=== PATIENT | male | born 1985 | race Caucasian/White ===

== ENCOUNTER 2017-07-28 20:22 | Emergency (ER) | payer MEDICAID, SELFPAY ==
[2017-07-28 20:23] VITALS: BP 144/104; PULSE 93; RESP 20; TEMP 36.4; O2SAT 97; BMI 37.0
--- NOTE | 2017-07-28 20:42 | RAD_ITS ---
XR Shoulder Min 2 Views INDICATION: Pain. PT STATED PAIN NO RECENT INJURY COMPARISON: None TECHNIQUE: 3 views of the left shoulder FINDINGS: There is normal glenohumeral relationship. Cortical irregularity is noted at the superior lateral aspect of the humeral head, may represent prior injury. No acute fracture identified at the proximal humerus or glenoid. There is normal alignment at the acromioclavicular joint. Mild osteophytosis is noted. A lucent line seen in the metadiaphyseal region of the left clavicle without evidence of displacement. There appears to be a periosteal reaction, suggestive of healing. RAD/Shoulder min 2 Views IMPRESSION: Healing or healed nondisplaced left clavicular fracture. No evidence of acute fracture or dislocation. Degenerative changes. at 2145 Reported and signed by: Rossana Daniels MD Electronically Signed: Rossana Daniels MD at 21:44 EDT Tel , Service support ,
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
[2017-07-28 21:35] VITALS: BP 154/78; PULSE 80; RESP 16; O2SAT 98
== END 2017-07-28 21:35 | disposition home or self-care (01) ==
PROVIDERS: Emergency Provider Emergency Medicine; Family Provider Nurse Practitioner Family; PCP Nurse Practitioner Family
DX: S46.912A Strain of unspecified muscle, fascia and tendon at shoulder and upper arm level, left arm, initial encounter (principal); X58.XXXA Exposure to other specified factors, initial encounter; Y93.9 Activity, unspecified; Y92.9 Unspecified place or not applicable; Y99.9 Unspecified external cause status; J45.909 Unspecified asthma, uncomplicated; M54.9 Dorsalgia, unspecified
CPT/HCPCS: 73030; 99282

== ENCOUNTER 2017-10-15 18:51 | Emergency (ER) | payer MEDICAID, SELFPAY ==
[2017-10-15 18:52] VITALS: BP 152/92; PULSE 77; RESP 14; TEMP 36.8; O2SAT 98; BMI 34.0
--- NOTE | 2017-10-15 19:16 | ED.VISSUMM ---
- ER Visit Summary Date of Service: 10/15/17 Chief Complaint: Suicidal ideation, homicidal ideation History of Present Illness: The patient is a 32 M who is brought in by police due to being suicidal homicidal. He states that he is mad at the world and wished he was . He wants to hurt the whole world as well. He states that he is homeless and has not had anything to eat for a couple of days. He does not see a psychiatrist currently. He has been off of his meds for some time. Physical Examination: Vital signs reviewed. HEENT exam unremarkable. Heart is regular rate and rhythm without murmurs. Lungs are clear to auscultation. Abdomen is soft and nontender. Extremities reveal no edema. Skin exam normal. Neurologic exam normal. Patient is agitated and gets very irritated when you ask many questions. He is suicidal and homicidal Test Results: Screening labs are negative except for potassium 3.4. Tox screen reveals marijuana Emergency Department Course and Treatment: Patient was evaluated by crisis. Both he and I feel the patient does not need to be admitted. He is angry at the world but is not acutely suicidal. Patient will be discharged and will be driven to his girlfriend's house by Ramirez Treatment Plan: [] Disposition: Discharge Impression: Behavior disorder This note was generated with [employer] dictation software. It may contain incorrect words, spelling, and punctuation that were not noted in review of the chart prior to signing ED Disposition - Plan for ED Patient: Chief Complaint: Suicidal Referrals: Tobias Bergman, HEATHER-C [Primary Care Provider] -
--- NOTE | 2017-10-15 19:32 | ED.RN ---
pt states he does not take any medications at this time. he used to take meds but it was 1-2 years ago. pt does not know what they were.
[2017-10-15 19:37] LABS: Absolute Lymphocyte Count 2.96 X10^3/ul (0.83-4.51); Absolute Neutrophil Count 6.4 X10^3/uL (2.0-7.7); Basophil# 0.02 X10^3/uL; Basophil% 0.2 % (0-1); Eosinophil# 0.16 X10^3/uL; Eosinophils% 1.6 % (0-5); Hematocrit 45.1 % (40-54); Hemoglobin 15.3 g/dl (13.0-16.5); Lymphocyte # 2.96 X10^3/ul (4.0); Lymphocyte % 28.7 % (19-41); Mean Corp Hgb Conc 33.9 g/gl (32-36); Mean Corpuscular Volume 85.4 fL (80-94); Mean Platelet Vol. 10.1 fl (6.2-12.0); Monocyte# 0.72 X10^3/uL; Neutrophil # 6.42 X10^3/uL (2.7-7.7); Neutrophil % 62.3 % (47-70); Platelet Count 164 K/mm3 (150-450); RBC Distribution Width SD 43.3 fl (35.1-43.9); Red Blood Count 5.28 M/mm3 (4.6-6.2); White Blood Count 10.3 K/mm3 (4.4-11.0)
[2017-10-15 19:42] LABS: POSITIVE COUNT NO; POSITIVE DIFFERENTIAL NO; POSITIVE MORPHOLOGY NO
[2017-10-15 20:01] VITALS: PULSE 72; RESP 22
[2017-10-15 20:03] LABS: Anion Gap 7 (5-15); BUN 19 mg/dL (7-18); BUN/Creat Ratio 24.1 RATIO (10-20); Calcium,Total 8.5 mg/dL (8.5-10.1); Chloride 110 mmol/L (98-107); Creatinine, Serum 0.79 mg/dL (0.70-1.30); EST Glomerular Filtration Rate 121 mL/min (>60); Est Glom Filt Rate - Afr Amer 147 mL/min (>60); Estimated Creatinine Clearance 151.71 ml/min; Glucose 90 mg/dL (74-106); Potassium 3.4 mmol/L (3.5-5.1); Sodium Level 141 mmol/L (136-145)
[2017-10-15 20:35] LABS: Amphetamine Urine VISTA NEGATIVE (<1000 ng/mL); Barbiturate Urine VISTA NEGATIVE (< 200 ng/mL); Benzodiazepine Urine VISTA NEGATIVE (< 200 ng/mL); Cocaine Urine VISTA NEGATIVE (< 300 ng/mL); Ecstacy Urine VISTA NEGATIVE (< 500 ng/mL); Methadone Urine VISTA NEGATIVE (< 300 ng/mL); PCP Urine VISTA NEGATIVE (< 25 ng/mL); THC Urine VISTA POSITIVE (< 50 ng/mL); Vista UDS pH Range 5
--- NOTE | 2017-10-15 20:49 | ED.RN ---
CALLED CRISIS TO SEE THIS PT, JAY DE LEÓN IS TELEPHONE TRIAGE NURSE
--- NOTE | 2017-10-15 20:56 | ED.RN ---
JAY CALLED BACK, HE WILL BE IN, IN A LITTLE BIT.
[2017-10-15 21:41] VITALS: BP 145/80; PULSE 77; RESP 18; O2SAT 99
--- NOTE | 2017-10-15 22:52 | ED.DEP ---
ED Disposition - Plan for ED Patient: Disposition: Home or Assisted Living Chief Complaint: Suicidal Instructions: ED Personality Disorder Referrals: Tobias Bergman, HEATHER-C [Primary Care Provider] -
[2017-10-15 22:57] VITALS: BP 145/80; PULSE 74; RESP 16; O2SAT 97
== END 2017-10-15 22:58 | disposition home or self-care (01) ==
PROVIDERS: Emergency Provider Emergency Medicine; Family Provider Nurse Practitioner Family; PCP Nurse Practitioner Family
DX: F31.9 Bipolar disorder, unspecified (principal); F91.9 Conduct disorder, unspecified; R45.851 Suicidal ideations; R45.850 Homicidal ideations; Z59.0 Homelessness
CPT/HCPCS: 36415; 80048; 80307; 80320; 85025; 99283; G0480

== ENCOUNTER 2017-11-02 14:37 | Emergency (ER) | payer MEDICAID, SELFPAY ==
[2017-11-02 14:38] VITALS: BP 148/91; PULSE 103; RESP 18; TEMP 37; O2SAT 98; BMI 35.2
--- NOTE | 2017-11-02 15:22 | ED.VISSUMM ---
- ER Visit Summary Date of Service: 11/02/17 Chief Complaint: Exacerbation of chronic back pain History of Present Illness: The patient is a 45 F with history of back pain for the past 6 months. He states his primary care provider states he needs back surgery. He reports his been sleeping on his parents floor for the past 3 days. He denies bowel bladder function. I saddle paresthesia anesthesia. Denies radicular pain. Denies foot drop. He denies thigh weakness going up or down steps. He does not prefer to stand over sitting. Physical Examination: Vital signs are marked for slight elevation blood pressure 124/67. He appears in no distress. He moves quite freely with no hesitation or evidence of pain. HEENT exam is unremarkable. Heart is regular without murmur, gallop or rub. S1 and S2 are normal. Lungs are clear to auscultation with good movement of air bilaterally. Abdomen is soft and nontender. There is no guarding or peritoneal findings. There is no palpable pulsatile mass. There is no abdominal bruit. Gardner sign is negative. Negative Rovsing sign. There is no evidence of inguinal or umbilical hernia. He has reproducible pain right lower back. Straight leg test and crossover tests are negative. Patella and ankle reflex are 2+ and symmetric. DP and PT pulses are palpable and symmetric. He has normal perianal sensation. There is no evidence of trauma. Test Results: None Emergency Department Course and Treatment: Since patient has taken nothing for his pain and he has no contraindication to NSAIDs he was given dose of Naprosyn. Treatment Plan: Anti-inflammatory Disposition: Discharged home with appropriate home-going instructions Impression: Acute on chronic right lower back pain without sciatica [] This note was generated with [employer] dictation software. It may contain incorrect words, spelling, and punctuation that were not noted in review of the chart prior to signing ED Disposition - Plan for ED Patient: Disposition: Home or Assisted Living Chief Complaint: Back Instructions: ED Neck Back Pain General Prescriptions: Naproxen [Naprosyn] 500 mg PO BID #14 tab Referrals: Tobias Bergman, ACTIVITIES THERAPIST-C [Primary Care Provider] - 1 Week if not improving
--- NOTE | 2017-11-02 15:25 | ED.DCSUM_ITS ---
- ER Visit Summary Date of Service: 11/02/17 Chief Complaint: Exacerbation of chronic back pain History of Present Illness: The patient is a 45 F with history of back pain for the past 6 months. He states his primary care provider states he needs back surgery. He reports his been sleeping on his parents floor for the past 3 days. He denies bowel bladder function. I saddle paresthesia anesthesia. Denies radicular pain. Denies foot drop. He denies thigh weakness going up or down steps. He does not prefer to stand over sitting. Physical Examination: Vital signs are marked for slight elevation blood pressure 124/67. He appears in no distress. He moves quite freely with no hesitation or evidence of pain. HEENT exam is unremarkable. Heart is regular without murmur, gallop or rub. S1 and S2 are normal. Lungs are clear to auscultation with good movement of air bilaterally. Abdomen is soft and nontender. There is no guarding or peritoneal findings. There is no palpable pulsatile mass. There is no abdominal bruit. Gardner sign is negative. Negative Rovsing sign. There is no evidence of inguinal or umbilical hernia. He has reproducible pain right lower back. Straight leg test and crossover tests are negative. Patella and ankle reflex are 2+ and symmetric. DP and PT pulses are palpable and symmetric. He has normal perianal sensation. There is no evidence of trauma. Test Results: None Emergency Department Course and Treatment: Since patient has taken nothing for his pain and he has no contraindication to NSAIDs he was given dose of Naprosyn. Treatment Plan: Anti-inflammatory Disposition: Discharged home with appropriate home-going instructions Impression: Acute on chronic right lower back pain without sciatica [] This note was generated with [employer] dictation software. It may contain incorrect words, spelling, and punctuation that were not noted in review of the chart prior to signing ED Disposition - Plan for ED Patient: Disposition: Home or Assisted Living Chief Complaint: Back Instructions: ED Neck Back Pain General Prescriptions: Naproxen [Naprosyn] 500 mg PO BID #14 tab Referrals: Tobias Bergman, [employer]C [employer] K[employer]OCKOUT WORKER-C [Primary Care Provider] - 1 Week if not improving
--- NOTE | 2017-11-02 15:47 | ED.RN ---
D/C INSTRUCTIONS REVIEWED. PT REFUSING NAPROSYN FOR PAIN. STATES HE CANNOT TAKE NAPROSYN D/T CAUSES THE SHITS. ASKED PT IF HE NEEDS NEW RX WRITTEN, PT REQUESTING IBUPROFEN-PT INFORMED THAT NAPROSYN AND IBUPROFEN ARE BOTH NSAIDS. PT REFUSED GETTING A DIFF PAIN MED. PT ANXIOUS TO LEAVE. DENIES FURTHER NEEDS
== END 2017-11-02 15:53 | disposition home or self-care (01) ==
LOC: ED 15:43
PROVIDERS: Emergency Provider Emergency Medicine; Family Provider Nurse Practitioner Family; PCP Nurse Practitioner Family
DX: M54.5 Low back pain (principal); G89.29 Other chronic pain; R03.0 Elevated blood-pressure reading, without diagnosis of hypertension; E66.9 Obesity, unspecified
CPT/HCPCS: 99282

== ENCOUNTER 2018-03-11 18:41 | Emergency (ER) | payer MEDICAID, SELFPAY ==
[2018-03-11 18:42] VITALS: BP 160/111; PULSE 102; RESP 16; TEMP 37; O2SAT 98; BMI 37.1
--- NOTE | 2018-03-11 18:56 | RAD_ITS ---
STUDY: X-RAY - LEFT SHOULDER REASON FOR EXAM: Male, 32 years old. Pain TECHNIQUE: 2 view(s) of the shoulder. COMPARISON: 07/28/2017 FINDINGS: Normal glenohumeral articulation. Normal acromioclavicular joint. Normal acromion. Stable contour irregularity in the superior lateral humeral head suggestive of previous injury Normal humeral head and visualized proximal humerus. The soft tissue structures are unremarkable. Normal visualized pulmonary apex. RAD/Shoulder min 2 Views IMPRESSION: No acute findings Electronically Signed: Fabián Mario MD at 19:13 EST , Service support ,
--- NOTE | 2018-03-11 19:17 | ED.DCSUM_ITS ---
- ER Visit Summary Date of Service: 03/11/18 Chief Complaint: Left shoulder injury History of Present Illness: The patient is a 32 M presents to the emergency department with left shoulder injury. Patient has a history of prior dislocation. He states that he was outside waiting for his father to leave the doctor. He states he put his hand on the tailgate of truck and slipped. He struck the posterior aspect of the shoulder against the truck. Since then, he has had pain. He states it feels different than when he had prior dislocations. He did not strike his head. He denies loss of consciousness. Physical Examination: Exam is relatively unremarkable. Patient does have ten derness in the posterior aspect of the shoulder. There is no balta dislocation. His axillary nerve is preserved. His pulses are normal. He does lift and move the arm. Test Results: [] Emergency Department Course and Treatment: Plain films were obtained. There is no evidence of acute fracture. I do feel that his symptoms are secondary to contusion. His pulses are normal. At this time, the patient will be treated with anti-inflammatories and discharged home. Treatment Plan: [] Disposition: Discharge Impression: 1. Left shoulder contusion This note was generated with [employer] dictation software. It may contain incorrect words, spelling, and punctuation that were not noted in review of the chart prior to signing ED Disposition - Plan for ED Patient: Chief Complaint: Upper Extremity Injury Instructions: ED Sprain Shoulder Prescriptions: Naproxen [Naprosyn] 500 mg PO BID PRN #20 tab Referrals: Tobias Bergman NP-González [Primary Care Provider] -
[2018-03-11] MEDS: HYDROcodone Bitartrate/Apap 5/325 Tablet PO (19:31)
[2018-03-11 19:42] VITALS: BP 150/100; PULSE 92; RESP 16; O2SAT 99
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
== END 2018-03-11 19:42 | disposition home or self-care (01) ==
PROVIDERS: Emergency Provider Emergency Medicine; Family Provider Nurse Practitioner Family; PCP Nurse Practitioner Family
DX: S40.012A Contusion of left shoulder, initial encounter (principal); W22.09XA Striking against other stationary object, initial encounter; Y93.9 Activity, unspecified; Y92.9 Unspecified place or not applicable; Y99.9 Unspecified external cause status; J45.909 Unspecified asthma, uncomplicated
CPT/HCPCS: 73030; 99282

== ENCOUNTER 2018-10-09 16:53 | Emergency (ER) | payer MEDICAID, SELFPAY ==
[2018-10-09 16:54] VITALS: BP 132/94; PULSE 85; RESP 14; RESP 15; TEMP 36.9; O2SAT 95; BMI 37.2
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
== END 2018-10-09 17:24 | disposition home or self-care (01) ==
PROVIDERS: Emergency Provider Emergency Medicine; Family Provider Nurse Practitioner Family; PCP Nurse Practitioner Family
DX: H60.501 Unspecified acute noninfective otitis externa, right ear (principal); I10 Essential (primary) hypertension; Z72.0 Tobacco use; Z79.899 Other long term (current) drug therapy
CPT/HCPCS: 99282

== ENCOUNTER 2018-10-25 22:42 | Emergency (ER) | payer MEDICAID, SELFPAY ==
[2018-10-25 22:43] VITALS: BP 144/125; PULSE 122; RESP 20; TEMP 36.6; O2SAT 95; BMI 36.3
--- NOTE | 2018-10-25 23:12 | ED.RN ---
PT WAS UPSET ABOUT THE DOOR BEING CLOSED AND YELLED WELL I'M JUST LEAVING PT LEFT ROOM. [employer] OFFICER INFORMED THIS NURSE THAT PT ADMITTED TO HAVING BED BUG BITES FROM STAYING AT [facility]. PT HAS LEFT [facility].
== END 2018-10-25 23:00 | disposition left against medical advice (07) ==
PROVIDERS: Emergency Provider Emergency Medicine; Family Provider Nurse Practitioner Family; PCP Nurse Practitioner Family
DX: Z53.21 Procedure and treatment not carried out due to patient leaving prior to being seen by health care provider (principal)

== ENCOUNTER 2019-01-05 14:55 | Emergency (ER) | payer MEDICAID, SELFPAY ==
[2018-11-16 11:46] VITALS: BMI 36.3
[2019-01-05 14:56] VITALS: BP 140/76; PULSE 95; RESP 14; TEMP 36.6; O2SAT 97; BMI 36.5
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
[2019-01-05 16:07] VITALS: BP 137/81; PULSE 87; RESP 14; O2SAT 97
== END 2019-01-05 16:08 | disposition home or self-care (01) ==
LOC: ED 15:23
PROVIDERS: Emergency Provider Emergency Medicine; Family Provider Nurse Practitioner Family; PCP Nurse Practitioner Family
DX: S70.01XA Contusion of right hip, initial encounter (principal); V03.10XA Pedestrian on foot injured in collision with car, pick-up truck or van in traffic accident, initial encounter; Y93.01 Activity, walking, marching and hiking; Y93.C9 Activity, other involving computer technology and electronic devices; Y92.830 Public park as the place of occurrence of the external cause; Y99.9 Unspecified external cause status; J45.909 Unspecified asthma, uncomplicated; F31.9 Bipolar disorder, unspecified; F90.9 Attention-deficit hyperactivity disorder, unspecified type; Z72.0 Tobacco use; Z79.899 Other long term (current) drug therapy
CPT/HCPCS: 73502; 99282

== ENCOUNTER → 2020-06-07 14:27 | Outpatient (CLI) | payer MEDICAID, SELFPAY ==
[2019-05-13 13:07] VITALS: BMI 36.5
[2020-06-07 17:28] LABS: ALB/GLOB Ratio 0.9 RATIO (0.9-2.4); AST(SGOT) 22 U/L (15-37); Alanine Aminotransfer ALT/SGPT 45 U/L (16-61); Albumin, Serum 3.7 g/dL (3.2-5.0); Alkaline Phosphatase 80 U/L (45-117); Anion Gap 7 (5-15); BUN 14 mg/dL (7-18); BUN/Creat Ratio 16.3 RATIO (10-20); Calcium,Total 8.4 mg/dL (8.5-10.1); Chloride 107 mmol/L (98-107); Cholesterol 202 mg/dL (200); Creatinine, Serum 0.86 mg/dL (0.70-1.30); EST Glomerular Filtration Rate 108 mL/min (>60); Est Glom Filt Rate - Afr Amer 131 mL/min (>60); Globulin 4.1 g/dL (2.2-4.2); Glucose 92 mg/dL (74-106); High Density Lipoprotein 34 mg/dL; Potassium 3.6 mmol/L (3.5-5.1); Protein, Total 7.8 g/dL (6.4-8.2); Sodium Level 141 mmol/L (136-145); Triglycerides 173 mg/dL; Very Low Density Lipoprotein 35 mg/dL (5-40)
== END ==
PROVIDERS: PCP Nurse Practitioner Family; Visit Provider Nurse Practitioner Family
DX: Z13.220 Encounter for screening for lipoid disorders (principal); Z13.1 Encounter for screening for diabetes mellitus
CPT/HCPCS: 36415; 80053; 80061

== ENCOUNTER → 2020-07-02 14:24 | Outpatient (CLI) | payer MEDICAID, SELFPAY ==
[2019-05-13 13:07] VITALS: BMI 36.5
[2020-07-07 09:07] LABS: Alternaria tenuis <0.10 kU/L (Class 0); Ash, White <0.10 kU/L (Class 0); Aspergillus fumigatus <0.10 kU/L (Class 0); Bermuda Grass <0.10 kU/L (Class 0); Birch <0.10 kU/L (Class 0); Black Walnut <0.10 kU/L (Class 0); Cat Hair / Dander,Stand 0.95 kU/L (Class II); Cedar, Mountain <0.10 kU/L (Class 0); Cladosporium herbarum <0.10 kU/L (Class 0); Cockroach, American <0.10 kU/L (Class 0); Cottonwood <0.10 kU/L (Class 0); Dog Epithelia 0.32 kU/L (Class I); Elm, American White <0.10 kU/L (Class 0); Immunoglobulin E 118 IU/mL (6-495); Maple/Box Elder <0.10 kU/L (Class 0); Mouse Urine <0.10 kU/L (Class 0); Mulberry, White <0.10 kU/L (Class 0); Oak, White <0.10 kU/L (Class 0); Pecan <0.10 kU/L (Class 0); Penicillium Notatum <0.10 kU/L (Class 0); Pigweed, Rough <0.10 kU/L (Class 0); Ragweed, Short/Common <0.10 kU/L (Class 0); Russian Thistle <0.10 kU/L (Class 0); Sheep Sorrel <0.10 kU/L (Class 0); Sycamore, American <0.10 kU/L (Class 0); Timothy Grass <0.10 kU/L (Class 0)
[2020-07-15 15:13] LABS: Chicken <0.10 kU/L
[2020-07-15 15:15] LABS: Clam <0.10 kU/L; Crab <0.10 kU/L; Egg, Whole <0.10 kU/L
[2020-07-15 15:18] LABS: Pork <0.10 kU/L
[2020-07-15 15:19] LABS: Potato, White <0.10 kU/L; Rice <0.10 kU/L; Salmon <0.10 kU/L
[2020-07-15 15:20] LABS: Shrimp <0.10 kU/L; Tomato <0.10 kU/L; Wheat <0.10 kU/L; Yeast <0.10 kU/L
== END ==
PROVIDERS: PCP Nurse Practitioner Family; Visit Provider Otolaryngology Otolaryngology/Facial Plastic Surgery
DX: T78.40XA Allergy, unspecified, initial encounter (principal)
CPT/HCPCS: 36415; 82785; 86003

== ENCOUNTER → 2020-12-03 11:28 | Outpatient (CLI) | payer MEDICAID, SELFPAY ==
[2020-12-03 12:15] LABS: Hematocrit 50.1 % (40-54); Hemoglobin 16.5 g/dL (13.0-16.5); Mean Corp Hgb Conc 32.9 g/dL (32-36); Mean Corpuscular Hgb 29.1 pg (27.0-32.0); Mean Corpuscular Volume 88.4 fL (80-94); Mean Platelet Vol. 10.8 fl (6.2-12.0); Platelet Count 221 K/mm3 (150-450); RBC Distribution Width CV 13.4 % (11.6-14.6); RBC Distribution Width SD 43.8 fl (35.1-43.9); Red Blood Count 5.67 M/mm3 (4.6-6.2); White Blood Count 8.9 K/mm3 (4.4-11.0)
[2020-12-03 12:45] LABS: AST(SGOT) 19 U/L (15-37); Alanine Aminotransfer ALT/SGPT 51 U/L (16-61); Albumin, Serum 3.6 g/dL (3.2-5.0); Alkaline Phosphatase 76 U/L (45-117); Anion Gap 4 (5-15); BUN 11 mg/dL (7-18); BUN/Creat Ratio 13.6 RATIO (10-20); Calcium,Total 8.5 mg/dL (8.5-10.1); Chloride 109 mmol/L (98-107); Cholesterol 166 mg/dL (200); Creatinine, Serum 0.81 mg/dL (0.70-1.30); EST Glomerular Filtration Rate 115 mL/min (>60); Est Glom Filt Rate - Afr Amer 140 mL/min (>60); Globulin 3.7 g/dL (2.2-4.2); Glucose 102 mg/dL (74-106); High Density Lipoprotein 29 mg/dL; Potassium 3.7 mmol/L (3.5-5.1); Protein, Total 7.3 g/dL (6.4-8.2); Sodium Level 139 mmol/L (136-145); Triglycerides 203 mg/dL; Very Low Density Lipoprotein 41 mg/dL (5-40)
== END ==
PROVIDERS: PCP Nurse Practitioner Family; Visit Provider Nurse Practitioner Family
DX: I10 Essential (primary) hypertension (principal); E78.00 Pure hypercholesterolemia, unspecified
CPT/HCPCS: 36415; 80053; 80061; 85027

== ENCOUNTER 2021-06-10 13:13 | Outpatient (CLI) | payer MEDICAID, SELFPAY ==
[2021-06-10 13:53] LABS: Hematocrit 49.9 % (40-54); Hemoglobin 17.1 g/dL (13.0-16.5); Mean Corp Hgb Conc 34.3 g/dL (32-36); Mean Corpuscular Hgb 29.2 pg (27.0-32.0); Mean Corpuscular Volume 85.3 fL (80-94); Mean Platelet Vol. 10.8 fl (6.2-12.0); Platelet Count 231 K/mm3 (150-450); RBC Distribution Width CV 13.4 % (11.6-14.6); RBC Distribution Width SD 41.9 fl (35.1-43.9); Red Blood Count 5.85 M/mm3 (4.6-6.2); White Blood Count 7.5 K/mm3 (4.4-11.0)
[2021-06-10 14:33] LABS: ALB/GLOB Ratio 0.9 RATIO (0.9-2.4); AST(SGOT) 20 U/L (15-37); Alanine Aminotransfer ALT/SGPT 42 U/L (16-61); Albumin, Serum 3.6 g/dL (3.2-5.0); Alkaline Phosphatase 73 U/L (45-117); Anion Gap 6 (5-15); BUN 15 mg/dL (7-18); Calcium,Total 8.1 mg/dL (8.5-10.1); Chloride 112 mmol/L (98-107); Cholesterol 160 mg/dL (200); Creatinine, Serum 0.83 mg/dL (0.70-1.30); EST Glomerular Filtration Rate 111 mL/min (>60); Est Glom Filt Rate - Afr Amer 135 mL/min (>60); Globulin 4.1 g/dL (2.2-4.2); Glucose 109 mg/dL (74-106); High Density Lipoprotein 33 mg/dL; Potassium 3.8 mmol/L (3.5-5.1); Protein, Total 7.7 g/dL (6.4-8.2); Sodium Level 141 mmol/L (136-145); Thyroid Stim Hormone (TSH) 1.12 uIU/mL (0.358-3.74); Triglycerides 139 mg/dL; Very Low Density Lipoprotein 28 mg/dL (5-40)
== END 2021-06-10 23:59 | disposition home or self-care (01) ==
LOC: LAB 13:15
PROVIDERS: PCP Nurse Practitioner Family; Referring Provider Nurse Practitioner Family; Visit Provider Nurse Practitioner Family
DX: I10 Essential (primary) hypertension (principal); E78.00 Pure hypercholesterolemia, unspecified; E78.1 Pure hyperglyceridemia; K21.9 Gastro-esophageal reflux disease without esophagitis; J30.2 Other seasonal allergic rhinitis; R63.8 Other symptoms and signs concerning food and fluid intake
CPT/HCPCS: 36415; 80053; 80061; 84443; 85027

== ENCOUNTER → 2021-12-26 | Outpatient (CLI) | payer MEDICAID, SELFPAY ==
[2021-12-26 14:32] LABS: Hematocrit 50.6 % (40-54); Hemoglobin 16.6 g/dL (13.0-16.5); Mean Corp Hgb Conc 32.8 g/dL (32-36); Mean Corpuscular Hgb 29.3 pg (27.0-32.0); Mean Corpuscular Volume 89.2 fL (80-94); Mean Platelet Vol. 10.3 fl (6.2-12.0); Platelet Count 195 K/mm3 (150-450); RBC Distribution Width CV 13.8 % (11.6-14.6); RBC Distribution Width SD 45.2 fl (35.1-43.9); Red Blood Count 5.67 M/mm3 (4.6-6.2); White Blood Count 9.5 K/mm3 (4.4-11.0)
[2021-12-26 15:00] LABS: PTHIN 48.6 pg/mL (18.4-80.1)
[2021-12-26 15:03] LABS: Vitamin D,25 Hydroxy 9.2 ng/mL
[2021-12-26 15:22] LABS: AST(SGOT) 17 U/L (15-37); Alanine Aminotransfer ALT/SGPT 40 U/L (16-61); Albumin, Serum 3.8 g/dL (3.2-5.0); Alkaline Phosphatase 61 U/L (45-117); Anion Gap 6 (5-15); BUN 16 mg/dL (7-18); BUN/Creat Ratio 17.4 RATIO (10-20); Calcium,Total 9.5 mg/dL (8.5-10.1); Chloride 109 mmol/L (98-107); Cholesterol 205 mg/dL (200); Creatinine, Serum 0.92 mg/dL (0.70-1.30); EST Glomerular Filtration Rate 99 mL/min (>60); Est Glom Filt Rate - Afr Amer 120 mL/min (>60); Globulin 3.9 g/dL (2.2-4.2); Glucose 103 mg/dL (74-106); High Density Lipoprotein 34 mg/dL; Potassium 3.9 mmol/L (3.5-5.1); Protein, Total 7.7 g/dL (6.4-8.2); Sodium Level 141 mmol/L (136-145); Triglycerides 154 mg/dL; Very Low Density Lipoprotein 31 mg/dL (5-40)
== END | disposition home or self-care (01) ==
LOC: LAB 13:58
PROVIDERS: PCP Nurse Practitioner Family; Referring Provider Nurse Practitioner Family; Visit Provider Nurse Practitioner Family
DX: D58.2 Other hemoglobinopathies (principal); I10 Essential (primary) hypertension; E78.00 Pure hypercholesterolemia, unspecified; E78.1 Pure hyperglyceridemia; E83.51 Hypocalcemia; M54.50 Low back pain, unspecified
CPT/HCPCS: 36415; 80053; 80061; 82306; 83970; 85027

== ENCOUNTER → 2022-04-28 | Outpatient (CLI) | payer MEDICAID, SELFPAY ==
[2022-04-28 15:43] LABS: Vitamin D,25 Hydroxy 43.9 ng/mL
== END | disposition home or self-care (01) ==
LOC: LAB 14:41
PROVIDERS: PCP Nurse Practitioner Family; Visit Provider Nurse Practitioner Family
DX: E55.9 Vitamin D deficiency, unspecified (principal)
CPT/HCPCS: 36415; 82306

== ENCOUNTER → 2022-07-26 | Outpatient (CLI) | payer MEDICAID, SELFPAY ==
[2022-07-26 13:41] LABS: Hematocrit 50.8 % (40-54); Hemoglobin 16.7 g/dL (13.0-16.5); Mean Corp Hgb Conc 32.9 g/dL (32-36); Mean Corpuscular Hgb 28.8 pg (27.0-32.0); Mean Corpuscular Volume 87.6 fL (80-94); Platelet Count 210 K/mm3 (150-450); RBC Distribution Width CV 14.3 % (11.6-14.6); RBC Distribution Width SD 45.5 fl (35.1-43.9); White Blood Count 9.6 K/mm3 (4.4-11.0)
[2022-07-26 14:16] LABS: Vitamin D,25 Hydroxy 27.1 ng/mL
[2022-07-26 14:18] LABS: AST(SGOT) 33 U/L (15-37); Alanine Aminotransfer ALT/SGPT 50 U/L (16-61); Albumin, Serum 3.8 g/dL (3.2-5.0); Alkaline Phosphatase 57 U/L (45-117); Anion Gap 4 (5-15); BUN 23 mg/dL (7-18); BUN/Creat Ratio 26.6 RATIO (10-20); Calcium,Total 8.7 mg/dL (8.5-10.1); Chloride 110 mmol/L (98-107); Cholesterol 235 mg/dL (200); Creatinine, Serum 0.87 mg/dL (0.70-1.30); EST Glomerular Filtration Rate 106 mL/min (>60); Est Glom Filt Rate - Afr Amer 128 mL/min (>60); Glucose 109 mg/dL (74-106); High Density Lipoprotein 29 mg/dL; Protein, Total 7.8 g/dL (6.4-8.2); Sodium Level 138 mmol/L (136-145); Triglycerides 209 mg/dL; Very Low Density Lipoprotein 42 mg/dL (5-40)
== END | disposition home or self-care (01) ==
LOC: LAB 12:59
PROVIDERS: PCP Nurse Practitioner Family; Referring Provider Nurse Practitioner Family; Visit Provider Nurse Practitioner Family
DX: I10 Essential (primary) hypertension (principal); E78.00 Pure hypercholesterolemia, unspecified; E78.6 Lipoprotein deficiency; E78.1 Pure hyperglyceridemia; E55.9 Vitamin D deficiency, unspecified; R73.01 Impaired fasting glucose
CPT/HCPCS: 36415; 80053; 80061; 82306; 85027

== ENCOUNTER → 2022-10-24 | Outpatient (CLI) | payer MEDICAID, SELFPAY ==
--- NOTE | 2022-10-24 16:42 | RAD_ITS ---
STUDY: X-RAY - BILATERAL RIBS WITH CHEST REASON FOR EXAM: Male, 37 years old. pain TECHNIQUE - RIBS: 9 view(s) of the ribs. TECHNIQUE - CHEST: Single AP portable view of the chest. COMPARISON: 11/03/2016. FINDINGS - RIBS : Normal visualized ribs without a demonstrated fracture. FINDINGS - CHEST: The lungs are clear and expanded. There is no demonstrated pleural abnormality. Normal size heart. Normal mediastinum and luciano. Normal visualized pulmonary arteries. Normal visualized aortic arch and descending thoracic aorta. Normal visualized thoracic spine. Normal visualized ribs, clavicles, and shoulders. There is no demonstrated abnormality of the visualized soft tissue structures of the upper abdomen. RAD/Ribs [place] Min 4V w/PA Chest IMPRESSION: RIBS: Normal x-ray examination of the bilateral ribs. CHEST: Normal x-ray examination of the chest. Electronically Signed: Tre Lyon MD at 17:13 EDT ,
== END | disposition home or self-care (01) ==
LOC: MTRAD 16:42
PROVIDERS: PCP Nurse Practitioner Family; Referring Provider Physician Assistant; Visit Provider Physician Assistant
DX: R07.81 Pleurodynia (principal)
CPT/HCPCS: 71111

== ENCOUNTER → 2023-01-19 | Outpatient (CLI) | payer MEDICAID, SELFPAY ==
[2023-01-19 15:15] LABS: Vitamin D,25 Hydroxy 29.1 ng/mL
[2023-01-19 15:18] LABS: Hemoglobin A1c 5.4 % (3.8-5.6)
[2023-01-19 15:23] LABS: AST(SGOT) 30 U/L (15-37); Alanine Aminotransfer ALT/SGPT 68 U/L (16-61); Albumin, Serum 3.8 g/dL (3.2-5.0); Alkaline Phosphatase 68 U/L (45-117); Anion Gap 2 (5-15); BUN 19 mg/dL (7-18); BUN/Creat Ratio 18.6 RATIO (10-20); Calcium,Total 9.1 mg/dL (8.5-10.1); Chloride 108 mmol/L (98-107); Cholesterol 179 mg/dL (200); Creatinine, Serum 1.02 mg/dL (0.70-1.30); EST Glomerular Filtration Rate 87 mL/min (>60); Est Glom Filt Rate - Afr Amer 106 mL/min (>60); Globulin 3.9 g/dL (2.2-4.2); Glucose 120 mg/dL (74-106); High Density Lipoprotein 32 mg/dL; Potassium 3.8 mmol/L (3.5-5.1); Protein, Total 7.7 g/dL (6.4-8.2); Sodium Level 139 mmol/L (136-145); Triglycerides 311 mg/dL; Very Low Density Lipoprotein 62 mg/dL (5-40)
== END | disposition home or self-care (01) ==
LOC: LAB 13:28
PROVIDERS: PCP Nurse Practitioner Family; Referring Provider Nurse Practitioner Family; Visit Provider Nurse Practitioner Family
DX: I10 Essential (primary) hypertension (principal); E78.00 Pure hypercholesterolemia, unspecified; E78.1 Pure hyperglyceridemia; E55.9 Vitamin D deficiency, unspecified; R73.01 Impaired fasting glucose
CPT/HCPCS: 36415; 80053; 80061; 82306; 83036

== ENCOUNTER → 2023-03-20 | Outpatient (CLI) | payer MEDICAID, SELFPAY ==
--- NOTE | 2023-03-20 15:46 | RAD_ITS ---
STUDY: X-RAY CHEST REASON FOR EXAM: Male, 37 years old. pain TECHNIQUE: Frontal and lateral views of the chest. COMPARISON: 10/24/2022. FINDINGS: Mild diffuse increased density of the left lung when compared to the right. Findings may be from overlying soft tissues but atypical left pulmonary opacities are not excluded. CT scan is recommended. No gross effusions. Normal size heart. Normal mediastinum and luciano. Normal visualized pulmonary arteries. Normal visualized aortic arch and descending thoracic aorta. Normal visualized thoracic spine. Normal visualized ribs, clavicles, and shoulders. There is no demonstrated abnormality of the visualized soft tissue structures of the upper abdomen. RAD/Chest PA and Lateral IMPRESSION: Cannot exclude mild diffuse pulmonary density of the left lung. CT scan recommended. Electronically Signed: Tre Lyon MD at 16:51 EST ,
== END | disposition home or self-care (01) ==
LOC: MTRAD 15:44
PROVIDERS: PCP Nurse Practitioner Family; Referring Provider Physician Assistant; Visit Provider Physician Assistant
DX: R07.89 Other chest pain (principal)
CPT/HCPCS: 71046

== ENCOUNTER → 2023-04-19 | Outpatient (CLI) | payer MEDICAID, SELFPAY ==
--- NOTE | 2023-04-19 14:47 | CT_ITS ---
INDICATION: radiologist''s recommendation EXAMINATION: CT CHEST WITHOUT CONTRAST - CT Chest W/O Contrast Injection TECHNIQUE: Helically acquired images were obtained of the chest. A radiation dose optimization technique was used for this scan. IV Contrast dosage and agent: None. COMPARISON: 03/20/2023 chest x-ray examination. FINDINGS: LUNGS, PLEURA AND LARGE AIRWAYS: No masses, consolidation, or edema. No pleural effusion or thickening. No pneumothorax. THYROID: No thyroid lesions. HEART AND PERICARDIUM: Heart size is normal. No pericardial effusion. CORONARY ARTERIES: Coronary artery calcification VESSELS: Thoracic aorta is not dilated. MEDIASTINUM AND LEELEE: No mediastinal or hilar adenopathy. Esophagus is unremarkable. No hiatal hernia. UPPER ABDOMEN: Diffuse fatty liver otherwise unremarkable upper abdomen. BONES: Multilevel spondylosis/degenerative disease throughout the thoracic spine. No suspicious lytic or blastic abnormality. CT/Chest without Contrast IMPRESSION: Negative CT chest without contrast. Electronically Signed: Isabell Hernandez MD at 20:13 EST ,
== END | disposition home or self-care (01) ==
LOC: CT 14:44
PROVIDERS: PCP Nurse Practitioner Family; Referring Provider Physician Assistant; Visit Provider Physician Assistant
DX: R91.8 Other nonspecific abnormal finding of lung field (principal)
CPT/HCPCS: 71250

== ENCOUNTER 2023-07-09 01:49 | Emergency (ER) | payer MEDICAID, SELFPAY ==
[2023-07-09 01:50] VITALS: BP 188/102; PULSE 113; RESP 22; TEMP 36.4; O2SAT 96; BMI 49.0
--- NOTE | 2023-07-09 01:57 | EDS_ITS ---
HPI History of Present Illness Chief Complaint: Back Informant: patient Onset/Context/Timing Onset: Today Context: Sudden Onset Injury: fall Timing: Continuous Quality: - (Cramping) Location: Lumbar and Left Leg Worsened by: improves with - (Everything) Relieved by: Nothing Associated Symptoms Associated Symptoms: Radiation to Left Leg; Negative for Numbness, Tingling, Radiation to Right Leg, Fever, Abdominal Pain, Dysuria, Unable to Ambulate, Unable to Transfer, Urinary Retention, Urinary Incontinence, Constipation or Fecal Incontinence Narrative Narrative: Patient presents with back pain that began today. Patient states he got up off of the toilet and started having some severe back pain. Patient states he felt and landed forward. Patient describes his pain as cramping. Patient states it is mainly over the left lumbar paraspinal muscles. Patient states that everything makes it worse. Patient states nothing makes it better. Patient states the pain radiates down his left leg. Patient denies any bowel or bladder changes. Patient denies any saddle anesthesia. [facility] Medical History Asthma Back pain Excessive cerumen in right ear canal Fatigue Left-sided chest wall pain Lumbar contusion Lumbar strain Mass of left lung Muscle strain of chest wall Home Medications atenolol 25 mg tablet 25 mg PO DAILY 10/09/18 [History Last Taken Unknown] omeprazole 10 mg capsule,delayed release 10 mg PO DAILY 11/16/18 [History Last Taken Unknown] cyclobenzaprine 10 mg tablet 10 mg PO TID 06/28/22 [History Last Taken Unknown] fluticasone 100 mcg-salmeterol 50 mcg/dose blistr powdr for inhalation (Advair Diskus) 1 inh inhalation DAILY 11/23/22 [History Last Taken Unknown] naproxen 500 mg tablet 500 mg PO BID PRN #20 tabs 07/09/23 [Rx Last Taken Unknown] Allergy/AdvReac Type Severity Reaction Status Date / Time cefaclor [From [facility]] Allergy Hives Verified 07/09/23 01:51 Surgical History History of ankle surgery Social History Smoking Status: Current some day smoker tobacco type: cigarettes alcohol intake: never substance use type: marijuana ROS ROS ED Constitutional Constitutional ED: Denies chills or fever(s) Eyes Eyes: Denies blurry vision or change in vision ENT ENT ED: Denies rhinorrhea or sore throat Cardiovascular Cardiovascular: Denies chest pain or palpitations Respiratory/Chest Respiratory/Chest: Denies cough or dyspnea Gastrointestinal Gastrointestinal: Denies nausea or vomiting Genitourinary Genitourinary ED: Denies dysuria or hematuria Musculoskeletal Musculoskeletal: Reports back pain; Denies neck pain Integumentary Denies abscess or rash Neurologic Neurologic: Denies headache(s) or weakness Allergic/Immunologic Allergic/Immunologic ED: Denies mouth swelling or urticaria EXAM Physical Exam Const Vital Signs: 07/09/23 01:50 Temperature 97.5 F L Temperature Source Oral Pulse Rate 113 H Respiratory Rate 22 H Blood Pressure 188/102 H Blood Pressure Mean 130 Pulse Ox 96 Oxygen Delivery Method Room Air Positive well nourished, well developed and obese General Appearance ED: well developed and NAD Nutritional Appearance: obese HEENT Reports moist mucous membranes Neck supple and no JVD Back/Spine Back/Spine Narrative: There is tenderness and mild spasm in the left lumbar paraspinal muscles. There is no midline tenderness. There is no bony crepitance or step-off. There is good range of motion. It is slightly limited in all motions secondary to pain. Strength is 5/5 bilaterally in the lower extremities. There are no sensory deficits noted. Deep tendon reflexes are 2/4 bilaterally in the lower extremities. Lumbar Spine / Lower Back: ROM limited and straight leg raise negative bilaterally Neuro oriented x3 and no sensory deficits noted Sensorium / Orientation: alert Motor Exam: strength 5/5 throughout Deep Tendon Reflexes: Rt Patellar (L4): 2+, Lt Patellar (L4): 2+, Rt Ankle (S1): 2+ and Lt Ankle (S1): 2+ Deep Tendon Reflexes Back: Rt Patellar (L4): 2+, Lt Patellar (L4): 2+, Rt Ankle (S1): 2+ and Lt Ankle (S1): 2+ Psych mental status grossly normal MDM MDM MDM Narrative Medical decision making narrative: Smoking cessation was discussed. Patient was advised that this is most likely a muscular strain. Patient was given injection of Toradol here. Patient was given a prescription for Naprosyn. Patient was instructed to use ice to the area. Patient was instructed to follow-up with his primary care physician in 5 to 7 days. Patient understood and was agreeable with the plan. All questions were answered. Discharge Plan Triage Chief Complaint: Back ED Provider: Segundo Griffin Dx/Rx/DC Orders Clinical Impression: Lumbar strain, Cannabis use disorder, Tobacco use disorder, Morbid obesity with BMI of 45.0-49.9, adult Instructions: ED Back Sprain/Strain Prescriptions: Continued naproxen 500 MG tablet 500 mg PO BID PRN Qty: 20 0RF No Action omeprazole 10 mg capsule,delayed release(DR/EC) 10 mg PO DAILY cyclobenzaprine 10 mg tablet 10 mg PO TID fluticasone propion-salmeterol [Advair Diskus] 100-50 mcg/dose blister with device 1 inh inhalation DAILY atenolol 25 tablet 25 mg PO DAILY Primary Care Provider: Tobias Bergman NP Referrals: Tobias Bergman NP, SUPERVISOR [employer]-C [Primary Care Provider] - 3-5 Days Disposition Disposition: Home, Self Care
[2023-07-09] MEDS: Ketorolac 60 MG/2 ML Vial IM (03:02)
== END 2023-07-09 03:07 | disposition home or self-care (01) ==
PROVIDERS: Emergency Provider Emergency Medicine; PCP Nurse Practitioner Family; Visit Provider Emergency Medicine
DX: S39.012A Strain of muscle, fascia and tendon of lower back, initial encounter (principal); E66.01 Morbid (severe) obesity due to excess calories; Z68.42 Body mass index [BMI] 45.0-49.9, adult; F12.90 Cannabis use, unspecified, uncomplicated; F17.210 Nicotine dependence, cigarettes, uncomplicated; X58.XXXA Exposure to other specified factors, initial encounter
CPT/HCPCS: 96372; 99282

== ENCOUNTER 2023-07-24 15:00 | Outpatient (RCR) | payer MEDICAID, SELFPAY ==
--- NOTE | 2023-06-14 16:54 | HP.PTEVAL_ITS ---
Patient's Visit Information Visit Information Visit Information: FILEMON AVILEZ is a 37 year old M referred to Physical Therapy by Dr. Steve Kim DO with a diagnosis of OTHER INTERVETEBRAL DISC DEGENERATION. Date of Evaluation: 06/14/23 Physical Therapist: Jaziel Lainez, PT, Cert MDT, OCS Visit Plan Frequency: 2x /Week Duration: 4 Weeks Plan: PT INTERVENTIONS DLS ,POSTURAL EX'S ,LE FLEXIBILITY ,ACTIVITY MODIFICATION AND MODALITIES NEEDED Subjective Subjective: This 37 y/o male presents to physical therapy lumbar pain. Patient has had back pain 2004 which has progressively worse . Seen DR Kim had x-rays DDD and needs MRI but will have to do PT. Patient pain symmetrical lumbar radiates left lateral hip. Aggravating factors walking/lamberto ding/lifting/sitting/standing, Alleviating rest. Coughing/sneezing-. Bowel/bladder-. Pain can affects sleeping. Patient denies paresthesia/tingling - . Patient has had PT in past. No medication. Patient has h/o fracture right ankle. Patient pain affects QOL and function. Patient goals to decrease pain . SOCIAL: lives with mom VOCATION: unemployed Pain Bilateral Back: Pain Intensity (Out of 10): 8 Pain Intensity Range: 10 Objective Objective: POSTURE: mild forward posture GAIT: reciprocal pattern NEURO:denies paresthesia/tingling , reflexes L3-4,L4-5,L5-S1 1/3 PALAPTION: tender LS /SI LUMBAR ROM: flexion mod loss ,extension min/mod ,side glides min/mod loss FLEXIBILITY: hamstrings min tight Special Tests L/S Slump test left side: Negative L/S Slump test right side: Negative L/S Left Straight Leg Raise: Positive L/S Right Straight Leg Raise: Positive Lumbar Standing: Flexion - Mechanical Response: No effect Lumbar Standing: Flexion - Symptoms During Testing: Increases Lumbar Standing: Flexion - Symptoms After Testing: No worse Lumbar Standing: Extension - Mechanical Response: No effect Lumbar Standing: Extension - Symptoms During Testing: Increases Lumbar Standing: Extension - Symptoms After Testing: No worse Lumbar Standing: Right Side Glides - Mechanical Response: No effect Lumbar Standing: Right Side [place] - Symptoms During Testing: Increases Lumbar Standing: Right Side [place] - Symptoms After Testing: No worse Lumbar Standing: Left Side [place] - Mechanical Response: No effect Lumbar Standing: Left Side [place] - Symptoms During Testing: No effect Lumbar Standing: Left Side [place] - Symptoms After Testing: No effect Balance/Special Test Scores Oswestry Low Back Score: 35 Goals Goal 1:: Patient to be I with HEP for back Goal Time Frame: 4-6 Weeks Goal 2:: Patient to improve posture/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 80% OF THE TIME Goal Time Frame: 4-6 Weeks Goal 3:: Patient to improve lumbar ROM for function of recovery to put on and tie shoes Goal Time Frame: 4-6 Weeks Goal 4:: Patient to demonstrate 50% improvement with less pain and improved function Goal Time Frame: 4-6 Weeks Goal 5:: Patient to improve back oswestry score by 5 points to improve QOL and function Goal Time Frame: 4-6 Weeks Rehabilitation Potential Physical Therapy Diagnosis: This patient has lumbar pain with symptoms worse with motion testing and positioning affects walking/standing impairs ADLS and housework tasks thus benefit from skilled PT Rehabilitation Potential: Good Anticipated Interventions Patient/Client Instruction: Educate patient on: Condition and Plan of Care For the Purpose of:: To decrease pain, To increase ROM, To improve muscle performance and motor function, To improve ability to perform ADL's, To increase tolerance to activity/condition/position, To improve ability of physical actions for home/community/work/leisure, To improve gait and locomotor functions, To improve health of tissue, To decrease soft tissue restriction and To increase flexibility/ROM Therapeutic Exercise to Include: Strength training, Body mechanics, Postural training, Flexibilty training and Dynamic Lumbar Stabilization For the Purpose of:: To decrease pain, To increase ROM, To improve muscle performance and motor function, To improve ability to perform ADL's, To increase tolerance to activity/condition/position, To improve performance and independence with ADL's, To improve ability of physical actions for home/community/work/leisure, To improve health of tissue, To decrease soft tissue restriction and To increase flexibility/ROM TENS: Yes IF ES: Yes Cryotherapy (ice pack, ice massage): Yes Thermo therapy (hot pack): Yes Ultrasound (thermal/non thermal): Yes For the Purpose of:: To decrease pain, To increase ROM, To improve nutrient delivery to tissue, To increase oxygenation perfusion, To improve health of tissue and To decrease soft tissue restriction Text: Thank you for the opportunity to evaluate your patient. For Medicare and Medicare HMO plans, please review the plan of care and approve it. It will need to be FAXED BACK to us at [phone] for Medicare purposes. For Medicare only, by signing this I certify the plan of care. Please let me know if there are questions or concerns regarding this plan of care. Physician Signature: Da te:
--- NOTE | 2023-08-13 14:41 | HP.PTDCSUM_ITS ---
Discharge Summary D/C summary: It has been my pleasure to treat FILEMON AVILEZ referred by Dr. Steve Kim DO, with the diagnosis of OTHER INTERVETEBRAL DISC DEGENERATION for a total of 9 visit(s). Discharge Date: Please see the following information for a summary of their discharge status. 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 Thank you for the referral of this patient. Sincerely, Jaziel Lainez, PT, Cert MDT, OCS Balance/Gait/Functional tests Balance/Special Test Scores Oswestry Low Back Score: 35 Improvement % Improvement: 70
== END 2023-07-24 19:00 | disposition home or self-care (01) ==
LOC: PT 15:00
PROVIDERS: PCP Nurse Practitioner Family; Referring Provider Orthopaedic Surgery; Visit Provider Orthopaedic Surgery
DX: M51.36 Other intervertebral disc degeneration, lumbar region (principal)
CPT/HCPCS: 97110; 97162

== ENCOUNTER → 2023-07-25 | Outpatient (CLI) | payer MEDICAID, SELFPAY ==
[2023-07-25 16:04] LABS: AST(SGOT) 28 U/L (15-37); Alanine Aminotransfer ALT/SGPT 57 U/L (16-61); Albumin, Serum 3.8 g/dL (3.2-5.0); Alkaline Phosphatase 82 U/L (45-117); Anion Gap 2 (5-15); BUN 14 mg/dL (7-18); BUN/Creat Ratio 12.7 RATIO (10-20); Calcium,Total 8.7 mg/dL (8.5-10.1); Chloride 109 mmol/L (98-107); Cholesterol 133 mg/dL (200); EST Glomerular Filtration Rate 80 mL/min (>60); Est Glom Filt Rate - Afr Amer 96 mL/min (>60); Glucose 99 mg/dL (74-106); High Density Lipoprotein 29 mg/dL; Potassium 3.9 mmol/L (3.5-5.1); Protein, Total 7.8 g/dL (6.4-8.2); Sodium Level 138 mmol/L (136-145); Triglycerides 144 mg/dL; Very Low Density Lipoprotein 29 mg/dL (5-40); Vitamin D,25 Hydroxy 19.6 ng/mL
[2023-07-25 16:14] LABS: Hemoglobin A1c 5.7 % (3.8-5.6)
== END | disposition home or self-care (01) ==
LOC: LAB 14:16
PROVIDERS: PCP Nurse Practitioner Family; Referring Provider Nurse Practitioner Family; Visit Provider Nurse Practitioner Family
DX: I10 Essential (primary) hypertension (principal); E55.9 Vitamin D deficiency, unspecified; E78.00 Pure hypercholesterolemia, unspecified; E78.1 Pure hyperglyceridemia; R73.01 Impaired fasting glucose
CPT/HCPCS: 82043; 82570; 36415; 80053; 80061; 82306; 83036

== ENCOUNTER → 2023-07-25 | Outpatient (CLI) | payer MEDICAID, SELFPAY | END | disposition home or self-care (01) | LOC: LAB.FUTURE 16:14 | PROVIDERS: PCP Nurse Practitioner Family; Visit Provider Nurse Practitioner Family | DX: I10 Essential (primary) hypertension (principal) ==

== ENCOUNTER → 2023-08-27 | Outpatient (CLI) | payer MEDICAID, SELFPAY | END | disposition home or self-care (01) | LOC: MRI 14:49 | PROVIDERS: PCP Nurse Practitioner Family; Referring Provider Orthopaedic Surgery; Visit Provider Orthopaedic Surgery | DX: M51.36 Other intervertebral disc degeneration, lumbar region (principal); M51.27 Other intervertebral disc displacement, lumbosacral region ==

== ENCOUNTER → 2023-11-07 | Outpatient (CLI) | payer MEDICAID, SELFPAY ==
[2023-11-07 14:25] LABS: Vitamin D,25 Hydroxy 50.2 ng/mL
[2023-11-07 14:26] LABS: ALB/GLOB Ratio 0.9 RATIO (0.9-2.4); AST(SGOT) 35 U/L (15-37); Alanine Aminotransfer ALT/SGPT 70 U/L (16-61); Albumin, Serum 3.6 g/dL (3.2-5.0); Alkaline Phosphatase 71 U/L (45-117); Anion Gap 7 (5-15); BUN 16 mg/dL (7-18); BUN/Creat Ratio 14.4 RATIO (10-20); Calcium,Total 8.9 mg/dL (8.5-10.1); Chloride 110 mmol/L (98-107); Cholesterol 134 mg/dL (200); Creatinine, Serum 1.11 mg/dL (0.70-1.30); EST Glomerular Filtration Rate 79 mL/min (>60); Est Glom Filt Rate - Afr Amer 95 mL/min (>60); Globulin 4.2 g/dL (2.2-4.2); Glucose 121 mg/dL (74-106); High Density Lipoprotein 32 mg/dL; Potassium 3.9 mmol/L (3.5-5.1); Protein, Total 7.8 g/dL (6.4-8.2); Sodium Level 141 mmol/L (136-145); Triglycerides 152 mg/dL; Very Low Density Lipoprotein 30 mg/dL (5-40)
[2023-11-07 15:30] LABS: Hemoglobin A1c 5.3 % (3.8-5.6)
== END | disposition home or self-care (01) ==
LOC: LAB 13:15
PROVIDERS: PCP Nurse Practitioner Family; Referring Provider Nurse Practitioner Family; Visit Provider Nurse Practitioner Family
DX: R73.01 Impaired fasting glucose (principal); I10 Essential (primary) hypertension; E78.00 Pure hypercholesterolemia, unspecified; E55.9 Vitamin D deficiency, unspecified
CPT/HCPCS: 36415; 80053; 80061; 82306; 83036

== ENCOUNTER → 2023-12-05 | Outpatient (CLI) | payer MEDICAID, SELFPAY ==
--- NOTE | 2023-12-05 12:10 | ECHOCS_ITS ---
Reason For Study: PALPS/ CHEST PAIN Procedure This was a 2D Doppler, Color Flow transthoracic echocardiogram. The study was technically difficult. Contrast injection was performed. Exam performed in department. Left Ventricle Normal LV size. The estimated ejection fraction is 55 %. No evidence for diastolic dysfunction. No regional wall motion abnormalities noted. Right Ventricle Normal RV size. Normal systolic function. Atria Normal left atrium. Normal right atrium. No doppler evidence for ASD. Mitral Valve There is no mitral valve stenosis. Trivial mitral valve insufficiency. Tricuspid Valve There is no tricuspid stenosis. Unable to estimate RV systolic pressure due to inadequate jet, pulmonary artery pressure probably normal. Aortic Valve Trisinus/trileaflet aortic valve. There is no aortic stenosis. No aortic valve insufficiency. Pulmonic Valve There is no pulmonic valvular stenosis. No pulmonic valve insufficiency. Great Vessels Normal aortic root. Pericardium/Pleural No pericardial effusion. Medication 22 gauge I.V. with prn adaptor inserted into right arm. Diluted definity 2ml given slow IV push to enhance endocardial definition. MMode/2D Measurements & Calculations LVIDd: 3.8 cm IVSd: 1.3 cm LVOT diam: 2.1 cm LVIDs: 2.6 cm LVPWd: 1.3 cm RVDd: 4.6 cm FS: 32.0 % LVOT area: 3.5 cm2 Ao root diam: 3.3 cm LAV(MOD-bp): 48.6 ml LVAd ap4: 46.7 cm2 LAV(MOD-bp) Indexed: 18.3 ml/m2 LVLd ap4: 9.6 cm LAV(MOD-sp2): 50.2 ml EDV(MOD-sp4): 184.0 ml LAV(MOD-sp4): 44.4 ml EDV(sp4-el): 192.7 ml LVAs ap4: 29.5 cm2 LVLs ap4: 7.8 cm ESV(MOD-sp4): 89.8 ml ESV(sp4-el): 94.6 ml EF(MOD-sp4): 51.2 % EF(sp4-el): 50.9 % LVAd ap2: 44.8 cm2 SV(MOD-sp4): 94.2 ml SV(MOD-sp2): 81.5 ml LVLd ap2: 10.1 cm EDV(MOD-sp2): 167.7 ml EDV(sp2-el): 169.6 ml LVAs ap2: 29.6 cm2 LVLs ap2: 8.2 cm ESV(MOD-sp2): 86.2 ml ESV(sp2-el): 90.6 ml EF(MOD-sp2): 48.6 % SV(sp4-el): 98.0 ml LA dimension(2D): 3.9 cm LA A4 area: 18.5 cm2 RA A4 area: 15.0 cm2 TAPSE: 2.0 cm Time Measurements MV dec time: 0.22 sec Doppler Measurements & Calculations MV E max eduardo: 68.5 cm/sec Lat Peak E' Eduardo: 10.9 cm/sec Med Peak E' Eduardo: 7.7 cm/sec MV A max eduardo: 77.7 cm/sec E/E' lat: 6.3 E/E' med: 8.9 MV E/A: 0.88 Ao V2 max: 115.4 cm/sec LV V1 max: 105.1 cm/sec MV dec slope: 305.5 cm/sec2 Ao max P.3 mmHg LV V1 max P.4 mmHg Ao V2 mean: 81.5 cm/sec LV V1 mean P.5 mmHg Ao mean P.0 mmHg LV V1 mean: 74.8 cm/sec Ao V2 VTI: 22.3 cm LV V1 VTI: 20.5 cm AV (velocity ratio): 0.92 JESUS ALBERTO(I,D): 3.2 cm2 JESUS ALBERTO(V,D): 3.2 cm2 SV(LVOT): 72.6 ml PA V2 max: 116.5 cm/sec PA max PG (full): 3.7 mmHg ECHO/Echo Complete W/ Contrast Interpretation Summary The estimated ejection fraction is 55 %. No evidence for diastolic dysfunction. Trivial mitral valve insufficiency. Ordering Physician: Tobias Bergman Referring Physician: Tobias Bergman Performed By: Padmini Pearson RDCS
--- NOTE | 2023-12-06 16:07 | STRESSREP_ITS ---
Stress Test Report Date: 12/05/2023 Procedure: Exercise tolerance test Indications: Chest pain Consent: Per the patient Procedure: The patient exercised on a Joseph protocol for 3 minutes and 18 seconds achieving a peak heart rate of 125 bpm (68% predicted maximal heart rate) with a peak blood pressure 152/98 mmHg and a peak MET capacity of approximately 5.2 MET's. The baseline ECG demonstrated normal sinus rhythm. The peak exercise ECG demonstrated no significant ischemic changes. [There were no cardiac dysrhythmias pretest, during exercise, or recovery]. The functional capacity was considered significantly decreased for age. The patient had no complaint of chest discomfort during exercise or recovery. The examination was discontinued secondary to dyspnea, leg pain. Impression: 1. Suboptimal stress test due to patient not achieving target heart rate. This test is suboptimal for evaluation of myocardial ischemia. 2. Stress test is negative for exercise-induced chest pain. 3. Stress test test is negative for exercise-induced EKG changes of ischemia. 4. Functional capacity is significantly decreased for age This note was generated with [employer] software. It may contain incorrect words, spelling, and punctuation that were not noted in checking the note before signing.
== END | disposition home or self-care (01) ==
PROVIDERS: PCP Nurse Practitioner Family; Referring Provider Nurse Practitioner Family; Visit Provider Nurse Practitioner Family
DX: R07.89 Other chest pain (principal); R55 Syncope and collapse; R00.2 Palpitations
CPT/HCPCS: 93306; 93017; Q9957; A4216; C8929

== ENCOUNTER → 2024-02-22 | Outpatient (CLI) | payer MEDICAID, SELFPAY ==
[2024-02-22 13:49] LABS: AST(SGOT) 22 U/L (15-37); Alanine Aminotransfer ALT/SGPT 44 U/L (16-61); Alkaline Phosphatase 76 U/L (45-117); Anion Gap 3 (5-15); BUN 12 mg/dL (7-18); BUN/Creat Ratio 11.2 RATIO (10-20); Chloride 110 mmol/L (98-107); Cholesterol 150 mg/dL (200); Creatinine, Serum 1.07 mg/dL (0.70-1.30); EST Glomerular Filtration Rate 82 mL/min (>60); Est Glom Filt Rate - Afr Amer 99 mL/min (>60); Globulin 3.9 g/dL (2.2-4.2); Glucose 102 mg/dL (74-106); High Density Lipoprotein 31 mg/dL; Potassium 4.1 mmol/L (3.5-5.1); Protein, Total 7.9 g/dL (6.4-8.2); Sodium Level 138 mmol/L (136-145); Triglycerides 176 mg/dL; Very Low Density Lipoprotein 35 mg/dL (5-40); Vitamin D,25 Hydroxy 20.5 ng/mL
[2024-02-22 15:56] LABS: Hemoglobin A1c 5.2 % (3.8-5.6)
== END | disposition home or self-care (01) ==
LOC: LAB 13:14
PROVIDERS: PCP Nurse Practitioner Family; Referring Provider Nurse Practitioner Family; Visit Provider Nurse Practitioner Family
DX: I10 Essential (primary) hypertension (principal); E78.00 Pure hypercholesterolemia, unspecified; E78.1 Pure hyperglyceridemia; E55.9 Vitamin D deficiency, unspecified; R73.01 Impaired fasting glucose
CPT/HCPCS: 36415; 80053; 80061; 82306; 83036

== ENCOUNTER 2024-06-01 13:37 | Emergency (ER) | payer MEDICAID, SELFPAY ==
[2024-06-01 13:38] VITALS: BP 140/112; PULSE 85; RESP 16; TEMP 36.6; O2SAT 98; BMI 38.3
[2024-06-01] MEDS: Aspirin 81 MG TAB.CHEW 324 MG PO (13:59)
--- NOTE | 2024-06-01 14:00 | RAD_ITS ---
PROCEDURE: CHEST PA AND LATERAL REASON FOR EXAM: 38-year-old male, right-sided chest pain x4 hours, heartburn x4 days. TECHNIQUE: Frontal and lateral views of the chest. COMPARISON: CT chest 04/19/2023. chest radiograph 03/20/2023. FINDINGS: The heart size is normal. Stable ill-defined left hilar opacity, better evaluated on recent CT chest and compatible with normal anatomic structures. The mediastinal contour is otherwise unremarkable. Low lung volumes bilaterally. No focal consolidation, pleural effusion or pneumothorax. RAD/Chest PA and Lateral IMPRESSION: NEGATIVE CHEST Reading Location: [id number]
[2024-06-01 14:16] LABS: Absolute Lymphocyte Count 2.93 X10^3/uL (0.83-4.51); Basophil# 0.07 X10^3/uL; Basophil% 0.7 % (0-1); Eosinophil# 0.13 X10^3/uL; Eosinophils% 1.3 % (0-5); Hematocrit 51.9 % (40-54); Hemoglobin 17.1 g/dL (13.0-16.5); Lymphocyte # 2.93 X10^3/ul (0.83-4.51); Mean Corp Hgb Conc 32.9 g/dL (32-36); Mean Corpuscular Volume 88.1 fL (80-94); Mean Platelet Vol. 10.5 fl (6.2-12.0); Monocyte% 6.1 % (0-10); NRBC Flagged by Analyzer 0 % (0-5); Neutrophil % 61.5 % (47-70); Platelet Count 211 K/mm3 (150-450); RBC Distribution Width CV 14.2 % (11.6-14.6); RBC Distribution Width SD 45.8 fl (35.1-43.9); Red Blood Count 5.89 M/mm3 (4.6-6.2); White Blood Count 9.8 K/mm3 (4.4-11.0)
[2024-06-01 14:37] VITALS: BP 129/81; PULSE 72; RESP 16; TEMP 36.9; O2SAT 98
[2024-06-01 15:00] VITALS: BP 128/88; PULSE 71; RESP 18; O2SAT 98
[2024-06-01 15:05] LABS: Anion Gap 3 (5-15); BUN 19 mg/dL (7-18); Chloride 107 mmol/L (98-107); EST Glomerular Filtration Rate 89 mL/min (>60); Est Glom Filt Rate - Afr Amer 107 mL/min (>60); Estimated Creatinine Clearance 142.57 ml/min; Glucose 96 mg/dL (74-106); Potassium 4.2 mmol/L (3.5-5.1); Sodium Level 139 mmol/L (136-145); Troponin-I HS (w/2H Reflex) 7 pg/mL (3.0-78.0)
--- NOTE | 2024-06-01 15:12 | ED.VIS.CHEST ---
HPI History of Present Illness Chief Complaint: Chest Pain Detail of Chief Complaint: Right-sided chest pain Sunday and today Informant: patient Onset/Context/Timing Onset: Today and Days (Sunday unknown duration and today onset 10 a am and constant) Activity at onset: sudden Timing: Intermittent (Does not know the duration of the pain on Sunday since he went to sleep and when he awoke it was gone.) Quality: Positive for Pressure (Right side of the chest on Sunday and today) and - (Patient complains of heartburn for the past 4 days. He does have history of reflux. He states he is compliant with his medication.) Location: Right Chest Current Severity: Mild Maximum Severity: Moderate Worsened By: Nothing Relieved By: Nothing Associated Symptoms: Negative for Nausea, Vomiting, Diaphoresis, Dyspnea, Cough, Fever, Lightheadedness, Acid Reflux or Palpitations Narrative Narrative: Patient is a 38-year-old male. He has history of GERD, degenerative disc disease lumbar, mass left side of his chest, herniated disc L5 and S1 and hypertension. He is on atenolol for his hypertension. He presents because on Sunday he had right-sided chest pain described as a pressure sensation. There is also sharp component. He went to sleep and when he awoke it was gone. He took a 2-hour nap. Today at 10 AM he developed chest discomfort at rest on the right side. This is different than his heartburn pain. He denies any exacerbating, precipitating or alleviating factors. He denies any association with food. Mother has history of cholelithiasis. He denies intolerance to greasy or fried foods. He denies shortness of breath, nausea vomiting or diaphoresis. He denies history of VTE. Denies leg pain, swelling or discoloration. Prior Similar Symptoms: No and - Recent Illness/Hospitalization: No CVD Risk Factors: Positive for Hypertension and Smoking; Negative for Diabetes, Hypercholesterolemia or Family History 1' </=55 PE Risk Factors: Negative for Recent Travel/Surgery, Recent Immobilization, Prior DVT or PE, Cancer or OCP + Smoking + >/=35 TAD Risk Factors: Positive for Hypertension; Negative for Marfan's Syndrome or Family History [facility] Medical History Excessive cerumen in right ear canal Mass of left lung Muscle strain of chest wall Left-sided chest wall pain Lumbar strain Lumbar contusion Back pain Asthma Fatigue Home Medications ?Medication ?Instructions ?Recorded ?Last Taken ?Type atenolol 25 mg tablet 25 mg PO DAILY 10/09/18 Unknown History omeprazole 10 mg capsule,delayed 10 mg PO DAILY 11/16/18 Unknown History release cyclobenzaprine 10 mg tablet 10 mg PO TID 06/28/22 Unknown History fluticasone 100 mcg-salmeterol 50 1 inh inhalation DAILY 11/23/22 Unknown History mcg/dose blistr powdr for inhalation (Advair Diskus) naproxen 500 mg tablet 500 mg PO BID PRN #20 tabs 07/09/23 Unknown Rx Allergy/AdvReac Type Severity Reaction Status Date / Time cefaclor (From [facility]) Allergy Hives Verified 06/01/24 13:39 Surgical History History of ankle surgery Social History Smoking Status: Current some day smoker tobacco type: cigarettes alcohol intake: never substance use type: marijuana ROS ROS ED Constitutional Constitutional ED: Denies chills, fever(s), subjective or sweats Eyes Eyes: Reports none ENT ENT ED: Denies ear pain, rhinorrhea or sore throat Cardiovascular Cardiovascular: Reports as per HPI; Denies orthopnea or paroxysmal nocturnal dyspnea Respiratory/Chest Respiratory/Chest: Reports cough; Denies dyspnea, dyspnea on exertion, orthopnea or paroxysmal nocturnal dyspnea Gastrointestinal Gastrointestinal: Reports other Details: Patient complains of heartburn which is from his umbilicus to the sternal notch. ; Denies abdominal pain, constipation, diarrhea, melena, nausea or vomiting Genitourinary Genitourinary ED: Denies dysuria, hematuria or urinary frequency Musculoskeletal Musculoskeletal: Denies arthralgias, back pain or myalgias Integumentary Denies rash Neurologic Neurologic: Denies headache(s) or paresthesias Endocrine Endocrinology: Denies cold intolerance or heat intolerance Hematologic/Lymphatic Hematologic/Lymphatic: Denies easy bleeding or easy bruising EXAM Physical Exam Const Vital Signs: 06/01/24 13:37 06/01/24 13:38 06/01/24 13:54 Temperature 97.8 F Temperature Source Oral Pulse Rate 85 Respiratory Rate 16 Respiratory Effort Normal Blood Pressure 140/112 H Blood Pressure Mean 121 Pulse Ox 98 Oxygen Delivery Method Room Air Room Air 06/01/24 14:37 06/01/24 15:00 06/01/24 16:13 Temperature 98.4 F Temperature Source Temporal Pulse Rate 72 71 77 Respiratory Rate 16 18 16 Respiratory Effort Blood Pressure 129/81 H 128/88 H 155/111 H Blood Pressure Mean 97 101 125 Pulse Ox 98 98 97 Oxygen Delivery Method Room Air Room Air Room Air Positive well nourished and well developed Constitutional Narrative: BMI is 38.3. General Appearance ED: well developed and NAD HEENT Reports moist mucous membranes normocephalic and atraumatic Eyes PERRL and EOMs intact bilaterally General Eye ED: Negative for pale conjunctiva or scleral icterus Neck no lymphadenopathy, supple and no JVD Resp normal respiratory effort and clear to auscultation bilaterally Cardio regular rate, regular rhythm, S1 normal heart sound, S2 normal heart sound and no murmurs GI normal to inspection, nondistended, normoactive bowel sounds, soft to palpation, non-tender, non-distended and no masses; Negative for hepatosplenomegaly Back/Spine no CVA tenderness and no thoracic nor lumbar tenderness Extremity normal to inspection Extremity Narrative: There is no asymmetry, swelling, discoloration, leg vein distention, palpable cords or tenderness along the distribution of the deep venous system. PT pulses 2+ and symmetric. Neuro oriented x3 and CN's II-XII intact bilaterally Sensorium / Orientation: awake and alert Psych mental status grossly normal Skin no rashes or lesions noted and no wounds MDM MDM MDM Narrative Medical decision making narrative: Differential diagnosis would include cardiac versus noncardiac cardiac would be cardiac ischemia/non-STEMI versus ST elevation GA. Noncardiac would be reflux, gastritis/esophagitis, peptic ulcer disease, hiatal hernia unlikely. Based on history and physical exam doubt cholelithiasis/cholecystitis. History and physical not consistent with pneumonia or pneumothorax either. Workup included chest x-ray two-view, EKG laboratory test including troponin and 2-hour troponin. History & Record Review Additional record(s) reviewed:: Prior outpatient record (Orthopedic office visit note authored by Dr. Nelson for lumbar radiculopathy. Urgent care visit for excessive cerumen.) and Prior ED visit (ER visit for cannabis use disorder) Lab Data Attestation: I reviewed the patient's lab results. Lab results narrative: CBC reveals an elevated hemoglobin. Basic metabolic panel is normal. First troponin is normal at 7. Awaiting 2-hour troponin.Hemoglobin was 16.7 on July 26, 2022. Labs: Laboratory Results - last 24 hr 06/01/24 06/01/24 13:55 16:00 WBC 9.8 RBC 5.89 Hgb 17.1 H Hct 51.9 MCV 88.1 MCH 29.0 MCHC 32.9 RDW Std Deviation 45.8 H RDW Coeff of Joey 14.2 Plt Count 211 MPV 10.5 Immature Gran % (Auto) 0.400 Neut % (Auto) 61.5 Lymph % (Auto) 30.0 [place] % (Auto) 6.1 Eos % (Auto) 1.3 Baso % (Auto) 0.7 Absolute Neuts (auto) 6.0 Absolute Lymphs (auto) 2.93 Nucleated RBC % 0 Sodium 139 Potassium 4.2 Chloride 107 Carbon Dioxide 29.0 Anion Gap 3 L BUN 19 H Creatinine 1.00 Estim Creat Clear Calc 142.57 Est GFR (MDRD) Af Amer 107 Est GFR (MDRD) Non-Af 89 BUN/Creatinine Ratio 19.0 Glucose 96 Calcium 9.0 Troponin I High Sens 7 5 2-hour troponin is 5 with a delta of -2. Radiography Chest X-Ray - ED: 2 View and Read by ED Physician (Independent reviewed interpreted by me at 1350. There is normal cardiac silhouette and size. [place] is normal. Lung parenchyma is normal. Osseous structures reveal some chronic changes otherwise unremarkable.) Diagnostic Testing: Clinical Impression(s) from Imaging Studies Chest X-Ray 06/01/24 14:00 IMPRESSION: NEGATIVE CHEST Reading Location: [facility] EKG Initial EKG: Attestation: I personally reviewed and interpreted this EKG as follows: Interpretation: Sinus Rhythm (Normal sinus rhythm rate of 72. He has low voltage. OH interval is 164 ms. Cures duration 86 ms per QT durations are 54 ms. [place] is normal for there is no ischemic changes noted.) Discharge Plan Triage Chief Complaint: Chest Pain ED Provider: Emil Nicole Dx/Rx/DC Orders Clinical Impression: Right-sided chest pain, Heartburn, Elevated blood-pressure reading without diagnosis of hypertension, Tobacco use, History of gastroesophageal reflux (GERD) Instructions: ED Chest Pain, Noncardiac, ED Chest Pain, Uncertain Cause Prescriptions: No Action omeprazole 10 mg capsule,delayed release(DR/EC) 10 mg PO DAILY cyclobenzaprine 10 mg tablet 10 mg PO TID fluticasone propion-salmeterol [Advair Diskus] 100-50 mcg/dose blister with device 1 inh inhalation DAILY atenolol 25 tablet 25 mg PO DAILY naproxen 500 MG tablet 500 mg PO BID PRN Qty: 20 0RF Primary Care Provider: Tobias Bergman NP Referrals: Tobias Bergman NP, [employer]ATIONS MANAGER-[facility] [Primary Care Provider] - 1 Week if not improving Print Language: Danish Disposition Disposition: Home, Self Care
[2024-06-01 16:02] LABS: Reflex Troponin-HS? (from REC) Y
[2024-06-01 16:13] VITALS: BP 155/111; PULSE 77; RESP 16; O2SAT 97
[2024-06-01 16:27] LABS: Troponin-I HS 5 pg/mL (3.0-78.0)
[2024-06-01 17:00] VITALS: BP 161/100; PULSE 77; RESP 19; O2SAT 99
== END 2024-06-01 17:12 | disposition home or self-care (01) ==
PROVIDERS: Emergency Provider Emergency Medicine; PCP Nurse Practitioner Family; Visit Provider Emergency Medicine
DX: R07.89 Other chest pain (principal); R03.0 Elevated blood-pressure reading, without diagnosis of hypertension; K21.9 Gastro-esophageal reflux disease without esophagitis; F17.210 Nicotine dependence, cigarettes, uncomplicated; Z79.899 Other long term (current) drug therapy
CPT/HCPCS: 71046; 80048; 84484; 85025; 93005; 99284; A4216

== ENCOUNTER → 2024-06-09 | Outpatient (CLI) | payer MEDICAID, SELFPAY ==
--- NOTE | 2024-06-09 09:38 | MRI_ITS ---
PROCEDURE: MRI lumbar spine without IV contrast REASON FOR EXAM: Pain TECHNIQUE: Multisequence multiplanar MR images of the lumbar spine were obtained without the administration of intravenous contrast. COMPARISON: 06/04/2023 FINDINGS: Vertebral body heights are within normal limits. Negative for fracture or bone marrow edema. Chronic degenerative endplate changes at L2-3 with degenerative disc disease. Alignment is satisfactory. Conus medullaris is intact and terminates at L1. No paraspinal mass. T11-12: Posterior disc bulge eccentric to the left with annular fissure. Disc bulge abuts the ventral cord and results in mild spinal stenosis. Bilateral facet arthrosis and ligamentum flavum hypertrophy contributes to moderate bilateral foraminal narrowing. T12-L1: No focal disc abnormality, spinal stenosis or foraminal narrowing. L1-2: No focal disc abnormality, spinal stenosis or foraminal narrowing. L2-3: Diffuse posterior disc bulge eccentric to the right with annular fissure and tiny right central extrusion demonstrating 3 mm of cranial migration. Mild/moderate bilateral facet arthrosis. Mild/moderate spinal stenosis and moderate narrowing of the right lateral recess. Mild bilateral foraminal narrowing, greater on the right. L3-4: Mild posterior disc bulge. Mild/moderate bilateral facet arthrosis. No significant spinal stenosis. Mild left foraminal narrowing. L4-5: Small right central disc protrusion. Mild bilateral facet arthrosis. No significant spinal stenosis or foraminal narrowing. L5-S1: Central disc extrusion measuring 5 x 13 mm (AP and TV dimensions) demonstrating 3 mm of caudal migration. Mild bilateral facet arthrosis. No significant spinal stenosis, however the disc extrusion approaches the traversing right S1 nerve root in the lateral recess. Mild/moderate bilateral foraminal narrowing. MRI/Spine Lumbar (Routine) IMPRESSION: 1. Acquired mild to mild/moderate spinal stenosis at T11-12 and L2-L3 respectiv juli. 2. Varying degrees of acquired [id number] foraminal narrowing. See level by level comments above. Reading Location: [facility]
== END | disposition home or self-care (01) ==
LOC: MRI 13:02
PROVIDERS: PCP Nurse Practitioner Family; Referring Provider Student in an Organized Health Care Education/Training Program; Visit Provider Student in an Organized Health Care Education/Training Program
DX: M48.04 Spinal stenosis, thoracic region (principal); M48.061 Spinal stenosis, lumbar region without neurogenic claudication
CPT/HCPCS: 72148

== ENCOUNTER 2024-07-08 15:30 | Outpatient (RCR) | payer MEDICAID, SELFPAY ==
--- NOTE | 2024-05-12 17:19 | HP.PTEVAL_ITS ---
Patient's Visit Information Visit Information Visit Information: FILEMON AVILEZ is a 38 year old M referred to Physical Therapy by CALEB Armenta with a diagnosis of LBP with radiculopathy. Date of Evaluation: 05/12/24 Physical Therapist: Trevor Segal, PT, ATC Visit Plan Frequency: 2x /Week Duration: 4-6 Weeks Plan: L/S stab ex's in neutral spine, LE stretching and strengthening, postural edu, and HEP Subjective Subjective: Pt reports he has had LBP for greater than 20 years. Pt reports he has had injections into his back which was approximately 11 years ago. Pt reports he has had xrays which revealed 4 ruptured discs. Pt notes he has had PT in the past which made a big difference. Pt notes he needs to get an MRI, but is not able to until after he has PT. Pt notes he gets tingling and numbness in his L LE which usually just goes to his knee, but will travel to his toes on occasion. Pt denies sleep difficulty at this time secondary to pain. Pt reports prolonged walking and standing tends to increase his pain. Pt also notes carrying a laundry basket will increase his pain. Pt reports nothing has seemed to help. 8/10 pain at rest, 10/10 pain at worst Pain LBP: Pain Intensity (Out of 10): 8 Pain Intensity Range: 10 Objective Objective: Neuro: B LE sensation is WNL to light touch. MMT: B hip flexion and knee flexion are grossly 4-/5. All other B LE measurements are 5/5 throughout ROM: Pt is limited moderately to severely with lumbar spine flexion and extension. SB is WNL Repeated movements: RFIS peripheralizes sx's into L hamstring region. REIL prone prop also peripheralizes sx's into L LE Balance/Special Test Scores Oswestry Low Back Score: 16 Goals Goal 1:: Decrease LBP x 50% to aid with ambulation Goal Time Frame: 4-6 Weeks Goal 2:: Decrease L LE radiculopathy x 50% to aid with standing tolerance Goal Time Frame: 4-6 Weeks Goal 3:: I with HEP Goal Time Frame: 4-6 Weeks Rehabilitation Potential Physical Therapy Diagnosis: Pt has LBP, limited lumbar spine ROM, and L LE radiculopathy secondary to degenerative changes in the lumbar spine Rehabilitation Potential: Good Anticipated Interventions Patient/Client Instruction: Educate patient on: Condition and Plan of Care For the Purpose of:: To improve self management Therapeutic Exercise to Include: Strength training, Endurance training, Body mechanics, Postural training and Dynamic Lumbar Stabilization For the Purpose of:: To decrease pain, To increase ROM and To improve muscle performance and motor function Text: Thank you for the opportunity to evaluate your patient. For Medicare and Medicare HMO plans, please review the plan of care and approve it. It will need to be FAXED BACK to us at [phone] for Medicare purposes. For Medicare only, by signing this I certify the plan of care. Please let me know if there are questions or concerns regarding this plan of care. Physician Signature: Date:
--- NOTE | 2024-06-10 16:15 | HP.PTREVAL ---
Re-Evaluation Intro: CALEB Armenta, It has been my pleasure to treat FILEMON AVILEZ over the last 5 visits for LBP with radiculopathy. Please see the progress note below for an update on the physical therapy plan of care! Subjective Subjective: My L side is doing much better. R side is 6/10, L side is 2/10 Objective Objective/Function: LBP is 2-5/10 L LE radiculopathy is gone now Pt is I with HEP Rx goals achieved Plan Plan Plan: Pt is now I with HEP and has achieved Rx goals. Follow up or discharge in one month. Balance/Gait/Functional tests Balance/Special Test Scores Oswestry Low Back Score: 16 Goals Goals Goal 1:: Decrease LBP x 50% to aid with ambulation Goal Time Frame: 4-6 Weeks Goal Progress: Goal Met Goal 2:: Decrease L LE radiculopathy x 50% to aid with standing tolerance Goal Time Frame: 4-6 Weeks Goal Progress: Goal Met Goal 3:: I with HEP Goal Time Frame: 4-6 Weeks Goal Progress: Goal Met Anticipated Interventions Anticipated Interventions Patient/Client Instruction: Educate patient on: Condition and Plan of Care For the Purpose of:: To improve self management Therapeutic Exercise to Include: Strength training, Endurance training, Body mechanics, Postural training and Dynamic Lumbar Stabilization For the Purpose of:: To decrease pain, To increase ROM and To improve muscle performance and motor function Re-Evaluation Ending Re-evaluation ending: Please do not hesitate to contact me at [phone] by phone or if you have questions or concerns regarding this new plan of care! Sincerely, Trevor Segal, PT, ATC
--- NOTE | 2024-07-08 16:10 | HP.PTDCSUM ---
Discharge Summary D/C summary: It has been my pleasure to treat FILEMON AVILEZ referred by CALEB Armenta, with the diagnosis of LBP with radiculopathy for a total of 6 visit(s). Discharge Date: Please see the following information for a summary of their discharge status. Subjective Subjective: I am significantly better than I was Pain LBP: Pain Intensity (Out of 10): 8 Overall Improvement % Improvement: 75 Objective Objective/Function: Pt reports his pain at 8/10 today Pt is still getting intermittent L LE radiculoapthy. Pt is I with HEP Pt was showing excellent improvement one month ago, and has recently regressed secondary to work at home. Goals Goal 1:: Decrease LBP x 50% to aid with ambulation Goal Progress: Goal Met Goal 2:: Decrease L LE radiculopathy x 50% to aid with standing tolerance Goal Progress: Goal Met Goal 3:: I with HEP Goal Progress: Goal Met Plan Plan: Discontinue to HEP D/C Information d/c sentence: If there are questions or concerns regarding this patient's physical therapy, please feel free to call me at [phone]. Thank you for the referral of this patient. Sincerely, Trevor Segal, PT, ATC Balance/Gait/Functional tests Balance/Special Test Scores Oswestry Low Back Score: 16 Improvement % Improvement: 75
== END 2024-07-08 19:00 | disposition home or self-care (01) ==
LOC: PT 15:30
PROVIDERS: PCP Nurse Practitioner Family; Referring Provider Student in an Organized Health Care Education/Training Program; Visit Provider Student in an Organized Health Care Education/Training Program
DX: M54.16 Radiculopathy, lumbar region (principal)
CPT/HCPCS: 97110; 97161; 97530

== ENCOUNTER 2024-08-03 13:06 | Emergency (ER) | payer MEDICAID, SELFPAY ==
[2024-08-03 13:07] VITALS: BP 148/105; PULSE 98; RESP 18; TEMP 36.9; O2SAT 98; BMI 37.5
--- NOTE | 2024-08-03 13:17 | EKG12_ITS ---
Test Reason : CP Blood Pressure : */* mmHG Vent. Rate : 86 BPM Atrial Rate : 86 BPM P-R Int : 162 ms QRS Dur : 82 ms QT Int : 338 ms P-R-T Axes : 21 32 -5 degrees QTcB Int : 404 ms Normal sinus rhythm Low voltage QRS Borderline ECG Confirmed by KIMBERLY HOSKINS MD ([id number]), editorial specialist JANN LAWRENCE ([id number]) on 08/06/2024 7:57:17 AM Referred By: Confirmed By: KIMBERLY HOSKINS MD
--- NOTE | 2024-08-03 13:19 | EDS_ITS ---
HPI <CALEB Hutchison - Last Filed: 08/03/24 15:01> History of Present Illness Chief Complaint: Chest Pain Narrative Narrative: Patient presenting today with left-sided sharp chest pain he has had intermittently over the past 2 weeks. Nothing seems to trigger his symptoms, they are nonexertional. He denies cardiac history. He had an echocardiogram in November 2023 that showed an EF of 55%. He has a PMH of HTN and tobacco abuse. PE Risk Factors: Negative for Recent Travel/Surgery, Recent Immobilization, Prior DVT or PE or Cancer PFSH <CALEB Hutchison - Last Filed: 08/03/24 15:01> [facility] Excessive cerumen in right ear canal Mass of left lung Muscle strain of chest wall Left-sided chest wall pain Lumbar strain Lumbar contusion Back pain Asthma Fatigue Home Medications ?Medication ?Instructions ?Recorded ?Last Taken ?Type atenolol 25 mg tablet 25 mg PO DAILY 10/09/18 Unkn own History omeprazole 10 mg capsule,delayed 10 mg PO DAILY Unknown History release cyclobenzaprine 10 mg tablet 10 mg PO TID 06/28/22 Unk nown History fluticasone 100 mcg-salmeterol 50 1 inh inhalation TRE LY 11/23/22 Unknown History mcg/dose blistr powdr for inhalation (Advair Diskus) naproxen 500 mg tablet 500 mg PO BID PRN #20 tabs 0 07/09/23 Unknown Rx Allergy/AdvReac Type Severity Reaction Status Date / Time [facility] Allergy Hives Verified 08/03/24 13:07 Family History no significant family his Surgical History History of ankle surgery Social History Smoking Status: Heavy Smoker (>10/day) alcohol intake: never substance use type: marijuana ROS <CALEB Hutchison - Last Filed: 08/03/24 15:01> ROS ED Constitutional Constitutional ED: Denies chills or fever(s) Cardiovascular Cardiovascular: Reports chest pain; Denies palpitations Respiratory/Chest Respiratory/Chest: Denies cough or dyspnea Gastrointestinal Gastrointestinal: Denies abdominal pain, nausea or vomiting Musculoskeletal Musculoskeletal: Denies arthralgias or myalgias Integumentary Denies rash Neurologic Neurologic: Denies weakness EXAM <CALEB Hutchison - Last Filed: 08/03/24 15:01> Physical Exam Const Vital Signs: 08/03/24 13:07 08/03/24 13:24 08/03/24 14:47 Temperature 98.4 F 98.4 F Temperature Source Oral Pulse Rate 98 88 Respiratory Rate 18 16 Respiratory Effort Normal Non-Labored Blood Pressure 148/105 H 148/105 H Blood Pressure Mean 119 119 Pulse Ox 98 98 Oxygen Delivery Method Room Air Positive well nourished, well developed and no apparent distress General Appearance ED: well developed HEENT Reports normocephalic and head/scalp atraumatic Mouth ED: Yes moist mucous membranes normal Eyes PERRL and EOMs intact bilaterally Neck full ROM and supple Chest Wall inspection of chest normal Chest Narrative: Minimal pain to palpation left side of the chest. Resp normal respiratory effort and clear to auscultation bilaterally Cardio regular rate and regular rhythm GI soft to palpation, non-tender, non-distended and no masses Back/Spine normal ROM and normal to inspection Extremity normal to inspection and full ROM Neuro oriented x3, CN's II-XII intact bilaterally, moves all extremities, no focal motor deficits and no sensory deficits noted Sensorium / Orientation: awake and alert Psych mental status grossly normal and thought process normal Skin no rashes or lesions noted and no wounds <Dr. Emil Nicole MD - Last Filed: 08/03/24 15:16> Physical Exam Const Vital Signs: 08/03/24 13:07 08/03/24 13:24 08/03/24 14:47 Temperature 98.4 F 98.4 F Temperature Source Oral Pulse Rate 98 88 Respiratory Rate 18 16 Respiratory Effort Normal Non-Labored Blood Pressure 148/105 H 148/105 H Blood Pressure Mean 119 119 Pulse Ox 98 98 Oxygen Delivery Method Room Air <CALEB Hutchison - Last Filed: 08/03/24 15:01> Heart Score History: Slightly/Non-Suspicious ECG: Normal Age: </= 45 years Risk Factors: 1 or 2 Risk Factors Troponin: </= Normal Limit Score: 1 <Dr. Emil Nicole MD - Last Filed: 08/03/24 15:16> Heart Score Score: 1 [facility] <CALEB Hutchison - Last Filed: 08/03/24 15:01> [facility] Narrative Medical decision making narrative: Patient presenting with left-sided chest pain he has had intermittently over the past 2 weeks. Nothing seems to trigger his symptoms. They are nonexertional. He is PERC negative, low suspicion for PE. Cardiac labs were obtained, CBC, BMP, troponin are unremarkable. Chest x-ray negative for cardiopulmonary abnormality. EKG is normal sinus rhythm. He does have reproducible tenderness to the left side of his chest. He has a low heart score, lower suspicion for cardiac etiology. I recommended he follow-up with his PCP in the next 5 to 7 days. He will be discharged home in stable condition. I have personally performed a face to face assessment of the patient and have reviewed the HIMANSHU Note. I performed a substantive portion of the visit including all aspects of the following. My vazquez findings include: History is remarkable for intermittent chest pain left side. Today it did not go away after half hour an hour. States it feels like there is a vice on his left chest and a knife stabbing through it. He has no associated symptoms. There is no alleviating, precipitating or exacerbating factors. He states he noted it when he awoke. It did not awaken him from sleep. He has a history of reflux. This pain is not like his reflux pain. He denies black or maroon stool. He denies vomiting. He is a smoker of 1.5 packs plus per day. He does not know any family history regarding the paternal side. He does have history o f hypertension. He denies history of VTE. He denies leg pain, swelling discoloration. He has no risk factor for VTE. Exam is vital signs are marked for elevated blood pressure. Appears no distress . HEENT exam is unremarkable. He has no reproducible chest pain. Lungs with auscultation with symmetric breath sounds. Heart is regular. Rate is normal. No murmur, gallop or rub. There is no asymmetry, discoloration, leg pain distention, palp cord since on the distribution deep venous system. There is no swelling of his lower extremities. Medical Decision Making patient is PERC negative. Wells score is less than 3. Differential is cardiac versus noncardiac. Noncardiac IV pain of unknown etiology, pulmonary etiology, reflux. Will obtain EKG chest x-ray and appropriate blood work. Other additions or changes: [None] Lab Data Labs: Laboratory Results - last 24 hr 08/03/24 13:15 WBC 8.7 RBC 5.69 Hgb 16.7 H Hct 48.8 MCV 85.8 MCH 29.3 MCHC 34.2 RDW Std Deviation 40.2 RDW Coeff of Joey 13.2 Plt Count 231 MPV 9.9 Immature Gran % (Auto) 0.200 Neut % (Auto) 59.9 Lymph % (Auto) 31.8 Carroll % (Auto) 6.1 Eos % (Auto) 1.2 Baso % (Auto) 0.8 Absolute Neuts (auto) 5.2 Absolute Lymphs (auto) 2.75 Nucleated RBC % 0 Sodium 138 Potassium 4.1 Chloride 106 Carbon Dioxide 19.9 L Anion Gap 12 BUN 16 Creatinine 0.93 Estim Creat Clear Calc 151.80 Est GFR (MDRD) Non-Af 108 BUN/Creatinine Ratio 17.4 Glucose 105 H Calcium 8.9 Troponin T High Sens 8 Radiography X-Ray: Read by ED Physician Diagnostic Testing: Clinical Impression(s) from Imaging Studies Chest X-Ray 08/03/24 13:20 IMPRESSION: NEGATIVE CHEST Reading Location: [facility] EKG Initial EKG: Comments: 86 bpm, normal sinus rhythm, no ST elevation, interpreted by attending ED physician <Dr. Emil Nicole MD - Last Filed: 08/03/24 15:16> [facility] MDM Narrative Medical decision making narrative: Patient presenting with left-sided chest pain he has had intermittently over the past 2 weeks. Nothing seems to trigger his symptoms. They are nonexertional. He is PERC negative, low suspicion for PE. I have personally performed a face to face assessment of the patient and have re viewed the HIMANSHU Note. I performed a substantive portion of the visit including all aspects of the following. My vazquez findings include: History is remarkable for intermittent chest pain left side. Today it did not go away after half hour an hour. States it feels like there is a vice on his left chest and a knife stabbing through it. He has no associated symptoms. There is no alleviating, precipitating or exacerbating factors. He states he noted it when he awoke. It did not awaken him from sleep. He has a history of reflux. This pain is not like his reflux pain. He denies black or maroon stool. He denies vomiting. He is a smoker of 1.5 packs plus per day. He does not know any family history regarding the paternal side. He does have history of hypertension. He denies history of VTE. He denies leg pain, swelling discoloration. He has no risk factor for VTE. Exam is vital signs are marked for elevated blood pressure. Appears no distress. HEENT exam is unremarkable. He has no reproducible chest pain. Lungs with auscultation with symmetric breath sounds. Heart is regular. Rate is normal. No murmur, gallop or rub. There is no asymmetry, discoloration, leg pain distention, palp cord since on the distribution deep venous system. There is no swelling of his lower extremities. Medical Decision Making patient is PERC negative. Wells score is less than 3. Differential is cardiac versus noncardiac. Noncardiac IV pain of unknown etiology, pulmonary etiology, reflux. Will obtain EKG chest x-ray and appropriate blood work. Other additions or changes: [None] Lab Data Attestation: I reviewed the patient's lab results. Lab results narrative: CBC is unremarkable. Electrolyte panel is unremarkable. Glucose is slightly elevated 105. CO2 is slightly lower than normal at 19.9. This is due to the [facility]. Troponin is normal. Labs: Laboratory Results - last 24 hr 08/03/24 13:15 WBC 8.7 RBC 5.69 Hgb 16.7 H Hct 48.8 MCV 85.8 MCH 29.3 MCHC 34.2 RDW Std Deviation 40.2 RDW Coeff of Joey 13.2 Plt Count 231 MPV 9.9 Immature Gran % (Auto) 0.200 Neut % (Auto) 59.9 Lymph % (Auto) 31.8 Carroll % (Auto) 6.1 Eos % (Auto) 1.2 Baso % (Auto) 0.8 Absolute Neuts (auto) 5.2 Absolute Lymphs (auto) 2.75 Nucleated RBC % 0 Sodium 138 Potassium 4.1 Chloride 106 Carbon Dioxide 19.9 L Anion Gap 12 BUN 16 Creatinine 0.93 Estim Creat Clear Calc 151.80 Est GFR (MDRD) Non-Af 108 BUN/Creatinine Ratio 17.4 Glucose 105 H Calcium 8.9 Troponin T High Sens 8 Radiography Diagnostic Testing: Clinical Impression(s) from Imaging Studies Chest X-Ray 08/03/24 13:20 IMPRESSION: NEGATIVE CHEST Reading Location: [facility] Discharge Plan Triage Chief Complaint: Chest Pain ED Midlevel Provider: Adela Ascencio ED Provider: Emil Nicole Dx/Rx/DC Orders Clinical Impression: Chest pain, Tobacco use, Elevated blood pressure reading with diagnosis of hypertension, BMI 37.0-37.9, adult, History of gastroesophageal reflux (GERD) Instructions: ED Chest Pain, Noncardiac Prescriptions: No Action omeprazole 10 mg capsule,delayed release(DR/EC) 10 mg PO DAILY cyclobenzaprine 10 mg tablet 10 mg PO TID fluticasone propion-salmeterol [Advair Diskus] 100-50 mcg/dose blister with device 1 inh inhalation DAILY atenolol 25 tablet 25 mg PO DAILY naproxen 500 MG tablet 500 mg PO BID PRN Qty: 20 0RF Primary Care Provider: Tobias Bergman NP Referrals: Tobias Bergman NP, [facility]ANCH DIRECTOR-C [Primary Care Provider] - 5-7 Days Activity Restrictions/Additional Instructions: Follow-up with your PCP and return for any worsening symptoms. Print Language: Yemeni Disposition Disposition: Home, Self Care Discharge Date/Time: 08/03/24 14:48
--- NOTE | 2024-08-03 13:20 | RAD_ITS ---
PROCEDURE: CHEST PA AND LATERAL 08/03/2024 REASON FOR EXAM: CHEST PAIN TECHNIQUE: Frontal and lateral views of the chest. COMPARISON: Chest radiograph 06/01/2024. FINDINGS: Hardware: None. Heart: The heart size is normal. Mediastinum: The mediastinal contour is unremarkable. Lungs: No focal consolidation, pleural effusion or pneumothorax. Bones: Minimal degenerative changes are identified within the thoracic spine. RAD/Chest PA and Lateral IMPRESSION: NEGATIVE CHEST Reading Location: [id number]
[2024-08-03 13:22] LABS: Absolute Lymphocyte Count 2.75 X10^3/uL (0.83-4.51); Absolute Neutrophil Count 5.2 X10^3/uL (2.0-7.7); Basophil# 0.07 X10^3/uL; Basophil% 0.8 % (0-1); Eosinophils% 1.2 % (0-5); Hematocrit 48.8 % (40-54); Hemoglobin 16.7 g/dL (13.0-16.5); Lymphocyte # 2.75 X10^3/ul (0.83-4.51); Lymphocyte % 31.8 % (19-41); Mean Corp Hgb Conc 34.2 g/dL (32-36); Mean Corpuscular Hgb 29.3 pg (27.0-32.0); Mean Corpuscular Volume 85.8 fL (80-94); Mean Platelet Vol. 9.9 fl (6.2-12.0); Monocyte# 0.53 X10^3/uL; Monocyte% 6.1 % (0-10); NRBC Flagged by Analyzer 0 % (0-5); Neutrophil # 5.19 X10^3/uL (2.7-7.7); Neutrophil % 59.9 % (47-70); Platelet Count 231 K/mm3 (150-450); RBC Distribution Width CV 13.2 % (11.6-14.6); RBC Distribution Width SD 40.2 fl (35.1-43.9); Red Blood Count 5.69 M/mm3 (4.6-6.2); White Blood Count 8.7 K/mm3 (4.4-11.0)
[2024-08-03 13:47] LABS: Anion Gap 12 (5-15); BUN 16 mg/dL (4-19); BUN/Creat Ratio 17.4 RATIO (10-20); Calcium,Total 8.9 mg/dL (7.6-11.0); Carbon Dioxide 19.9 mmol/L (21.0-32.0); Chloride 106 mmol/L (98-108); Creatinine, Serum 0.93 mg/dL (0.70-1.20); EST Glomerular Filtration Rate 108 (>60); Glucose 105 mg/dL (70-99); Potassium 4.1 mmol/L (3.3-5.1); Sodium Level 138 mmol/L (133-145); Troponin T High Sensitivity 8 ng/L (<=22)
[2024-08-03 14:47] VITALS: BP 148/105; PULSE 88; RESP 16; TEMP 36.9; O2SAT 98
== END 2024-08-03 14:48 | disposition home or self-care (01) ==
PROVIDERS: Physician Assistant; Emergency Provider Emergency Medicine; PCP Nurse Practitioner Family; Visit Provider Emergency Medicine
DX: R07.9 Chest pain, unspecified (principal); I10 Essential (primary) hypertension; K21.9 Gastro-esophageal reflux disease without esophagitis; Z79.899 Other long term (current) drug therapy; J45.909 Unspecified asthma, uncomplicated; Z79.51 Long term (current) use of inhaled steroids; F17.200 Nicotine dependence, unspecified, uncomplicated
CPT/HCPCS: 71046; 80048; 84484; 85025; 93005; 99284; A4216

== ENCOUNTER → 2024-11-04 | Outpatient (CLI) | payer MEDICAID, SELFPAY ==
--- NOTE | 2024-11-04 14:40 | ECHOD_ITS ---
Reason For Study Reason For Study: Chest Pain, Cardiomyopathy Procedure This was a 2D Doppler, Color Flow transthoracic echocardiogram. Exam performed in department. Left Ventricle Normal LV size. The left ventricular ejection fraction is 55 %. Stage 1 diastolic dysfunction. No regional wall motion abnormalities noted. Right Ventricle Normal RV size. Normal systolic function. Atria Normal left atrium. Normal right atrium. Mitral Valve Normal mitral valve. Tricuspid Valve Normal tricuspid valve. Aortic Valve Normal aortic valve. Trisinus/trileaflet aortic valve. Pulmonic Valve Normal pulmonic valve. Great Vessels Normal aortic root. The pulmonary artery is normal size. Inferior vena cava collapse with respiration. Pericardium/Pleural No pericardial effusion. MMode/2D Measurements & Calculations LVIDd: 5.5 cm IVSd: 0.97 cm Ao root diam: 3.2 cm LVIDs: 3.9 cm LVPWd: 0.83 cm RVDd: 4.3 cm FS: 28.7 % LAV(MOD-bp): 50.2 ml LVAd ap4: 39.6 cm2 SV(MOD-sp4): 76.2 ml LAV(MOD-bp) Indexed: 21.9 ml/m2 LVLd ap4: 9.5 cm SI(MOD-sp4): 33.3 ml/m2 LAV(MOD-sp2): 47.8 ml EDV(MOD-sp4): 138.6 ml LAV(MOD-sp4): 47.2 ml EDV(sp4-el): 139.6 ml LVAs ap4: 24.5 cm2 LVLs ap4: 8.5 cm ESV(MOD-sp4): 62.5 ml ESV(sp4-el): 60.1 ml EF(MOD-sp4): 55.0 % EF(sp4-el): 56.9 % SV(sp4-el): 79.5 ml LA A4 area: 19.1 cm2 LA dimension(2D): 4.1 cm RA A4 area: 14.2 cm2 TAPSE: 1.4 cm Time Measurements MV dec time: 0.19 sec Doppler Measurements & Calculations MV E max eduardo: 67.8 cm/sec Lat Peak E' Eduardo: 13.8 cm/sec Med Peak E' Eduardo: 9.7 cm/sec MV A max eduardo: 95.1 cm/sec E/E' lat: 4.9 E/E' med: 7.0 MV E/A: 0.71 MV V2 max: 106.8 cm/sec MV P1/2t max edaurdo: 76.7 cm/sec Ao V2 max: 129.5 cm/sec MV max P.6 mmHg MV P1/2t: 70.3 msec Ao max P.7 mmHg MV V2 mean: 61.1 cm/sec Ao V2 mean: 90.7 cm/sec MV mean P.8 mmHg MV dec slope: 319.6 cm/sec2 Ao mean P.8 mmHg MV V2 VTI: 21.4 cm MVA(P1/2t): 3.1 cm2 Ao V2 VTI: 23.7 cm AV (velocity ratio): 0.94 LV V1 max: 120.8 cm/sec MR max eduardo: 500.8 cm/sec PA V2 max: 119.8 cm/sec LV V1 max P.8 mmHg MR max P.3 mmHg PA V2 mean: 93.4 cm/sec LV V1 mean P.4 mmHg LV V1 mean: 85.5 cm/sec LV V1 VTI: 22.4 cm ECHO/Echo Complete Interpretation Summary Normal LV size. The left ventricular ejection fraction is 55 %. Stage 1 diastolic dysfunction. Structurally normal valves. Ordering Physician: Aparna^Luis^P^^ Referring Physician: Luis Braun Performed By: Leonidas Denise RCS
== END | disposition home or self-care (01) ==
LOC: CVS 14:37
PROVIDERS: PCP Nurse Practitioner Family; Referring Provider Internal Medicine; Visit Provider Internal Medicine
DX: R07.9 Chest pain, unspecified (principal); I42.9 Cardiomyopathy, unspecified; I10 Essential (primary) hypertension
CPT/HCPCS: 93306

== ENCOUNTER → 2024-11-19 | Outpatient (CLI) | payer MEDICAID, SELFPAY ==
[2024-11-19 13:32] LABS: Hematocrit 50.0 % (40-54); Hemoglobin 17.0 g/dL (13.0-16.5); Mean Corp Hgb Conc 34.0 g/dL (32-36); Mean Corpuscular Volume 87.3 fL (80-94); Mean Platelet Vol. 10.6 fl (6.2-12.0); Platelet Count 176 K/mm3 (150-450); RBC Distribution Width CV 13.6 % (11.6-14.6); RBC Distribution Width SD 43.4 fl (35.1-43.9); Red Blood Count 5.73 M/mm3 (4.6-6.2); White Blood Count 12.8 K/mm3 (4.4-11.0)
[2024-11-19 14:32] LABS: AST(SGOT) 23 U/L (<=37); Alanine Aminotransfer ALT/SGPT 29 U/L (<=46); Albumin, Serum 4.3 g/dL (3.5-5.0); Alkaline Phosphatase 69 U/L (40-129); Anion Gap 13 (5-15); BUN 16 mg/dL (4-19); BUN/Creat Ratio 18.0 RATIO (10-20); Calcium,Total 9.4 mg/dL (7.6-11.0); Carbon Dioxide 24.8 mmol/L (21.0-32.0); Chloride 102 mmol/L (98-108); Cholesterol 148 mg/dL (<=200); Globulin 3.3 g/dL (2.2-4.2); Glucose 96 mg/dL (70-99); Low Density Lipoprotein Calc. 87 mg/dL; Magnesium 1.7 mg/dL (1.5-2.2); Potassium 4.1 mmol/L (3.3-5.1); Triglycerides 124 mg/dL; Very Low Density Lipoprotein 25 mg/dL (5-40); Vitamin D,25 Hydroxy 16.4 ng/mL (30-100); cholesterol:hdl ratio screen 4.10
== END | disposition home or self-care (01) ==
PROVIDERS: PCP Nurse Practitioner Family; Referring Provider Nurse Practitioner Family; Visit Provider Nurse Practitioner Family
DX: I10 Essential (primary) hypertension (principal); D75.1 Secondary polycythemia; E55.9 Vitamin D deficiency, unspecified; E78.00 Pure hypercholesterolemia, unspecified; K21.9 Gastro-esophageal reflux disease without esophagitis; K76.0 Fatty (change of) liver, not elsewhere classified; R73.01 Impaired fasting glucose
CPT/HCPCS: 36415; 80053; 80061; 82306; 83036; 83735; 85027

== ENCOUNTER 2024-12-28 01:35 | Emergency (ER) | payer MEDICARE, MEDICAID, SELFPAY ==
[2024-12-28 01:35] VITALS: BP 154/94; PULSE 95; RESP 16; TEMP 36.6; O2SAT 98; BMI 43.6
--- NOTE | 2024-12-28 02:25 | CT_ITS ---
PROCEDURE: SPINE LUMBAR WITHOUT CONTRAST 12/28/2024 REASON FOR EXAM: FALL, LOW BACK PAIN TECHNIQUE: Procedure Code: CTSPL Modality: CT Procedure: SPINE LUMBAR WITHOUT CONTRAST Coronal and Sagittal reconstruction series were provided. One or more dose reduction techniques were used (e.g., Automated exposure control, adjustment of the mA and/or kV according to patient size, use of iterative reconstruction technique COMPARISON: MRI of the lumbar spine on 06/09/2024. RADIATION DOSE SUMMARY: CTDlvol: 56.96 mGy DLP: 2139 mGycm FINDINGS: There are diffuse spondylotic changes. Findings are demonstrated to by diffuse disc space narrowing, osteophyte formation and degenerative endplate sclerosis. There is diffuse facet joint arthropathy with secondary bilateral neural foramina narrowing. No fracture or dislocation is seen. No aggressive lytic or blastic bony lesion is noted. Moderate arthrosis of the sacroiliac joints. CT/Spine Lumbar without Contrast IMPRESSION: Spondylosis. Findings are more prominent at L2-L3. No CT evidence of an acute traumatic abnormality. Reading [facility] [id number]
--- NOTE | 2024-12-28 02:26 | ED.VIS.BACK ---
HPI History of Present Illness Chief Complaint: Back Narrative Narrative: Patient is a 39-year-old male presenting to the emergency department for back pain after a fall. 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 Patient states that he got up around midnight and his cat knocked over its water bowl and he did not see this and he slipped in the puddle of water. States he landed on his buttocks. Was able to get up by himself. Denies hitting his head, any loss of consciousness, neck pain or use of oral anticoagulation. Denies any numbness, weakness in his legs, bowel or bladder retention or incontinence, saddle anesthesia. He was able to ambulate after the fall. Endorses mild right hip pain as well that he states is slightly worse than baseline for him. Denies any other injuries or pain. [facility] Medical History Hypercholesteremia Smoker Hypertension Night terrors, adult Bipolar disorder Schizophrenia Excessive cerumen in right ear canal Mass of left lung Muscle strain of chest wall Left-sided chest wall pain Lumbar strain Lumbar contusion Back pain Asthma Fatigue Home Medications ?Medication ?Instructions ?Recorded ?Last Taken ?Type atenolol 25 mg tablet 25 mg PO DAILY 10/09/18 Unknown History omeprazole 10 mg capsule,delayed 10 mg PO DAILY 11/16/18 Unknown History release fluticasone 100 mcg-salmeterol 50 1 inh inhalation DAILY 11/23/22 Unknown History mcg/dose blistr powdr for inhalation (Advair Diskus) albuterol sulfate 90 mcg/actuation 2 puff inhalation Q4H PRN 12/28/24 Unknown History aerosol inhaler shortness of breath or wheezing aspirin 81 mg tablet,delayed 81 mg PO DAILY 12/28/24 Unknown History release cetirizine 10 mg tablet 10 mg PO DAILY ALLERGIES 12/28/24 Unknown History cholecalciferol (vitamin D3) 1,250 1,250 mcg PO QMONTH 12/28/24 Unknown History mcg (50,000 unit) capsule famotidine 40 mg tablet 40 mg PO DAILY INDIGESTION 12/28/24 Unknown History fluticasone propionate 50 2 spray intranasal Q12H ALLERGIES 12/28/24 Unknown History mcg/actuation nasal spray,suspension metformin 500 mg tablet 500 mg PO BID 12/28/24 Unknown History metoprolol succinate 25 mg 25 mg PO DAILY HEART RATE 12/28/24 Unknown History tablet,extended release 24 hr montelukast 10 mg tablet 10 mg PO DAILY ALLERGIES 12/28/24 Unknown History olanzapine 15 mg tablet 15 mg PO QHS 12/28/24 Unknown History omeprazole 40 mg capsule,delayed 40 mg PO DAILY 12/28/24 Unknown History release prazosin 1 mg capsule 1 mg PO QHS 12/28/24 Unknown History prazosin 2 mg capsule 2 mg PO QHS 12/28/24 Unknown History ramipril 10 mg capsule 10 mg PO DAILY 12/28/24 Unknown History rosuvastatin 5 mg tablet 5 mg PO DAILY HIGH CHOLESTEROL 12/28/24 Unknown History Allergy/AdvReac Type Severity Reaction Status Date / Time [facility]efaclor [facility] Allergy Hives Verified 12/28/24 01:36 Surgical History History of ankle surgery Social History Smoking Status: Heavy Smoker (>10/day) alcohol intake: never substance use type: marijuana ROS ROS ED ROS Narrative See HPI EXAM Physical Exam Narrative Exam Narrative: Vital signs: Reviewed General: Alert and oriented x 3. No acute distress HEENT: Head is normocephalic and atraumatic, sinuses nontender, pupils equal round and reactive. Nares are patent. Oropharynx and throat exams normal. Neck: Supple without lymphadenopathy nontender. No midline cervical spinal tenderness to palpation. No step-offs or deformities. Cardiovascular: Regular rate and rhythm, no murmurs. No rubs or gallops. Normal S1 and S2 Respiratory: Clear to auscultation bilaterally. No wheezes, rales, rhonchi Abdominal: Soft and nontender. Normal bowel sounds. No guarding or rebound. Nonsurgical abdomen Extremities: Extremities are atraumatic and nontender to palpation with normal active range of motion. 5 out of 5 strength in all extremities. Sensation intact in all extremities. Back: No midline thoracic spinal tenderness to palpation. No step-offs or deformities. There is lower midline lumbar spinal tenderness to palpation with no step-offs or deformities. There is bilateral paraspinal lumbar tenderness to palpation. No erythema, lacerations, bruising. Hips are stable and nontender to palpation. Skin: No rash or redness. Neurological: Cranial nerves II through XII are grossly intact. Normal strength and sensation. Normal cerebellar function The rest of the physical exam is unremarkable Const Vital Signs: 12/28/24 01:35 Temperature 97.9 F Temperature Source Oral Pulse Rate 95 Respiratory Rate 16 Blood Pressure 154/94 H Blood Pressure Mean 114 Pulse Ox 98 Oxygen Delivery Method Room Air MDM MDM MDM Narrative Medical decision making narrative: Patient is a 39-year-old male presenting to the emergency department after a fall with back pain. Patient was seen and examined. Vitals are stable. Patient resting bed comfortably no acute distress. Given the fall and midline spinal tenderness to palpation, CT imaging of the lumbar spine was ordered as well as pelvis x-ray to evaluate the right hip. He was given IM Toradol for symptomatic control. No red flag back pain signs. No weakness or numbness in the lower extremities. Normal neurologic exam. CT lumbar spine shows no CT evidence of an acute traumatic abnormality. Pelvis x-ray was reviewed by myself and there is no evidence of fracture or dislocation. Radiology read with no acute abnormalities as well. Patient reevaluated. He states that his pain is much improved after the Toradol. Him and his mother were updated on the negative imaging findings. Recommended Tylenol, Motrin, icing, resting and stretching his back. Recommended returning to the ED with any new or worsening symptoms including worsening back pain, weakness or numbness in his legs, bowel or bladder incontinence/retention. Patient agreeable to plan. Ambulated out of department without difficulty. Clinical impression Fall Low back pain Radiography X-Ray: Right Hip, Left Hip, Read by ED Physician, Normal and No Fracture Diagnostic Testing: Clinical Impression(s) from Imaging Studies Lumbar Spine CT 12/28/24 02:25 IMPRESSION: Spondylosis. Findings are more prominent at L2-L3. No CT evidence of an acute traumatic abnormality. Reading Location: [id number] Pelvis X-Ray 12/28/24 02:38 IMPRESSION: No evidence for acute abnormality. Reading [id number] Triage Chief Complaint: Back ED Provider: Danisha Reich Dx/Rx/DC Orders Clinical Impression: Low back pain, Lumbar contusion Instructions: Relieving Back Pain, Self-Care for Low Back Pain, ED Back Contusion Prescriptions: No Action omeprazole 10 mg capsule,delayed release(DR/EC) 10 mg PO DAILY fluticasone propion-salmeterol [Advair Diskus] 100-50 mcg/dose blister with device 1 inh inhalation DAILY atenolol 25 tablet 25 mg PO DAILY aspirin 81 mg tablet,delayed release (DR/EC) 81 mg PO DAILY albuterol sulfate 90 mcg/actuation HFA aerosol inhaler 2 puff inhalation Q4H PRN (Reason: shortness of breath or wheezing) cetirizine 10 mg tablet 10 mg PO DAILY cholecalciferol (vitamin D3) 1,250 mcg (50,000 unit) capsule 1,250 mcg PO QMONTH metformin 500 mg tablet 500 mg PO BID prazosin 1 mg capsule 1 mg PO QHS Rx Instructions: TAKE WITH 2 MG TABLET FOR A TOTAL OF 3 MG AT NIGHT omeprazole 40 mg capsule,delayed release(DR/EC) 40 mg PO DAILY montelukast 10 mg tablet 10 mg PO DAILY olanzapine 15 mg tablet 15 mg PO QHS metoprolol succinate 25 mg tablet extended release 24 hr 25 mg PO DAILY prazosin 2 mg capsule 2 mg PO QHS Rx Instructions: TAKE WITH 1 MG TABLET FOR A TOTAL OF 3 MG AT NIGHT famotidine 40 mg tablet 40 mg PO DAILY fluticasone propionate 50 mcg/actuation spray,suspension 2 spray INTRANASAL Q12H ramipril 10 mg capsule 10 mg PO DAILY rosuvastatin 5 mg tablet 5 mg PO DAILY Primary Care Provider: Tobias Bergman NP Referrals: Tobias Bergman [employer] ARCHITECT, [employer] ARCHITECT-C [Primary Care Provider] - 2 Days Activity Restrictions/Additional Instructions: Take Tylenol and Motrin at home for pain control. Your evaluation in the Emergency Department did not reveal any acute reason for admission. However, I want to emphasize that you may be early in the course of a disease process or illness even if it is not present. For this reason you should follow-up within 24 hours for reevaluation with either your primary care physician or if necessary back here in the Emergency Department. You should return to the Emergency Department immediately if your symptoms worsen or new symptoms develop. Print Language: Ivorian Disposition Disposition: Home, Self Care
--- NOTE | 2024-12-28 02:38 | RAD_ITS ---
PROCEDURE: PELVIS 1 OR 2 VIEWS 12/28/2024 REASON FOR EXAM: FALL, RIGHT HIP PAIN TECHNIQUE: Procedure Code: RADPEL Modality: DX Procedure: PELVIS 1 OR 2 VIEWS COMPARISON: None. 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 There is a non-specific bowel gas pattern. Normal visualized soft tissue structures. Normal visualized sacrum and bilateral iliac wings. Normal visualized bilateral superior and inferior pubic rami. Normal ischial tuberosities. Normal pubic symphysis. Normal visualized right femoral head. Normal right acetabulum. Normal right hip joint. Normal visualized left femoral head. Normal left acetabulum. Normal left hip joint. RAD/Pelvis 1 or 2 Views IMPRESSION: No evidence for acute abnormality. Reading [facility]
[2024-12-28] MEDS: Ketorolac 30 MG/ML Syringe IM (02:46)
--- OUTSIDE RECORDS SUMMARY | 2024-12-28 03:27 | XMS RPT_ITS | CCD ---
Author Organization [facility] CliniSyil Care Team Providers Care Cane Piler Name Role Phone Сергей Bergman CNP Primary Care Provider [phone] MADALYN PHONE BANKER - СЕРГЕЙ JOHNSON Primary Care Phys ician Madalyn EXTENDER, EXTENDER-C Сергей López Primary Care Pr ovider Madalyn EXTENDER, EXTENDER-C Сергей López Referring Provi arlen Dr. Steve Kim Attending Provider Dr. Jorge Alberto Hawkins Attending Provider CALEB Couch Attending Provider Madalyn EXTENDER, EXTENDER-C Сергей López Primary Care Pr ovider Madalyn EXTENDER, EXTENDER-C Сергей López Referring Provi arlen [place] EXTENDER, EXTENDER-C Сергей López Primary Care Pr ovider Madalyn EXTENDER, EXTENDER-C Сергей López Referring Provi arlen CALEB Couch Attending Provider Madalyn EXTENDER, EXTENDER-C Сергей López Primary Care Pr ovider [place] EXTENDER, EXTENDER-C Сергей López Referring Provi arlen CALEB Couch Attending Provider Dr. Steve Kim Attending Provider Dr. Jorge Alberto Hawkins Attending Provider Madalyn EXTENDER, EXTENDER-C Сергей López Primary Care Pr ovider [place] EXTENDER, EXTENDER-C Сергей López Referring Provi arlen CALEB Couch Attending Provider [phone] TREVER QUINONES, DR MARLYS Fair Attending Unamekhii heidile MADALYN PHONE BANKER - HIGH SCHOOL MATH TEACHER, СЕРГЕЙ Louise Primary Care [facility] navailable [facility], SAMANTHA Attending Unavailable MADALYN PHONE BANKER - HIGH SCHOOL MATH TEACHER, СЕРГЕЙ Louise Primary Care U navailable MADALYN PHONE BANKER - HIGH SCHOOL MATH TEACHER, СЕРГЕЙ Louise Attending U navailable MADALYN PHONE BANKER - HIGH SCHOOL MATH TEACHER, СЕРЕГЙ Louise Primary Care U navailable MADALYN PHONE BANKER - HIGH SCHOOL MATH TEACHER, СЕРГЕЙ Louise Primary Care U navailable APARNA QUINONES, BREEZY Attending U navailable Madalyn HIGH SCHOOL MATH TEACHER, Сергей Louise Primary Care Provider MADALYN PHONE BANKER - HIGH SCHOOL MATH TEACHER, СЕРГЕЙ Louise Primary Care U navailable APARNA QUINONES, BREEZY Attending U navailable MADALYN PHONE BANKER - HIGH SCHOOL MATH TEACHER, СЕРГЕЙ Louise Primary Care U navailable APARNA QUINONES, BREEZY Attending U navailable Madalyn EXTENDER-C, Сергей López Primary Care Provi arlen Madalyn EXTENDER-C, Сергей López Attending Provider Madalyn EXTENDER-C, Сергей López Referring Provider Ana Stewart Attending Provider Dr. Emil Nicole MD Attending Provider Dr. Emil Nicole MD Emergency Provider [phone] Ana Stewart Referring Provider Madalyn EXTENDER-C, Сергей López Primary Care Provi arlen Madalyn EXTENDER-C, Сергей López Referring Provider Ana Stewart Attending Provider Dr. Emil Nicole MD Attending Provider Dr. Emil Nicole MD Emergency Provider Ana Stewart Referring Provider СЕРГЕЙ BERGMAN Primary Care Unavailable GANGA ORDONEZ Attending Unavailable MADALYN, СЕРГЕЙ Louise Primary Care Unavailable MADALYN, СЕРГЕЙ Louise Primary Care Unavailable MADALYN, СЕРГЕЙ Louise Primary Care Unavailable MADALYN, СЕРГЕЙ Louise Primary Care Unavailable Madalyn EXTENDER-C, Сергей López Primary Care Provi arlen Corey QUINONES, Dr. Stein Attending Provider Corey QUINONES, Dr. Stein Emergency Provider [phone] Aparna QUINONES, Dr. Breezy Umana Attending P rovider Aparna QUINONES, Dr. Breezy Umana Referring P rovider Shruthi QUINONES, Dr. Azul Attending Provider [place] EXTENDER-C, Сергей López Attending Provider Madalyn EXTENDER-C, Сергей López Referring Provider Patricia Em Other Provider Emil Nicole Attending Unavailable [place] EXTENDER, Сергей López Primary Care Unav ailable [place] EXTENDER, Сергей López Primary Care Unav ailable Madalyn EXTENDER, Сергей López Referring Unav ailable Ana Elizabeth Attending Unavailable Madalyn EXTENDER, Сергей López Referring Unav ailable [place] EXTENDER, Сергей López Primary Care Unav ailable Ana Elizabeth Attending Unavailable Jorge Alberto Hawkins Attending Unavailable [place] EXTENDER, Сергей López Primary Care Unav ailable Madalyn EXTENDER, Сергей López Primary Care Unav ailable Aparna, Prabhakaran P Attending Un available Aparna, Prabhakaran P Referring Un available [place] EXTENDER, Сергей López Attending Unav ailable Patricia Em Consulting Unavailable Madalyn EXTENDER, Сергей López Referring Unav ailable Madalyn EXTENDER, Сергей López Primary Care Unav ailable [place] EXTENDER, Сергей López Primary Care Unav ailable [place] EXTENDER, Сергей López Attending Unav ailable [place] EXTENDER, Сергей López Referring Unav ailable [place] EXTENDER, Сергей López Primary Care Unav ailable Ana Elizabeth Attending Unavailable Ana Elizabeth Referring Unavailable Ana Elizabeth Referring Unavailable Madalyn EXTENDER, Сергей López [facility] Unav ailable Ana Elizabeth Attending Unavailable Emil Nicole Attending Unavailable Madalyn EXTENDER, Сергей López [facility] Unav ailable Allergies Allergy Classification Reported Allergen(s) Allergy Type Date of Onset Reaction(s) Facility (20 sources) Cefaclor; Translations: [cefaclor] Drug Allergy 4 Rash, Eruption of skin (disorder) [facility] Work Phone: (1 source) Cefaclor Drug Allergy 5 [facility] Medications Current Medications Medication Drug Class(es) Dates Sig (Normalized) Sig (Original) Albuterol (8 sources) beta2-Adrenergic Agonist ALBUTER OL SULFATE (PROAIR HFA INHALATION) Inhale as instructed. Active ALBUTEROL SULFAT E (PROAIR HFA INHALATION) Inhale as instructed. 0 Active Comment on above: Inhale as instructed . albuterol MDI (90 mcg/inh) CFC free inhalation aerosol (7 sources) Start: 4 End: 4 take 2 puff(s) by inhalation every six hours as needed for wheezing albuterol MDI (90 mcg/inh) CFC free inhalation aerosol 2 puff(s), Inhalation, q6h, PRN as needed for wheezing, # 6.7 gram(s), 5 Refill(s), Pharmacy: [facility], Asthma, 187.5, cm, 08/30/23 14:18:00 EDT, Height, kg, 08/30/23 14:18:00 EDT, Dosing Weight Start Date: 08/30/23 Stop Date: 02/26/24 Status: Ordered Start: 08-01-2022 End: 01-28-2023 take 2 puff(s) by inhalation every six hours as needed for wheezing albuterol MDI (90 mcg/inh) CFC free inhalation aerosol 2 puff(s), Inhalation, q6h, PRN PRN as needed for wheezing, # 6.7 gram(s), 5 Refill(s), Pharmacy: [facility] #[id number], Asthma, 186.4, cm, 08/01/22 14:54:00 EDT, Height Start Date: 08/01/22 Stop Date: 01/28/23 Status: Ordered ARIPiprazole 30 mg oral tablet (8 sources) Atypical Antipsychotic take 30 mg by mouth once daily ARIPIPRAZOLE (ABILIFY ORAL) Take 30 mg by mouth once daily. Active Comment on above: Take 30 mg by mouth once daily. aspirin 81 mg delayed release oral tablet (7 sources) Platelet Aggregation Inhibitor, Nonsteroidal Anti-inflammatory Drug Start: aspirin, enteric coated (ASPIRIN, ENTERIC COATED) 81 mg EC tablet 03/27/2024 Active Start: 12-28-2023 aspirin 81 mg oral delayed release tablet Dose : 81 mg = 1 tab(s), Oral, Daily, # 30 tab(s), 6 Refill(s), Pharmacy: [facility], 187, cm, 12/28/23 14:54:00 EDT, Height, kg, 12/10/23 14:40:00 EDT, Dosing Weight Start Date: 12/28/23 Status: Ordered atenolol 25 mg oral tablet (20 sources) beta-Adrenergic Adamaris Start: 10-09-2018 take 1 tablet by mouth once daily Atenolol 25 tablet Active 25 mg PO DAILY October 09, 2018 12:00am Comment on above: Take 25 mg by mouth once daily. benzonatate 100 mg oral capsule (1 source) Non-narcotic Antitussive Start: 04-13-2024 End: 04-20-2024 take 1 capsule by mouth three times daily as needed for cough benzonatate (TESSALON PERLE) 100 mg capsule Indications: Bronchopneumonia Take 1 capsule by mouth three times a day as needed for cough for up to 7 days. 21 capsule 04/13/2024 04/20/2024 Active Budesonide / formoterol (8 sources) Corticosteroid, beta2-Adrenergic Agonist take 2 puff(s) by inhalation twice daily budesonide-formotero l (SYMBICORT) 80-4.5 mcg/actuation inhaler Inhale 2 Puffs as instructed twice daily. Active take 2 puff(s) by in halation twice daily budesonide-formoterol (SYMBICORT) 80-4.5 mcg/actuation inhaler Inhale 2 Puffs as instructed twice daily. 0 Active Comment on above: Inhale 2 Puffs as in structed twice daily. cetirizine hydrochloride 10 mg oral tablet (8 sources) Histamine-1 Receptor Antagonist Start: 08-30-2023 End: 02-26-2024 Zyrtec 10 mg oral tablet Dose : 10 mg = 1 tab(s), Oral, qDay, # 90 tab(s), 1 Refill(s), Pharmacy: [facility], Seasonal allergies, 187.5, cm, 08/30/23 14:18:00 EDT, Height, kg, 08/30/23 14:18:00 EDT, Dosing Weight Start Date: 08/30/23 Stop Date: 02/26/24 Status: Ordered Start: 05-04-2022 End: 01-28-2023 Zyrtec 10 mg oral tablet Dos e : 10 mg = 1 tab(s), Oral, qDay, # 90 tab(s), 1 Refill(s), Pharmacy: [facility] #[id number], Seasonal allergies, 186.4, cm, 08/01/22 14:54:00 EDT, Height, kg, 08/01/22 14:54:00 EDT, Dosing Weight Start Date: 08/01/22 Stop Date: 01/28/23 Status: Ordered cholecalciferol 1.25 mg oral capsule (8 sources) Vitamin D Start: 08-30-2023 End: 02-26-2024 cholecalciferol 1250 mcg (50,000 intl units) oral capsule Dose : 50,000 International_Unit = 1 cap(s), Oral, every other week, # 7 cap(s), 1 Refill(s), Pharmacy: [facility], Vitamin D deficiency, 187.5, cm, 08/30/23 14:18:00 EDT, Height, kg, 08/30/23 14:18:00 EDT, Dosing Weight Start Date: 08/30/23 Stop Date: 02/26/24 Status: Ordered Start: 05-04-2022 End: 01-28-2023 cholecalciferol 1250 mcg (50 ,000 intl units) oral capsule Dose : 50,000 International_Unit = 1 cap(s), Oral, qmonth, # 4 cap(s), 1 Refill(s), Pharmacy: [facility] #[id number], Vitamin D deficiency, 186.4, cm, 08/01/22 14:54:00 EDT, Height, kg, 08/01/22 14:54:00 EDT, Dosing Weight Start Date: 08/01/22 Stop Date: 01/28/23 Status: Ordered cloNIDine hydrochloride 0.1 mg oral tablet (8 sources) Central alpha-2 Adrenergic Agonist take 0.1 mg by mouth once daily CLONIDINE HCL (CLONIDINE ORAL) Take 0.1 mg by mouth once daily. Active Comment on above: Take 0.1 mg by mouth once daily. cyclobenzaprine hydrochloride 10 mg oral tablet (20 sources) Muscle Relaxant Start: 06-29-19 take 1 tablet by mouth three times daily Cyclobenzaprine 10 mg tablet Active 10 mg PO THREE TIMES A DAY June 28, 2022 12:00am Start: 01-25-2016 End: 06-23-2022 take 1 tablet by mouth three times daily as needed for muscle spasms Cyclobenzaprine 10 mg tablet Discontinued 10 mg PO THREE TIMES A DAY as needed for muscle spasm 30 0 May 05, 2021 1:00am June 29, 2021 3:11pm Comment on above: Take 1 tablet by yolette three times daily as needed for Muscle Spasm. doxycycline hyclate 100 mg oral tablet (1 source) Tetracycline-class Drug Start: 04-13-20 End: 04-23-19 take 1 tablet by mouth twice daily doxycycline (VIBRA-TABS) 100 mg tablet Indications: Bronchopneumonia Take 1 tablet by mouth two times a day for 10 days. 20 tablet 04/13/2024 04/23/2024 Active famotidine 40 mg oral tablet (8 sources) Histamine-2 Receptor Antagonist Start: 08-30-19 End: 02-26-20 Pepcid 40 mg oral tablet Dose : 40 mg = 1 tab(s), Oral, qHS, # 90 tab(s), 1 Refill(s), Pharmacy: [facility], GERD (gastroesophageal reflux disease), 187.5, cm, 08/30/23 14:18:00 EDT, Height, kg, 08/30/23 14:18:00 EDT, Dosing Weight Start Date: 08/30/23 Stop Date: 02/26/24 Status: Ordered Start: 05-04-2022 End: 01-28-2023 Pepcid 40 mg oral tablet Dos e : 40 mg = 1 tab(s), Oral, qHS, # 90 tab(s), 1 Refill(s), Pharmacy: [facility] #[id number], GERD (gastroesophageal reflux disease), 186.4, cm, 08/01/22 14:54:00 EDT, Height, kg, 08/01/22 14:54:00 EDT, Dosing Weight Start Date: 08/01/22 Stop Date: 01/28/23 Status: Ordered fluticasone propionate 0.05 mg/actuat metered dose nasal spray (15 sources) Corticosteroid Start: 08-30-2023 End: 02-26-2024 take 1 dose nasal route once daily in the morning Flonase 50 mcg/inh nasal spray Dose = 2 spray(s), Nostril, each, qAM, # 9.9 mL, 5 Refill(s), Pharmacy: [facility], Seasonal allergies, 187.5, cm, 08/30/23 14:18:00 EDT, Height, kg, 08/30/23 14:18:00 EDT, Dosing Weight Start Date: 08/30/23 Stop Date: 02/26/24 Status: Ordered Start: 09-04-2022 End: 12-03-2022 take 1 dose nasal route once daily in the morning Flonase 50 mcg/inh nasal spray Dose = 2 spray(s), Nostril, each, qAM, # 9.9 mL, 2 Refill(s), Pharmacy: [facility] #[id number], Seasonal allergies, 186.5, cm, 09/04/22 14:48:00 EDT, Height Start Date: 09/04/22 Stop Date: 12/03/22 Status: Ordered take 1 puff(s) by in halation twice daily fluticasone 220 mcg/actuation inhaler Inhale 1 Puff as instructed twice daily. Active Comment on above: Inhale 1 Puff as ins tructed twice daily. 60 actuat fluticasone propionate 0.1 mg/actuat / salmeterol 0.05 mg/actuat dry powder inhaler (20 sources) Corticosteroid, beta2-Adrenergic Agonist Start: 03-07-2024 ADVAIR DISKUS 100-50 mcg/dose inhaler 03/07/2024 Active Start: 08-30-2023 End: 02-26-2024 take 1 dose by inhalation twice daily Advair Diskus 100 mcg-50 mcg inhalation powder Dose = 1 puff(s), Inhalation, BID, # 1 EA, 5 Refill(s), Pharmacy: [facility], Asthma, 187.5, cm, 08/30/23 14:18:00 EDT, Height, kg, 08/30/23 14:18:00 EDT, Dosing Weight Start Date: 08/30/23 Stop Date: 02/26/24 Status: Ordered Start: 11-23-2022 Fluticasone Pr opion-Salmeterol (Advair Diskus) 100-50 mcg/dose blister with device Active 1 NMA INHALATION DAILY November 23, 2022 12:00am Start: 11-23-2022 Fluticasone Pr opion-Salmeterol (Advair Diskus) 100-50 mcg/dose blister with device Active 1 NMA INHALATION DAILY November 22, 2022 11:00pm Start: 11-23-2022 Fluticasone Pr opion-Salmeterol (Advair Diskus) 100-50 mcg/dose blister with device Active 1 INH INHALATION DAILY November 23, 2022 12:00am Start: 11-23-2022 Fluticasone Pr opion-Salmeterol (Advair Diskus) 100-50 mcg/dose blister with device Active 1 INH INHALATION DAILY November 22, 2022 11:00pm Start: 09-04-2022 End: 10-04-2022 take 1 dose by inhalation twice daily Advair Diskus 100 mcg-50 mcg inhalation powder Dose = 1 puff(s), Inhalation, BID, # 1 EA, 0 Refill(s), Pharmacy: [facility] #[id number], Asthma, 186.5, cm, 09/04/22 14:48:00 EDT, Height Start Date: 09/04/22 Stop Date: 10/04/22 Status: Ordered lansoprazole 30 mg delayed release oral capsule (20 sources) Proton Pump Inhibitor Start: 12-09-2020 take 1 capsule by mouth once daily lansoprazole (PREVACID) 30 mg capsule Take 30 mg by mouth once daily. 12/09/2020 Active Start: 10-09-2018 End: 11-16-2018 take 1 capsule by mouth once daily Lansoprazole 15 capsule,delayed release(DR/EC) Discontinued 15 mg PO DAILY October 09, 2018 12:00am November 16, 2018 11:44am take 30 mg by mouth once daily L ANSOPRAZOLE ORAL Take 30 mg by mouth once daily. Active Comment on above: Take 30 mg by mouth once daily. LORazepam 1 mg oral tablet (5 sources) Benzodiazepine Start: 03-17-2024 LORazepam (ATIVAN) 1 mg tablet 03/17/2024 Active metFORMIN hydrochloride 500 mg oral tablet (5 sources) Biguanide Start: 03-31-2024 metFORMIN (GLUCOPHAGE) 500 mg tablet 03/31/2024 Active methylPREDNISolone 4 mg oral tablet (20 sources) Corticosteroid Start: 09-15-2023 End: 09-21-2023 Medrol Dosepak 4 mg oral tablet Per Dosepak Instructions, Oral, Daily, X 6 day(s), # 21 tab(s), 0 Refill(s), 09/21/23 12:29:00 PM EDT Start Date: 09/15/23 Stop Date: 09/21/23 Status: Ordered Start: 11-16-2018 End: 06-29-2021 take 1 tablet by mouth once Methylprednisolone (Medrol (Winter)) 4 mg tablets,dose pack Discontinued 0 PO per package directions 21 0 November 16, 2018 12:00am June 29, 2021 3:11pm PO PER PKG DIR Start: 01-25-2016 End: 04-13-2024 methylPREDNISolone (MEDROL, WINTER,) 4 mg Dose-Pack Indications: Acute bilateral low back pain with sciatica, sciatica laterality unspecified As directed 1 Package 0 01/25/2016 04/13/2024 Discontinued (Course of therapy completed) Start: 01-25-2016 methylPREDNISo lone (MEDROL, WINTER,) 4 mg Dose-Pack Indications: Acute bilateral low back pain with sciatica, sciatica laterality unspecified As directed 1 Package 0 01/25/2016 Active Comment on above: As directed 24 hr metoprolol succinate 25 mg extended release oral tablet (5 sources) beta-Adrenergic Adamaris Start: 02-13-2024 metoprolol succinate ER (TOPROL XL) 25 mg 24 hr tablet 02/13/2024 Active montelukast 10 mg oral tablet (16 sources) Leukotriene Receptor Antagonist Start: 08-30-2023 End: 02-26-2024 Singulair 10 mg oral tablet Dose : 10 mg = 1 tab(s), Oral, qDay, # 90 tab(s), 1 Refill(s), Pharmacy: [facility], Seasonal allergies, 187.5, cm, 08/30/23 14:18:00 EDT, Height, kg, 08/30/23 14:18:00 EDT, Dosing Weight Start Date: 08/30/23 Stop Date: 02/26/24 Status: Ordered Start: 05-04-2022 End: 01-28-2023 Singulair 10 mg oral tablet Dose : 10 mg = 1 tab(s), Oral, qDay, # 90 tab(s), 1 Refill(s), [id number], Seasonal allergies, 186.4, cm, 08/01/22 14:54:00 EDT, Height, kg, 08/01/22 14:54:00 EDT, Dosing Weight Start Date: 08/01/22 Stop Date: 01/28/23 Status: Ordered Comment on above: Take 10 mg by mouth once daily. naproxen 500 mg oral tablet (20 sources) Nonsteroidal Anti-inflammatory Drug Start: End: take 1 tablet by mouth twice daily as needed Naproxen 500 MG tablet Active 500 mg PO TWICE DAILY NEEDED 20 July 09, 2023 2:38am OLANZapine 15 mg oral tablet (13 sources) Atypical Antipsychotic Start: OLANZapine (ZYPREXA) 15 mg tablet 03/20/2024 Active Start: 01-31-2022 OLANZapine 7.5 mg oral tablet Dose : 7.5 mg = 1 tab(s), Oral, Daily, # 30 tab(s), 0 Refill(s) Start Date: 01/31/22 Status: Ordered omeprazole 40 mg delayed release oral capsule (20 sources) Proton Pump Inhibitor Start: 08-30-2023 omeprazo le (PRILOSEC) 40 mg capsule 40 mg. 08/30/2023 Active Start: 08-01-2022 End: 09-30-2022 omeprazole 40 mg oral delaye d release capsule Dose : 40 mg = 1 cap(s), Oral, qDay, # 90 cap(s), 1 Refill(s), Pharmacy: [facility] #[id number], GERD (gastroesophageal reflux disease), 186.4, cm, 08/01/22 14:54:00 EDT, Height, kg, 08/01/22 14:54:00 EDT, Dosing Weight Start Date: 08/01/22 Stop Date: 09/30/22 Status: Ordered Start: 05-04-2022 End: 07-03-2022 omeprazole 40 mg oral delaye d release capsule Dose : 40 mg = 1 cap(s), Oral, qDay, # 30 cap(s), 1 Refill(s), Pharmacy: [facility] #[id number], GERD (gastroesophageal reflux disease), 186.4, cm, 05/04/22 15:00:00 EST, Height Start Date: 05/04/22 Stop Date: 07/03/22 Status: Ordered Start: 11-16-2018 take 1 capsule by [facility] once daily Omeprazole 10 mg capsule,delayed release(DR/EC) Active 10 mg PO DAILY November 16, 2018 12:00am ondansetron 4 mg disintegrating oral tablet (5 sources) Serotonin-3 Receptor Antagonist Start: 04-05-2024 take 1 tablet by mouth every eight hours as needed ondansetron orally disintegrating (ZOFRAN ODT) 4 mg disintegrating tablet Take 1 tablet by mouth every 8 hours as needed. 12 tablet 04/05/2024 Active prazosin 2 mg oral capsule (13 sources) alpha-Adrenergic Adamaris Start: 01-31-2022 prazosin (MINIPRESS) 2 mg cap Take 2 mg by mouth. 01/31/2022 Active predniSONE 20 mg oral tablet (16 sources) Start: 07-07-2024 End: 07-12-2024 take 2 tablets by mouth once daily at mealtime predniSONE (DELTASONE) 20 mg tablet Take 2 tablets by mouth once daily for 5 days. Take daily with food. 10 tablet 07/07/2024 07/12/2024 Active Start: 04-13-2024 End: 04-18-2024 take 1 tablet by mouth twice daily predniSONE (DELTASONE) 20 mg tablet Indications: Bronchopneumonia Take 1 tablet by mouth two times a day for 5 days. 10 tablet 04/13/2024 04/18/2024 Active Start: 05-05-2021 End: 06-29-2021 take 4 tablets by mouth once daily, then take 3 tablets by mouth once daily, then take 2 tablets by mouth once daily, then take 1 tablet by mouth once daily Prednisone 10 mg tablet Discontinued 10 mg PO DAILY 30 0 May 05, 2021 1:00am June 29, 2021 3:11pm 4 tablets daily for 3 days, then 3 tablets daily for 3 days, then 2 tablets daily for 3 days, then 1 tablet daily for 3 days. ramipril 5 mg oral capsule (10 sources) Angiotensin Converting Enzyme Inhibitor Start: 08-30-2023 ramipril (ALTACE) 5 mg capsule 5 mg. 08/30/2023 Active raNITIdine 150 mg oral tablet (8 sources) Histamine-2 Receptor Antagonist take 150 mg by mouth twice daily RANITIDINE HCL (ZANTAC ORAL) Take 150 mg by mouth twice daily. Active Comment on above: Take 150 mg by mouth twice daily. rosuvastatin calcium 5 mg oral tablet (12 sources) HMG-CoA Reductase Inhibitor Start: 08-01-2022 rosuvastatin (CRESTOR) 5 mg tablet 5 mg. 08/01/2022 Active Completed/Discontinued Medications Medication Drug Class(es) Dates Sig (Normalized) Sig (Original) ciprofloxacin 3 mg/ml / dexamethasone 1 mg/ml otic suspension (20 sources) Corticosteroid, Quinolone Antimicrobial Start: 11-16-2018 End: 05-13-2019 Ciprofloxacin-Dexa methasone (Ciprodex) 0.3-0.1 % drops,suspension Discontinued 4 NMA OTIC Q12H 7.5 0 November 16, 2018 12:00am May 13, 2019 2:01pm Start: 11-16-2018 End: 05-13-2019 Ciprofloxacin-Dexamethasone (Ciprodex) 0.3-0.1 % drops,suspension Discontinued 4 DRP OTIC Q12H 7.5 November 16, 2018 12:00am May 13, 2019 2:01pm Start: 10-09-2018 End: 10-20-2018 Ciprofloxacin-Dexamethasone 1 DROP bottle Discontinued 4 NMA OTIC TWICE A DAY 1 7 0 October 09, 2018 12:00am October 15, 2018 12:00am October 20, 2018 12:08am Start: 10-09-2018 End: 10-20-2018 Ciprofloxacin-Dexamethasone Discontinued 4 DRP OTIC TWICE A DAY 1 October 09, 2018 12:00am October 20, 2018 12:08am colistin 3 mg/ml / hydrocortisone 10 mg/ml / neomycin 3.3 mg/ml / thonzonium bromide 0.5 mg/ml otic suspension (14 sources) Aminoglycoside Antibacterial, Corticosteroid Start: 11-16-2018 End: 11-16-2018 Jagubdlf-Vlghoh-Xo-Thonzoniu m (Cortisporin-Tc) 3.3-3-10-0.5 mg/mL drops,suspension Discontinued 4 NMA OTIC THREE TIMES A DAY 10 7 November 16, 2018 12:00am November 22, 2018 12:00am November 16, 2018 12:43pm Start: 11-16-2018 End: 11-16-2018 Dirpysfq-Fqpngs-Oj-Thonzoniu m (Cortisporin-Tc) 3.3-3-10-0.5 mg/mL drops,suspension Discontinued 4 DRP OTIC THREE TIMES A DAY 10 November 16, 2018 12:00am November 16, 2018 12:43pm hydrocortisone 10 mg/ml / neomycin 3.5 mg/ml / polymyxin b [id number] unt/ml otic suspension (14 sources) Aminoglycoside Antibacterial, Polymyxin-class Antibacterial, Corticosteroid Start: 05-13-2019 End: 05-23-2019 Zbmedflb-Hepcnovtp-Ji 3.5-10,000-1 mg/mL-unit/mL-% drops,suspension Discontinued 3 NMA OTIC Q4H 10 10 May 13, 2019 1:00am May 22, 2019 1:00am May 23, 2019 1:09am apply to (cotton) wick; replace wick every 24 hours Start: 05-13-2019 End: 05-23-2019 Mcpytlyb-Vratsgvvw-Dy Discon tinued 3 DRP OTIC Q4H 10 May 13, 2019 1:00am May 23, 2019 1:09am apply to (cotton) wick; replace wick every 24 hours triamcinolone acetonide 1 mg/ml topical cream (7 sources) Corticosteroid Start: 10-12-2022 End: 11-23-2022 triamcinolone 0.1% topical cream Apply 1 himanshu, Topical, BID, # 15 gram(s), 2 Refill(s), Pharmacy: [facility] #[id number], Cream, 187.4, cm, 10/12/22 14:42:00 EDT, Height, 149.7, kg, 10/12/22 14:42:00 EDT, Dosing Weight Start Date: 10/12/22 Stop Date: 11/23/22 Status: Ordered Start: 08-01-2022 End: 09-12-2022 triamcinolone 0.1% topical c ream Apply 1 himanshu, Topical, BID, # 15 gram(s), 2 Refill(s), Pharmacy: [facility] #[id number], Cream, 186.4, cm, 08/01/22 14:54:00 EDT, Height, 143.4 Start Date: 08/01/22 Stop Date: 09/12/22 Status: Ordered Problems Active Problems Problem Classification Problem Date Documented Da te Episodic/Chronic Abdominal pain (2 sources) Right upper quadrant pain 09-04-2022 Episodic Anxiety disorders (3 sources) Claustrophobia 10-16-2023 Chronic Asthma (7 sources) Asthma 08-01-2022 Chronic Congestive heart failure; nonhypertensive (2 sources) Diastolic dysfunction 12-10-2023 Chronic Diabetes mellitus without complication (8 sources) Impaired fasting glycemia 06-13-2021 Episodic Disorders of lipid metabolism (20 sources) Hyperlipidemia; Translations: [Hyperlipidemia, unspecified] Onset: 4 07-21-2013 Chronic Esophageal disorders (16 sources) Gastroesophageal reflux disease; Translations: [Gastro-esophageal reflux disease without esophagitis] Onset: 4 07-21-2013 Chronic Essential hypertension (20 sources) Essential hypertension; Translations: [Essential (primary) hypertension] Onset: 4 07-21-2013 Chronic Heart valve disorders (8 sources) Rheumatic mitral valve disease, unspecified; Translations: [Mitral valve disorders] Onset: 4 07-21-2013 Chronic Lymphadenitis (10 sources) Axillary lymphadenopathy; Translations: [Localized enlarged lymph nodes] 11-24-2022 Episodic Nausea and vomiting (1 source) Nausea and vomiting; Translations: [Nausea with vomiting, unspecified] 04-05-2024 Episodic Nonspecific chest pain (20 sources) Atypical chest pain; Translations: [Other chest pain] Onset: 5 11-04-2016 Episodic Nutritional deficiencies (8 sources) Vitamin D deficiency 01-31-2022 Chronic Other circulatory disease (5 sources) Elevated blood-pressure reading without diagnosis of hypertension; Translations: [Elevated blood-pressure reading, without diagnosis of hypertension] 06-09-2024 Episodic Other ear and sense organ disorders (14 sources) Acute otitis externa; Translations: [Diffuse otitis externa, right ear] 05-13-2019 Episodic Other ear and sense organ disorders (9 sources) Excessive cerumen in ear canal ; Translations: [Impacted cerumen, right ear] 06-11-2023 Episodic Other ear and sense organ disorders (4 sources) Impacted cerumen, right ear; Translations: [Impacted cerumen] 06-11-2023 Episodic Other gastrointestinal disorders (5 sources) Heartburn; Translations: [Heartburn] 06-09-2024 Episodic Other gastrointestinal disorders (7 sources) History of gastroesophageal reflux disease; Translations: [Personal history of other diseases of the digestive system] 06-09-2024 Episodic Other hematologic conditions (8 sources) Increased hemoglobin 06-13-2021 Episodic Other inflammatory condition of skin (7 sources) Psoriasis 08-01-2022 Chronic Other injuries and conditions due to external causes (1 source) Injury of head; Translations: [Unspecified injury of head, initial encounter] Onset: 4 Episodic Other liver diseases (5 sources) Steatosis of liver 10-12-2022 Chronic Other lower respiratory disease (1 source) Pleuritic pain; Translations: [Pleurodynia] Onset: 3 Episodic Other lower respiratory disease (10 sources) Lung mass; Translations: [Other nonspecific abnormal finding of lung field] 03-20-2023 Episodic Other lower respiratory disease (2 sources) Other nonspecific abnormal finding of lung field; Translations: [Swelling, mass, or lump in chest] 03-20-2023 Episodic Other lower respiratory disease (1 source) Cough 10-16-2023 Episodic Other lower respiratory disease (1 source) Expiratory wheezing 10-16-2023 Episodic Other lower respiratory disease (2 sources) Cough; Translations: [Acute cough] 07-07-2024 Episodic Other lower respiratory disease (1 source) Wheezing; Translations: [Wheezing] 07-07-2024 Episodic Other nervous system disorders (1 source) Disorder of nerve root and/or plexus; Translations: [Nerve root and plexus disorder, unspecified] Onset: Chronic Other nutritional; endocrine; and metabolic disorders (8 sources) Lipoprotein deficiency disorder; Translations: [Lipoprotein deficiency] Onset: 4 07-21-2013 Chronic Other nutritional; endocrine; and metabolic disorders (8 sources) 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 Other nutritional; endocrine; and metabolic disorders (8 sources) Hypocalcemia 06-13-2021 Chronic Other nutritional; endocrine; and metabolic disorders (16 sources) Body mass index 40+ - severely obese; Translations: [Morbid (severe) obesity due to excess calories] 09-04-2022 Chronic Other nutritional; endocrine; and metabolic disorders (2 sources) Morbid obesity 12-28-2023 Chronic Other nutritional; endocrine; and metabolic disorders (2 sources) Body mass index 30+ - obesity; Translations: [Body mass index (BMI) 37.0-37.9, adult] 08-11-2024 Chronic Other screening for suspected conditions (not mental disorders or infectious disease) (2 sources) Impaired left ventricular function 12-10-2023 Episodic Other skin disorders (3 sources) Acne 06-10-2020 Episodic Other upper respiratory disease (8 sources) Seasonal allergy 06-09-2019 Chronic Tracy-; endo-; and myocarditis; cardiomyopathy (except that caused by tuberculosis or sexually transmitted disease) (3 sources) Cardiomyopathy; Translations: [Cardiomyopathy, unspecified] Chronic Tracy-; endo-; and myocarditis; cardiomyopathy (except that caused by tuberculosis or sexually transmitted disease) (3 sources) Pericardial effusion - noninflammatory; Translations: [Other pericardial effusion (noninflammatory)] Episodic Pneumonia (except that caused by tuberculosis or sexually transmitted disease) (1 source) Bronchopneumonia; Translations: [Bronchopneumonia, unspecified organism] 04-13-2024 Episodic Residual codes; unclassified (1 source) Needs assistance with community resources; Translations: [Other specified health status] Episodic Residual codes; unclassified (8 sources) Increased body mass index 12-08-2019 Episodic Residual codes; unclassified (1 source) Procedure not done; Translations: [Procedure and treatment not carried out, unspecified reason] 06-01-2024 Episodic Residual codes; unclassified (8 sources) Tobacco use and exposure - finding; Translations: [Tobacco use] 06-09-2024 Episodic Spondylosis; intervertebral disc disorders; other back problems (20 sources) Degeneration of lumbar intervertebral disc; Translations: [Other intervertebral disc degeneration, lumbar region] Onset: 4 07-21-2013 Chronic Sprains and strains (20 sources) Low back strain; Translations: [Strain of muscle, fascia and tendon of lower back, initial encounter] Onset: 4 05-05-2021 Episodic Substance-related disorders (16 sources) Harmful pattern of use of caffeine; Translations: [Tobacco user] 09-04-2022 Chronic Substance-related disorders (9 sources) Cannabis abuse; Translations: [Cannabis use, unspecified, uncomplicated] 07-09-2023 Episodic Superficial injury; contusion (14 sources) Contusion of lower back; Translations: [Contusion of lower back and pelvis, initial encounter] 05-05-2021 Episodic Syncope (6 sources) Syncope and collapse; Translations: [Syncope and collapse] 10-16-2023 Episodic Unclassified (16 sources) Patient encounter status 12-08-2019 Unclassified (6 sources) M54.16 - Radiculopathy, lumbar region Unclassified (1 source) Acute cough; Translations: [Acute cough] Onset: 5 Past or Other Problems Problem Classification Problem Date Documented Da te Episodic/Chronic Malaise and fatigue (8 sources) Physical deconditioning; Translations: [Other malaise] Onset: 01-20-2014 01-20-2014 Episodic Other non-traumatic joint disorders (8 sources) Pain in right knee; Translations: [Pain in joint, lower leg] Onset: 01-17-2016 01-17-2016 Episodic Spondylosis; intervertebral disc disorders; other back problems (20 sources) Backache; Translations: [Dorsalgia, unspecified] Onset: 07-21-2013 07-21-2013 Episodic Results Test Name Value Interpretation Reference Range Facility Anion gap in Serum or Plasma Ordered By: Сергей Bergman on 11-19-2024 Anion gap [Moles/Vol] 13 mmol/L 5-15 [facility] BUN/creatinine ratioOrdered By: Сергей Bergman on 11-19-2024 Urea nitrogen/Creatinine [Mass ratio] 18.0 mg/mg 10-20 [facility] Bilirubin, totalOrdered By: Сергей Bergman on 11-19-2024 Bilirubin [Mass/Vol] 0.37 mg/dL 0.00-1.30 [facility] CBC-Complete Blood Cnt No Di ffon 11-19-2024 Erythrocyte distribution width (RBC) [Ratio] 13.6 % Normal 11.6-14.6 [facility] Comment on above: Order Comment: SEND CBC,A1C,LIPID,VITD AND CMP RESULTS TO PATRICIA JAMES Performed By: #### L [id number], L500.4050, L500.4100, L502.0250, L506.1001, L100.0500, L501.5200 #### [facility] [address] [place], [address] Hematocrit (Bld) [Volume fraction] 50.0 % Normal 40-54 [facility] Comment on above: Order Comment: SEND CBC,A1C,LIPID,VITD AND CMP RESULTS TO PATRICIA JAMES Performed By: #### L [id number], L500.4050, L500.4100, L502.0250, L506.1001, L100.0500, L501.5200 #### [facility] [address] [place], [address] Hemoglobin (Bld) [Mass/Vol] 17.0 g/dL High 13.0-16.5 [facility] Comment on above: Order Comment: SEND CBC,A1C,LIPID,VITD AND CMP RESULTS TO PATRICIA JAMES Performed By: #### L [id number], L500.4050, L500.4100, L502.0250, L506.1001, L100.0500, L501.5200 #### [facility] [address] [place], [address] MCH (RBC) [Entitic mass] 29.7 pg Normal 27.0-32.0 [facility] Comment on above: Order Comment: SEND CBC,A1C,LIPID,VITD AND CMP RESULTS TO PATRICIA JAMES Performed By: #### L [id number], L500.4050, L500.4100, L502.0250, L506.1001, L100.0500, L501.5200 #### [facility] [address] [place], [address] MCHC (RBC) [Mass/Vol] 34.0 g/dL Normal 32-36 [facility] Comment on above: Order Comment: SEND CBC,A1C,LIPID,VITD AND CMP RESULTS TO PATRICIA JAMES Performed By: #### L [id number], L500.4050, L500.4100, L502.0250, L506.1001, L100.0500, L501.5200 #### [facility] [address] [place], [address] MCV (RBC) [Entitic vol] 87.3 fL Normal 80-[address] [facility] Comment on above: Order Comment: SEND CBC,A1C,LIPID,VITD AND CMP RESULTS TO PATRICIA JAMES Performed By: #### L [id number], L500.4050, L500.4100, L502.0250, L506.1001, L100.0500, L501.5200 #### [facility] [address] [place], [address] Platelet mean volume (Bld) [Entitic vol] 10.6 fL Normal 6.2-12.0 [facility] Comment on above: Order Comment: SEND CBC,A1C,LIPID,VITD AND CMP RESULTS TO PATRICIA JAMES Performed By: #### L [id number], L500.4050, L500.4100, L502.0250, L506.1001, L100.0500, L501.5200 #### [facility] [address] [place], [address] Platelets (Bld) [#/Vol] 176 10*3/uL Normal 150-450 [facility] Comment on above: Order Comment: SEND CBC,A1C,LIPID,VITD AND CMP RESULTS TO PATRICIA JAMES Performed By: #### L [id number], L500.4050, L500.4100, L502.0250, L506.1001, L100.0500, L501.5200 #### [facility] [address] [place], [address] RBC (Bld) [#/Vol] 5.73 10*6/uL Normal 4.6-6.2 [facility] Comment on above: Order Comment: SEND CBC,A1C,LIPID,VITD AND CMP RESULTS TO PATRICIA JAMES Performed By: #### L 501.9985, L500.4050, L500.4100, L502.0250, L506.1001, L100.0500, L501.5200 #### [facility] [address] [place], [address] (422) RDW SD 43.4 fl Normal 35.1-43.9 [facility] Comment on above: Order Comment: SEND CBC,A1C,LIPID,VITD AND CMP RESULTS TO PATRICIA JAMES Performed By: #### L 501.9985, L500.4050, L500.4100, L502.0250, L506.1001, L100.0500, L501.5200 #### [facility] [address] [place], [address] WBC (Bld) [#/Vol] 12.8 10*3/uL High 4.4-11.0 [facility] Comment on above: Order Comment: SEND CBC,A1C,LIPID,VITD AND CMP RESULTS TO PATRICIA JAMES Performed By: #### L 501.9985, L500.4050, L500.4100, L502.0250, L506.1001, L100.0500, L501.5200 #### [facility] [address] [place], [address] Calculated very low density lipoprotein (VLDL) cholesterol measurementOrdered By: Сергей Bergman on 11-19-2024 Calculated very low density lipoprotein (VLDL) cholesterol measurement 25 mg/dL 5-40 [facility] Carbon dioxide, total [Moles /volume] in Central venous bloodOrdered By: Сергей Bergman on 11-19-2024 CO2 [Moles/Vol] 24.8 mmol/L 21.0-32.0 [facility] Chloride assayOrdered By: Silvia Bergman on 11-19-2024 Chloride [Moles/Vol] 102 mmol/L 98-108 [facility] Comprehensive Metabolic Prof ilon 11-19-2024 Albumin [Mass/Vol] 4.3 g/dL Normal 3.5-5.0 [facility] Comment on above: Order Comment: SEND CBC,A1C,LIPID,VITD AND CMP RESULTS TO PATRICIA JAMES Performed By: #### L 501.9985, L500.4050, L500.4100, L502.0250, L506.1001, L100.0500, L501.5200 #### [facility] [address] [place], [address] Albumin/Globulin [Mass ratio] 1.3 {ratio} Normal 0.9-2.4 [facility] Comment on above: Order Comment: SEND CBC,A1C,LIPID,VITD AND CMP RESULTS TO PATRICIA JAMES Performed By: #### L 501.9985, L500.4050, L500.4100, L502.0250, L506.1001, L100.0500, L501.5200 #### [facility] [address] [place], [address] ALK PHOS 69 U/L Normal 40-129 [facility] Comment on above: Order Comment: SEND CBC,A1C,LIPID,VITD AND CMP RESULTS TO PATRICIA JAMES Performed By: #### L 501.9985, L500.4050, L500.4100, L502.0250, L506.1001, L100.0500, L501.5200 #### [facility] [address] [place], [address] ALT [Catalytic activity/Vol] 29 U/L Normal <=46 [facility] Comment on above: Order Comment: SEND CBC,A1C,LIPID,VITD AND CMP RESULTS TO PATRICIA JAMES Performed By: #### L 501.9985, L500.4050, L500.4100, L502.0250, L506.1001, L100.0500, L501.5200 #### [facility] [address] [place], [address] AST [Catalytic activity/Vol] 23 U/L Normal <=37 [facility] Comment on above: Order Comment: SEND CBC,A1C,LIPID,VITD AND CMP RESULTS TO PATRICIA JAMES Performed By: #### L 501.9985, L500.4050, L500.4100, L502.0250, L506.1001, L100.0500, L501.5200 #### [facility] [address] [place], [place], [id number] Bilirubin [Mass/Vol] 0.37 mg/dL Normal 0.00-1.30 [facility] Comment on above: Order Comment: SEND CBC,A1C,LIPID,VITD AND CMP RESULTS TO PATRICIA JAMES Performed By: #### L 501.9985, L500.4050, L500.4100, L502.0250, L506.1001, L100.0500, L501.5200 #### [facility] [address] [place], [address] BUN/CRE 18.0 RATIO Normal 10-20 [facility] Comment on above: Order Comment: SEND CBC,A1C,LIPID,VITD AND CMP RESULTS TO PATRICIA JAMES Performed By: #### L 501.9985, L500.4050, L500.4100, L502.0250, L506.1001, L100.0500, L501.5200 #### [facility] [address] [place], [address] Calcium [Mass/Vol] 9.4 mg/dL Normal 7.6-11.0 [facility] Comment on above: Order Comment: SEND CBC,A1C,LIPID,VITD AND CMP RESULTS TO PATRICIA JAMES Performed By: #### L 501.9985, L500.4050, L500.4100, L502.0250, L506.1001, L100.0500, L501.5200 #### [facility] [address] [facility] [place], [address] Chloride [Moles/Vol] 102 mmol/L Normal 98-108 [facility] Comment on above: Order Comment: SEND CBC,A1C,LIPID,VITD AND CMP RESULTS TO PATRICIA JAMES Performed By: #### L 501.9985, L500.4050, L500.4100, L502.0250, L506.1001, L100.0500, L501.5200 #### [facility] [address] [place], [address] CO2 [Moles/Vol] 24.8 mmol/L Normal 21.0-32.0 [facility] Comment on above: Order Comment: SEND CBC,A1C,LIPID,VITD AND CMP RESULTS TO PATRICIA JAMES Performed By: #### L 501.9985, L500.4050, L500.4100, L502.0250, L506.1001, L100.0500, L501.5200 #### [facility] [address] [place], [address] Creatinine [Mass/Vol] 0.90 mg/dL Normal 0.70-1.20 [facility] Comment on above: Order Comment: SEND CBC,A1C,LIPID,VITD AND CMP RESULTS TO PATRICIA JAMES Performed By: #### L 501.9985, L500.4050, L500.4100, L502.0250, L506.1001, L100.0500, L501.5200 #### [facility] [address] [place], [address] GAP 13 Normal 5-15 [facility] Comment on above: Order Comment: SEND CBC,A1C,LIPID,VITD AND CMP RESULTS TO PATRICIA JAMES Performed By: #### L 501.9985, L500.4050, L500.4100, L502.0250, L506.1001, L100.0500, L501.5200 #### [facility] [address] [place], [place], [id number] (676 GFR/1.73 sq M.predicted among non-blacks MDRD (S/P/Bld) [Vol rate/Area] 111 mL/min/{1.73_m2} Normal >60 [facility] Comment on above: Order Comment: SEND CBC,A1C,LIPID,VITD AND CMP RESULTS TO PATRICIA JAMES Result Comment: mL/m in/1.73m2 CKD-EPI Creatinine Equation (2020) Performed By: #### L 501.9985, L500.4050, L500.4100, L502.0250, L506.1001, L100.0500, L501.5200 #### [facility] [address] [place], [place], [id number] [phone] Globulin (S) [Mass/Vol] 3.3 g/dL Normal 2.2-4.2 [facility] Comment on above: Order Comment: SEND CBC,A1C,LIPID,VITD AND CMP RESULTS TO PATRICIA JAMES Performed By: #### L 501.9985, L500.4050, L500.4100, L502.0250, L506.1001, L100.0500, L501.5200 #### [facility] [address] [place], [address] Glucose [Mass/Vol] 96 mg/dL Normal 70-99 [facility] Comment on above: Order Comment: SEND CBC,A1C,LIPID,VITD AND CMP RESULTS TO PATRICIA JAMES Performed By: #### L 501.9985, L500.4050, L500.4100, L502.0250, L506.1001, L100.0500, L501.5200 #### [facility] [address] [place], [address] Potassium [Moles/Vol] 4.1 mmol/L Normal 3.3-5.1 [facility] Comment on above: Order Comment: SEND CBC,A1C,LIPID,VITD AND CMP RESULTS TO PATRICIA JAMES Performed By: #### L 501.9985, L500.4050, L500.4100, L502.0250, L506.1001, L100.0500, L501.5200 #### [facility] [address] [place], [address] Sodium [Moles/Vol] 140 mmol/L Normal 133-145 [facility] Comment on above: Order Comment: SEND CBC,A1C,LIPID,VITD AND CMP RESULTS TO PATRICIA JAMES Performed By: #### L 501.9985, L500.4050, L500.4100, L502.0250, L506.1001, L100.0500, L501.5200 #### [facility] [address] [place], [address] T PROT 7.6 g/dL Normal 5.9-8.4 [facility] Comment on above: Order Comment: SEND CBC,A1C,LIPID,VITD AND CMP RESULTS TO PATRICIA JAMES Performed By: #### L 501.9985, L500.4050, L500.4100, L502.0250, L506.1001, L100.0500, L501.5200 #### [facility] [address] [place], [address] Urea nitrogen [Mass/Vol] 16 mg/dL Normal 4-19 [facility] Comment on above: Order Comment: SEND CBC,A1C,LIPID,VITD AND CMP RESULTS TO PATRICIA JAMES Performed By: #### L 501.9985, L500.4050, L500.4100, L502.0250, L506.1001, L100.0500, L501.5200 #### [facility] [address] [place], [place], [id number] Erythrocyte distribution wid th ratioOrdered By: Сергей Bergman on 11-19-2024 Erythrocyte distribution width (RBC) [Ratio] 13.6 % 11.6-14.6 [facility] Erythrocyte distribution wid th standard deviationOrdered By: Сергей Bergman on 11-19-2024 Erythrocyte distribution width (RBC) [Ratio] 43.4 fl 35.1-43.9 [facility] Glomerular filtration rate ( GFR) estimation/1.73 sq m using serum, plasma, or whole bOrdered By: Сергей Bergman on 11-19-2024 GFR/1.73 sq M.predicted among non-blacks MDRD (S/P/Bld) [Vol rate/Area] 111 mL/min/{1.73_m2} >60 [facility] Comment on above: mL/min/1.73m2 CKD-EP I Creatinine Equation (2020) Hematocrit Auto (Bld) [Volum e fraction]Ordered By: Сергей Bergman on 11-19-2024 Hematocrit (Bld) [Volume fraction] 50.0 % 40-54 [facility] Hemoglobin A1con 11-19-2024 HbA1c (Bld) [Mass fraction] 5.5 % Normal <=5.6 [facility] Comment on above: Order Comment: SEND CBC,A1C,LIPID,VITD AND CMP RESULTS TO PATRICIA JAMES Result Comment: Norm al < 5.7 % Prediabetic 5.7 - 6.4 % Diabetic >or= 6.5 % Please note range changes. Performed By: #### L 501.9985, L500.4050, L500.4100, L502.0250, L506.1001, L100.0500, L501.5200 #### [facility] [address] [place], [place], [id number] Hemoglobin A1c percentageOrd ered By: Сергей Bergman on 11-19-2024 HbA1c (Bld) [Mass fraction] 5.5 % <5.7 [facility] Comment on above: Normal < 5.7 % Predi abetic 5.7 - 6.4 % Diabetic >or= 6.5 % Please note range changes. Hemoglobin measurementOrdere d By: Сергей Bergman on 11-19-2024 Hemoglobin (Bld) [Mass/Vol] 17.0 g/dL High 13.0-16.5 [facility] LDL calc ser/plasOrdered By: Сергей Bergman on 11-19-2024 Cholesterol in LDL [Mass/Vol] 87 mg/dL [facility] Comment on above: Rhigvupcyg=927-375 m g/dL & Higher Jtkb=357 mg/dL or greaterFriedwald Equation for LDL-C Laboratory - Chemistry and C hemistry - challengeOrdered By: Сергей Bergman on 11-19-2024 AST [Catalytic activity/Vol] 23 U/L <38 [facility] Lipid Profileon 11-19-2024 CHOL:HDL 4.10 Normal [facility] Comment on above: Order Comment: SEND CBC,A1C,LIPID,VITD AND CMP RESULTS TO PATRICIA JAMES Performed By: #### L 501.9985, L500.4050, L500.4100, L502.0250, L506.1001, L100.0500, L501.5200 #### [facility] [address] [place], [address] Cholesterol [Mass/Vol] 148 mg/dL Normal <=200 [facility] Comment on above: Order Comment: SEND CBC,A1C,LIPID,VITD AND CMP RESULTS TO PATRICIA JAMES Result Comment: Chol esterol level, Desirable <200 mg/dL Borderline high cholesterol 200-239 mg/dL High cholesterol >=240 mg/dL Recommendations of the NCEP Adult Treatment Panel for the following risk-cutoff thresholds for the [place] population. Performed By: #### L 501.9985, L500.4050, L500.4100, L502.0250, L506.1001, L100.0500, L501.5200 #### [facility] [address] [place], [place], [phone] (687) Cholesterol in HDL [Mass/Vol] 36 mg/dL Low [facility] Comment on above: Order Comment: SEND CBC,A1C,LIPID,VITD AND CMP RESULTS TO PATRICIA JAMES Result Comment: Karen onal Cholesterol Education Program (NCEP) guidelines: <40 mg/dL: Low HDL-cholesterol (major risk factor for CHD) >= 60 mg/dL: High HDL-cholesterol (negative risk factor for CHD) HDL-cholesterol is affected by a number of factors, e.g. smoking, exercise, hormones, sex and age. Performed By: #### L 501.9985, L500.4050, L500.4100, L502.0250, L506.1001, L100.0500, L501.5200 #### [facility] [address] [place], [address] Cholesterol in LDL [Mass/Vol] 87 mg/dL Normal [facility] Comment on above: Order Comment: SEND CBC,A1C,LIPID,VITD AND CMP RESULTS TO PATRICIA JAMES Result Comment: Bord dzzbum=888-975 mg/dL Higher Msly=188 mg/dL or greater Friedwald Equation for LDL-C Performed By: #### L 501.9985, L500.4050, L500.4100, L502.0250, L506.1001, L100.0500, L501.5200 #### [facility] [address] [place], [place], [phone] ([address] Cholesterol in VLDL [Mass/Vol] 25 mg/dL Normal 5-40 [facility] Comment on above: Order Comment: SEND CBC,A1C,LIPID,VITD AND CMP RESULTS TO PATRICIA JAMES Performed By: #### L 501.9985, L500.4050, L500.4100, L502.0250, L506.1001, L100.0500, L501.5200 #### [facility] [address] [place], [address] Triglyceride [Mass/Vol] 124 mg/dL Normal [facility] Comment on above: Order Comment: SEND CBC,A1C,LIPID,VITD AND CMP RESULTS TO PATRICIA JAMES Result Comment: The drugs N-Acetylcysteine and Metamizole may falsely depress this assay. Normal range: <150 mg/dL Borderline High: 150-199 mg/dL High: 200-499 mg/dL Very High: >500 mg/dL Performed By: #### L 501.9985, L500.4050, L500.4100, L502.0250, L506.1001, L100.0500, L501.5200 #### [facility] [address] [place], [place], [id number] MCV (mean corpuscular volume ) determinationOrdered By: Сергей Bergman on 11-19-2024 MCV (RBC) [Entitic vol] 87.3 fL 80-[address] [facility] Magnesiumon 11-19-2024 Magnesium [Mass/Vol] 1.7 mg/dL Normal 1.5-2.2 [facility] Comment on above: Order Comment: SEND CBC,A1C,LIPID,VITD AND CMP RESULTS TO PATRICIA JAMES Performed By: #### L 501.9985, L500.4050, L500.4100, L502.0250, L506.1001, L100.0500, L501.5200 #### [facility] [address] [place], [place], [id number] Magnesium measurement (mass/ volume)Ordered By: Сергей Bergman on 11-19-2024 Magnesium (Unsp spec) [Mass/Vol] 1.7 mg/dL 1.5-2.2 [facility] Mean corpuscular hemoglobin (MCH) determinationOrdered By: Сергей Bergman on 11-19-2024 MCH (RBC) [Entitic mass] 29.7 pg 27.0-32.0 [facility] Mean corpuscular hemoglobin concentration (MCHC) determinationOrdered By: Сергей Bergman on 11-19-2024 MCHC (RBC) [Mass/Vol] 34.0 g/dL 32-36 [facility] Mean platelet volume determi nationOrdered By: Сергей Bergman on 11-19-2024 Platelet mean volume (Bld) [Entitic vol] 10.6 fL 6.2-12.0 [facility] Microalb:Creat Ratio,Random URon 11-19-2024 MALB:CREAT Normal <30 mg/g CRE [facility] Comment on above: Result Comment: SHAYNE ENT SAID HE DIDNT NEED THE URINE Performed By: #### L 501.9985, L500.4050, L500.4100, L502.0250, L506.1001, L100.0500, L501.5200 #### [facility] [address] [place], [address] MICROALBUMIN,UR Normal <20 mg/L [facility] Comment on above: Result Comment: SHAYNE ENT SAID HE DIDNT NEED THE URINE Performed By: #### L 501.9985, L500.4050, L500.4100, L502.0250, L506.1001, L100.0500, L501.5200 #### [facility] [address] [place], [place], [id number] UR CREAT Normal 39.00-259.0 0 [facility] Comment on above: Result Comment: SHAYNE ENT SAID HE DIDNT NEED THE URINE Performed By: #### L 501.9985, L500.4050, L500.4100, L502.0250, L506.1001, L100.0500, L501.5200 #### [facility] [address] [place], [place], [id number] Platelet countOrdered By: Silvia Bergman on 11-19-2024 Platelets (Bld) [#/Vol] 176 10*3/uL 150-450 [facility] Potassium measurement (mass/ volume)Ordered By: Сергей Bergman on 11-19-2024 Potassium (Unsp spec) [Mass/Vol] 4.1 mmol/L 3.3-5.1 [facility] RBC Auto (Bld) [#/Vol]Ordere d By: Сергей Bergman on 11-19-2024 RBC (Bld) [#/Vol] 5.73 10*6/uL 4.6-6.2 [facility] Screening total cholesterol/ high density lipoprotein (HDL) cholesterol ratioOrdered By: Сергей Bergman on 11-19-2024 Cholesterol.total/Valencia sterol in HDL [Mass ratio] 4.10 {ratio} [facility] Serum creatinine measurement (mass/volume)Ordered By: Сергйе Bergman on 11-19-2024 Creatinine [Mass/Vol] 0.90 mg/dL 0.70-1.20 [facility] Serum globulin measurementOr dered By: Сергей Bergman on 11-19-2024 Globulin (S) [Mass/Vol] 3.3 g/dL 2.2-4.[address] [facility] Serum glucose measurement (m ass/volume)Ordered By: Сергей Bergman on 11-19-2024 Glucose [Mass/Vol] 96 mg/dL 70-99 [facility] Serum or plasma alanine gaffney otransferase (ALT) measurementOrdered By: Сергей Bergman on 11-19-2024 ALT [Catalytic activity/Vol] 29 U/L <47 [facility] Serum or plasma albumin blanca urement (mass/volume)Ordered By: Сергей Bergman on 11-19-2024 Albumin [Mass/Vol] 4.3 g/dL 3.5-5.0 [facility] Serum or plasma albumin/glob ulin mass ratioOrdered By: Сергей Bergman on 11-19-2024 Albumin/Globulin [Mass ratio] 1.3 {ratio} 0.9-2.4 [facility] Serum or plasma alkaline jeramy sphatase measurementOrdered By: Сергей Bergman on 11-19-2024 ALP [Catalytic activity/Vol] 69 U/L 40-129 [facility] Serum or plasma calcium blanca urement (mass/volume)Ordered By: Сергей Bergman on 11-19-2024 Calcium [Mass/Vol] 9.4 mg/dL 7.6-11.0 [facility] Serum or plasma cholesterol in HDL measurement (mass/volume)Ordered By: Сергей Bergman on 11-19-2024 Cholesterol in HDL [Mass/Vol] 36 mg/dL Low >40 [facility] Comment on above: National Cholesterol Education Program (NCEP) guidelines:<40 mg/dL: Low HDL-cholesterol (major risk factor for CHD)>= 60 mg/dL: High HDL-cholesterol (negative risk factor for CHD)HDL-cholesterol is affected by a number of factors, e.g. smoking, exercise, hormones, sex and age. Serum or plasma cholesterol measurement (mass/volume)Ordered By: Сергей Bergman on 11-19-2024 Cholesterol [Mass/Vol] 148 mg/dL <201 [facility] Comment on above: Cholesterol level, D esirable <200 mg/dLBorderline high cholesterol 200-239 mg/dLHigh cholesterol >=240 mg/dLRecommendations of the NCEP Adult Treatment Panel for the following risk-cutoff thresholds for the [place] population. Serum or plasma urea nitroge n measurement (mass/volume)Ordered By: Сергей Bergman on 11-19-2024 Urea nitrogen [Mass/Vol] 16 mg/dL 4-19 [facility] Sodium levelOrdered By: Clinton Bergman on 11-19-2024 Sodium [Moles/Vol] 140 mmol/L 133-145 [facility] Total proteinOrdered By: Dion Bergman on 11-19-2024 Protein [Mass/Vol] 7.6 g/dL 5.9-8.4 [facility] Triglycerides measurementOrd ered By: Сергей Bergman on 11-19-2024 Triglyceride [Mass/Vol] 124 mg/dL <[address] [facility] Comment on above: The drugs N-Acetylcy steine and Metamizole may falsely depress this assay. Normal range: <150 mg/dLBorderline High: 150-199 mg/dLHigh: 200-499 mg/dLVery High: >500 mg/dL Vitamin D,25 Hydroxyon 11-19 Vitamin D 25-OH 16.4 ng/mL Low 30-100 [facility] Comment on above: Order Comment: SEND CBC,A1C,LIPID,VITD AND CMP RESULTS TO PATRICIA JAMES Result Comment: Sheryl min D Status Deficiency: <20 ng/mL (50nmol/L) Insufficiency: 20-30 ng/mL (50-75 nmol/L) Sufficiency: 30-100 ng/mL (75-250 nmol/L) Toxicity: >100 ng/mL (>250 nmol/L) Performed By: #### L 501.9985, L500.4050, L500.4100, L502.0250, L506.1001, L100.0500, L501.5200 #### [facility] [address] [place], [address] White blood cell (WBC) count Ordered By: Сергей Bergman on 11-19-2024 WBC (Bld) [#/Vol] 12.8 10*3/uL High 4.4-11.0 [facility] Echo Completeon 11-04-2024 Echo Complete [facility] [address] [place] [address] Echo Complete 11/04/24 1444 MR#: [id number] Acct: [id number] Name: GINO AVILEZ Rep #: [id number] : 1985 39 From: Jorge Alberto Hawkins MD Attending Dr: Dr. Breezy Braun Sta tus: REG CLI Ordering Dr: César Braun MD Date: 11/04/24 Location: [facility] Sex: M C Admitted: Reason For Study Reason For Study: Chest Pain, Cardiomyopathy Procedure This was a 2D Doppler, Color Flow transthoracic echocardiogram. Exam performed in department. Left Ventricle Normal LV size. The left ventricular ejection fraction is 55 %. Stage 1 diastolic dysfunction. No regional wall motion abnormalities noted. Right Ventricle Normal RV size. Normal systolic function. Atria Normal left atrium. Normal right atrium. Mitral Valve Normal mitral valve. Tricuspid Valve Normal tricuspid valve. Aortic Valve Normal aortic valve. Trisinus/trileaflet aortic valve. Pulmonic Valve Normal pulmonic valve. Great Vessels Normal aortic root. The pulmonary artery is normal size. Inferior vena cava collapse with respiration. Pericardium/Pleural No pericardial effusion. MMode/2D Measurements Calculations LVIDd: 5.5 cm IVSd: 0.97 cm Ao root diam: 3.2 cm LVIDs: 3.9 cm LVPWd: 0.83 cm RVDd: 4.3 cm FS: 28.7 % LAV(MOD-bp): 50.2 ml LVAd ap4: 39.6 cm2 SV(MOD-sp4): 76.2 ml LAV(MOD-bp) Indexed: 21.9 ml/m2 LVLd ap4: 9.5 cm SI(MOD-sp4): 33.3 ml/m2 LAV(MOD-sp2): 47.8 ml EDV(MOD-sp4): 138.6 ml LAV(MOD-sp4): 47.2 ml EDV(sp4-el): 139.6 ml LVAs ap4: 24.5 cm2 LVLs ap4: 8.5 cm ESV(MOD-sp4): 62.5 ml ESV(sp4-el): 60.1 ml EF(MOD-sp4): 55.0 % EF(sp4-el): 56.9 % SV(sp4-el): 79.5 ml LA A4 area: 19.1 cm2 LA dimension(2D): 4.1 cm RA A4 area: 14.2 cm2 TAPSE: 1.4 cm Time Measurements MV dec time: 0.19 sec Doppler Measurements Calculations MV E max subhash: 67.8 cm/sec Lat Peak E' Subhash: 13.8 cm/sec Med Peak E' Subhash: 9.7 cm/sec MV A max subhash: 95.1 cm/sec E/E' lat: 4.9 E/E' med: 7.0 MV E/A: 0.71 MV V2 max: 106.8 cm/sec MV P1/2t max subhash: 76.7 cm/sec Ao V2 max: 129.5 cm/sec MV max P.6 mmHg MV P1/2t: 70.3 msec Ao max P.7 mmHg MV V2 mean: 61.1 cm/sec Ao V2 mean: 90.7 cm/sec MV mean P.8 mmHg MV dec slope: 319.6 cm/sec2 Ao mean P.8 mmHg MV V2 VTI: 21.4 cm MVA(P1/2t): 3.1 cm2 Ao V2 VTI: 23.7 cm AV (velocity ratio): 0.94 LV V1 max: 120.8 cm/sec MR max subhash: 500.8 cm/sec PA V2 max: 119.8 cm/sec LV V1 max P.8 mmHg MR max P.3 mmHg PA V2 mean: 93.4 cm/sec LV V1 mean P.4 mmHg LV V1 mean: 85.5 cm/sec LV V1 VTI: 22.4 cm ECHO/Echo Complete Interpretation Summary Normal LV size. The left ventricular ejection fraction is 55 %. Stage 1 diastolic dysfunction. Structurally normal valves. Ordering Physician: Aparna Umana Dr., MD Referring Physician: Breezy Braun Performed By: Leonidas Denise RCS 11/04/24 173 Date Jorge Alberto Hawkins MD CC: EXTENDERArmen Bergman; Dr. Breezy Braun Date Dictated: 11/04/24 1444 Date Transcribed: 11/04/241733 Hse Advisor: Signed Normal [facility] Echocardiogram study reportO rdered By: Jorge Alberto Hawkins on 11-04-2024 Study report [facility] [address] [facility] [facility] [address] Echo Complete 11/04/24 1444 MR#: [id number] Acct: [id number] Name: GINO AVILEZ Rep #:[id number] : 1985 39 From: Jorge Alberto Louise Attending Dr: Dr. Breezy Braun Status: REG CLI Ordering Dr: César Braun MD Date: 11/04/24 Location: [facility] Sex: M C Admitted: Reason For Study Reason For Study: Chest Pain, Cardiomyopathy Procedure This was a 2D Doppler, Color Flow transthoracic echocardiogram. Exam performed in department. Left Ventricle Normal LV size. The left ventricular ejection fraction is 55 %. Stage 1 diastolic dysfunction. No regional wall motion abnormalities noted. Right Ventricle Normal RV size. Normal systolic function. Atria Normal left atrium. Normal right atrium. Mitral Valve Normal mitral valve. Tricuspid Valve Normal tricuspid valve. Aortic Valve Normal aortic valve. Trisinus/trileaflet aortic valve. Pulmonic Valve Normal pulmonic valve. Great Vessels Normal aortic root. The pulmonary artery is normal size. Inferior vena cava collapse with respiration. Pericardium/Pleural No pericardial effusion. MMode/2D Measurements & Calculations LVIDd: 5.5 cm IVSd: 0.97 cm Ao root diam: 3.2 cm LVIDs: 3.9 cm LVPWd: 0.83 cm RVDd: 4.3 cm FS: 28.7 % LAV(MOD-bp): 50.2 ml LVAd ap4: 39.6 cm2 SV(MOD-sp4): 76.2 ml LAV(MOD-bp) Indexed: 21.9 ml/m2 LVLd ap4: 9.5 cm SI(MOD-sp4): 33.3 ml/m2 LAV(MOD-sp2): 47.8 ml EDV(MOD-sp4): 138.6 ml LAV(MOD-sp4): 47.2 ml EDV(sp4-el): 139.6 ml LVAs ap4: 24.5 cm2 LVLs ap4: 8.5 cm ESV(MOD-sp4): 62.5 ml ESV(sp4-el): 60.1 ml EF(MOD-sp4): 55.0 % EF(sp4-el): 56.9 % SV(sp4-el): 79.5 ml LA A4 area: 19.1 cm2 LA dimension(2D): 4.1 cm RA A4 area: 14.2 cm2 TAPSE: 1.4 cm Time Measurements MV dec time: 0.19 sec Doppler Measurements & Calculations MV E max subhash: 67.8 cm/sec Lat Peak E' Subhash: 13.8 cm/sec Med Peak E' Subhash: 9.7 cm/sec MV A max subhash: 95.1 cm/sec E/E' lat: 4.9 E/E' med: 7.0 MV E/A: 0.71 MV V2 max: 106.8 cm/sec MV P1/2t max subhash: 76.7 cm/sec Ao V2 max: 129.5 cm/sec MV max P.6 mmHg MV P1/2t: 70.3 msec Ao max P.7 mmHg MV V2 mean: 61.1 cm/sec Ao V2 mean: 90.7 cm/sec MV mean P.8 mmHg MV dec slope: 319.6 cm/sec2 Ao mean P.8 mmHg MV V2 VTI: 21.4 cm MVA(P1/2t): 3.1 cm2 Ao V2 VTI: 23.7 cm AV (velocity ratio): 0.94 LV V1 max: 120.8 cm/sec MR max subhash: 500.8 cm/sec PA V2 max: 119.8 cm/sec LV V1 max P.8 mmHg MR max P.3 mmHg PA V2 mean: 93.4 cm/sec LV V1 mean P.4 mmHg LV V1 mean: 85.5 cm/sec LV V1 VTI: 22.4 cm ECHO/Echo Complete Interpretation Summary Normal LV size. The left ventricular ejection fraction is 55 %. Stage 1 diastolic dysfunction. Structurally normal valves. Ordering Physician: Aparna^César hale^P^^ Referring Physician: Breezy Braun Performed By: Leonidas Denise RCS 11/04/241733 Date _ Jorge Alberto Hawkins MD CC: EXTENDER-C Сергей Bergman; Dr. Breezy Braun ~ Date Dictated: 11/04/24 1444 Date Transcribed: 11/04/241733 Hse Advisor: Signed [facility] Work Phone: CNOVon 08-31-2024 CNOV Office Visit (UCWSTR ) GINO AVILEZ ([id number]) 1985 M Date Time Provider Department 08/31/24 12:45 PM GANGA ORDONEZ RUST During your visit today, we recorded the following information about you: Temperature Pulse Respiration Blood pressure 99.1 degrees 88/minute 20/minute 118/88 Weight 132.5 kg Ganga Ordonez APRN.[facility] 08/31/2024 12:56 PM Signed [facility] Subjective Gino Avilez is a 38 year old male. Patient presents with: Cough: With wheezing x 3 days, chills x 1 day HPI Cough and Wheezing: - Persistent cough and intermittent wheezing x3 days. - Nocturnal symptoms are consistent with daytime symptoms. - Denies dyspnea or limitations in physical activity. - Daily tobacco smoker. Chills: - Onset of chills this morning. Seasonal Allergies: - Takes allergy medication daily. Review of Systems Constitutional: (+) chills Ears/Nose/Mouth/Throat: (-) sore throat Respiratory: (+) cough, (+) wheezing, (-) shortness of breath Objective BP 118/88 (BP Site: Left Arm, BP Position: Sitting) Pulse 88 Temp 37.3 ?C (99.1 ?F) Resp 20 Wt 132.5 kg (292 lb 1.8 oz) SpO2 96% BMI 38.54 kg/m? Physical Exam General: No acute distress. Resp: Lungs clear to auscultation bilaterally. HEENT: Pharynx without erythema. {1. Acute cough (R05.1) - Cough persistent for 3 days, wheezing intermittent; no dyspnea or dysphagia. - Lungs clear to auscultation; no evidence of pneumonia. - Differential includes viral infection or seasonal allergies. - Recommended continuation of current allergy medication and use of [id number] antitussives as needed. - Advised to monitor symptoms and follow up if condition worsens or does not improve within a week. and Recording using [employer] software for draft documentation of the visit was discussed with the patient/authorized player services representative; all questions welcomed and answered. Patient/authorized player services representative agreed to proceed MDM Procedures Allergies As of Date: 08/31/2024 Noted Allergy Reaction CORALLOR (CEFACLOR) 07/21/2013 2 - Rash Date Reviewed: 08/31/2024 Reviewed by: Olivia Anderson OCCA - Fully Assessed Reason for Visit: Cough [28] Cmt: With wheezing x 3 days, chills x 1 day Visit Diagnosis:Acute cough [R05.1] Prescriptions as of 08/31/2024 - aspirin, enteric coated (ASPIRIN, ENTERIC COATED) 81 mg EC tablet - ADVAIR DISKUS 100-50 mcg/dose inhaler - LORazepam (ATIVAN) 1 mg tablet - metFORMIN (GLUCOPHAGE) 500 mg tablet - metoprolol succinate ER (TOPROL XL) 25 mg 24 hr tablet - OLANZapine (ZYPREXA) 15 mg tablet - omeprazole (PRILOSEC) 40 mg capsule 40 mg. - prazosin (MINIPRESS) 2 mg cap Take 2 mg by mouth. - ramipril (ALTACE) 5 mg capsule 5 mg. - rosuvastatin (CRESTOR) 5 mg tablet 5 mg. - ondansetron orally disintegrating (ZOFRAN ODT) 4 mg disintegrating tablet Take 1 tablet by mouth every 8 hours as needed. - lansoprazole (PREVACID) 30 mg capsule Take 30 mg by mouth once daily. - cyclobenzaprine (FLEXERIL) 10 mg tablet Take 1 tablet by mouth three times daily as needed for Muscle Spasm. - budesonide-formoterol (SYMBICORT) 80-4.5 mcg/actuation inhaler Inhale 2 Puffs as instructed twice daily. - CLONIDINE HCL (CLONIDINE ORAL) Take 0.1 mg by mouth once daily. - fluticasone 220 mcg/actuation inhaler Inhale 1 Puff as instructed twice daily. - ALBUTEROL SULFATE (PROAIR HFA INHALATION) Inhale as instructed. - ATENOLOL ORAL Take 25 mg by mouth once daily. - MONTELUKAST SODIUM (SINGULAIR ORAL) Take 10 mg by mouth once daily. - LANSOPRAZOLE ORAL Take 30 mg by mouth once daily. - RANITIDINE HCL (ZANTAC ORAL) Take 150 mg by mouth twice daily. - ARIPIPRAZOLE (ABILIFY ORAL) Take 30 mg by mouth once daily. 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] 07/21/2013 Other and unspecified hyperlipidemia [E78.5] 07/21/2013 Esophageal reflux [K21.9] 07/21/2013 DDD (degenerative disc disease), lumbar [M51.36*07/21/2013 Physical deconditioning [R53.81] 01/20/2014 Chronic back pain [M54.9, G89.29] 01/20/2014 Chronic pain of right knee [M25.561, G89.29] 01/17/2016 Encounter Status:Closed by GANGA ORDONEZ on 08/31/24 Normal [facility] 12 Lead EKGon 08-03-2024 12 Lead EKG [facility] [address] [place] [address] 12 Lead EKG 08/03/24 1318 MR#: [id number] Acct: [id number] Name: GINO AVILEZ Rep #: [id number] : 1985 38 From: Jorge Alberto Hawkins MD Attending Dr: Status: DEP ER Ordering Dr: Adela Ascencio Date: 08/03/24 Location: ED Sex: M C Admitted: Test Reason : CP Blood Pressure : */* mmHG Vent. Rate : 86 BPM Atrial Rate : 86 BPM P-R Int : 162 ms QRS Dur : 82 ms QT Int : 338 ms P-R-T Axes : 21 32 -5 degrees QTcB Int : 404 ms Normal sinus rhythm Low voltage QRS Borderline ECG Confirmed by JORGE ALBERTO HAWKINS MD ([id number]), news copy editor JANN LAWRENCE ([id number]) on 08/06/2024 7:57:17 AM Referred By: Confirmed By: JORGE ALBERTO HAWKINS MD 08/06/24 0757 Date Jorge Alberto Hawkins MD CC: ORI Bergman; Dr. Emil Nicole MD; CALEB Hutchison Signed Normal [facility] Absolute lymphocyte countOrd ered By: Adela Ascencio on 08-03-2024 Lymphocytes Auto (Unsp spec) [#/Vol] 2.75 10*3/uL 0.83-4.51 [facility] Absolute neutrophil countOrd ered By: Adela Ascencio on 08-03-2024 Neutrophils (Bld) [#/Vol] 5.2 10*3/uL 2.0-7.7 [facility] Anion gap in Serum or Plasma Ordered By: Adela Ascencio on 08-03-2024 Anion gap [Moles/Vol] 12 mmol/L 08-28 [facility] Automated lymphocyte count a s percentage of total leukocytesOrdered By: Adela Ascencio on 08-03-2024 Lymphocytes/100 WBC Auto (Unsp spec) 31.8 % [facility] BUN/creatinine ratioOrdered By: Adela Ascencio on 08-03-2024 Urea nitrogen/Creatinine [Mass ratio] 17.4 mg/mg 02-02 [facility] Basic Metabolic Profile (BMP )on 08-03-2024 BUN/CRE 17.4 RATIO Normal 02-02 [facility] Comment on above: Performed By: #### L 501.9985, L500.4050, L500.4100, L502.0250, L506.1001, L100.0500, L501.5200 #### [facility] [address] [place], [address] Calcium [Mass/Vol] 8.9 mg/dL Normal 7.6-11.0 [facility] Comment on above: Performed By: #### L 501.9985, L500.4050, L500.4100, L502.0250, L506.1001, L100.0500, L501.5200 #### [facility] [address] [place], [address] Chloride [Moles/Vol] 106 mmol/L Normal 98-108 [facility] Comment on above: Performed By: #### L 501.9985, L500.4050, L500.4100, L502.0250, L506.1001, L100.0500, L501.5200 #### [facility] [address] [place], [address] CO2 [Moles/Vol] 19.9 mmol/L Low 21.0-32.0 [facility] Comment on above: Performed By: #### L 501.9985, L500.4050, L500.4100, L502.0250, L506.1001, L100.0500, L501.5200 #### [facility] [address] [place], [address] Creatinine [Mass/Vol] 0.93 mg/dL Normal 0.70-1.20 [facility] Comment on above: Performed By: #### L 501.9985, L500.4050, L500.4100, L502.0250, L506.1001, L100.0500, L501.5200 #### [facility] [address] [place], [address] ECRCL 151.80 ml/min Normal 50-250 [facility] Comment on above: Performed By: #### L 501.9985, L500.4050, L500.4100, L502.0250, L506.1001, L100.0500, L501.5200 #### [facility] [address] [place], [address] GAP 12 Normal 5-15 [facility] Comment on above: Performed By: #### L 501.9985, L500.4050, L500.4100, L502.0250, L506.1001, L100.0500, L501.5200 #### [facility] [address] [place], [address] GFR/1.73 sq M.predicted among non-blacks MDRD (S/P/Bld) [Vol rate/Area] 108 mL/min/{1.73_m2} Normal >60 [facility] Comment on above: Result Comment: mL/m in/1.73m2 CKD-EPI Creatinine Equation (2020) Performed By: #### L 501.9985, L500.4050, L500.4100, L502.0250, L506.1001, L100.0500, L501.5200 #### [facility] [address] [place], [address] Glucose [Mass/Vol] 105 mg/dL High 70-99 [facility] Comment on above: Performed By: #### L 501.9985, L500.4050, L500.4100, L502.0250, L506.1001, L100.0500, L501.5200 #### [facility] [address] [place], [address] Potassium [Moles/Vol] 4.1 mmol/L Normal 3.3-5.1 [facility] Comment on above: Performed By: #### L 501.9985, L500.4050, L500.4100, L502.0250, L506.1001, L100.0500, L501.5200 #### [facility] [address] [place], [address] Sodium [Moles/Vol] 138 mmol/L Normal 133-145 [facility] Comment on above: Performed By: #### L 501.9985, L500.4050, L500.4100, L502.0250, L506.1001, L100.0500, L501.5200 #### [facility] [address] [place], [address] Urea nitrogen [Mass/Vol] 16 mg/dL Normal 4-19 [facility] Comment on above: Performed By: #### L 501.9985, L500.4050, L500.4100, L502.0250, L506.1001, L100.0500, L501.5200 #### [facility] [address] [place], [address] Basophil percentageOrdered B y: Adela Ascencio on 08-03-2024 Basophils/100 WBC (Bld) 0.8 % 0-[address] [facility] CBC W/Diff, Automatedon 07-16 0-2024 Absolute Lymph 2.75 X10 3/uL Normal 0.83-4.51 [facility] Comment on above: Performed By: #### L 501.9985, L500.4050, L500.4100, L502.0250, L506.1001, L100.0500, L501.5200 #### [facility] [address] [place], [address] Absolute Neut 5.2 X10 3/uL Normal 2.0-7.7 [facility] Comment on above: Performed By: #### L 501.9985, L500.4050, L500.4100, L502.0250, L506.1001, L100.0500, L501.5200 #### [facility] [address] [place], [address] Basophils/100 WBC (Bld) 0.8 % Normal 0-[address] [facility] Comment on above: Performed By: #### L 501.9985, L500.4050, L500.4100, L502.0250, L506.1001, L100.0500, L501.5200 #### [facility] [address] [place], [address] Eosinophils/100 WBC (Bld) 1.2 % Normal 0-5 [facility] Comment on above: Performed By: #### L 501.9985, L500.4050, L500.4100, L502.0250, L506.1001, L100.0500, L501.5200 #### [facility] [address] [place], [address] Erythrocyte distribution width (RBC) [Ratio] 13.2 % Normal 11.6-14.6 [facility] Comment on above: Performed By: #### L 501.9985, L500.4050, L500.4100, L502.0250, L506.1001, L100.0500, L501.5200 #### [facility] [address] [place], [address] Hematocrit (Bld) [Volume fraction] 48.8 % Normal 40-54 [facility] Comment on above: Performed By: #### L 501.9985, L500.4050, L500.4100, L502.0250, L506.1001, L100.0500, L501.5200 #### [facility] [address] [place], [address] Hemoglobin (Bld) [Mass/Vol] 16.7 g/dL High 13.0-16.5 [facility] Comment on above: Performed By: #### L 501.9985, L500.4050, L500.4100, L502.0250, L506.1001, L100.0500, L501.5200 #### [facility] [address] [place], [address] IG% 0.200 Normal 0.0-0.9 [facility] Comment on above: Result Comment: IG% - Immature Granulocytes (promyelocytes, myelocytes and metamyelocytes) > 1% indicates that a LEFT SHIFT is Present. Performed By: #### L 501.9985, L500.4050, L500.4100, L502.0250, L506.1001, L100.0500, L501.5200 #### [facility] [address] [place], [address] Lymphocytes/100 WBC (Bld) 31.8 % Normal 19-41 [facility] Comment on above: Performed By: #### L 501.9985, L500.4050, L500.4100, L502.0250, L506.1001, L100.0500, L501.5200 #### [facility] [address] [place], [address] MCH (RBC) [Entitic mass] 29.3 pg Normal 27.0-32.0 [facility] Comment on above: Performed By: #### L 501.9985, L500.4050, L500.4100, L502.0250, L506.1001, L100.0500, L501.5200 #### [facility] [address] [place], [address] MCHC (RBC) [Mass/Vol] 34.2 g/dL Normal 32-36 [facility] Comment on above: Performed By: #### L 501.9985, L500.4050, L500.4100, L502.0250, L506.1001, L100.0500, L501.5200 #### [facility] [address] [place], [address] MCV (RBC) [Entitic vol] 85.8 fL Normal 80-[address] [facility] Comment on above: Performed By: #### L 501.9985, L500.4050, L500.4100, L502.0250, L506.1001, L100.0500, L501.5200 #### [facility] [address] [place], [address] Monocytes/100 WBC (Bld) 6.1 % Normal 0-[address] [facility] Comment on above: Performed By: #### L 501.9985, L500.4050, L500.4100, L502.0250, L506.1001, L100.0500, L501.5200 #### [facility] [address] [place], [address] Neutrophils/100 WBC (Bld) 59.9 % Normal 47-70 [facility] Comment on above: Performed By: #### L 501.9985, L500.4050, L500.4100, L502.0250, L506.1001, L100.0500, L501.5200 #### [facility] [address] [place], [address] Nucleated RBC (Bld) [#/Vol] 0 10*3/uL Normal 0-5 [facility] Comment on above: Performed By: #### L 501.9985, L500.4050, L500.4100, L502.0250, L506.1001, L100.0500, L501.5200 #### [facility] [address] [place], [address] Platelet mean volume (Bld) [Entitic vol] 9.9 fL Normal 6.2-12.0 [facility] Comment on above: Performed By: #### L 501.9985, L500.4050, L500.4100, L502.0250, L506.1001, L100.0500, L501.5200 #### [facility] [address] [place], [address] Platelets (Bld) [#/Vol] 231 10*3/uL Normal 150-450 [facility] Comment on above: Performed By: #### L 501.9985, L500.4050, L500.4100, L502.0250, L506.1001, L100.0500, L501.5200 #### [facility] [address] [place], [address] RBC (Bld) [#/Vol] 5.69 10*6/uL Normal 4.6-6.2 [facility] Comment on above: Performed By: #### L 501.9985, L500.4050, L500.4100, L502.0250, L506.1001, L100.0500, L501.5200 #### [facility] [address] [place], [address] RDW SD 40.2 fl Normal 35.1-43.9 [facility] Comment on above: Performed By: #### L 501.9985, L500.4050, L500.4100, L502.0250, L506.1001, L100.0500, L501.5200 #### [facility] [address] [place], [address] (407) WBC (Bld) [#/Vol] 8.7 10*3/uL Normal 4.4-11.0 [facility] Comment on above: Performed By: #### L 501.9985, L500.4050, L500.4100, L502.0250, L506.1001, L100.0500, L501.5200 #### [facility] [address] [place], [place], [id number] Carbon dioxide, total [Moles /volume] in Central venous bloodOrdered By: dAela Ascencio on 08-03-2024 CO2 [Moles/Vol] 19.9 mmol/L Low 21.0-32.0 [facility] Chest PA and Lateralon 08-03 Chest PA and Lateral [facility] Services [address] [place], [place] [address] Chest PA and Lateral MR#: [id number] Acct: [id number] Name: GINO AVILEZ Rep #: [id number] : 1985 M 38 From: Janessa Blackmon nd, MD PCP: Сергей Bergman, EXTENDER-C Status: REG ER Study: Chest PA and Lateral Date of Exam: 08/03/24 Exam# [id number] Ordering Dr: Adela Ascencio PROCEDURE: CHEST PA AND LATERAL 08/03/2024 REASON FOR EXAM: CHEST PAIN TECHNIQUE: Frontal and lateral views of the chest. COMPARISON: Chest radiograph 06/01/2024. FINDINGS: Hardware: None. Heart: The heart size is normal. Mediastinum: The mediastinal contour is unremarkable. Lungs: No focal consolidation, pleural effusion or pneumothorax. Bones: Minimal degenerative changes are identified within the thoracic spine. RAD/Chest PA and Lateral IMPRESSION: NEGATIVE CHEST Reading Location: [id number] CC: EXTENDER-C Сергей Bergman; CALEB Hutchison Hse Advisor: Signed Normal [facility] Chloride assayOrdered By: Michelle Ascencio on 08-03-2024 Chloride [Moles/Vol] 106 mmol/L 98-108 [facility] Emergency Department Summary on 08-03-2024 Emergency Department Summary [facility] Medical Records Department [address] [place] [address] Emergency Department Summary 08/03/24 MR#: [id number] Acct: [id number] Name: GINO AVILEZ Rep #: [id number] : 1985 38 From: Adela ELLIS PCP: ORI Gamboa Status:DEP ER Location: ED HPI History of Present Illness Chief Complaint: Chest Pain Narrative Narrative: Patient presenting today with left-sided sharp chest pain he has had intermittently over the past 2 weeks. Nothing seems to trigger his symptoms, they are nonexertional. He denies cardiac history. He had an echocardiogram in November 2023 that showed an EF of 55%. He has a PMH of HTN and tobacco abuse. PE Risk Factors: Negative for Recent Travel/Surgery, Recent Immobilization, Prior DVT or PE or Cancer [facility] Medical History Excessive cerumen in right ear canal Mass of left lung Muscle strain of chest wall Left-sided chest wall pain Lumbar strain Lumbar contusion Back pain Asthma Fatigue Home Medications ???Medication ???Instructions ???Recorded ???Last Taken ???Type atenolol 25 mg tablet 25 mg PO DAILY 10/09/18 Unknown Hi story omeprazole 10 mg capsule,delayed 10 mg PO DAILY 11/16/18 Unknown Hi story release cyclobenzaprine 10 mg tablet 10 mg PO TID 06/28/22 Unknown Hist ory fluticasone 100 mcg-salmeterol 50 1 inh inhalation DAILY 11/23/22 U nknown History mcg/dose blistr powdr for inhalation (Advair Diskus) naproxen 500 mg tablet 500 mg PO BID PRN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 fracture or bone marrow edema. Chronic degenerative endplate changes at L2-3 with degenerative disc disease. Alignment is satisfactory. Conus medullaris is intact and terminates at L1. No paraspinal mass. T11-12: Posterior disc bulge eccentric to the left with annular fissure. Disc bulge abuts the ventral cord and results in mild spinal stenosis. Bilateral facet arthrosis and ligamentum flavum hypertrophy contributes to moderate bilateral foraminal narrowing. T12-L1: No focal disc abnormality, spinal stenosis or foraminal narrowing. L1-2: No focal disc abnormality, spinal stenosis or foraminal narrowing. L2-3: Diffuse posterior disc bulge eccentric to the right with annular fissure and tiny right central extrusion demonstrating 3 mm of cranial migration. Mild/moderate bilateral facet arthrosis. Mild/moderate spinal stenosis and moderate narrowing of the right lateral recess. Mild bilateral foraminal narrowing, greater on the right. L3-4: Mild posterior disc bulge. Mild/moderate bilateral facet arthrosis. No significant spinal stenosis. Mild left foraminal narrowing. L4-5: Small right central disc protrusion. Mild bilateral facet arthrosis. No significant spinal stenosis or foraminal narrowing. L5-S1: Central disc extrusion measuring 5 x 13 mm (AP and TV dimensions) demonstrating 3 mm of caudal migration. Mild bilateral facet arthrosis. No significant spinal stenosis, however the disc extrusion approaches the traversing right S1 nerve root in the lateral recess. Mild/moderate bilateral foraminal narrowing. MRI/Spine Lumbar (Routine) IMPRESSION: 1. Acquired mild to mild/moderate spinal stenosis at T11-12 and L2-L3 respectively. 2. Varying degrees of acquired npjg-fd-kdqrvkul foraminal narrowing. See level by level comments above. Reading Location: [facility] CC: ORI Bergman; CALEB Armenta Hse Advisor: Signed Normal [facility] Absolute neutrophil countOrd ered By: Emil Nicole on 06-01-2024 Neutrophils (Bld) [#/Vol] 6.0 10*3/uL 2.0-7.7 [facility] Basic Metabolic Profile (BMP )on 06-01-2024 BUN/CRE 19.0 RATIO Normal 10-20 [facility] Comment on above: Performed By: #### L 501.9985, L500.4050, L500.4100, L502.0250, L506.1001, L100.0500, L501.5200 #### [facility] [place], [address] CA,Total 9.0 mg/dL Normal 8.5-10.1 [facility] Comment on above: Performed By: #### L 501.9985, L500.4050, L500.4100, L502.0250, L506.1001, L100.0500, L501.5200 #### [facility] [address] [place], [address] Chloride [Moles/Vol] 107 mmol/L Normal 98-107 [facility] Comment on above: Performed By: #### L 501.9985, L500.4050, L500.4100, L502.0250, L506.1001, L100.0500, L501.5200 #### [facility] [address] [place], [address] CO2 [Moles/Vol] 29.0 mmol/L Normal 21.0-32.0 [facility] Comment on above: Performed By: #### L 501.9985, L500.4050, L500.4100, L502.0250, L506.1001, L100.0500, L501.5200 #### [facility] [address] [place], [address] Creatinine [Mass/Vol] 1.00 mg/dL Normal 0.70-1.30 [facility] Comment on above: Result Comment: The validity of the calculated GFR GFRAA in patients over 70 years has not been determined. Clinical correlation is essential. Performed By: #### L 501.9985, L500.4050, L500.4100, L502.0250, L506.1001, L100.0500, L501.5200 #### [facility] [address] [place], [address] ECRCL 142.57 ml/min Normal [facility] Comment on above: Performed By: #### L 501.9985, L500.4050, L500.4100, L502.0250, L506.1001, L100.0500, L501.5200 #### [facility] [address] [place], [address] EST GFR - AA 107 mL/min Normal >60 [facility] Comment on above: Result Comment: Afri can Nigerien GFR Calc Performed By: #### L 501.9985, L500.4050, L500.4100, L502.0250, L506.1001, L100.0500, L501.5200 #### [facility] [address] [place], [address] GAP 3 Low 5-15 [facility] Comment on above: Performed By: #### L 501.9985, L500.4050, L500.4100, L502.0250, L506.1001, L100.0500, L501.5200 #### [facility] [address] [place], [address] GFR/1.73 sq M.predicted among non-blacks MDRD (S/P/Bld) [Vol rate/Area] 89 mL/min/{1.73_m2} Normal >60 [facility] Comment on above: Result Comment: Non- GFR Calc Performed By: #### L 501.9985, L500.4050, L500.4100, L502.0250, L506.1001, L100.0500, L501.5200 #### [facility] [address] [place], [address] Glucose [Mass/Vol] 96 mg/dL Normal 74-106 [facility] Comment on above: Performed By: #### L 501.9985, L500.4050, L500.4100, L502.0250, L506.1001, L100.0500, L501.5200 #### [facility] [address] [place], [address] Potassium [Moles/Vol] 4.2 mmol/L Normal 3.5-5.1 [facility] Comment on above: Performed By: #### L 501.9985, L500.4050, L500.4100, L502.0250, L506.1001, L100.0500, L501.5200 #### [facility] [address] [place], [address] Sodium [Moles/Vol] 139 mmol/L Normal 136-145 [facility] Comment on above: Performed By: #### L 501.9985, L500.4050, L500.4100, L502.0250, L506.1001, L100.0500, L501.5200 #### [facility] [address] [place], [place], [phone] (265) Urea nitrogen [Mass/Vol] 19 mg/dL High 7-18 [facility] Comment on above: Performed By: #### L 501.9985, L500.4050, L500.4100, L502.0250, L506.1001, L100.0500, L501.5200 #### [facility] [address] [place], [place], [phone] Basophil percentageOrdered B y: Emil Niocle on 06-01-2024 Basophils/100 WBC (Bld) 0.7 % 0-[address] [facility] Blood urea nitrogen (BUN)/cr eatinine ratioOrdered By: Emil Nicole on 06-01-2024 Urea nitrogen/Creatinine [Mass ratio] 19.0 mg/mg 10-20 [facility] CBC W/Diff, Automatedon 05-17 Absolute Lymph 2.93 X10 3/uL Normal 0.83-4.51 [facility] Comment on above: Performed By: #### L 501.9985, L500.4050, L500.4100, L502.0250, L506.1001, L100.0500, L501.5200 #### [facility] [address] [place], [address] Absolute Neut 6.0 X10 3/uL Normal 2.0-7.7 [facility] Comment on above: Performed By: #### L 501.9985, L500.4050, L500.4100, L502.0250, L506.1001, L100.0500, L501.5200 #### [facility] [address] [place], [address] Basophils/100 WBC (Bld) 0.7 % Normal 0-[address] [facility] Comment on above: Performed By: #### L 501.9985, L500.4050, L500.4100, L502.0250, L506.1001, L100.0500, L501.5200 #### [facility] [address] [facility] [place], [address] Eosinophils/100 WBC (Bld) 1.3 % Normal 0-5 [facility] Comment on above: Performed By: #### L 501.9985, L500.4050, L500.4100, L502.0250, L506.1001, L100.0500, L501.5200 #### [facility] [address] [place], [address] Erythrocyte distribution width (RBC) [Ratio] 14.2 % Normal 11.6-14.6 [facility] Comment on above: Performed By: #### L 501.9985, L500.4050, L500.4100, L502.0250, L506.1001, L100.0500, L501.5200 #### [facility] [address] [place], [address] Hematocrit (Bld) [Volume fraction] 51.9 % Normal 40-54 [facility] Comment on above: Performed By: #### L 501.9985, L500.4050, L500.4100, L502.0250, L506.1001, L100.0500, L501.5200 #### [facility] [address] [place], [address] Hemoglobin (Bld) [Mass/Vol] 17.1 g/dL High 13.0-16.5 [facility] Comment on above: Performed By: #### L 501.9985, L500.4050, L500.4100, L502.0250, L506.1001, L100.0500, L501.5200 #### [facility] [address] [place], [address] IG% 0.400 Normal 0.0-0.9 [facility] Comment on above: Result Comment: IG% - Immature Granulocytes (promyelocytes, myelocytes and metamyelocytes) > 1% indicates that a LEFT SHIFT is Present. Performed By: #### L 501.9985, L500.4050, L500.4100, L502.0250, L506.1001, L100.0500, L501.5200 #### [facility] [address] [place], [address] Lymphocytes/100 WBC (Bld) 30.0 % Normal 19-41 [facility] Comment on above: Performed By: #### L 501.9985, L500.4050, L500.4100, L502.0250, L506.1001, L100.0500, L501.5200 #### [facility] [address] [place], [address] MCH (RBC) [Entitic mass] 29.0 pg Normal 27.0-32.0 [facility] Comment on above: Performed By: #### L 501.9985, L500.4050, L500.4100, L502.0250, L506.1001, L100.0500, L501.5200 #### [facility] [address] [place], [address] MCHC (RBC) [Mass/Vol] 32.9 g/dL Normal 32-36 [facility] Comment on above: Performed By: #### L 501.9985, L500.4050, L500.4100, L502.0250, L506.1001, L100.0500, L501.5200 #### [facility] [address] [place], [address] MCV (RBC) [Entitic vol] 88.1 fL Normal 80-94 [facility] Comment on above: Performed By: #### L 501.9985, L500.4050, L500.4100, L502.0250, L506.1001, L100.0500, L501.5200 #### [facility] [address] [place], [address] Monocytes/100 WBC (Bld) 6.1 % Normal 0-10 [facility] Comment on above: Performed By: #### L 501.9985, L500.4050, L500.4100, L502.0250, L506.1001, L100.0500, L501.5200 #### [facility] [address] [place], [address] Neutrophils/100 WBC (Bld) 61.5 % Normal 47-70 [facility] Comment on above: Performed By: #### L 501.9985, L500.4050, L500.4100, L502.0250, L506.1001, L100.0500, L501.5200 #### [facility] [address] [place], [address] Nucleated RBC (Bld) [#/Vol] 0 10*3/uL Normal 0-5 [facility] Comment on above: Performed By: #### L 501.9985, L500.4050, L500.4100, L502.0250, L506.1001, L100.0500, L501.5200 #### [facility] [address] [place], [address] Platelet mean volume (Bld) [Entitic vol] 10.5 fL Normal 6.2-12.0 [facility] Comment on above: Performed By: #### L 501.9985, L500.4050, L500.4100, L502.0250, L506.1001, L100.0500, L501.5200 #### [facility] [address] [place], [address] Platelets (Bld) [#/Vol] 211 10*3/uL Normal 150-450 [facility] Comment on above: Performed By: #### L 501.9985, L500.4050, L500.4100, L502.0250, L506.1001, L100.0500, L501.5200 #### [facility] [address] [place], [address] RBC (Bld) [#/Vol] 5.89 10*6/uL Normal 4.6-6.2 [facility] Comment on above: Performed By: #### L 501.9985, L500.4050, L500.4100, L502.0250, L506.1001, L100.0500, L501.5200 #### [facility] [address] [place], [address] RDW SD 45.8 fl High 35.1-43.9 [facility] Comment on above: Performed By: #### L 501.9985, L500.4050, L500.4100, L502.0250, L506.1001, L100.0500, L501.5200 #### [facility] [address] [place], [address] WBC (Bld) [#/Vol] 9.8 10*3/uL Normal 4.4-11.0 [facility] Comment on above: Performed By: #### L 501.9985, L500.4050, L500.4100, L502.0250, L506.1001, L100.0500, L501.5200 #### [facility] [place], [address] CNOVon 06-01-2024 CNOV Office Visit (UCWSTR ) GINO AVILEZ ([id number]) 1985 M Date Time Provider Department 06/01/24 1:30 PM EMMA CLAROS WS During your visit today, we recorded the following information about you: Emma Claros APRN.CNP 06/01/2024 1:24 PM Signed Triage note: Gino Avilez is a 38 year old male who presents with right chest pain for the past 2 hours that he describes as major pain. He also notes heartburn for past 4 days. Patient with risk factors of obesity, HTN, mitral valve disorder. He is referred to ER for full cardiac evaluation. He verbalized understanding. He has a family member who will drive him. He appears stable for transport by private auto. He will go to [facility]. Emma Claros APRN.CNP Allergies As of Date: 06/01/2024 Noted Allergy Reaction CECLOR (CEFACLOR) 07/21/2013 2 - Rash Date Reviewed: 04/13/2024 Reviewed by: Lucy Barksdale LPN - Fully Assessed Primary Visit Diagnosis:Procedure not carried out [Z53.9] Prescriptions as of 06/01/2024 - aspirin, enteric coated (ASPIRIN, ENTERIC COATED) 81 mg EC tablet - ADVAIR DISKUS 100-50 mcg/dose inhaler - LORazepam (ATIVAN) 1 mg tablet - metFORMIN (GLUCOPHAGE) 500 mg tablet - metoprolol succinate ER (TOPROL XL) 25 mg 24 hr tablet - OLANZapine (ZYPREXA) 15 mg tablet - omeprazole (PRILOSEC) 40 mg capsule 40 mg. - prazosin (MINIPRESS) 2 mg cap Take 2 mg by mouth. - ramipril (ALTACE) 5 mg capsule 5 mg. - rosuvastatin (CRESTOR) 5 mg tablet 5 mg. - ondansetron orally disintegrating (ZOFRAN ODT) 4 mg disintegrating tablet Take 1 tablet by mouth every 8 hours as needed. - lansoprazole (PREVACID) 30 mg capsule Take 30 mg by mouth once daily. - cyclobenzaprine (FLEXERIL) 10 mg tablet Take 1 tablet by mouth three times daily as needed for Muscle Spasm. - budesonide-formoterol (SYMBICORT) 80-4.5 mcg/actuation inhaler Inhale 2 Puffs as instructed twice daily. - CLONIDINE HCL (CLONIDINE ORAL) Take 0.1 mg by mouth once daily. - fluticasone 220 mcg/actuation inhaler Inhale 1 Puff as instructed twice daily. - ALBUTEROL SULFATE (PROAIR HFA INHALATION) Inhale as instructed. - ATENOLOL ORAL Take 25 mg by mouth once daily. - MONTELUKAST SODIUM (SINGULAIR ORAL) Take 10 mg by mouth once daily. - LANSOPRAZOLE ORAL Take 30 mg by mouth once daily. - RANITIDINE HCL (ZANTAC ORAL) Take 150 mg by mouth twice daily. - ARIPIPRAZOLE (ABILIFY ORAL) Take 30 mg by mouth once daily. 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] 07/21/2013 Mitral valve disorders [I05.9] 07/21/2013 Other and unspecified hyperlipidemia [E78.5] 07/21/2013 Esophageal reflux [K21.9] 07/21/2013 DDD (degenerative disc disease), lumbar [M51.36*07/21/2013 Physical deconditioning [R53.81] 01/20/2014 Chronic back pain [M54.9, G89.29] 01/20/2014 Chronic pain of right knee [M25.561, G89.29] 01/17/2016 Encounter Status:Closed by EMMA CLAROS on 06/01/24 Normal [facility] Carbon dioxide measurementOr dered By: Emil Nicole on 06-01-2024 CO2 [Moles/Vol] 29.0 mmol/L 21.0-32.0 [facility] Chest PA and Lateralon 06-01 Chest PA and Lateral [facility] Imaging Services [address] [place] [address] Chest PA and Lateral MR#: [id number] Acct: [id number] Name: GINO AVILEZ Jasiel Rep #: [id number] : 1985 M 38 From: Janessa Blackmon nd, MD PCP: ORI Gamboa Status: PRE ER Study: Chest PA and Lateral Date of Exam: 06/01/24 Exam# [id number] Ordering Dr: Emil Nicole MD PROCEDURE: CHEST PA AND LATERAL REASON FOR EXAM: 38-year-old male, right-sided chest pain x4 hours, heartburn x4 days. TECHNIQUE: Frontal and lateral views of the chest. COMPARISON: CT chest 04/19/2023. chest radiograph 03/20/2023. FINDINGS: The heart size is normal. Stable ill-defined left hilar opacity, better evaluated on recent CT chest and compatible with normal anatomic structures. The mediastinal contour is otherwise unremarkable. Low lung volumes bilaterally. No focal consolidation, pleural effusion or pneumothorax. RAD/Chest PA and Lateral IMPRESSION: NEGATIVE CHEST Reading Location: [facility] CC: EXTENDER-C Сергей Bergman; Dr. Emil Nicole MD Hse Advisor: Signed Normal [facility] Chloride measurementOrdered By: Emil Nicole on 06-01-2024 Chloride [Moles/Vol] 107 mmol/L 98-107 [facility] Emergency Department Summary on 06-01-2024 Emergency Department Summary [facility] Medical Records Department [address] [place] [address] Emergency Department Summary 06/01/24 MR#: [id number] Acct: [id number] Name: AVILEZGINO Jasiel Rep #: [id number] : 1985 38 From: Emil Nicole MD PCP: Сергей Bergman, EXTENDER-C Status:REG ER Location: ED HPI History of Present Illness Chief Complaint: Chest Pain Detail of Chief Complaint: Right-sided chest pain Sunday and today Informant: patient Onset/Context/Timing Onset: Today and Days (Sunday unknown duration and today onset 10 a am and constant) Activity at onset: sudden Timing: Intermittent (Does not know the duration of the pain on Sunday since he went to sleep and when he awoke it was gone.) Quality: Positive for Pressure (Right side of the chest on Sunday and today) and - (Patient complains of heartburn for the past 4 days. He does have history of reflux. He states he is compliant with his medication.) Location: Right Chest Current Severity: Mild Maximum Severity: Moderate Worsened By: Nothing Relieved By: Nothing Associated Symptoms: Negative for Nausea, Vomiting, Diaphoresis, Dyspnea, Cough, Fever, Lightheadedness, Acid Reflux or Palpitations Narrative Narrative: Patient is a 38-year-old male. He has history of GERD, degenerative disc disease lumbar, mass left side of his chest, herniated disc L5 and S1 and hypertension. He is on atenolol for his hypertension. He presents because on Sunday he had right-sided chest pain described as a pressure sensation. There is also sharp component. He went to sleep and when he awoke it was gone. He took a 2-hour nap. Today at 10 AM he developed chest discomfort at rest on the right side. This is different than his heartburn pain. He denies any exacerbating, precipitating or alleviating factors. He denies any association with food. Mother has history of cholelithiasis. He denies intolerance to greasy or fried foods. He denies shortness of breath, nausea vomiting or diaphoresis. He denies history of VTE. Denies leg pain, swelling or discoloration. Prior Similar Symptoms: No and - Recent Illness/Hospitalization : No CVD Risk Factors: Positive for Hypertension and Smoking; Negative for Diabetes, Hypercholesterolemia or Family History 1' PE Risk Factors: Negative for Recent Travel/Surgery, Recent Immobilization, Prior DVT or PE, Cancer or OCP + Smoking + >/=35 TAD Risk Factors: Positive for Hypertension; Negative for Marfan's Syndrome or Family History PFSH PFS Medical History Excessive cerumen in right ear canal Mass of left lung Muscle strain of chest wall Left-sided chest wall pain Lumbar strain Lumbar contusion Back pain Asthma Fatigue Home Medications ???Medication ???Instructions ???Recorded ???Last Taken ???Type atenolol 25 mg tablet 25 mg PO DAILY 10/09/18 Unknown Hi story omeprazole 10 mg capsule,delayed 10 mg PO DAILY 11/16/18 Unknown Hi story release cyclobenzaprine 10 mg tablet 10 mg PO TID 06/28/22 Unknown Hist ory fluticasone 100 mcg-salmeterol 50 1 inh inhalation DAILY 11/23/22 U nknown History mcg/dose blistr powdr for inhalation (Advair Diskus) naproxen 500 mg tablet 500 mg PO BID PRN #20 tabs 4 Unknown Rx Allergy/AdvReac Type Severity Reaction Status Date / Time cefaclor (From [facility]) Allergy Hives Verified 06/01/24 13:39 Surgical History History of ankle surgery Social History Smoking Status: Current some day smoker tobacco type: cigarettes alcohol intake: never substance use type: marijuana ROS ROS ED Constitutional Constitutional ED: Denies chills, fever(s), subjective or sweats Eyes Eyes: Reports none ENT ENT ED: Denies ear pain, rhinorrhea or sore throat Cardiovascular Cardiovascular: Reports as per HPI; Denies orthopnea or paroxysmal nocturnal dyspnea Respiratory/Chest Respiratory/Chest: Reports cough; Denies dyspnea, dyspnea on exertion, orthopnea or paroxysmal nocturnal dyspnea Gastrointestinal Gastrointestinal: Reports other Details: Patient complains of heartburn which is from his umbilicus to the sternal notch. ; Denies abdominal pain, constipation, diarrhea, melena, nausea or vomiting Genitourinary Genitourinary ED: Denies dysuria, hematuria or urinary frequency Musculoskeletal Musculoskeletal: Denies arthralgias, back pain or myalgias Integumentary Denies rash Neurologic Neurologic: Denies headache(s) or paresthesias Endocrine Endocrinology: Denies cold intolerance or heat intolerance Hematologic/Lymphatic Hematologic/Lymphatic: Denies easy bleeding or easy bruising EXAM Physical Exam Const Vital Signs: 06/01/24 13:37 06/01/24 13:38 06/01/24 13:54 Tem (more content not included)... Normal [facility] Eosinophil percentageOrdered By: Emil Nicole on 06-01-2024 Eosinophils/100 WBC (Bld) 1.3 % 0-5 [facility] Erythrocyte distribution wid th ratioOrdered By: Emil Nicole on 06-01-2024 Erythrocyte distribution width (RBC) [Ratio] 14.2 % 11.6-14.6 [facility] Erythrocyte distribution wid th standard deviationOrdered By: Emilmilvia Nicole on 06-01-2024 Erythrocyte distribution width (RBC) [Entitic vol] 45.8 fL High 35.1-43.9 [facility] Estimated glomerular filtrat ion rate (GFR) AmericanOrdered By: Emil Nicole on 06-01-2024 Estimated GFR (MDRD) Amer 107 mL/min >60 [facility] Comment on above: GFR Calc Estimation of creatinine juan aranceOrdered By: Emilmilvia Nicole on 06-01-2024 Estimated Creatinine Clearance Calc 142.57 ml/min [facility] Glomerular filtration rate ( GFR) estimationOrdered By: Emilmilvia Nicole on 06-01-2024 Estimated GFR (MDRD) Non-Af Amer 89 mL/min >60 [facility] Comment on above: Non- GFR Calc Glucose measurementOrdered B y: Emil Nicole on 06-01-2024 Glucose [Mass/Vol] 96 mg/dL 74-106 [facility] Hematocrit Auto (Bld) [Volum e fraction]Ordered By: Emil Nicole on 06-01-2024 Hematocrit (Bld) [Volume fraction] 51.9 % 40-54 [facility] Hemoglobin measurementOrdere d By: Emil Nicole on 06-01-2024 Hemoglobin (Bld) [Mass/Vol] 17.1 g/dL High 13.0-16.5 [facility] Immature granulocytes/100 WB C Auto (Bld)Ordered By: Emilmilvia Nicole on 06-01-2024 Immature granulocytes/100 WBC (Bld) 0.400 % 0.0-0.9 [facility] Comment on above: IG% - Immature Granu locytes (promyelocytes, myelocytes and metamyelocytes) > 1% indicates that a LEFT SHIFT is Present. L501.4020on 06-01-2024 TROPONIN-I HS 5 pg/mL Normal 3.0-78.0 [facility] Comment on above: Result Comment: Plea se Note: New Test Units and Gender Specific Reference Ranges. For more information see Policy Stat Procedure [place] High Sensitivity Troponin (TNIH) and attachments. Performed By: #### L 501.9985, L500.4050, L500.4100, L502.0250, L506.1001, L100.0500, L501.5200 #### [facility] [address] [place], [place], [id number] L501.5425on 06-01-2024 TROPONIN-I HS 7 pg/mL Normal 3.0-78.0 [facility] Comment on above: Order Comment: SEND CBC,A1C,LIPID,VITD AND CMP RESULTS TO PATRICIA JAMES Result Comment: Plea se Note: New Test Units and Gender Specific Reference Ranges. For more information see Policy Stat Procedure [place] High Sensitivity Troponin (TNIH) and attachments. Performed By: #### L 501.9985, L500.4050, L500.4100, L502.0250, L506.1001, L100.0500, L501.5200 #### [facility] [address] [place], [place], [id number] Lymphocytes Auto (Unsp spec) [#/Vol]Ordered By: Emil Nicole on 06-01-2024 Lymphocytes (Bld) [#/Vol] 2.93 10*3/uL 0.83-4.51 [facility] Lymphocytes/100 WBC Auto (Un sp spec)Ordered By: Emil Nicole on 06-01-2024 Lymphocytes/100 WBC (Bld) 30.0 % 19-41 [facility] MCV (mean corpuscular volume ) determinationOrdered By: Emil Nicole on 06-01-2024 MCV (RBC) [Entitic vol] 88.1 fL 80-[address] [facility] Mean corpuscular hemoglobin (MCH) determinationOrdered By: Emil Nicole on 06-01-2024 MCH (RBC) [Entitic mass] 29.0 pg 27.0-32.0 [facility] Mean corpuscular hemoglobin concentration (MCHC) determinationOrdered By: Emil Nicole on 06-01-2024 MCHC (RBC) [Mass/Vol] 32.9 g/dL 32-36 [facility] Mean platelet volume determi nationOrdered By: Emil Nicole on 06-01-2024 Platelet mean volume (Bld) [Entitic vol] 10.5 fL 6.2-12.0 [facility] Monocyte percentageOrdered B y: Emil Nicole on 06-01-2024 Monocytes/100 WBC (Bld) 6.1 % 0-[address] [facility] Neutrophil percentageOrdered By: Emil Nicole on 06-01-2024 Neutrophils/100 WBC (Bld) 61.5 % 47-70 [facility] Nucleated red blood cell per centageOrdered By: Emil Nicole on 06-01-2024 Nucleated RBC/100 WBC (Bld) [Ratio] 0 % 0-5 [facility] Platelet countOrdered By: Ug milvia Nicole on 06-01-2024 Platelets (Bld) [#/Vol] 211 10*3/uL 150-450 [facility] Potassium measurementOrdered By: Emil Nicole on 06-01-2024 Potassium [Moles/Vol] 4.2 mmol/L 3.5-5.1 [facility] RBC Auto (Bld) [#/Vol]Ordere d By: Emil Nicole on 06-01-2024 RBC (Bld) [#/Vol] 5.89 10*6/uL 4.6-6.2 [facility] Serum anion gap measurementO rdered By: Emil Nicole on 06-01-2024 Anion gap [Moles/Vol] 3 mmol/L Low 5-15 [facility] Serum or plasma calcium blanca urement (mass/volume)Ordered By: Emil Nicole on 06-01-2024 Calcium [Mass/Vol] 9.0 mg/dL 8.5-10.1 [facility] Serum or plasma creatinine m easurement (mass/volume)Ordered By: Emil Nicole on 06-01-2024 Creatinine [Mass/Vol] 1.00 mg/dL 0.70-1.30 [facility] Comment on above: The validity of the calculated GFR & GFRAA in patients over 70 years has not been determined. Clinical correlation is essential. Serum or plasma urea nitroge n measurement (mass/volume)Ordered By: Emil Nicole on 06-01-2024 Urea nitrogen [Mass/Vol] 19 mg/dL High 7-18 [facility] Sodium levelOrdered By: Emil Nicole on 06-01-2024 Sodium [Moles/Vol] 139 mmol/L 136-145 [facility] Troponin IOrdered By: Emil zabala on 06-01-2024 Troponin I High Sensitivity 5 pg/mL 3.0-78.0 [facility] Comment on above: Please Note: New Leyla t Units and Gender Specific Reference Ranges. For more information see Policy Stat Procedure [place] High Sensitivity Troponin (TNIH) and attachments. White blood cell (WBC) count Ordered By: Emil Nicole on 06-01-2024 WBC (Bld) [#/Vol] 9.8 10*3/uL 4.4-11.0 [facility] Inital Evaluation (1) - PTon 05-12-2024 Inital Evaluation (1) - PT [facility] Physical Therapy [facility] [address] [place] [address]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 Profileon 02-22-2024 Cholesterol [Mass/Vol] 150 mg/dL Normal 200 [facility] Comment on above: Result Comment: <200 mg/dL Desirable 200-240 mg/dL Borderline >240 mg/dL High Risk Performed By: #### L 506.1000, L500.4100, L500.4050, L501.9985 #### [facility] [address] [place], [address] Cholesterol in HDL [Mass/Vol] 31 mg/dL Low [facility] Comment on above: Result Comment: The drugs N-Acetylcysteine and Metamizole may falsely depress this assay. Reference Range HDL <40 mg/dL Low HDL Cholesterol HDL >or= 60 mg/dL High HDL Cholesterol Performed By: #### L 506.1000, L500.4100, L500.4050, L501.9985 #### [facility] [address] [place], [address] Cholesterol in LDL [Mass/Vol] 84 mg/dL Normal 0-130 [facility] Comment on above: Performed By: #### L 506.1000, L500.4100, L500.4050, L501.9985 #### [facility] [address] [place], [address] Cholesterol in VLDL [Mass/Vol] 35 mg/dL Normal 5-40 [facility] Comment on above: Performed By: #### L 506.1000, L500.4100, L500.4050, L501.9985 #### [facility] [address] [place], [address] Triglyceride [Mass/Vol] 176 mg/dL Normal [facility] Comment on above: Result Comment: The drugs N-Acetylcysteine and Metamizole may falsely depress this assay. Serum Triglycerides Reference Interval Normal <150 mg/dL Borderline high 150 - 199 mg/dL High 200 - 499 mg/dL Very High > or = 500 mg/dL Performed By: #### L 506.1000, L500.4100, L500.4050, L501.9985 #### [facility] [address] [place], [place], [address] Low density lipoprotein (LDL ) cholesterol measurementOrdered By: Сергей Bergman on 02-22-2024 Cholesterol in LDL [Mass/Vol] 84 mg/dL 0-130 [facility] Potassium measurementOrdered By: Сергей Bergman on 02-22-2024 Potassium [Moles/Vol] 4.1 mmol/L 3.5-5.1 [facility] Serum anion gap measurementO rdered By: Сергей Bergman on 02-22-2024 Anion gap [Moles/Vol] 3 mmol/L Low 5-15 [facility] Serum globulin measurementOr dered By: Сергей Bergman on 02-22-2024 Globulin (S) [Mass/Vol] 3.9 g/dL 2.2-4.[address] [facility] Serum or plasma alanine gaffney otransferase (ALT) measurementOrdered By: Сергей Bergman on 02-22-2024 ALT [Catalytic activity/Vol] 44 U/L 16-61 [facility] Serum or plasma albumin blanca urement (mass/volume)Ordered By: Сергей Bergman on 02-22-2024 Albumin [Mass/Vol] 4.0 g/dL 3.2-5.0 [facility] Serum or plasma alkaline jeramy sphatase measurementOrdered By: Сергей Bergman on 02-22-2024 ALP [Catalytic activity/Vol] 76 U/L 45-117 [facility] Serum or plasma calcium blanca urement (mass/volume)Ordered By: Сергей Bergman on 02-22-2024 Calcium [Mass/Vol] 9.0 mg/dL 8.5-10.1 [facility] Serum or plasma cholesterol measurement (mass/volume)Ordered By: Сергей Bergman on 02-22-2024 Cholesterol [Mass/Vol] 150 mg/dL <200 [facility] Comment on above: <200 mg/dL Desirable 200-240 mg/dL Borderline >240 mg/dL High Risk Serum or plasma creatinine m easurement (mass/volume)Ordered By: Сергей Bergman on 02-22-2024 Creatinine [Mass/Vol] 1.07 mg/dL 0.70-1.30 [facility] Comment on above: The validity of the calculated GFR & GFRAA in patients over 70 years has not been determined. Clinical correlation is essential. Serum or plasma urea nitroge n measurement (mass/volume)Ordered By: Сергей Bergman on 02-22-2024 Urea nitrogen [Mass/Vol] 12 mg/dL 7-18 [facility] Sodium levelOrdered By: Clinton Bergman on 02-22-2024 Sodium [Moles/Vol] 138 mmol/L 136-145 [facility] Total proteinOrdered By: Dion Bergman on 02-22-2024 Protein [Mass/Vol] 7.9 g/dL 6.4-8.2 [facility] Triglycerides measurementOrd ered By: Сергей Bergman on 02-22-2024 Triglyceride [Mass/Vol] 176 mg/dL <199 [facility] Comment on above: The drugs N-Acetylcy steine and Metamizole may falsely depress this assay.Serum Triglycerides Reference Interval Normal <150 mg/dL Borderline high 150 - 199 mg/dL High 200 - 499 mg/dL Very High > or = 500 mg/dL Very low density lipoprotein (VLDL) cholesterol measurementOrdered By: Сергей Bergman on 02-22-2024 VLDL Cholesterol 35 mg/dL 5-40 [facility] Vitamin D,25 Hydroxyon 02-21 Vitamin D 25-OH 20.5 ng/mL Normal [facility] Comment on above: Result Comment: Sheryl min D 25(OH) Status Range Deficiency <20 ng/mL (50nmol/L) Insufficiency 20 - 30 ng/mL (50 - 75 nmol/L) Sufficiency 30 - 100 ng/mL (75 - 250 nmol/L) Toxicity >100 ng/mL (>250 nmol/L) Performed By: #### L 506.1000, L500.4100, L500.4050, L501.9985 #### [facility] [address] [place], [address] .Auto Diffon 01-04-2024 Basophil, Absolute 0.0 10 3/mcL Normal 0.0-0.2 [facility] Comment on above: Performed By: #### T SH, ESR, ADIFF, PBNP, PRO, LIPID, GFR, CRP, ANEU, BMP, CBC #### [address] [address] Basophils/100 WBC (Bld) 0.6 % Normal 0.0-2.5 [facility] Comment on above: Performed By: #### T SH, ESR, ADIFF, PBNP, PRO, LIPID, GFR, CRP, ANEU, BMP, CBC #### [address] [address] Eosinophil, Absolute 0.2 10 3/mcL Normal 0.0-0.7 [facility] Comment on above: Performed By: #### T SH, ESR, ADIFF, PBNP, PRO, LIPID, GFR, CRP, ANEU, BMP, CBC #### [address] [address] Eosinophils/100 WBC (Bld) 2.2 % Normal 0.0-7.0 [facility] Comment on above: Performed By: #### T SH, ESR, ADIFF, PBNP, PRO, LIPID, GFR, CRP, ANEU, BMP, CBC #### [address] [address] Lymphocyte, Absolute 2.5 10 3/mcL Normal 0.9-4.3 [facility] Comment on above: Performed By: #### T SH, ESR, ADIFF, PBNP, PRO, LIPID, GFR, CRP, ANEU, BMP, CBC #### [address] [address] Lymphocytes/100 WBC (Bld) 30.4 % Normal 20.0-40.0 [facility] Comment on above: Performed By: #### T SH, ESR, ADIFF, PBNP, PRO, LIPID, GFR, CRP, ANEU, BMP, CBC #### [address] [address] Monocyte, Absolute 0.6 10 3/mcL Normal 0.1-1.4 [facility] Comment on above: Performed By: #### T SH, ESR, ADIFF, PBNP, PRO, LIPID, GFR, CRP, ANEU, BMP, CBC #### [address] [address] Monocytes/100 WBC (Bld) 6.9 % Normal 2.0-13.0 [facility] Comment on above: Performed By: #### T SH, ESR, ADIFF, PBNP, PRO, LIPID, GFR, CRP, ANEU, BMP, CBC #### [address] [address] Neutrophils/100 WBC (Bld) 59.9 % Normal 50.0-75.0 [facility] Comment on above: Performed By: #### T SH, ESR, ADIFF, PBNP, PRO, LIPID, GFR, CRP, ANEU, BMP, CBC #### [address] [address] .GFRon 01-04-2024 GFR 92 ml/min/1.73sqm Normal [facility] Comment on above: Result Comment: GFR Population mean for , Non- Americans Ages 20-29 = 116 mL/min/1.73 sq.m. Ages 30-39 = 107 mL/min/1.73 sq.m. Ages 40-49 = 99 mL/min/1.73 sq.m. Ages 50-59 = 93 mL/min/1.73 sq.m. Ages 60-69 = 85 mL/min/1.73 sq.m. Ages 70+ = 75 mL/min/1.73 sq.m. Chronic Kidney Disease: Less than 60 mL/min/1.73 square meters End Stage Renal Disease: Less than 15 mL/min/1.73 square meters Performed By: #### T SH, ESR, ADIFF, PBNP, PRO, LIPID, GFR, CRP, ANEU, BMP, CBC #### [address] [address] GFR Non- 76 ml/min/1.73sqm Normal [facility] Comment on above: Result Comment: GFR Population mean for , Non- Americans Ages 20-29 = 116 mL/min/1.73 sq.m. Ages 30-39 = 107 mL/min/1.73 sq.m. Ages 40-49 = 99 mL/min/1.73 sq.m. Ages 50-59 = 93 mL/min/1.73 sq.m. Ages 60-69 = 85 mL/min/1.73 sq.m. Ages 70+ = 75 mL/min/1.73 sq.m. Chronic Kidney Disease: Less than 60 mL/min/1.73 square meters End Stage Renal Disease: Less than 15 mL/min/1.73 square meters Performed By: #### T SH, ESR, ADIFF, PBNP, PRO, LIPID, GFR, CRP, ANEU, BMP, CBC #### [address] [address] .NEUABSon 01-04-2024 Neutrophil, Absolute 4.9 10 3/mcL Normal 2.3-8.1 [facility] Comment on above: Performed By: #### T SH, ESR, ADIFF, PBNP, PRO, LIPID, GFR, CRP, ANEU, BMP, CBC #### [address] [address] BMPon 01-04-2024 BUN/Creatinine Ratio 11 ratio Normal 7-27 [facility] Comment on above: Performed By: #### T SH, ESR, ADIFF, PBNP, PRO, LIPID, GFR, CRP, ANEU, BMP, CBC #### [address] [address] Calcium [Mass/Vol] 9.1 mg/dL Normal 8.4-10.2 [facility] Comment on above: Performed By: #### T SH, ESR, ADIFF, PBNP, PRO, LIPID, GFR, CRP, ANEU, BMP, CBC #### [address] [address] Chloride [Moles/Vol] 106 mmol/L Normal 98-107 [facility] Comment on above: Performed By: #### T SH, ESR, ADIFF, PBNP, PRO, LIPID, GFR, CRP, ANEU, BMP, CBC #### [address] [address] CO2 [Moles/Vol] 28 mmol/L Normal 22-29 [facility] Comment on above: Performed By: #### T SH, ESR, ADIFF, PBNP, PRO, LIPID, GFR, CRP, ANEU, BMP, CBC #### [address] [address] Creatinine [Mass/Vol] 1.09 mg/dL Normal 0.70-1.30 [facility] Comment on above: Result Comment: Test ing performed on Siemens Dimension EXL analyzer using a modified kinetic Brad technique. Performed By: #### T SH, ESR, ADIFF, PBNP, PRO, LIPID, GFR, CRP, ANEU, BMP, CBC #### [address] [address] Electrolyte Balance 8.0 mEq/L Normal 4.0-15.0 [facility] Comment on above: Performed By: #### T SH, ESR, ADIFF, PBNP, PRO, LIPID, GFR, CRP, ANEU, BMP, CBC #### [address] [address] Glucose [Mass/Vol] 100 mg/dL Normal 70-105 [facility] Comment on above: Performed By: #### T SH, ESR, ADIFF, PBNP, PRO, LIPID, GFR, CRP, ANEU, BMP, CBC #### [address] [address] Potassium [Moles/Vol] 4.5 mmol/L Normal 3.5-5.1 [facility] Comment on above: Performed By: #### T SH, ESR, ADIFF, PBNP, PRO, LIPID, GFR, CRP, ANEU, BMP, CBC #### [address] [address] Sodium [Moles/Vol] 142 mmol/L Normal 136-145 [facility] Comment on above: Performed By: #### T SH, ESR, ADIFF, PBNP, PRO, LIPID, GFR, CRP, ANEU, BMP, CBC #### [address] [address] Urea nitrogen [Mass/Vol] 12 mg/dL Normal 7-18 [facility] Comment on above: Performed By: #### T SH, ESR, ADIFF, PBNP, PRO, LIPID, GFR, CRP, ANEU, BMP, CBC #### [address] [address] CBCon 01-04-2024 Erythrocyte distribution width (RBC) [Ratio] 15.4 % Normal 11.5-15.5 [facility] Comment on above: Performed By: #### T SH, ESR, ADIFF, PBNP, PRO, LIPID, GFR, CRP, ANEU, BMP, CBC #### [address] [address] Hematocrit (Bld) [Volume fraction] 49.1 % Normal 40.0-52.0 [facility] Comment on above: Performed By: #### T SH, ESR, ADIFF, PBNP, PRO, LIPID, GFR, CRP, ANEU, BMP, CBC #### [address] [address] Hgb 16.5 G/dL Normal 13.0-17.5 [facility] Comment on above: Performed By: #### T SH, ESR, ADIFF, PBNP, PRO, LIPID, GFR, CRP, ANEU, BMP, CBC #### [address] [address] MCH (RBC) [Entitic mass] 29.5 pg Normal 27.0-33.0 [facility] Comment on above: Performed By: #### T SH, ESR, ADIFF, PBNP, PRO, LIPID, GFR, CRP, ANEU, BMP, CBC #### [address] [address] MCHC 33.7 G/dL Normal 32.0-36.0 [facility] Comment on above: Performed By: #### T SH, ESR, ADIFF, PBNP, PRO, LIPID, GFR, CRP, ANEU, BMP, CBC #### [address] [address] MCV (RBC) [Entitic vol] 87.7 fL Normal 81.0-100.0 [facility] Comment on above: Performed By: #### T SH, ESR, ADIFF, PBNP, PRO, LIPID, GFR, CRP, ANEU, BMP, CBC #### [place] [address] Platelet 190 10 3/mcL Normal 150-450 [facility] Comment on above: Performed By: #### T SH, ESR, ADIFF, PBNP, PRO, LIPID, GFR, CRP, ANEU, BMP, CBC #### [place] [id number] Platelet mean volume (Bld) [Entitic vol] 8.8 fL Normal 6.4-10.5 [facility] Comment on above: Performed By: #### T SH, ESR, ADIFF, PBNP, PRO, LIPID, GFR, CRP, ANEU, BMP, CBC #### [place] [id number] RBC 5.60 10 6/mcL Normal 4.50-6.00 [facility] Comment on above: Performed By: #### T SH, ESR, ADIFF, PBNP, PRO, LIPID, GFR, CRP, ANEU, BMP, CBC #### [place] [id number] WBC 8.2 10 3/mcL Normal 4.5-10.8 [facility] Comment on above: Performed By: #### T SH, ESR, ADIFF, PBNP, PRO, LIPID, GFR, CRP, ANEU, BMP, CBC #### [place] [address] CRPon 01-04-2024 C-Reactive Protein 0.4 mg/dL High 0.0-0.3 [facility] Comment on above: Performed By: #### T SH, ESR, ADIFF, PBNP, PRO, LIPID, GFR, CRP, ANEU, BMP, CBC #### [place] [id number] [place], [place] [address] ESRon 01-04-2024 Erythrocyte Sed Rate 10 mm/hr Normal 0-15 [facility] Comment on above: Performed By: #### T SH, ESR, ADIFF, PBNP, PRO, LIPID, GFR, CRP, ANEU, BMP, CBC #### [address] [address] LABORATORYOrdered By: SYSTEM SYSTEM on 01-04-2024 Basophils (Bld) [#/Vol] 0.0 103/mcL Normal 0.0 - 0.2 10^3/mcL AO Workflow SS Basophils/100 WBC (Bld) 0.6 % Normal 0.0 - 2.5 % AO Workflow SS Calcium [Mass/Vol] 9.1 mg/dL Normal 8.4 - 10. 2 mg/dL AO ADM SS Chloride [Moles/Vol] 106 mmol/L Normal 98 - 10 7 mmol/L AO ADM SS CO2 [Moles/Vol] 28 mmol/L Normal 22 - 29 mmol/L AO ADM SS Creatinine [Mass/Vol] 1.09 mg/dL Normal 0.70 - 1.30 mg/dL AO ADM SS Comment on above: Interpretive Data: T esting performed on Siemens Dimension EXL analyzer using a modified kinetic Brad technique. CRP [Mass/Vol] 0.4 mg/dL High 0.0 - 0.3 mg/dL AO ADM SS Electrolyte Balance 8.0 mEq/L Normal 4.0 - 15 .0 mEq/L AO ADM SS Eosinophil, Absolute 0.2 103/mcL Normal 0.0 - 0 .7 10^3/mcL AO Workflow SS Eosinophils/100 WBC (Bld) 2.2 % Normal 0.0 - 7.0 % AO Workflow SS Erythrocyte distribution width (RBC) [Ratio] 15.4 % Normal 11.5 - 15.5 % AO Workflow SS GFR/1.73 sq M.predicted among blacks MDRD (S/P/Bld) [Vol rate/Area] 92 ml/min/1.73sqm Invalid Interpretation Code AO Chemistry S Comment on above: Interpretive Data: GFR Population mean for , Non- Americans Ages 20-29 = 116 mL/min/1.73 sq.m. Ages 30-39 = 107 mL/min/1.73 sq.m. Ages 40-49 = 99 mL/min/1.73 sq.m. Ages 50-59 = 93 mL/min/1.73 sq.m. Ages 60-69 = 85 mL/min/1.73 sq.m. Ages 70+ = 75 mL/min/1.73 sq.m. Chronic Kidney Disease: Less than 60 mL/min/1.73 square meters End Stage Renal Disease: Less than 15 mL/min/1.73 square meters GFR/1.73 sq M.predicted among non-blacks MDRD (S/P/Bld) [Vol rate/Area] 76 ml/min/1.73sqm Invalid Interpretation Code AO Chemistry S Comment on above: Interpretive Data: GFR Population mean for , Non- Americans Ages 20-29 = 116 mL/min/1.73 sq.m. Ages 30-39 = 107 mL/min/1.73 sq.m. Ages 40-49 = 99 mL/min/1.73 sq.m. Ages 50-59 = 93 mL/min/1.73 sq.m. Ages 60-69 = 85 mL/min/1.73 sq.m. Ages 70+ = 75 mL/min/1.73 sq.m. Chronic Kidney Disease: Less than 60 mL/min/1.73 square meters End Stage Renal Disease: Less than 15 mL/min/1.73 square meters Glucose [Mass/Vol] 100 mg/dL Normal 70 - 105 mg/dL AO ADM SS Hematocrit (Bld) [Volume fraction] 49.1 % Normal 40.0 - 52.0 % AO Workflow SS Hemoglobin (Bld) [Mass/Vol] 16.5 G/dL Normal 13.0 - 17.5 G/dL AO Workflow SS INR Coag (PPP) [Relative time] 1.0 {INR} Invalid Interpretation Code AO Hemo[facility] SS Comment on above: Interpretive Data: Mini sanchez [employer] (CHEST, 1992, [id number]) recommended therapeutic range for oral anticoagulant therapy is: LOW RISK: Prophylaxis of venous thrombosis INR: 2.0-3.0 Treatment of pulmonary embolism 2.0-3.0 Prevention of systemic embolism 2.0-3.0 HIGH RISK: Mechanical prosthetic valves 2.5-3.5 Lymphocytes (Bld) [#/Vol] 2.5 103/mcL Normal 0.9 - 4.3 10^3/mcL AO Workflow SS Lymphocytes/100 WBC (Bld) 30.4 % Normal 20.0 - 40.0 % AO Workflow SS MCH (RBC) [Entitic mass] 29.5 pg Normal 27.0 - 33.0 pg AO Workflow SS MCHC 33.7 G/dL Normal 32.0 - 36.0 G/dL AO Workflow SS MCV (RBC) [Entitic vol] 87.7 fL Normal 81.0 - 100.0 fL AO Workflow SS Monocytes (Bld) [#/Vol] 0.6 103/mcL Normal 0.1 - 1.4 10^3/mcL AO Workflow SS Monocytes/100 WBC (Bld) 6.9 % Normal 2.0 - 13.0 % AO Workflow SS Natriuretic peptide.B prohormone N-Terminal [Mass/Vol] 228 pg/mL High 0 - 125 pg/mL AO ADM SS Comment on above: Interpretive Data: N T-proBNP results of less than 300 pg/mL effectively rules out acute congestive heart failure with 99% negative predictive value. Neutrophils (Bld) [#/Vol] 4.9 103/mcL Normal 2.3 - 8.1 10^3/mcL AO Workflow SS Neutrophils/100 WBC (Bld) 59.9 % Normal 50.0 - 75.0 % AO Workflow SS Platelet mean volume (Bld) [Entitic vol] 8.8 fL Normal 6.4 - 10.5 fL AO Workflow SS Platelets (Bld) [#/Vol] 190 103/mcL Normal 150 - 450 10^3/mcL AO Workflow SS Potassium [Moles/Vol] 4.5 mmol/L Normal 3.5 - 5.1 mmol/L AO ADM SS PT Coag (PPP) [Time] 11.4 s Normal 9.0 - 1 4.4 seconds AO [facility] SS RBC (Bld) [#/Vol] 5.60 106/mcL Normal 4.50 - 6.0 0 10^6/mcL AO Workflow SS Sodium [Moles/Vol] 142 mmol/L Normal 136 - 145 mmol/L AO ADM SS TSH Qn 0.88 m[IU]/L Normal 0.36 - 3.74 mcIU/mL AO ADM SS Urea nitrogen [Mass/Vol] 12 mg/dL Normal 7 - 18 mg/dL AO ADM SS Urea nitrogen/Creatinine [Mass ratio] 11 ratio Normal 7 - 27 ratio AO ADM SS WBC (Bld) [#/Vol] 8.2 103/mcL Normal 4.5 - 10.8 10^3/mcL AO Workflow SS LABORATORYOrdered By: Kal Metcalf on 01-04-2024 Cholesterol [Mass/Vol] 140 mg/dL Normal 0 - 2 00 mg/dL AO ADM SS Comment on above: Interpretive Data: C holesterol Reference Interval: Less than 200 Desirable 200-239 Borderline high risk 240 and above High risk Cholesterol in HDL [Mass/Vol] 29 mg/dL Low 40 - 60 mg/dL AO ADM SS Cholesterol in LDL [Mass/Vol] 83 mg/dL Normal 0 - 130 mg/dL AO ADM SS Triglyceride [Mass/Vol] 141 mg/dL Normal 0 - 150 mg/dL AO ADM SS Comment on above: Interpretive Data: T riglyceride Reference Interval: Less than 150 Normal 150-199 Borderline high risk 200-499 High risk 500 or higher Very high risk LABORATORYOrdered By: Monica Gardner on 01-04-2024 ESR Photometric method (Bld) [Velocity] 10 mm/hr Normal 0 - 15 mm/hr AO Man Heme SS LIPIDon 01-04-2024 Cholesterol [Mass/Vol] 140 mg/dL Normal 0-200 [facility] Comment on above: Result Comment: Chol esterol Reference Interval: Less than 200 Desirable 200-239 Borderline high risk 240 and above High risk Performed By: #### T SH, ESR, ADIFF, PBNP, PRO, LIPID, GFR, CRP, ANEU, BMP, CBC #### [facility] [address] [place], [place] [address] Cholesterol in HDL [Mass/Vol] 29 mg/dL Low 40-60 [facility] Comment on above: Performed By: #### T SH, ESR, ADIFF, PBNP, PRO, LIPID, GFR, CRP, ANEU, BMP, CBC #### [id number] [place], [place] [address] Cholesterol in LDL [Mass/Vol] 83 mg/dL Normal 0-130 [facility] Comment on above: Performed By: #### T SH, ESR, ADIFF, PBNP, PRO, LIPID, GFR, CRP, ANEU, BMP, CBC #### [id number] [place], [place] [address] Triglyceride [Mass/Vol] 141 mg/dL Normal 0-150 [facility] Comment on above: Result Comment: Trig lyceride Reference Interval: Less than 150 Normal 150-199 Borderline high risk 200-499 High risk 500 or higher Very high risk Performed By: #### T SH, ESR, ADIFF, PBNP, PRO, LIPID, GFR, CRP, ANEU, BMP, CBC #### [address] [address] PBNPon 01-04-2024 Natriuretic peptide B (Bld) [Mass/Vol] 228 pg/mL High 0-125 [facility] Comment on above: Result Comment: NT-p roBNP results of less than 300 pg/mL effectively rules out acute congestive heart failure with 99% negative predictive value. Performed By: #### T SH, ESR, ADIFF, PBNP, PRO, LIPID, GFR, CRP, ANEU, BMP, CBC #### [address] [address] PROon 01-04-2024 PT Coag (PPP) [Time] 11.4 s Normal 9.0-14.4 [facility] Comment on above: Performed By: #### T SH, ESR, ADIFF, PBNP, PRO, LIPID, GFR, CRP, ANEU, BMP, CBC #### [address] [address] PT International Ratio 1.0 Normal [facility] Comment on above: Result Comment: [employer] (CHEST, 1992, [id number]) recommended therapeutic range for oral anticoagulant therapy is: LOW RISK: Prophylaxis of venous thrombosis INR: 2.0-3.0 Treatment of pulmonary embolism 2.0-3.0 Prevention of systemic embolism 2.0-3.0 HIGH RISK: Mechanical prosthetic valves 2.5-3.5 Performed By: #### T SH, ESR, ADIFF, PBNP, PRO, LIPID, GFR, CRP, ANEU, BMP, CBC #### [facility] [address] [place], [place] [address] TSHon 01-04-2024 TSH Qn 0.88 m[IU]/L Normal 0.36-3.74 [facility] Comment on above: Performed By: #### T SH, ESR, ADIFF, PBNP, PRO, LIPID, GFR, CRP, ANEU, BMP, CBC #### [facility] [address] [place], [place] [address] XR SHOULDER MINIMUM 2 VIEWS LEFTon 09-15-2023 XR SHOULDER MINIMUM 2 VIEWS LEFT ORIGINAL EXAMINATION: TWO XRAY VIEWS OF THE LEFT SHOULDER09/15/2023 12:11 pm TECHNIQUE: Two views of the left shoulder COMPARISON: None. HISTORY: ORDERING SYSTEM PROVIDED HISTORY: Reason for Exam: pain FINDINGS: No fracture or dislocation is identified. There are no abnormal periarticular calcifications. The acromioclavicular joint is normal. The included thoracic structures are normal. IMPRESSION: No acute fracture or dislocation. Interpreted by: Donald Murillo MD Preliminary Report By: Donald Murillo MD Electronically signed By Donald Murillo MD Dictated Date: 09/15/2023 12:14:58 PM Prelim Date: 09/15/2023 12:15:51 PM Sign Date: 09/15/2023 12:15:51 PM Ordering Provider: MARLYS PERERA Normal [facility] ([place]) Basophil percentageOrdered B y: Сергей Bergman on 07-25-2023 Bilirubin [Mass/Vol] 0.50 mg/dL 0.20-1.00 [facility] Comment on above: For patients on eltr ombopag therapy, use of Dimension [place] TBIL is not recommended. Chloride [Moles/Vol] 109 mmol/L 98-107 [facility] Cholesterol [Mass/Vol] 133 mg/dL <200 [facility] Comment on above: <200 mg/dL Desirable 200-240 mg/dL Borderline >240 mg/dL High Risk Glucose [Mass/Vol] 99 mg/dL 74-106 [facility] Potassium [Moles/Vol] 3.9 mmol/L 3.5-5.1 [facility] Protein [Mass/Vol] 7.8 g/dL 6.4-8.2 [facility] Sodium [Moles/Vol] 138 mmol/L 136-145 [facility] Triglyceride [Mass/Vol] 144 mg/dL <[address] [facility] Comment on above: The drugs N-Acetylcy steine and Metamizole may falsely depress this assay.Serum Triglycerides Reference Interval Normal <150 mg/dL Borderline high 150 - 199 mg/dL High 200 - 499 mg/dL Very High > or = 500 mg/dL Laboratory - Chemistry and C hemistry - challengeOrdered By: Сергей Bergman on 07-25-2023 Albumin/Globulin [Mass ratio] 1.0 {ratio} 0.9-2.4 [facility] ALP [Catalytic activity/Vol] 82 U/L 45-117 [facility] ALT [Catalytic activity/Vol] 57 U/L 16-61 [facility] Cholesterol in HDL [Mass/Vol] 29 mg/dL >40 [facility] Comment on above: The drugs N-Acetylcy steine and Metamizole may falsely depress this assay. Reference Range HDL <40 mg/dL Low HDL Cholesterol HDL >or= 60 mg/dL High HDL Cholesterol Cholesterol in LDL [Mass/Vol] 75 mg/dL 0-130 [facility] CO2 [Moles/Vol] 27.0 mmol/L 21.0-32.0 [facility] Globulin (S) [Mass/Vol] 4.0 g/dL 2.2-4.2 [facility] Urea nitrogen/Creatinine [Mass ratio] 12.7 mg/mg 10-20 [facility] No Panel InformationOrdered By: Сергей Bergman on 07-25-2023 Estimated GFR (MDRD) Amer 96 mL/min >60 [facility] Comment on above: GFR Calc Estimated GFR (MDRD) Non-Af Amer 80 mL/min >60 [facility] Comment on above: Non- GFR Calc Vitamin D 25-Hydroxy 19.6 ng/mL [facility] Comment on above: Vitamin D 25(OH) Sta tus Range Deficiency <20 ng/mL (50nmol/L) Insufficiency 20 - 30 ng/mL (50 - 75 nmol/L) Sufficiency 30 - 100 ng/mL (75 - 250 nmol/L) Toxicity >100 ng/mL (>250 nmol/L) VLDL Cholesterol 29 mg/dL 5-40 [facility] Serum or plasma calcium blanca urement (mass/volume)Ordered By: Сергей Bergman on 07-25-2023 Calcium [Mass/Vol] 8.7 mg/dL 8.5-10.1 [facility] Serum or plasma creatinine m easurement (mass/volume)Ordered By: Сергей Bergman on 07-25-2023 Creatinine [Mass/Vol] 1.10 mg/dL 0.70-1.30 [facility] Comment on above: The validity of the calculated GFR & GFRAA in patients over 70 years has not been determined. Clinical correlation is essential. Serum or plasma urea nitroge n measurement (mass/volume)Ordered By: Сергей Bergman on 07-25-2023 Urea nitrogen [Mass/Vol] 14 mg/dL 7-18 [facility] Thin prep Papanicolaou smear with manual screeningOrdered By: Сергей Bergman on 07-25-2023 Thin prep Papanicolaou smear with manual screening 3.8 g/dL 3.2-5.0 [facility] Thin prep Papanicolaou smear with manual screening 28 U/L 15-37 [facility] Thin prep Papanicolaou smear with manual screening 2 5-15 [facility] Whole blood hemoglobin A1c/t otal hemoglobin ratio (mass fraction)Ordered By: Сергей Bergman on 07-25-2023 HbA1c (Bld) [Mass fraction] 5.7 % 3.8-5.6 [facility] Comment on above: Normal < 5.7 % Predi abetic 5.7 - 6.4 % Diabetic >or= 6.5 % Please note range changes. Basophil percentageOrdered B y: Сергей Bergman on 01-19-2023 Bilirubin [Mass/Vol] 0.30 mg/dL 0.20-1.00 [facility] Comment on above: For patients on eltr ombopag therapy, use of Dimension [place] TBIL is not recommended. Chloride [Moles/Vol] 108 mmol/L 98-107 [facility] Cholesterol [Mass/Vol] 179 mg/dL <200 [facility] Comment on above: <200 mg/dL Desirable 200-240 mg/dL Borderline >240 mg/dL High Risk Glucose [Mass/Vol] 120 mg/dL 74-106 [facility] Comment on above: Fasting Glucose resu lt from 100 to 125 mg/dL suggests IMPAIRED HOMEOSTASIS per A.D.A. criteria. Potassium [Moles/Vol] 3.8 mmol/L 3.5-5.1 [facility] Protein [Mass/Vol] 7.7 g/dL 6.4-8.2 [facility] Sodium [Moles/Vol] 139 mmol/L 136-145 [facility] Triglyceride [Mass/Vol] 311 mg/dL <199 [facility] Comment on above: The drugs N-Acetylcy steine and Metamizole may falsely depress this assay.Serum Triglycerides Reference Interval Normal <150 mg/dL Borderline high 150 - 199 mg/dL High 200 - 499 mg/dL Very High > or = 500 mg/dL Laboratory - Chemistry and C hemistry - challengeOrdered By: Сергей Bergman on 01-19-2023 ALP [Catalytic activity/Vol] 68 U/L 45-117 [facility] ALT [Catalytic activity/Vol] 68 U/L 16-61 [facility] CO2 [Moles/Vol] 29.0 mmol/L 21.0-32.0 [facility] Globulin (S) [Mass/Vol] 3.9 g/dL 2.2-4.2 [facility] Urea nitrogen/Creatinine [Mass ratio] 18.6 mg/mg 10-20 [facility] No Panel InformationOrdered By: Сергей Bergman on 01-19-2023 Estimated GFR (MDRD) Amer 106 mL/min >60 [facility] Comment on above: GFR Calc Estimated GFR (MDRD) Non-Af Amer 87 mL/min >60 [facility] Comment on above: Non- GFR Calc Vitamin D 25-Hydroxy 29.1 ng/mL [facility] Comment on above: Vitamin D 25(OH) Sta tus Range Deficiency <20 ng/mL (50nmol/L) Insufficiency 20 - 30 ng/mL (50 - 75 nmol/L) Sufficiency 30 - 100 ng/mL (75 - 250 nmol/L) Toxicity >100 ng/mL (>250 nmol/L) Serum or plasma albumin blanca urement (mass/volume)Ordered By: Сергей Bergman on 01-19-2023 Albumin [Mass/Vol] 3.8 g/dL 3.2-5.0 [facility] Serum or plasma albumin/glob ulin mass ratioOrdered By: Сергей Bergman on 01-19-2023 Albumin/Globulin [Mass ratio] 1.0 {ratio} 0.9-2.4 [facility] Serum or plasma calcium blanca urement (mass/volume)Ordered By: Сергей Bergman on 01-19-2023 Calcium [Mass/Vol] 9.1 mg/dL 8.5-10.1 [facility] Serum or plasma cholesterol in HDL measurement (mass/volume)Ordered By: Сергей Bergman on 01-19-2023 Cholesterol in HDL [Mass/Vol] 32 mg/dL >40 [facility] Comment on above: The drugs N-Acetylcy steine and Metamizole may falsely depress this assay. Reference Range HDL <40 mg/dL Low HDL Cholesterol HDL >or= 60 mg/dL High HDL Cholesterol Serum or plasma cholesterol in VLDL measurement (mass/volume)Ordered By: Сергей Bergman on 01-19-2023 Cholesterol in VLDL [Mass/Vol] 62 mg/dL 5-40 [facility] Serum or plasma creatinine m easurement (mass/volume)Ordered By: Сергей Bergman on 01-19-2023 Creatinine [Mass/Vol] 1.02 mg/dL 0.70-1.30 [facility] Comment on above: The validity of the calculated GFR & GFRAA in patients over 70 years has not been determined. Clinical correlation is essential. Serum or plasma low density lipoprotein (LDL) cholesterol measurement (mass/volume)Ordered By: Сергей Bergman on 01-19-2023 Cholesterol in LDL [Mass/Vol] 85 mg/dL 0-130 [facility] Serum or plasma urea nitroge n measurement (mass/volume)Ordered By: Сергей Bergman on 01-19-2023 Urea nitrogen [Mass/Vol] 19 mg/dL 7-18 [facility] Thin prep Papanicolaou smear with manual screeningOrdered By: Сергей Bergman on 01-19-2023 Thin prep Papanicolaou smear with manual screening 30 U/L 15-37 [facility] Thin prep Papanicolaou smear with manual screening 2 5-15 [facility] Whole blood hemoglobin A1c/t otal hemoglobin ratio (mass fraction)Ordered By: Сергей Bergman on 01-19-2023 HbA1c (Bld) [Mass fraction] 5.4 % 3.8-5.6 [facility] Comment on above: Normal < 5.7 % Predi abetic 5.7 - 6.4 % Diabetic >or= 6.5 % Please note range changes. Basophil percentageOrdered B y: Сергей Bergman on 07-26-2022 Bilirubin [Mass/Vol] 0.50 mg/dL 0.20-1.00 [facility] Comment on above: For patients on eltr ombopag therapy, use of Dimension [place] TBIL is not recommended. Chloride [Moles/Vol] 110 mmol/L 98-107 [facility] Cholesterol [Mass/Vol] 235 mg/dL <200 [facility] Comment on above: <200 mg/dL Desirable 200-240 mg/dL Borderline >240 mg/dL High Risk Glucose [Mass/Vol] 109 mg/dL 74-106 [facility] Comment on above: Fasting Glucose resu lt from 100 to 125 mg/dL suggests IMPAIRED HOMEOSTASIS per A.D.A. criteria. Potassium [Moles/Vol] 4.0 mmol/L 3.5-5.1 [facility] Protein [Mass/Vol] 7.8 g/dL 6.4-8.2 [facility] Sodium [Moles/Vol] 138 mmol/L 136-145 [facility] Triglyceride [Mass/Vol] 209 mg/dL <199 [facility] Comment on above: The drugs N-Acetylcy steine and Metamizole may falsely depress this assay.Serum Triglycerides Reference Interval Normal <150 mg/dL Borderline high 150 - 199 mg/dL High 200 - 499 mg/dL Very High > or = 500 mg/dL WBC (Bld) [#/Vol] 9.6 10*3/uL 4.4-11.0 [facility] Blood erythrocytes count (nu mber/volume)Ordered By: Сергей Bergman on 07-26-2022 RBC (Bld) [#/Vol] 5.80 10*6/uL 4.6-6.2 [facility] [place] Blood hemoglobin measurement (mass/volume)Ordered By: Сергей Bergman on 07-26-2022 Hemoglobin (Bld) [Mass/Vol] 16.7 g/dL 13.0-16.5 [facility] Blood platelet mean volumeOr dered By: Сергей Bergman on 07-26-2022 Platelet mean volume (Bld) [Entitic vol] 11.0 fL 6.2-12.0 [facility] Determination of erythrocyte mean corpuscular volume (MCV)Ordered By: Сергей Bergman on 07-26-2022 MCV (RBC) [Entitic vol] 87.6 fL 80-[address] [facility] Hematocrit Auto (Bld) [Volum e fraction]Ordered By: Сергей Bergman on 07-26-2022 Hematocrit (Bld) [Volume fraction] 50.8 % 40-54 [facility] Laboratory - Chemistry and C hemistry - challengeOrdered By: Сергей Bergman on 07-26-2022 ALP [Catalytic activity/Vol] 57 U/L 45-117 [facility] ALT [Catalytic activity/Vol] 50 U/L 16-61 [facility] CO2 [Moles/Vol] 24.0 mmol/L 21.0-32.0 [facility] Globulin (S) [Mass/Vol] 4.0 g/dL 2.2-4.2 [facility] Urea nitrogen/Creatinine [Mass ratio] 26.6 mg/mg 10-20 [facility] Laboratory - Hematology and Cell countsOrdered By: Сергей Bergman on 07-26-2022 Erythrocyte distribution width (RBC) [Entitic vol] 45.5 fL 35.1-43.9 [facility] Erythrocyte distribution width (RBC) [Ratio] 14.3 % 11.6-14.6 [facility] MCH (RBC) [Entitic mass] 28.8 pg 27.0-32.0 [facility] MCHC Auto (RBC) [Mass/Vol]Or dered By: Сергей Bergman on 07-26-2022 MCHC (RBC) [Mass/Vol] 32.9 g/dL 32-36 [facility] No Panel InformationOrdered By: Сергей Bergman on 07-26-2022 Estimated GFR (MDRD) Amer 128 mL/min >60 [facility] Comment on above: GFR Calc Estimated GFR (MDRD) Non-Af Amer 106 mL/min >60 [facility] Comment on above: Non- GFR Calc Vitamin D 25-Hydroxy 27.1 ng/mL [facility] Comment on above: Vitamin D 25(OH) Sta tus Range Deficiency <20 ng/mL (50nmol/L) Insufficiency 20 - 30 ng/mL (50 - 75 nmol/L) Sufficiency 30 - 100 ng/mL (75 - 250 nmol/L) Toxicity >100 ng/mL (>250 nmol/L) Platelets bldOrdered By: Dion Bergman on 07-26-2022 Platelets (Bld) [#/Vol] 210 10*3/uL 150-450 [facility] Serum or plasma albumin blanca urement (mass/volume)Ordered By: Сергей Bergman on 07-26-2022 Albumin [Mass/Vol] 3.8 g/dL 3.2-5.0 [facility] Serum or plasma albumin/glob ulin mass ratioOrdered By: Сергей Bergman on 07-26-2022 Albumin/Globulin [Mass ratio] 1.0 {ratio} 0.9-2.4 [facility] Serum or plasma calcium blanca urement (mass/volume)Ordered By: Сергей Bergman on 07-26-2022 Calcium [Mass/Vol] 8.7 mg/dL 8.5-10.1 [facility] Serum or plasma cholesterol in HDL measurement (mass/volume)Ordered By: Сергей Bergman on 07-26-2022 Cholesterol in HDL [Mass/Vol] 29 mg/dL >40 [facility] Comment on above: The drugs N-Acetylcy steine and Metamizole may falsely depress this assay. Reference Range HDL <40 mg/dL Low HDL Cholesterol HDL >or= 60 mg/dL High HDL Cholesterol Serum or plasma cholesterol in VLDL measurement (mass/volume)Ordered By: Сергей Bergman on 07-26-2022 Cholesterol in VLDL [Mass/Vol] 42 mg/dL 5-40 [facility] Serum or plasma creatinine m easurement (mass/volume)Ordered By: Сергей Bergman on 07-26-2022 Creatinine [Mass/Vol] 0.87 mg/dL 0.70-1.30 [facility] Comment on above: The validity of the calculated GFR & GFRAA in patients over 70 years has not been determined. Clinical correlation is essential. Serum or plasma low density lipoprotein (LDL) cholesterol measurement (mass/volume)Ordered By: Сергей Bergman on 07-26-2022 Cholesterol in LDL [Mass/Vol] 164 mg/dL 0-130 [facility] Serum or plasma urea nitroge n measurement (mass/volume)Ordered By: Сергей Bergman on 07-26-2022 Urea nitrogen [Mass/Vol] 23 mg/dL 7-18 [facility] Thin prep Papanicolaou smear with manual screeningOrdered By: Сергей Bergman on 07-26-2022 Thin prep Papanicolaou smear with manual screening 33 U/L 15-37 [facility] Thin prep Papanicolaou smear with manual screening 4 5-15 [facility] No Panel InformationOrdered By: Сергей Bergman on 04-28-2022 Vitamin D 25-Hydroxy 43.9 ng/mL [facility] Comment on above: Vitamin D 25(OH) Sta tus Range Deficiency <20 ng/mL (50nmol/L) Insufficiency 20 - 30 ng/mL (50 - 75 nmol/L) Sufficiency 30 - 100 ng/mL (75 - 250 nmol/L) Toxicity >100 ng/mL (>250 nmol/L) Basophil percentageon 2021 Bilirubin [Mass/Vol] 0.50 mg/dL 0.20-1.00 [facility] Work Phone: Comment on above: For patients on eltr ombopag therapy, use of Dimension [place] TBIL is not recommended. Chloride [Moles/Vol] 109 mmol/L 98-107 [facility] Work Phone: Cholesterol [Mass/Vol] 205 mg/dL <200 [facility] Work Phone: Comment on above: <200 mg/dL Desirable 200-240 mg/dL Borderline >240 mg/dL High Risk Glucose [Mass/Vol] 103 mg/dL 74-106 [facility] Work Phone: Comment on above: Fasting Glucose resu lt from 100 to 125 mg/dL suggests IMPAIRED HOMEOSTASIS per A.D.A. criteria. Potassium [Moles/Vol] 3.9 mmol/L 3.5-5.1 [facility] Work Phone: [phone] Protein [Mass/Vol] 7.7 g/dL 6.4-8.2 [facility] Work Phone: [phone] Sodium [Moles/Vol] 141 mmol/L 136-145 [facility] Work Phone: [phone] Triglyceride [Mass/Vol] 154 mg/dL <[address] [facility] Work Phone: [phone] Comment on above: The drugs N-Acetylcy steine and Metamizole may falsely depress this assay.Serum Triglycerides Reference Interval Normal <150 mg/dL Borderline high 150 - 199 mg/dL High 200 - 499 mg/dL Very High > or = 500 mg/dL WBC (Bld) [#/Vol] 9.5 10*3/uL 4.4-11.0 [facility] Work Phone: [phone] Blood erythrocytes count (nu mber/volume)on 12-26-2021 RBC (Bld) [#/Vol] 5.67 10*6/uL 4.6-6.2 [facility] [place] Work Phone: [phone] Blood hemoglobin measurement (mass/volume)on 12-26-2021 Hemoglobin (Bld) [Mass/Vol] 16.6 g/dL 13.0-16.5 [facility] Work Phone: [phone] Blood platelet mean volumeon 12-26-2021 Platelet mean volume (Bld) [Entitic vol] 10.3 fL 6.2-12.0 [facility] Work Phone: [phone] Determination of erythrocyte mean corpuscular volume (MCV)on 12-26-2021 MCV (RBC) [Entitic vol] 89.2 fL 80-[address] [facility] Work Phone: [phone] Hematocrit Auto (Bld) [Volum e fraction]on 12-26-2021 Hematocrit (Bld) [Volume fraction] 50.6 % 40-54 [facility] Work Phone: Laboratory - Chemistry and C hemistry - challengeon 12-26-2021 ALP [Catalytic activity/Vol] 61 U/L 45-117 [facility] Work Phone: [phone] ALT [Catalytic activity/Vol] 40 U/L 16-61 [facility] Work Phone: [phone] CO2 [Moles/Vol] 26.0 mmol/L 21.0-32.0 [facility] Work Phone: [phone] Globulin (S) [Mass/Vol] 3.9 g/dL 2.2-4.[address] [facility] Work Phone: [phone] Urea nitrogen/Creatinine [Mass ratio] 17.4 mg/mg 10-20 [facility] Work Phone: [phone] Laboratory - Hematology and Cell countson 12-26-2021 Erythrocyte distribution width (RBC) [Entitic vol] 45.2 fL 35.1-43.9 [facility] Work Phone: Erythrocyte distribution width (RBC) [Ratio] 13.8 % 11.6-14.6 [facility] Work Phone: [phone] MCH (RBC) [Entitic mass] 29.3 pg 27.0-32.0 [facility] Work Phone: MCHC Auto (RBC) [Mass/Vol]on 12-26-2021 MCHC (RBC) [Mass/Vol] 32.8 g/dL 32-36 [facility] Work Phone: No Panel Informationon 12-26 Estimated GFR (MDRD) Amer 120 mL/min >60 [facility] Work Phone: [phone] Comment on above: GFR Calc Estimated GFR (MDRD) Non-Af Amer 99 mL/min >60 [facility] Work Phone: [phone] Comment on above: Non- GFR Calc Parathyroid Hormone (Intact) 48.6 pg/mL 18.4-80.1 [facility] Work Phone: Vitamin D 25-Hydroxy 9.2 ng/mL [facility] Work Phone: Comment on above: Vitamin D 25(OH) Sta tus Range Deficiency <20 ng/mL (50nmol/L) Insufficiency 20 - 30 ng/mL (50 - 75 nmol/L) Sufficiency 30 - 100 ng/mL (75 - 250 nmol/L) Toxicity >100 ng/mL (>250 nmol/L) Platelets bldon 12-26-2021 Platelets (Bld) [#/Vol] 195 10*3/uL 150-450 [facility] Work Phone: Serum or plasma albumin blanca urement (mass/volume)on 12-26-2021 Albumin [Mass/Vol] 3.8 g/dL 3.2-5.0 [facility] Work Phone: Serum or plasma albumin/glob ulin mass ratioon 12-26-2021 Albumin/Globulin [Mass ratio] 1.0 {ratio} 0.9-2.4 [facility] Work Phone: [phone] Serum or plasma calcium blanca urement (mass/volume)on 12-26-2021 Calcium [Mass/Vol] 9.5 mg/dL 8.5-10.1 [facility] Work Phone: Serum or plasma cholesterol in HDL measurement (mass/volume)on 12-26-2021 Cholesterol in HDL [Mass/Vol] 34 mg/dL >40 [facility] Work Phone: Comment on above: The drugs N-Acetylcy steine and Metamizole may falsely depress this assay. Reference Range HDL <40 mg/dL Low HDL Cholesterol HDL >or= 60 mg/dL High HDL Cholesterol Serum or plasma cholesterol in VLDL measurement (mass/volume)on 12-26-2021 Cholesterol in VLDL [Mass/Vol] 31 mg/dL 5-40 [facility] Work Phone: [phone] Serum or plasma creatinine m easurement (mass/volume)on 12-26-2021 Creatinine [Mass/Vol] 0.92 mg/dL 0.70-1.30 [facility] Work Phone: Comment on above: The validity of the calculated GFR & GFRAA in patients over 70 years has not been determined. Clinical correlation is essential. Serum or plasma low density lipoprotein (LDL) cholesterol measurement (mass/volume)on 12-26-2021 Cholesterol in LDL [Mass/Vol] 140 mg/dL 0-130 [facility] Work Phone: Serum or plasma urea nitroge n measurement (mass/volume)on 12-26-2021 Urea nitrogen [Mass/Vol] 16 mg/dL 7-18 [facility] Work Phone: Thin prep Papanicolaou smear with manual screeningon 12-26-2021 Thin prep Papanicolaou smear with manual screening 17 U/L 15-37 [facility] Work Phone: Thin prep Papanicolaou smear with manual screening 6 5-15 [facility] Work Phone: Vital Signs Date Time Vital Sign Value Performing Clinician Facility 08-31-2024 12:43-0400 Body mass index (BMI) [Ratio] 38.54 kg/m2 Ganga Ordonez APRN.CNP Work Phone: [facility] 08-31-2024 12:43-0400 Body temperature 99.1 [degF] Ganga Ordonez APRN.[employer]CHO[employer] MATH TEACHER Work Phone: [facility] 08-31-2024 12:43-0400 Body weight 132.5 kg Ganga Ordonez APRN.HIGH SCHOOL MATH TEACHER Work Phone: [facility] 08-31-2024 12:43-0400 Diastolic blood pressure 88 mm[Hg] Ganga Ordonez APRN.HIGH SCHOOL MATH TEACHER Work Phone: [facility] 08-31-2024 12:43-0400 Heart rate 88 /min Ganga Ordonez APRN.HIGH SCHOOL MATH TEACHER Work Phone: [facility] 08-31-2024 12:43-0400 Respiratory rate 20 /min Ganga Ordonez APRN.HIGH SCHOOL MATH TEACHER Work Phone: [facility] 08-31-2024 12:43-0400 SaO2% (BldA) [Mass fraction] 96 % Ganga Ordonez APRN.HIGH SCHOOL MATH TEACHER Work Phone: [facility] 08-31-2024 12:43-0400 Systolic blood pressure 118 mm[Hg] Ganga Ordonez APRN.HIGH SCHOOL MATH TEACHER Work Phone: [facility] 08-03-2024 14:47-0400 Body temperature 98.4 [degF] Сергей Bergman EXTENDER-C Work Phone: [facility] 08-03-2024 14:47-0400 Diastolic blood pressure 105 mm[Hg] Сергей Millerpkins EXTENDER-C Work Phone: [facility] 08-03-2024 14:47-0400 Heart rate 88 /min Сергей Madalyn EXTENDER-C Work Phone: [facility] 08-03-2024 14:47-0400 Respiratory rate 16 /min Сергей Millerpkins EXTENDER-C Work Phone: [facility] 08-03-2024 14:47-0400 SaO2% (BldA) [Mass fraction] 98 % Сергей Okmulgee EXTENDER-C Work Phone: [facility] 08-03-2024 14:47-0400 Systolic blood pressure 148 mm[Hg] Сергей Bergman EXTENDER-C Work Phone: [facility] 08-03-2024 13:07-0400 Body height 185.42 cm Сергей Bergmna EXTENDER-C Work Phone: [facility] 08-03-2024 13:07-0400 Body mass index (BMI) [Ratio] 37.5 kg/m2 Сергей Okmulgee EXTENDER-C Work Phone: [facility] 08-03-2024 13:07-0400 Body weight 129.27 kg Сергей Millerpkins EXTENDER-C Work Phone: [facility] 07-07-2024 13:17-0400 Body mass index (BMI) [Ratio] 38.42 kg/m2 Bernice ELLIS Work Phone: [facility] 07-07-2024 13:17-0400 Body temperature 98.01 [degF] Krislyn Aberegg PA Work Phone: [facility] 07-07-2024 13:17-0400 Body weight 132.1 kg Krislyn Aberegg PA Work Phone: [facility] 07-07-2024 13:17-0400 Diastolic blood pressure 80 mm[Hg] Krislyn Aberegg PA Work Phone: [facility] 07-07-2024 13:17-0400 Heart rate 82 /min Krislyn Aberegg PA Work Phone: [facility] 07-07-2024 13:17-0400 Respiratory rate 16 /min Krislyn Aberegg PA Work Phone: [facility] 07-07-2024 13:17-0400 SaO2% (BldA) [Mass fraction] 97 % Krislyn Aberegg PA Work Phone: [facility] 07-07-2024 13:17-0400 Systolic blood pressure 124 mm[Hg] Krislyn Aberegg PA Work Phone: [facility] 06-01-2024 17:00-0500 Diastolic blood pressure 100 mm[Hg] Сергей Bergman EXTENDER-C Work Phone: [facility] 06-01-2024 17:00-0500 Heart rate 77 /min Сергей Bergman EXTENDER-C Work Phone: [facility] 06-01-2024 17:00-0500 Respiratory rate 19 /min Сергей Bergman EXTENDER-C Work Phone: [facility] 06-01-2024 17:00-0500 SaO2% (BldA) [Mass fraction] 99 % Сергей Bergman EXTENDER-C Work Phone: [facility] 06-01-2024 17:00-0500 Systolic blood pressure 161 mm[Hg] Сергей Bergman EXTENDER-C Work Phone: [facility] 06-01-2024 14:37-0500 Body temperature 98.4 [degF] Сергей Bergman EXTENDER-C Work Phone: [facility] 06-01-2024 13:38-0500 Body height 185.42 cm Сергей Bergman EXTENDER-C Work Phone: [facility] 06-01-2024 13:38-0500 Body mass index (BMI) [Ratio] 38.3 kg/m2 Сергей Bergman EXTENDER-C Work Phone: [facility] 06-01-2024 13:38-0500 Body weight 131.74 kg Сергей Bergman EXTENDER-C Work Phone: [facility] 04-13-2024 13:18-0500 Body mass index (BMI) [Ratio] 36.65 kg/m2 Jl Clutter PA-C Work Phone: [facility] 04-13-2024 13:18-0500 Body temperature 97.9 [degF] Jl Clutter PA-C Work Phone: [facility] 04-13-2024 13:18-0500 Body weight 126 kg Jl Clutter PA-C Work Phone: [facility] 04-13-2024 13:18-0500 Diastolic blood pressure 84 mm[Hg] Jl Clutter PA-C Work Phone: [facility] 04-13-2024 13:18-0500 Heart rate 82 /min Jl Clutter PA-C Work Phone: [facility] 04-13-2024 13:18-0500 Respiratory rate 20 /min Jl Clutter PA-C Work Phone: [facility] 04-13-2024 13:18-0500 SaO2% (BldA) [Mass fraction] 96 % Jl Clutter PA-C Work Phone: [facility] 04-13-2024 13:18-0500 Systolic blood pressure 119 mm[Hg] Jl Clutter PA-C Work Phone: [place] [address]-21-2024 12:44-0500 Body mass index (BMI) [Ratio] 37.84 kg/m2 Meghan Athy PA-C Work Phone: [facility] 04-05-2024 12:44-0500 Body temperature 97.5 [degF] Meghan Athy PA-C Work Phone: [facility] 04-05-2024 12:44-0500 Body weight 130.1 kg Meghan Athy PA-C Work Phone: [facility] 04-05-2024 12:44-0500 Diastolic blood pressure 86 mm[Hg] Meghan Athy PA-C Work Phone: [facility] 04-05-2024 12:44-0500 Heart rate 105 /min Meghan Athy PA-C Work Phone: [facility] 04-05-2024 12:44-0500 Respiratory rate 21 /min Meghan Athy PA-C Work Phone: [facility] 04-05-2024 12:44-0500 SaO2% (BldA) [Mass fraction] 95 % Meghan Athy PA-C Work Phone: [facility] 04-05-2024 12:44-0500 Systolic blood pressure 120 mm[Hg] Meghan Athy PA-C Work Phone: [facility] 10-13-2023 13:54-0400 Body height 185.4 cm SAMANTHA GRIMES DO [facility] 10-13-2023 13:54-0400 Body temperature 97.16 [degF] SAMANTHA GRIMES DO [facility] 10-13-2023 13:54-0400 Body weight 156 kg SAMANTHA GRIMES DO [facility] 10-13-2023 13:54-0400 Diastolic Blood Pressure Non-Invasive 81 mm[Hg] SAMANTHA GRIMES DO [facility] 10-13-2023 13:54-0400 Heart rate 107 /min SAMANTHA GRIMES DO [facility] 10-13-2023 13:54-0400 Respiratory rate 20 /min SAMANTHA GRIMES DO [facility] 10-13-2023 13:54-0400 Systolic Blood Pressure Non-Invasive 128 mm[Hg] SAMANTHA GRIMES DO [facility] 09-15-2023 10:43-0400 Body temperature 98.6 [degF] DR MARLYS PERERA MD [facility] 09-15-2023 10:43-0400 Diastolic Blood Pressure Non-Invasive 97 mm[Hg] DR MARLYS PERERA MD [facility] 09-15-2023 10:43-0400 Heart rate 95 /min DR MARLYS PERERA MD [facility] 09-15-2023 10:43-0400 Respiratory rate 16 /min DR MARLYS PERERA MD [facility] 09-15-2023 10:43-0400 Systolic Blood Pressure Non-Invasive 167 mm[Hg] DR MARLYS PERERA MD [facility] 07-30-2023 16:01-0400 Body height 185.42 cm EXTENDER-C Сергей Bergman EXTENDER Work Phone: [facility] 07-09-2023 01:50-0400 Body height 185.42 cm EXTENDER-C Сергей Bergman EXTENDER Work Phone: [facility] 07-09-2023 01:50-0400 Body mass index (BMI) [Ratio] 49 kg/m2 EXTENDER-C Сергей Bergman EXTENDER Work Phone: [facility] 07-09-2023 01:50-0400 Body temperature 97.5 [degF] EXTENDER-C Сергей Bergman EXTENDER Work Phone: [facility] 07-09-2023 01:50-0400 Body weight 168.6 kg EXTENDER-C Сергей Madalyn EXTENDER Work Phone: [facility] 07-09-2023 01:50-0400 Diastolic blood pressure 102 mm[Hg] EXTENDER-C Сергей Bergman EXTENDER Work Phone: [facility] 07-09-2023 01:50-0400 Heart rate 113 /min EXTENDER-C Сергей Bergman EXTENDER Work Phone: [facility] 07-09-2023 01:50-0400 Respiratory rate 22 /min EXTENDER-C Сергей Bergman EXTENDER Work Phone: [facility] 07-09-2023 01:50-0400 SaO2% (BldA) [Mass fraction] 96 % EXTENDER-C Сергей Madalyn EXTENDER Work Phone: [facility] 07-09-2023 01:50-0400 Systolic blood pressure 188 mm[Hg] EXTENDER-C Сергей Bergman EXTENDER Work Phone: [facility] 06-11-2023 15:17-0500 Body temperature 98.6 [degF] EXTENDER-C Сергей Bergman EXTENDER Work Phone: [facility] 06-11-2023 15:17-0500 Diastolic blood pressure 92 mm[Hg] EXTENDER-C Сергей Bergman EXTENDER Work Phone: [facility] 06-11-2023 15:17-0500 Heart rate 105 /min EXTENDER-C Сергей Barakatkins EXTENDER Work Phone: [facility] 06-11-2023 15:17-0500 Respiratory rate 18 /min EXTENDER-C Сергей Bergman EXTENDER Work Phone: [facility] 06-11-2023 15:17-0500 SaO2% (BldA) [Mass fraction] 95 % EXTENDER-C Сергей Millerpkins EXTENDER Work Phone: [facility] 06-11-2023 15:17-0500 Systolic blood pressure 132 mm[Hg] EXTENDER-C Сергей Millerpkins EXTENDER Work Phone: [facility] 03-20-2023 16:03-0500 Diastolic blood pressure 102 mm[Hg] EXTENDER-C Сергей Bergman EXTENDER Work Phone: [facility] 03-20-2023 16:03-0500 Systolic blood pressure 136 mm[Hg] EXTENDER-C Сергей Bergman EXTENDER Work Phone: [facility] 03-20-2023 15:28-0500 Body height 187.96 cm EXTENDER-C Сергей Madalyn EXTENDER Work Phone: [facility] 03-20-2023 15:28-0500 Body mass index (BMI) [Ratio] 44.9 kg/m2 EXTENDER-C Сергей Okmulgee EXTENDER Work Phone: [facility] 03-20-2023 15:28-0500 Body temperature 98 [degF] EXTENDER-C Сергей Bergman EXTENDER Work Phone: [facility] 03-20-2023 15:28-0500 Body weight 158.75 kg EXTENDER-C Сергей Madalyn EXTENDER Work Phone: [facility] 03-20-2023 15:28-0500 Heart rate 113 /min EXTENDER-C Сергей Bergman EXTENDER Work Phone: [facility] 03-20-2023 15:28-0500 Respiratory rate 16 /min EXTENDER-C Сергей Bergman EXTENDER Work Phone: [facility] 03-20-2023 15:28-0500 SaO2% (BldA) [Mass fraction] 93 % EXTENDER-C Сергей Bergman EXTENDER Work Phone: [facility] 10-24-2022 17:00-0400 Heart rate 96 /min EXTENDER-C Сергей Bergman EXTENDER Work Phone: [facility] 10-24-2022 17:00-0400 Respiratory rate 18 /min EXTENDER-C Сергей Bergman EXTENDER Work Phone: [facility] 10-24-2022 16:33-0400 Body temperature 98 [degF] EXTENDER-C Сергей Bergman EXTENDER Work Phone: [facility] 10-24-2022 16:33-0400 Diastolic blood pressure 92 mm[Hg] EXTENDER-C Сергей Bergman EXTENDER Work Phone: [facility] 10-24-2022 16:33-0400 SaO2% (BldA) [Mass fraction] 97 % EXTENDER-C Сергей Bergman EXTENDER Work Phone: [facility] 10-24-2022 16:33-0400 Systolic blood pressure 146 mm[Hg] EXTENDER-C Сергей Millerpkins EXTENDER Work Phone: [facility] 09-30-2022 12:33-0400 Respiratory rate 20 /min SAMANTHA DIXONT DO [facility] 09-30-2022 11:41-0400 Body height 185.4 cm SAMANTHA FROMVENKATAT DO [facility] 09-30-2022 11:41-0400 Body temperature 98.6 [degF] SAMANTHA DIXONT DO [facility] 09-30-2022 11:41-0400 Body weight 147.6 kg SAMANTHA FROMVENKATAT DO [facility] 09-30-2022 11:41-0400 Diastolic Blood Pressure Non-Invasive 81 1 SAMANTHA FROMMELT DO [facility] 09-30-2022 11:41-0400 Heart rate 121 /min SAMANTHA DIXONT DO [facility] 09-30-2022 11:41-0400 Respiratory rate 18 /min SAMANTHA GRIMES DO [facility] 09-30-2022 11:41-0400 Systolic Blood Pressure Non-Invasive 153 1 SAMANTHA GRIMES DO [facility] 06-18-2022 21:32-0500 Diastolic Blood Pressure Non-Invasive [address] JACQUELYN ANDRES MD [facility] 06-18-2022 21:32-0500 Heart rate 97 /min DR JACQUELYN ANDRES MD [facility] 06-18-2022 21:32-0500 Respiratory rate 20 /min DR JACQUELYN ANDRES MD [facility] 06-18-2022 21:32-0500 Systolic Blood Pressure Non-Invasive [address] JACQUELYN ANDRES MD [facility] Encounters Encounter Date Encounter Type Care Provider Facility Start: 11-19-2024 End: 11-19-2024 ambulatory Сергей Bergman EXTENDER-C Work Phone: -Laboratory Start: 11-19-2024 End: 11-19-2024 Patient encounter procedure Сергей Bergman EXTENDER-C -Laboratory Work Phone: Start: 11-19-2024 End: 11-19-2024 ambulatory Сергей Bergman EXTENDER Facility:[facility] Start: 11-04-2024 Non-patient / Non-visit Dr. Nino QUINONES -[facility] Start: 11-04-2024 End: 11-04-2024 ambulatory Сергей Bergman EXTENDER-C Work Phone: -Cardiovascular Services Start: 11-04-2024 End: 11-04-[address] Breezy Braun -Cardiovascular Services Work Phone: Start: 11-04-2024 End: 11-04-2024 ambulatory Сергей Bergman EXTENDER Facility:[facility] Start: 08-31-2024 End: 08-31-2024 Patient encounter procedure Ganga Ordonez APRN.CNP Work Phone: [facility] Comment on above: Acute cough Start: 08-31-2024 End: 08-31-2024 ambulatory GANGA JAMES Facility:[facility] Start: 08-03-2024 End: 08-03-2024 Emergency department patient visit Сергей Bergman EXTENDER-C Work Phone: -Emergency Department Work Phone: Start: 07-08-2024 End: 07-08-2024 ambulatory Сергей Bergman EXTENDER-C Work Phone: [facility] Work Phone: Start: 07-08-2024 End: 07-08-2024 Discharged Recurring Ana ELLIS -Physical Therapy Work Phone: Start: 07-07-2024 End: 07-07-2024 ambulatory СЕРГЕЙ BERGMAN Facility:[facility] Start: 07-07-2024 End: 07-07-2024 Patient encounter procedure Bernice ELLIS Work Phone: [facility] Comment on above: Acute cough (Primary Dx); Wheezing Start: 06-20-2024 End: 06-20-2024 Patient encounter procedure Ana ELLIS -[facility] Work Phone: Start: 06-20-2024 End: 06-20-2024 ambulatory Сергей Bergman EXTENDER Facility:[facility] Start: 06-10-2024 Registered Recurring Ana ELLIS -Physical Therapy Work Phone: Start: 06-09-2024 End: 06-09-2024 ambulatory Сергей Bergman EXTENDER-C Work Phone: [facility] Work Phone: Start: 06-09-2024 End: 06-09-2024 Patient encounter procedure Ana ELLIS -[facility] Work Phone: Start: 06-09-2024 End: 06-09-2024 ambulatory Сергей Bergman EXTENDER Facility:[facility] Start: 06-01-2024 End: 06-01-2024 Emergency department patient visit Dr. Emil Nicole MD -Emergency Department Work Phone: Start: 06-01-2024 End: 06-01-2024 Patient encounter procedure Emma Claros PHONE BANKER.[employer] TEACHER Work Phone: [facility] Comment on above: Procedure not jeremiah d out (Primary Dx) Start: 06-01-2024 End: 06-01-2024 ambulatory СЕРГЕЙ BERGMAN Facility:[facility] Start: 05-02-2024 End: 05-02-2024 Patient encounter procedure Ana ELLIS -[facility] Work Phone: Start: 05-02-2024 End: 05-02-2024 ambulatory Сергей Bergman EXTENDER Facility:[facility] Start: 04-29-2024 ambulatory СЕРГЕЙ VALENTINO PHONE BANKER - [employer] TEACHER Facility:[facility] Start: 04-13-2024 End: 04-13-2024 ambulatory СЕРГЕЙ BERGMAN Facility:[facility] Start: 04-13-2024 End: 04-13-2024 Office outpatient new 30 minutes Jl Root PA-C Work Phone: [facility] Comment on above: Bronchopneumonia (Pr imary Dx) Start: 04-05-2024 End: 04-05-2024 ambulatory СЕРГЕЙ BERGMAN Facility:[facility] Start: 04-05-2024 End: 04-05-2024 Patient encounter procedure Meghan Huitron PA-C Work Phone: [facility] Comment on above: Nausea and vomiting, unspecified vomiting type (Primary Dx) Start: 02-22-2024 End: 02-22-2024 Patient encounter procedure Сергей Bergman EXTENDER-C -Laboratory Work Phone: Start: 02-22-2024 End: 02-22-2024 ambulatory Сергей Bergman EXTENDER Facility:[facility] Start: 01-07-2024 End: 01-07-2024 ambulatory СЕРГЕЙ Dani MADALYN PHONE BANKER - [employer] Facility:[facility] Start: 01-07-2024 End: 01-07-2024 SAME DAY STAY BREEZY BRAUN MD [facility] Start: 01-04-2024 End: 01-04-2024 ambulatory СЕРГЕЙ BERGMAN PHONE BANKER - [employer] TEACHER Facility:[facility] Start: 01-04-2024 End: 01-04-2024 Patient encounter procedure BREEZY BRAUN MD [facility] Start: 12-06-2023 End: 12-06-2023 ambulatory СЕРГЕЙ BERGMAN PHONE BANKER - [employer] TEACHER Facility:[facility] Start: 12-06-2023 End: 12-06-2023 Patient encounter procedure СЕРГЕЙ Dani BERGMAN PHONE BANKER - HIGH SCHOOL MATH TEACHER [facility] Start: 10-13-2023 End: 10-13-2023 Emergency department patient visit SAMANTHA SAMIZBIGNIEW GUERRA [facility] Start: 09-15-2023 End: 09-15-2023 Emergency department patient visit DR MARLYS PERERA MD [facility] Start: 08-08-2023 End: 08-08-2023 Patient encounter procedure EXTENDER-C Сергей Bergman EXTENDER Work Phone: [facility] Work Phone: Start: 07-25-2023 End: 07-25-2023 ambulatory EXTENDER-C Сергей Bergman EXTENDER Work Phone: [facility] Work Phone: Start: 07-25-2023 End: 07-25-2023 Patient encounter procedure EXTENDER-C Сергей Bergman EXTENDER [facility] Work Phone: Start: 07-25-2023 End: 07-25-2023 ambulatory EXTENDER-C Сергей Bergman EXTENDER Work Phone: [facility] Work Phone: Start: 07-25-2023 End: 07-25-2023 Patient encounter procedure EXTENDER-C Сергей Bergman EXTENDER [facility] Start: 07-24-2023 End: 07-24-2023 ambulatory EXTENDER-C Сергей Bergman EXTENDER Work Phone: [facility] Work Phone: Start: 07-24-2023 End: 07-24-2023 Discharged Recurring EXTENDER-C Сергей Bergman EXTENDER Work Phone: [facility]-Physical Therapy Work Phone: Start: 07-24-2023 Registered Recurring EXTENDER-C Clinton Bergman EXTENDER Work Phone: [facility]-Physical Therapy Work Phone: Start: 07-09-2023 End: 07-09-2023 Emergency department patient visit EXTENDER-C Сергей Bergman EXTENDER Work Phone: [facility]-Emergency Department Work Phone: Start: 07-06-2023 Registered Recurring EXTENDER-C Clinton Bergman EXTENDER Work Phone: [facility]-Physical Therapy Work Phone: Start: 06-11-2023 End: 06-11-2023 Patient encounter procedure EXTENDER-C Сергей Bergman EXTENDER Work Phone: [facility] Work Phone: Start: 06-04-2023 End: 06-04-2023 Patient encounter procedure EXTENDER-C Сергей Bergman EXTENDER Work Phone: [facility] Work Phone: Start: 04-19-2023 End: 04-19-2023 ambulatory EXTENDER-C Сергей Bergman EXTENDER Work Phone: [facility] Work Phone: Start: 04-19-2023 End: 04-19-2023 Patient encounter procedure EXTENDER-C Сергей Bergman EXTENDER Work Phone: [facility]-Cat Scan, [facility] Work Phone: Start: 03-20-2023 End: 03-20-2023 Patient encounter procedure EXTENDER-C Сергей Bergman EXTENDER Work Phone: [facility] Work Phone: Start: 01-19-2023 End: 01-19-2023 Patient encounter procedure EXTENDER-C Сергей Bergman EXTENDER Work Phone: [facility]-Laboratory Work Phone: Start: 10-24-2022 End: 10-24-2022 ambulatory EXTENDER-C Сергей Bergman EXTENDER Work Phone: [facility] Work Phone: Start: 10-24-2022 End: 10-24-2022 Patient encounter procedure EXTENDER-C Сергей Bergman EXTENDER Work Phone: [facility] Work Phone: Start: 09-30-2022 End: 09-30-2022 Emergency department patient visit SAMANTHA DIXONMini DO [facility] Start: 09-20-2022 End: 09-20-2022 Patient encounter procedure СЕРГЕЙ BERGMAN PHONE BANKER - [employer] TEACHER [facility] Start: 07-26-2022 End: 07-26-2022 Patient encounter procedure EXTENDER-C Сергей Bergman EXTENDER Work Phone: [facility]-Laboratory Work Phone: Start: 06-28-2022 End: 06-28-2022 Patient encounter procedure EXTENDER-C Сергей Bergman EXTENDER Work Phone: [facility] Work Phone: Start: 06-18-2022 End: 06-18-2022 Emergency department patient visit DR JACQUELYN ANDRES MD [facility] Start: 04-28-2022 End: 04-28-2022 ambulatory [facility] Work Phone: Start: 04-28-2022 End: 04-28-2022 [facility] Start: 01-10-2022 Telephone encounter Parish vuong MD Work Phone: Pain Management Comment on above: [employer] Supervisor - [employer] Start: 12-26-2021 End: 12-26-2021 ambulatory [facility] Work Phone: Start: 12-26-2021 End: 12-26-2021 [facility] Start: 12-22-2021 Telephone encounter Parish vuong MD Work Phone: Pain Management Comment on above: MRI denial Start: 09-14-2021 Social Work Dunia Lara [facility] Comment on above: Need for community r esource (Primary Dx) Procedures Date Procedure Procedure Detail Performing Clinician Start: 11-19-2024 Vitamin D, 25-hydrox y measurement Сергей Bergman EXTENDER-C Work Phone: Comment on above: Vitamin D StatusDefi ciency: <20 ng/mL (50nmol/L)Insufficiency: 20-30 ng/mL (50-75 nmol/L)Sufficiency: 30-100 ng/mL (75-250 nmol/L)Toxicity: >100 ng/mL (>250 nmol/L) Start: 08-03-2024 X-ray of chest, PA a nd lateral views Сергей Bergman EXTENDER-C Work Phone: Start: 08-03-2024 Estimated creatinine clearance Сергей Bergman EXTENDER-C Work Phone: Start: 06-09-2024 MRI of lumbar spine Dion bety Bergman EXTENDER-C Work Phone: Start: 06-01-2024 X-ray of chest, PA a nd lateral views Сергей Bergman EXTENDER-C Work Phone: Start: 06-04-2023 X-ray of lumbar spin e, two or three views EXTENDER-C Сергей Bergman EXTENDER Work Phone: Start: 04-19-2023 CT of chest without contrast EXTENDER-C Сергей Bergman EXTENDER Work Phone: Start: 03-20-2023 Plain chest X-ray EXTENDER-C Сергей Bergman EXTENDER Work Phone: Start: 10-24-2022 X-ray of chest posteroanterior view EXTENDER-C Сергей Bergman EXTENDER Work Phone: Start: 06-28-2022 X-ray of lumbar spin e, two or three views EXTENDER-C Сергей Bergman EXTENDER Work Phone: Start: 04-16-2003 Ankle region structu re (body structure) BREEZY BRAUN MD Plan of Treatment Date Care Activity Detail Author Start: 12-15-2024 Influenza vaccination Influenza Vaccine (Season Ended) [facility] Start: 11-09-2024 Urine microalbumin profile DTaP,Tdap,Td Vaccine (2 - Td or Tdap) [facility] Start: 08-03-2024 [facility] Start: 08-03-2024 [facility] Start: 06-01-2024 [facility] Start: 06-01-2024 [facility] Start: 05-02-2024 Patient referral [facility] Work Phone: Start: 12-16-2023 Covid-19 Vaccine ( season) Covid-19 Vaccine ( season) [facility] Start: 12-16-2023 Influenza vaccination Influenza Vaccine (#1) [facility] Start: 07-25-2023 Creatinine other source ASSAY OF URINE CREATININE [facility] Start: 07-25-2023 Urine albumin quantitative UR ALBUMIN QUANTITATIVE [facility] Start: 07-09-2023 [facility] Start: 06-04-2023 Patient referral [facility] Work Phone: Start: 10-24-2022 XR Unspecified body region Views [facility] Start: 06-28-2022 Patient referral [facility] Work Phone: Start: 12-15-2021 [facility] [facility] Start: 04-16-2021 DEPRESSION ASSESSMENT DEPRESSION ASSESSMENT [facility] Start: 2020 Lipid panel Lipid Screening [facility] Start: 2020 LIPID SCREEN LIPID SCREEN [facility] Start: 02-03-2006 Pneumococcal vaccination Pneumococcal Vaccine (2 of 2 - PCV) [facility] Start: 2004 Hepatitis B Vaccine (1 of 3 - 19+ 3-dose series) Hepatitis B Vaccine (1 of 3 - 19+ 3-dose series) [facility] Start: 2004 Urine microalbumin profile DTAP,TDAP,TD (1 - Tdap) [facility] Start: 09-26-2003 ANNUAL PCP TEAM CHRONIC DISEASE VISIT ANNUAL PCP TEAM CHRONIC DISEASE VISIT [facility] Start: 09-26-2003 Anxiety Screening Anxiety Screening [facility] Start: 09-26-2003 BP CONTROLLED (<130/80) BP CONTROLLED (<130/80) [facility] Start: 09-26-2003 Depression Screening Depression Screening [facility] Start: 09-26-2003 HEPATITIS C SCREENING HEPATITIS C SCREENING [facility] Start: 09-26-2003 Hepatitis C screening Hepatitis C Screening [facility] Start: 09-26-2003 HIV SCREENING HIV SCREENING [facility] Start: 09-26-2003 HIV screening HIV Screening [facility] Start: 1997 Adult depression screening assessment DEPRESSION SCREENING [facility] Start: 09-26-1991 PNEUMOCOCCAL (1 - PCV) PNEUMOCOCCAL (1 - PCV) [facility] Start: 1990 COVID-19 VACCINE (#1) COVID-19 VACCINE (#1) [facility] Start: 03-27-1986 COVID-19 VACCINE (#1) COVID-19 VACCINE (#1) [facility] Start: 1985 HEPATITIS B (1 of 3 - 3-dose series) HEPATITIS B (1 of 3 - 3-dose series) [facility] MR Lumbar [facility] Patient Education [facility] Work Phone: Patient referral [facility] Immun[facility] Immunization Date Immunization Notes Care Provider Chris corrigan 02-21-2013 influenza virus vacc ine, unspecified formulation Meghan Huitron PA-C Work Phone: [facility] Payers Date Payer Category Payer Medicare [id number] 2024 Self-pay [id number] 2015 [facility] [id number] 2015-Present [phone] [address] [place] [address] Medicaid [id number] 2015 Medicaid [id number] 2015 Unknown [id number] 2015 Unknown [id number] 1985 Unknown [id number] 1985 Unknown [id number] [id number] 1985 Unknown [id number] 2..[id number] 1985 Unknown [id number] [id number]7 1985 Unknown [id number] 2.16.840.1.082228.3.579.2.627 1985 Unknown [id number] [id number] Unknown [id number] [id number] Unknown [id number] [id number] Unknown [id number] [id number] Unknown [id number] [id number] Unknown [id number] 2.16.840.1.821966.3.579.2.462 Unknown [id number] 2.16.840.1.060572.3.579.2.462 Unknown [id number] 2.16.840.1.834040.3.579.2.462 Unknown [id number] [id number] Unknown [id number] [id number] Unknown [id number] Social History Date Type Detail Facility Start: 12-06-2015 End: 04-05-2024 Tobacco smoking status KYIS Occasional tobacco smoker [facility] History of tobacco use Cigarette Smoker [facility] History of tobacco use Cigar Smoker [facility] Start: 09-07-2021 End: 08-31-2024 Alcohol intake Lifetime non-drinker (finding) [facility] Start: 09-07-2021 History SDOH Alcohol Frequency 1 [facility] Start: 1985 Sex Assigned At Not on file [facility] Start: 12-06-2015 End: 04-05-2024 Tobacco use and exposure Smokeless tobacco non-user [facility] Start: 06-29-2021 End: 07-30-2023 Tobacco smoking status NHIS Unknown if ever smoked [facility] Start: 1985 Sex Assigned At Male [facility] Start: 12-09-2020 End: 12-10-2023 Tobacco smoking status Light tobacco smoker (finding) [facility] Start: 04-28-2022 End: 04-05-2024 History of Social function [facility] Start: 04-28-2022 End: 04-05-2024 Tobacco use panel [facility] National Score (1-100), lower number is lower risk 96 [facility] Start: 06-19-2024 End: 08-03-2024 Sex Male (finding) [facility] Start: 08-03-2024 Tobacco smoking stat us NHIS Current Heavy tobacco smoker [facility] Functional Status Date Assessment Result Facility 01-07-2024 Functional Status [facility] 09-15-2023 Functional Status [facility] 09-15-2023 Functional Status Standard Safet y ID band on, Allergy Band on, Call device within reach, Bed in low position, Wheels locked, Visitor at bedside [facility] 09-30-2022 Functional Status Room check performed [facility] 06-18-2022 Functional Status ID band on, Allergy Band on, Call device within reach, Bed in low position, Wheels locked, Upper/Half-Length side-rails up, Phone within reach, personal items within reach, Visitor at bedside, Safety level maintained [facility] 01-20-2014 Are you deaf, or do you have serious difficulty hearing No 01/20/2014 12:28 PM Denisha Ayala Ma No [facility] 01-20-2014 Are you blind, or do you have serious difficulty seeing, even when wearing glasses No 01/20/2014 12:28 PM Denisha Ayala Ma No [facility] 01-20-2014 Do you have serious difficulty walking or climbing stairs No 01/20/2014 12:28 PM Denisha Ayala Ma No [facility] 01-20-2014 Do you have difficul ty dressing or bathing No 01/20/2014 12:28 PM EDT Lio LaureanoDenisha No [facility] 01-20-2014 Because of a physica l, mental, or emotional condition, do you have difficulty doing errands alone such as visiting a physician's office or shopping No 01/20/2014 12:28 PM EDT Lio GeorgiDenisha No [facility] Mental Status Date Assessment Result Facility 08-03-2024 Cognitive function Voice/Name [facility] Work Phone: 06-01-2024 Cognitive function Voice/Name [facility] Work Phone: 01-07-2024 Mental Status Orientation Oriented x 4 [facility] 09-15-2023 Mental Status Orientation Oriented x 4 [facility] 09-15-2023 Mental Status [facility] 09-30-2022 Mental Status Oriented x 4 [facility] 06-18-2022 Mental Status Oriented x 4 [facility] 01-20-2014 Because of a physica l, mental, or emotional condition, do you have serious difficulty concentrating, remembering, or making decisions No 01/20/2014 12:28 PM EDT Lio LaureanoDenisha No [facility] Clinical Notes 09-14-2021 to 08-31-2024 Ganga Ordonez APRN.[employer]IGH [employer]CHOOL MATH TEACHER - 08/31/2024 12:49 PM EDT Note Date & Type Note Facility 08-31-2024 Note HNO ID: [id number] Author: GANGA ORDONEZ APRN.HIGH SCHOOL MATH TEACHER Service: ? Author Type: Nurse Practitioner Type: Progress Notes Filed: 08/31/2024 12:56 Note Text: [facility] JUAN DANIEL Avilez is a 38 year old male. Patient presents with: Cough: With wheezing x 3 days, chills x 1 day HPI Cough and Wheezing: - Persistent cough and intermittent wheezing x3 days. - Nocturnal symptoms are consistent with daytime symptoms. - Denies dyspnea or limitations in physical activity. - Daily tobacco smoker. Chills: - Onset of chills this morning. Seasonal Allergies: - Takes allergy medication daily. Review of Systems Constitutional: (+) chills Ears/Nose/Mouth/Throat: (-) sore throat Respiratory: (+) cough, (+) wheezing, (-) shortness of breath Objective BP 118/88 (BP Site: Left Arm, BP Position: Sitting) Pulse 88 Temp 37.3 ?C (99.1 ?F) Resp 20 Wt 132.5 kg (292 lb 1.8 oz) SpO2 96% BMI 38.54 kg/m? Physical Exam General: No acute distress. Resp: Lungs clear to auscultation bilaterally. HEENT: Pharynx without erythema. {1. Acute cough (R05.1) - Cough persistent for 3 days, wheezing intermittent; no dyspnea or dysphagia. - Lungs clear to auscultation; no evidence of pneumonia. - Differential includes viral infection or seasonal allergies. - Recommended continuation of current allergy medication and use of gwqa-ysh-rlaamhy antitussives as needed. - Advised to monitor symptoms and follow up if condition worsens or does not improve within a week. and Recording using [email or web address] software for draft documentation of the visit was discussed with the patient/authorized player services representative; all questions welcomed and answered. Patient/authorized player services representative agreed to proceed MDM Procedures [facility] 08-31-2024 History of Present illness Narrative [facility] Subjective Gino Avilez is a 38 year old male. Patient presents with: Cough: With wheezing x 3 days, chills x 1 day HPI Cough and Wheezing: - Persistent cough and intermittent wheezing x3 days. - Nocturnal symptoms are consistent with daytime symptoms. - Denies dyspnea or limitations in physical activity. - Daily tobacco smoker. Chills: - Onset of chills this morning. Seasonal Allergies: - Takes allergy medication daily. Review of Systems Constitutional: (+) chills Ears/Nose/Mouth/Throat: (-) sore throat Respiratory: (+) cough, (+) wheezing, (-) shortness of breath Objective BP 118/88 (BP Site: Left Arm, BP Position: Sitting) Pulse 88 Temp 37.3 C (99.1 F) Resp 20 Wt 132.5 kg (292 lb 1.8 oz) SpO2 96% BMI 38.54 kg/m Physical Exam General: No acute distress. Resp: Lungs clear to auscultation bilaterally. HEENT: Pharynx without erythema. {1. Acute cough (R05.1) - Cough persistent for 3 days, wheezing intermittent; no dyspnea or dysphagia. - Lungs clear to auscultation; no evidence of pneumonia. - Differential includes viral infection or seasonal allergies. - Recommended continuation of current allergy medication and use of xkwz-oaf-qukbiem antitussives as needed. - Advised to monitor symptoms and follow up if condition worsens or does not improve within a week. and Recording using [email or web address] software for draft documentation of the visit was discussed with the patient/authorized player services representative; all questions welcomed and answered. Patient/authorized player services representative agreed to proceed MDM Procedures documented in this encounter [facility] 08-03-2024 Radiology Diagnostic study note [facility] Services [address] [place] [address] Chest PA and Lateral MR#: [id number] Acct: [id number] Name: GINO AVILEZ Rep #: [id number] : 1985 M 38 From: Kiki Womack MD PCP: Сергей Bergman NP-González Status: REG ER Study:Chest PA and Lateral Date of Exam: 08/03/24 Exam# [id number] Ordering Dr: Adela Luna PROCEDURE: CHEST PA AND LATERAL 08/03/2024 REASON FOR EXAM: CHEST PAIN TECHNIQUE: Frontal and lateral views of the chest. COMPARISON: Chest radiograph 06/01/2024. FINDINGS: Hardware: None. Heart: The heart size is normal. Mediastinum: The mediastinal contour is unremarkable. Lungs: No focal consolidation, pleural effusion or pneumothorax. Bones: Minimal degenerative changes are identified within the thoracic spine. RAD/Chest PA and Lateral IMPRESSION: NEGATIVE CHEST Reading Location: [id number] CC: EXTENDERArmen Bergman; CALEB Hutchison ~ Hse Advisor: Signed [facility] 07-08-2024 Discharge summary Note Date/Time July 08, 2024 7:00pm [facility] Physical Therapy [facility] [address] [place] [address]. [address] [place] [address] / REHABILITATION SERVICES DISCHARGE SUMMARY MR#: [id number] Acct: [id number] Name: GINO AVILEZ Rep #: [id number] : 1985 38 From: Trevor Segal PT, ATC Referring Dr.: CALEB Armenta Status: REG RCR Insurance: [facility] S[employer] PAY INSURANCE Discharge Summary D/C summary: It has been my pleasure to treat GINO AVILEZ referred by CALEB Armenta, with the diagnosis of LBP with radiculopathy for a total of 6 visit(s). Discharge Date: Please see the following information for a summary of their discharge status. Subjective Subjective: I am significantly better than I was Pain LBP: Pain Intensity (Out of 10): 8 Overall Improvement % Improvement: 75 Objective Objective/Function: Pt reports his pain at 8/10 today Pt is still getting intermittent L LE radiculoapthy. Pt is I with HEP Pt was showing excellent improvement one month ago, and has recently regressed secondary to work at home. Goals Goal 1:: Decrease LBP x 50% to aid with ambulation Goal Progress: Goal Met Goal 2:: Decrease L LE radiculopathy x 50% to aid with standing tolerance Goal Progress: Goal Met Goal 3:: I with HEP Goal Progress: Goal Met Plan Plan: Discontinue to HEP D/C Information d/c sentence: If there are questions or concerns regarding this patient's physical therapy, please feel free to call me at [phone]. Thank you for the referral of thispatient. Sincerely, Trevor Segal, PT, ATC Balance/Gait/Functional tests Balance/Special Test Scores Oswestry Low Back Score: 16 Improvement % Improvement: 75 <Electronically signed by Trevor Segal PT, ATC> 07/08/24 1610 CC: EXTENDERArmen Bergman; CALEB Armenta ~ [facility] Signed [facility] Work Phone: [phone] Discharge summary [facility] Physical Therapy [address] [place] [address] / REHABILITATION SERVICES DISCHARGE SUMMARY MR#: [id number] Acct: [id number] Name: GINO AVILEZ Rep #: [id number] : 1985 38 From: Trevor Segal PT, ATC Referring Dr.: CALEB Armenta Status: REG RCR Insurance: [facility] SELF PAY INSURANCE Discharge Summary D/C summary: It has been my pleasure to treat GINO AVILEZ referred by CALEB Armenta, with the diagnosis ofLBP with radiculopathy for a total of 6 visit(s). Discharge Date: Please see the following information for a summary of their discharge status. Subjective Subjective: I am significantly better than I was Pain LBP: Pain Intensity (Out of 10): 8 Overall Improvement % Improvement: 75 Objective Objective/Function: Pt reports his pain at 8/10 today Pt is still getting intermittent L LE radiculoapthy. Pt is I with HEP Pt was showing excellent improvement one month ago, and has recently regressed secondary to work athome. Goals Goal 1:: Decrease LBP x 50% to aid with ambulation Goal Progress: Goal Met Goal 2:: Decrease L LE radiculopathy x 50% to aid with standing tolerance Goal Progress: Goal Met Goal 3:: I with HEP Goal Progress: Goal Met Plan Plan: Discontinue to HEP D/C Information d/c sentence: If there are questions or concerns regarding this patient's physical therapy, please feel free to call me at [phone]. Thank you for the referral of thispatient. Sincerely, Trevor Segal, PT, ATC Balance/Gait/Functional tests Balance/Special Test Scores Oswestry Low Back Score: 16 Improvement % Improvement: 75 07/08/24 1610 CC: ORI Bergman; CALEB Armenta ~ [facility] Signed [facility]03-24-2025 NoteHNO ID: [id number] Author: BERNICE BELLO PA Service: ? Author Type: Physician Farm Machinery Erector Type: Progress Notes Filed: 07/07/2024 13:22 Note Text: [facility] Subjective Gino Avilez is a 38 year old male. Patient presents with: Cough: wheezing x 3-4 days, exposure to black mold HPI 38-year-old male presents for cough, wheezing x 4 days. Patient states he has had a cough for the past couple of days. It is mainly a dry cough. He does cough up some phlegm in the morning. He states he has had some wheezing. He does have a history of asthma. He is a smoker. He has been using his inhaler daily to help with the wheezing which does help. He also states that he has been using cough drops which helps. 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 He is unsure if this is flaring up his asthma. He states he is not able to wear a mask. He does not have fevers, nasal congestion. No other complaint. No past medical history on file. No past surgical history on file. ALLERGIES Ceclor [Cefaclor] MEDICATIONS aspirin, enteric coated (ASPIRIN, ENTERIC COATED) 81 mg EC tablet ADVAIR DISKUS 100-50 mcg/dose inhaler LORazepam (ATIVAN) 1 mg tablet metFORMIN (GLUCOPHAGE) 500 mg tablet metoprolol succinate ER (TOPROL XL) 25 mg 24 hr tablet OLANZapine (ZYPREXA) 15 mg tablet omeprazole (PRILOSEC) 40 mg capsule 40 mg. prazosin (MINIPRESS) 2 mg cap Take 2 mg by mouth. ramipril (ALTACE) 5 mg capsule 5 mg. rosuvastatin (CRESTOR) 5 mg tablet 5 mg. lansoprazole (PREVACID) 30 mg capsule Take 30 mg by mouth once daily. ondansetron orally disintegrating (ZOFRAN ODT) 4 mg disintegrating tablet Take 1 tablet by mouth every 8 hours as needed. (Patient not taking: Reported on 07/07/2024) cyclobenzaprine (FLEXERIL) 10 mg tablet Take 1 tablet by mouth three times daily as needed for Muscle Spasm. (Patient not taking: Reported on 04/08/2019 ) budesonide-formoterol (SYMBICORT) 80-4.5 mcg/actuation inhaler Inhale 2 Puffs as instructed twice daily. (Patient not taking: Reported on 01/03/2021 ) CLONIDINE HCL (CLONIDINE ORAL) Take 0.1 mg by mouth once daily. (Patient not taking: Reported on 01/03/2021 ) fluticasone 220 mcg/actuation inhaler Inhale 1 Puff as instructed twice daily. (Patient not taking: Reported on 01/03/2021 ) ALBUTEROL SULFATE (PROAIR HFA INHALATION) Inhale as instructed. (Patient not taking: Reported on 01/03/2021 ) ATENOLOL ORAL Take 25 mg by mouth once daily. (Patient not taking: Reported on 01/03/2021 ) MONTELUKAST SODIUM (SINGULAIR ORAL) Take 10 mg by mouth once daily. (Patient not taking: Reported on 07/07/2024) LANSOPRAZOLE ORAL Take 30 mg by mouth once daily. (Patient not taking: Reported on 01/03/2021 ) RANITIDINE HCL (ZANTAC ORAL) Take 150 mg by mouth twice daily. (Patient not taking: Reported on 01/03/2021 ) ARIPIPRAZOLE (ABILIFY ORAL) Take 30 mg by mouth once daily. (Patient not taking: Reported on 01/03/2021 ) No family history on file. Social History Tobacco Use Smoking status: Some Days Types: Cigarettes, Cigars Smokeless tobacco: Never Substance Use Topics Alcohol use: Never Drug use: Yes Types: Marijuana Review of Systems Constitutional: Negative for chills and fever. HENT: Negative for congestion and sore throat. Respiratory: Positive for cough and wheezing. Negative for chest tightness and shortness of breath. Gastrointestinal: Negative for diarrhea and vomiting. Objective BP 124/80 Pulse 82 Temp 36.7 ?C (98 ?F) Resp 16 Wt 132.1 kg (291 lb 3.6 oz) SpO2 97% BMI 38.42 kg/m? Physical Exam Vitals and nursing note reviewed. Constitutional: General: He is not in acute distress. Appearance: Normal appearance. He is not toxic-appearing. HENT: Right Ear: Tympanic membrane and ear canal normal. Left Ear: Tympanic membrane and ear canal normal. Nose: Nose normal. Mouth/Throat: Mouth: Mucous membranes are moist. Eyes: Conjunctiva/sclera: Conjunctivae normal. Cardiovascular: Rate and Rhythm: Normal rate and regular rhythm. Pulmonary: Effort: Pulmonary effort is normal. Breath sounds: Normal breath sounds. No wheezing, rhonchi or rales. Skin: General: Skin is warm and dry. Neurological: Mental Status: He is alert. {ASSESSMENT/PLAN: 1. Acute cough - ICD9: 786.2, ICD10: R05.1 (primary diagnosis) -Suspect viral cough. Possibly asthma flare. Patient reports being exposed to mold -Advised patient to avoid mold, if he is around it, wear a mask. -Continue inhaler -Rx prednisone -Lungs clear on exam. Follow-up with PCP for persistent symptoms 2. Wheezing - ICD9: 786.07, ICD10: R06.2 -See above Diagnosis and treatment plan were discussed and questions were answered to the patient's satisfaction. Pt acknowledged understanding of concepts and follow up plan. Specific signs and symptoms that would indicate the need for higher level of care were (more content not included)...[facility]03-24-2025 History of Present illness Narrative* Bernice Bello PA - 07/07/2024 1:20 PM EDT [facility] Subjective Ginohiro Avilez is a 38 year old male. Patient presents with: Cough: wheezing x 3-4 days, exposure to black mold HPI 38-year-old male presents for cough, wheezing x 4 days. Patient states he has had a cough for the past couple of days. It is mainly a dry cough. He does cough up some phlegm in the morning. He stateshe has had some wheezing. He does have a history of asthma. He is a smoker. He has been using his inhaler daily to help with the wheezing which does help. He also states that he has been using cough drops which helps. 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 He is unsure if this is flaring up his asthma. He states he is not able to wear a mask. He does not have fevers, nasal congestion. No other complaint. No past medical history on file. No past surgical history on file. ALLERGIES Ceclor [Cefaclor] MEDICATIONS aspirin, enteric coated (ASPIRIN, ENTERIC COATED) 81 mg EC tablet ADVAIR DISKUS 100-50 mcg/dose inhaler LORazepam (ATIVAN) 1 mg tablet metFORMIN (GLUCOPHAGE) 500 mg tablet metoprolol succinate ER (TOPROL XL) 25 mg 24 hr tablet OLANZapine (ZYPREXA) 15 mg tablet omeprazole (PRILOSEC) 40 mg capsule 40 mg. prazosin (MINIPRESS) 2 mg cap Take 2 mg by mouth. ramipril (ALTACE) 5 mg capsule 5 mg. rosuvastatin (CRESTOR) 5 mg tablet 5 mg. lansoprazole (PREVACID) 30 mg capsule Take 30 mg by mouth once daily. ondansetron orally disintegrating (ZOFRAN ODT) 4 mg disintegrating tablet Take 1 tablet by mouth every 8 hours as needed. (Patient not taking: Reported on 07/07/2024) cyclobenzaprine (FLEXERIL) 10 mg tablet Take 1 tablet by mouth three times daily as needed for Muscle Spasm. (Patient not taking: Reported on 04/08/2019 ) budesonide-formoterol (SYMBICORT) 80-4.5 mcg/actuation inhaler Inhale 2 Puffs as instructed twice daily. (Patient not taking: Reported on 01/03/2021 ) CLONIDINE HCL (CLONIDINE ORAL) Take 0.1 mg by mouth once daily. (Patient not taking: Reported on 01/03/2021 ) fluticasone 220 mcg/actuation inhaler Inhale 1 Puff as instructed twice daily. (Patient not taking:Reported on 01/03/2021 ) ALBUTEROL SULFATE (PROAIR HFA INHALATION) Inhale as instructed. (Patient not taking: Reported on 01/03/2021 ) ATENOLOL ORAL Take 25 mg by mouth once daily. (Patient not taking: Reported on 01/03/2021 ) MONTELUKAST SODIUM (SINGULAIR ORAL) Take 10 mg by mouth once daily. (Patient not taking: Reported on 07/07/2024) LANSOPRAZOLE ORAL Take 30 mg by mouth once daily. (Patient not taking: Reported on 01/03/2021 ) RANITIDINE HCL (ZANTAC ORAL) Take 150 mg by mouth twice daily. (Patient not taking: Reported on 01/03/2021 ) ARIPIPRAZOLE (ABILIFY ORAL) Take 30 mg by mouth once daily. (Patient not taking: Reported on 01/03/2021 ) No family history on file. Social History Tobacco Use Smoking status: Some Days Types: Cigarettes, Cigars Smokeless tobacco: Never Substance Use Topics Alcohol use: Never Drug use: Yes Types: Marijuana Review of Systems Constitutional: Negative for chills and fever. HENT: Negative for congestion and sore throat. Respiratory: Positive for cough and wheezing. Negative for chest tightness and shortness of breath. Gastrointestinal: Negative for diarrhea and vomiting. Objective BP 124/80 Pulse 82 Temp 36.7 C (98 F) Resp 16 Wt 132.1 kg (291 lb 3.6 oz) SpO2 97% BMI 38.42 kg/m Physical Exam Vitals and nursing note reviewed. Constitutional: General: He is not in acute distress. Appearance: Normal appearance. He is not toxic-appearing. HENT: Right Ear: Tympanic membrane and ear canal normal. Left Ear: Tympanic membrane and ear canal normal. Nose: Nose normal. Mouth/Throat: Mouth: Mucous membranes are moist. Eyes: Conjunctiva/sclera: Conjunctivae normal. Cardiovascular: Rate and Rhythm: Normal rate and regular rhythm. Pulmonary: Effort: Pulmonary effort is normal. Breath sounds: Normal breath sounds. No wheezing, rhonchi or rales. Skin: General: Skin is warm and dry. Neurological: Mental Status: He is alert. {ASSESSMENT/PLAN: 1. Acute cough - ICD9: 786.2, ICD10: R05.1 (primary diagnosis) -Suspect viral cough. Possibly asthma flare. Patient reports being exposed to mold -Advised patient to avoid mold, if he is around it, wear a mask. -Continue inhaler -Rx prednisone -Lungs clear on exam. Follow-up with PCP for persistent symptoms 2. Wheezing - ICD9: 786.07, ICD10: R06.2 -See above Diagnosis and treatment plan were discussed and questions were answered to the patient's satisfaction. Pt acknowledged understanding of concepts and follow up plan. Specific signs and symptoms that would indicate the need for higher level of care were discussed in detail warranting prompt ER evaluation. CALEB Ghosh History and Record Review External record(s) reviewed: prior outpatient record. Differential Diagnoses - Viral cough is more likely for the following reason(s): suggested by H&P - Pneumonia is less likely for the following reason(s): H&P not suggestive Disposition The patient was discharged. Procedures documented in this encounterTri[facility]25 NoteHNO ID: [id number] Author: EMMA CLAROS APRN.CNP Service: ? Author Type: Nurse Practitioner Type: Progress Notes Filed: 06/01/2024 13:24 Note Text: Triage note: Gino Avilez is a 38 year old male who presents with right chest pain for the past 2 hours that he describes as major pain. He also notes heartburn for past 4 days. Patient with risk factors of obesity, HTN, mitral valve disorder. He is referred to ER for full cardiac evaluation. He verbalized understanding. He has a family member who will drive him. He appears stable for transport by private auto. He will go to [facility]. [facility] History of Present illness Narrative* Emma Claros APRN.CNP - 06/01/2024 1:22 PM EST Triage note: Gino Avilez is a 38 year old male who presents with right chest pain for the past 2hours that he describes as major pain. He also notes heartburn for past 4 days. Patient with riskfactors of obesity, HTN, mitral valve disorder. He is referred to ER for full cardiac evaluation. He verbalized understanding. He has a family member who will drive him. He appears stable for transport by private auto. He will go to [facility]. Emma Claros APRN.CNP documented in this encounterTri[facility]01-17-[facility]25 Evaluation note* Diagnosis Onset Date Resolution Status Admit Date Lumbar radiculopathy acute [place] 2024 1:46pm [facility] Work Phone: [phone]) 204-548501-17-2025 Evaluation note* Diagnosis Onset Date Resolution Status Admit Date Lumbar radiculopathy acute [place] pined[place] 2024 1:46pm Lumbar radiculopathy acute [place] h 2024 10:53am [facility] Work Phone: [phone]) 963-461112-29-2024 NoteHNO ID: [id number] Author: JL ROOT PA-C Service: ? Author Type: Physician Farm Machinery Erector Type: Progress Notes Filed: 04/13/2024 13:43 Note Text: This note was created using Projectioneering. Subjective Gino Avilez is a 38 year old male. Patient is a 38-year-old male who complains of worsening cough that he has been experiencing for the past 1 week. Patient reports intermittent episodes of wheezing also. Patient denies fever, chills or myalgia. Patient states he has noted no congestion, sinus pressure, ear pain or sore throat. Patient states that he has no history of asthma or COPD but he does smoke cigarettes daily and has a pack-year history of 20+ years. Although the patient has no diagnosed history of COPD, he reports that he has been prescribed albuterol inhalers and has a good supply of same at home. Patient denies chest pain, tightness or pressure reports no episodes of dyspnea. Patient states he has experienced episodes of shortness of breath primarily with exertion. Cough Associated symptoms include shortness of breath and wheezing. Review of Systems Respiratory: Positive for cough, shortness of breath and wheezing. All other systems reviewed and are negative. Objective BP 119/84 Pulse 82 Temp 36.6 ?C (97.9 ?F) Resp 20 Wt 126 kg (277 lb 12.5 oz) SpO2 96% BMI 36.65 kg/m? Physical Exam Vitals and nursing note reviewed. Constitutional: Appearance: Normal appearance. He is normal weight. HENT: Head: Normocephalic and atraumatic. Right Ear: Tympanic membrane, ear canal and external ear normal. Left Ear: Tympanic membrane, ear canal and external ear normal. Nose: Nose normal. Mouth/Throat: Mouth: Mucous membranes are moist. Pharynx: Oropharynx is clear. Eyes: Extraocular Movements: Extraocular movements intact. Conjunctiva/sclera: Conjunctivae normal. Pupils: Pupils are equal, round, and reactive to light. Cardiovascular: Rate and Rhythm: Normal rate and regular rhythm. Pulses: Normal pulses. Heart sounds: Normal heart sounds. Pulmonary: Effort: Pulmonary effort is normal. Breath sounds: Wheezing present. Musculoskeletal: Cervical back: Normal range of motion and neck supple. Skin: General: Skin is warm and dry. Capillary Refill: Capillary refill takes less than 2 seconds. Neurological: General: No focal deficit present. Mental Status: He is alert and oriented to person, place, and time. Psychiatric: Mood and Affect: Mood normal. Behavior: Behavior normal. Thought Content: Thought content normal. Judgment: Judgment normal. Assessment and Plan Physical exam findings as noted above. Patient was provided with prescriptions for doxycycline 100 mg, prednisone 20 mg and Tessalon 100 mg. Patient was very clearly advised to report to an emergency department for further evaluation management if he notes any acute worsening of his symptoms. Smoking cessation was brought up, however the patient reports that he has no intention of stopping smoking. CLINICAL IMPRESSION: Bronchopneumonia; Tobacco Abuse ASSESSMENT/PLAN: 1. Bronchopneumonia - ICD9: 485, ICD10: J18.0 - DOXYCYCLINE HYCLATE 100 MG TABLET - PREDNISONE 20 MG TABLET - BENZONATATE 100 MG CAPSULE CALEB [facility]12-29-2024 History of Present illness Narrative* Jl Root PA-C - 04/13/2024 1:39 PM EST This note was created using Projectioneering. Subjective Gino Avilez is a 38 year old male. Patient is a 38-year-old male who complains of worsening cough that he has been experiencing for the past 1 week. Patient reports intermittent episodes of wheezing also. Patient denies fever, chills or myalgia. Patient states he has noted no congestion, sinus pressure, ear pain or sore throat. Patient states that he has no history of asthma or COPD but he does smoke cigarettes daily and has a pack-year history of 20+ years. Although the patient has no diagnosed history of COPD, he reports that he has been prescribed albuterol inhalers and has a good supply of same at home. Patient denies chest pain, tightness or pressure reports no episodes of dyspnea. Patient states he has experienced episo segun of shortness of breath primarily with exertion. Cough Associated symptoms include shortness of breath and wheezing. Review of Systems Respiratory: Positive for cough, shortness of breath and wheezing. All other systems reviewed and are negative. Objective BP 119/84 Pulse 82 Temp 36.6 C (97.9 F) Resp 20 Wt 126 kg (277 lb 12.5 oz) SpO2 96% BMI36.65 kg/m Physical Exam Vitals and nursing note reviewed. Constitutional: Appearance: Normal appearance. He is normal weight. HENT: Head: Normocephalic and atraumatic. Right Ear: Tympanic membrane, ear canal and external ear normal. Left Ear: Tympanic membrane, ear canal and external ear normal. Nose: Nose normal. Mouth/Throat: Mouth: Mucous membranes are moist. Pharynx: Oropharynx is clear. Eyes: Extraocular Movements: Extraocular movements intact. Conjunctiva/sclera: Conjunctivae normal. Pupils: Pupils are equal, round, and reactive to light. Cardiovascular: Rate and Rhythm: Normal rate and regular rhythm. Pulses: Normal pulses. Heart sounds: Normal heart sounds. Pulmonary: Effort: Pulmonary effort is normal. Breath sounds: Wheezing present. Musculoskeletal: Cervical back: Normal range of motion and neck supple. Skin: General: Skin is warm and dry. Capillary Refill: Capillary refill takes less than 2 seconds. Neurological: General: No focal deficit present. Mental Status: He is alert and oriented to person, place, and time. Psychiatric: Mood and Affect: Mood normal. Behavior: Behavior normal. Thought Content: Thought content normal. Judgment: Judgment normal. Assessment and Plan Physical exam findings as noted above. Patient was provided with prescriptions for doxycycline 100 mg, prednisone 20 mg and Tessalon 100 mg. Patient was very clearly advised to report to an emergencydepartment for further evaluation management if he notes any acute worsening of his symptoms. Smoking cessation was brought up, however the patient reports that he has no intention of stopping smoking. CLINICAL IMPRESSION: Bronchopneumonia; Tobacco Abuse ASSESSMENT/PLAN: 1. Bronchopneumonia - ICD9: 485, ICD10: J18.0 - DOXYCYCLINE HYCLATE 100 MG TABLET - PREDNISONE 20 MG TABLET - BENZONATATE 100 MG CAPSULE Jl Root PA-C documented in this encounterTri[facility]12-21-2024 NoteHNO ID: [id number] Author: MEGHAN HUITRON PA-C Service: ? Author Type: Physician Farm Machinery Erector Type: Progress Notes Filed: 04/05/2024 13:51 Note Text: This note was created using BillMyParentster. Subjective Gino Avilez is a 38 year old male. HPI Patient presents with vomiting since 1 AM this morning. He had a headache yesterday as well. Has had some abdominal cramping. No diarrhea. Denies cough or runny nose. His parents are ill with URI symptoms. He has not had a fever. He has had bodyaches and chills. He did eat Cajun chicken at a friend's house 3 days before symptoms started. No one else got ill from this. Review of Systems Constitutional: Negative for fever. HENT: Negative. Respiratory: Negative. Cardiovascular: Negative. Gastrointestinal: Positive for abdominal pain, nausea and vomiting. Negative for diarrhea. Genitourinary: Negative. Musculoskeletal: Positive for myalgias. Neurological: Positive for headaches. All other systems reviewed and are negative. No past medical history on file. Current Outpatient Medications Medication Sig Dispense Refill aspirin, enteric coated (ASPIRIN, ENTERIC COATED) 81 mg EC tablet ADVAIR DISKUS 100-50 mcg/dose inhaler LORazepam (ATIVAN) 1 mg tablet metFORMIN (GLUCOPHAGE) 500 mg tablet metoprolol succinate ER (TOPROL XL) 25 mg 24 hr tablet OLANZapine (ZYPREXA) 15 mg tablet omeprazole (PRILOSEC) 40 mg capsule 40 mg. prazosin (MINIPRESS) 2 mg cap Take 2 mg by mouth. ramipril (ALTACE) 5 mg capsule 5 mg. rosuvastatin (CRESTOR) 5 mg tablet 5 mg. lansoprazole (PREVACID) 30 mg capsule Take 30 mg by mouth once daily. ondansetron orally disintegrating (ZOFRAN ODT) 4 mg disintegrating tablet Take 1 tablet by mouth every 8 hours as needed. 12 tablet 0 cyclobenzaprine (FLEXERIL) 10 mg tablet Take 1 tablet by mouth three times daily as needed for Muscle Spasm. (Patient not taking: Reported on 04/08/2019 ) 20 tablet 0 methylPREDNISolone (MEDROL, WINTER,) 4 mg Dose-Pack As directed (Patient not taking: Reported on 01/03/2021 ) 1 Package 0 budesonide-formoterol (SYMBICORT) 80-4.5 mcg/actuation inhaler Inhale 2 Puffs as instructed twice daily. (Patient not taking: Reported on 01/03/2021 ) CLONIDINE HCL (CLONIDINE ORAL) Take 0.1 mg by mouth once daily. (Patient not taking: Reported on 01/03/2021 ) fluticasone 220 mcg/actuation inhaler Inhale 1 Puff as instructed twice daily. (Patient not taking: Reported on 01/03/2021 ) ALBUTEROL SULFATE (PROAIR HFA INHALATION) Inhale as instructed. (Patient not taking: Reported on 01/03/2021 ) ATENOLOL ORAL Take 25 mg by mouth once daily. (Patient not taking: Reported on 01/03/2021 ) MONTELUKAST SODIUM (SINGULAIR ORAL) Take 10 mg by mouth once daily. (Patient not taking: Reported on 01/03/2021 ) LANSOPRAZOLE ORAL Take 30 mg by mouth once daily. (Patient not taking: Reported on 01/03/2021 ) RANITIDINE HCL (ZANTAC ORAL) Take 150 mg by mouth twice daily. (Patient not taking: Reported on 01/03/2021 ) ARIPIPRAZOLE (ABILIFY ORAL) Take 30 mg by mouth once daily. (Patient not taking: Reported on 01/03/2021 ) No current facility-administered medications for this visit. No past surgical history on file. No family history on file. Social History Tobacco Use Smoking status: Some Days Types: Cigarettes, Cigars Smokeless tobacco: Never Substance Use Topics Alcohol use: Never Drug use: Yes Types: Marijuana Objective BP 120/86 Pulse 105 Temp 36.4 ?C (97.5 ?F) Resp 21 Wt 130.1 kg (286 lb 13.1 oz) SpO2 95% BMI 37.84 kg/m? Physical Exam Vitals reviewed. Constitutional: Appearance: Normal appearance. HENT: Head: Normocephalic and atraumatic. Mouth/Throat: Mouth: Mucous membranes are moist. Pharynx: Oropharynx is clear. Cardiovascular: Rate and Rhythm: Normal rate and regular rhythm. Heart sounds: Normal heart sounds. Pulmonary: Effort: Pulmonary effort is normal. Breath sounds: Normal breath sounds. Abdominal: Comments: Mild diffuse tenderness on palpation without guarding or rebound. Bowel sounds active. Abdomen soft and nondistended. Skin: General: Skin is warm and dry. Findings: No rash. Neurological: Mental Status: He is alert. Assessment and Plan ASSESSMENT/PLAN: 1. Nausea and vomiting, unspecified vomiting type - ICD9: 787.01, ICD10: R11.2 Likely viral illness. Discussed with patient if he develops severe abdominal pain, fevers, lightheadedness, dizziness, not able to keep fluids down needs seen in the ER. Michael sent for symptoms. Patient voiced understanding to plan. CALEB [facility]12-21-2024 History of Present illness Narrative* Meghan Huitron PA-C - 04/05/2024 1:44 PM EST This note was created using Powered Nowriter. Subjective Gino Avilez is a 38 year old male. HPI Patient presents with vomiting since 1 AM this morning. He had a headache yesterday as well. Has had some abdominal cramping. No diarrhea. Denies cough or runny nose. His parents are ill with URI symptoms. He has not had a fever. He has had bodyaches and chills. He did eat Cajun chicken at a friend's house 3 days before symptoms started. No one else got ill from this. Review of Systems Constitutional: Negative for fever. HENT: Negative. Respiratory: Negative. Cardiovascular: Negative. Gastrointestinal: Positive for abdominal pain, nausea and vomiting. Negative for diarrhea. Genitourinary: Negative. Musculoskeletal: Positive for myalgias. Neurological: Positive for headaches. All other systems reviewed and are negative. No past medical history on file. Current Outpatient Medications Medication Sig Dispense Refill aspirin, enteric coated (ASPIRIN, ENTERIC COATED) 81 mg EC tablet ADVAIR DISKUS 100-50 mcg/dose inhaler LORazepam (ATIVAN) 1 mg tablet metFORMIN (GLUCOPHAGE) 500 mg tablet metoprolol succinate ER (TOPROL XL) 25 mg 24 hr tablet OLANZapine (ZYPREXA) 15 mg tablet omeprazole (PRILOSEC) 40 mg capsule 40 mg. prazosin (MINIPRESS) 2 mg cap Take 2 mg by mouth. ramipril (ALTACE) 5 mg capsule 5 mg. rosuvastatin (CRESTOR) 5 mg tablet 5 mg. lansoprazole (PREVACID) 30 mg capsule Take 30 mg by mouth once daily. ondansetron orally disintegrating (ZOFRAN ODT) 4 mg disintegrating tablet Take 1 tablet by mouth every 8 hours as needed. 12 tablet 0 cyclobenzaprine (FLEXERIL) 10 mg tablet Take 1 tablet by mouth three times daily as needed for Muscle Spasm. (Patient not taking: Reported on 04/08/2019 ) 20 tablet 0 methylPREDNISolone (MEDROL, WINTER,) 4 mg Dose-Pack As directed (Patient not taking: Reported on 01/03/2021 ) 1 Package 0 budesonide-formoterol (SYMBICORT) 80-4.5 mcg/actuation inhaler Inhale 2 Puffs as instructed twice daily. (Patient not taking: Reported on 01/03/2021 ) CLONIDINE HCL (CLONIDINE ORAL) Take 0.1 mg by mouth once daily. (Patient not taking: Reported on 01/03/2021 ) fluticasone 220 mcg/actuation inhaler Inhale 1 Puff as instructed twice daily. (Patient not taking:Reported on 01/03/2021 ) ALBUTEROL SULFATE (PROAIR HFA INHALATION) Inhale as instructed. (Patient not taking: Reported on 01/03/2021 ) ATENOLOL ORAL Take 25 mg by mouth once daily. (Patient not taking: Reported on 01/03/2021 ) MONTELUKAST SODIUM (SINGULAIR ORAL) Take 10 mg by mouth once daily. (Patient not taking: Reported on 01/03/2021 ) LANSOPRAZOLE ORAL Take 30 mg by mouth once daily. (Patient not taking: Reported on 01/03/2021 ) RANITIDINE HCL (ZANTAC ORAL) Take 150 mg by mouth twice daily. (Patient not taking: Reported on 01/03/2021 ) ARIPIPRAZOLE (ABILIFY ORAL) Take 30 mg by mouth once daily. (Patient not taking: Reported on 01/03/2021 ) No current facility-administered medications for this visit. No past surgical history on file. No family history on file. Social History Tobacco Use Smoking status: Some Days Types: Cigarettes, Cigars Smokeless tobacco: Never Substance Use Topics Alcohol use: Never Drug use: Yes Types: Marijuana Objective BP 120/86 Pulse 105 Temp 36.4 C (97.5 F) Resp 21 Wt 130.1 kg (286 lb 13.1 oz) SpO2 95% BMI 37.84 kg/m Physical Exam Vitals reviewed. Constitutional: Appearance: Normal appearance. HENT: Head: Normocephalic and atraumatic. Mouth/Throat: Mouth: Mucous membranes are moist. Pharynx: Oropharynx is clear. Cardiovascular: Rate and Rhythm: Normal rate and regular rhythm. Heart sounds: Normal heart sounds. Pulmonary: Effort: Pulmonary effort is normal. Breath sounds: Normal breath sounds. Abdominal: Comments: Mild diffuse tenderness on palpation without guarding or rebound. Bowel sounds active. Abdomen soft and nondistended. Skin: General: Skin is warm and dry. Findings: No rash. Neurological: Mental Status: He is alert. Assessment and Plan ASSESSMENT/PLAN: 1. Nausea and vomiting, unspecified vomiting type - ICD9: 787.01, ICD10: R11.2 Likely viral illness. Discussed with patient if he develops severe abdominal pain, fevers, lightheadedness, dizziness, not able to keep fluids down needs seen in the ER. Michael sent for symptoms. Patient voiced understanding to plan. Meghan Huitron PA-C documented in this encounterTri[facility] Hospital Discharge instructions Patient Education 01/07/2024 11:58:18 Cardiac SD - Discharge Instructions for Cancelled Procedures 11/2021(CUSTOM) DISCHARGE INSTRUCTIONS FOR CANCELLED PROCEDURES DIET Resume your regular diet that you had before your procedure unless otherwise instructed. ACTIVITY Resume your previous activities as tolerated unless otherwise instructed. IV DRESSING/WOUND CARE If you have had an IV inserted, you can remove the gauze dressing in 1 hour. CALL YOUR DOCTOR IF: You develop any new redness, swelling, or drainage around your IV insertion site. You have a temperature of 101 degrees or higher. PAIN Follow your doctors' instructions for pain management. You can take your usual [id number] pain medication unless otherwise directed. HAND WASHING Always wash your hands before and after touching the IV insertion/dressing site. Frequent hand washing is the best way to prevent the spread of infection. FOLLOW-UP Keep your follow-up appointment. If an appointment has not been made for you, call your doctor's office to schedule. If you have any concerns before your appointment, call your doctor's office. Follow Up Care 12/28/2023 15:17:38 With:BREEZY BRAUN MD Address: [address] [place] [address]- [phone] When:02/13/2024 14:30:00 Comments:Follow-up as scheduled [facility] 09-23-2024 Summary of episode note Discharge Instructions Thank you for allowing [facility] to assist you with your healthcare needs. The following is importantdischarge information regarding your hospital visit. Your Care Team СЕРГЕЙ BERGMAN APRN, CNP What to do next Scheduled Follow-Up Appointments Appointment Type When With Where Contact Information StatusCV OV 02/13/[facility]24 02[facility] 06/09/2024 03:00 PM EST СЕРГЕЙ BERGMAN APRN, CNP [facility] Confirmed Follow Up Appointments Follow Up with BREEZY BRAUN MD [facility] [place] [address]- Additional Information: Follow-up as scheduled Allergies Ceclor Rash Medications Please ask your primary doctor or pharmacist before taking any other medication not listed, including over the counter drugs, herbal medications, vitamins and or supplements as they may interact withyour home medications. What How Much When Why Instructions Last Dose Unchanged albuterol (albuterol MDI (90 mcg/ inh) CFC free inhalation aerosol) 2 puff(s) by inhalation Every 6 hours as needed for as needed for wheezing Asthma Duration: 30 Days Unchanged aspirin (aspirin 81 mg oral delayed release tablet) 1 tab(s) by mouth Every day Unchanged cetirizine (Zyrtec 10 mg oral tablet) 1 tab(s) by mouth Once a day Seasonal allergies Duration: 90 Days Unchanged cholecalciferol (cholecalciferol 1250 mcg (50,000 intl units) oral capsule) 1 cap by mouth Every other week Vitamin D deficiency Duration: 90 Days Unchanged famotidine (Pepcid 40 mg oral tablet) 1 tab(s) by mouth Daily at bedtime GERD (gastroesophageal reflux disease) Duration: 90 Days Unchanged fluticasone nasal (Flonase 50 mcg/ inh nasal spray) 2 spray(s) each nostril Once a day (in the morning) Seasonal allergies Duration: 30 Days Unchanged fluticasone-salmeterol (Advair Diskus 100 mcg-50 mcg inhalation powder) 1 puff(s) by inhalation Two (2) times a day Asthma Duration: 30 Days Unchanged montelukast (Singulair 10 mg oral tablet) 1 tab(s) by mouth Once a day Seasonal allergies Duration: 90 Days Unchanged OLANZapine (OLANZapine 7.5 mg oral tablet) 1 tab(s) by mouth Every day Unchanged omeprazole (omeprazole 40 mg oral delayed release capsule) 1 cap by mouth Once a day GERD (gastroesophageal reflux disease) Unchanged prazosin (prazosin 2 mg oral capsule) 1 cap by mouth Three (3) times a day Unchanged ramipril (ramipril 5 mg oral capsule) 1 cap by mouth Every day HTN, goal below 140/90 Unchanged rosuvastatin (rosuvastatin 5 mg oral tablet) 1 tab(s) by mouth Once a day Hypercholesterolemia Unchanged triamcinolone topical (triamcinolone 0.1% topical cream) 1 application Topical Two (2) times a day Psoriasis Duration: 14 Days Please take this list to your next doctor s visit. Bring all medications you take, including over the counter medications, herbals and other supplements with you to your doctor s visit. Patients and families are reminded to discard old lists and to update any records with all medication providers or retail pharmacies. Education Materials DISCHARGE INSTRUCTIONS FOR CANCELLED PROCEDURES DIET Resume your regular diet that you had before your procedure unless otherwise instructed. ACTIVITY Resume your previous activities as tolerated unless otherwise instructed. IV DRESSING/WOUND CARE If you have had an IV inserted, you can remove the gauze dressing in 1 hour. CALL YOUR DOCTOR IF: You develop any new redness, swelling, or drainage around your IV insertion site. You have a temperature of 101 degrees or higher. PAIN Follow your doctors' instructions for pain management. You can take your usual [id number] pain medication unless otherwise directed. HAND WASHING Always wash your hands before and after touching the IV insertion/dressing site. Frequent hand washing is the best way to prevent the spread of infection. FOLLOW-UP Keep your follow-up appointment. If an appointment has not been made for you, call your doctor's office to schedule. If you have any concerns before your appointment, call your doctor's office. Additional Information VACCINATE! IT SAVES LIVES! Members of the community who have not yet received the COVID-19 vaccine and would like to receive it can visit one of [facility] vaccine clinics. There are many vaccine clinic locations within the [facility]. For locations and available times, please visit [email or web address].gov/. It is important to note that some COVID mobile vaccine clinics are held outdoors and may be canceled in rainy or stormy conditions. To learn more about pediatric vaccinations (ages 5-11), we invite you to visit the [facility] webpage. [email or web address]://www.[email or web address]/pages/[email or web address]-Jaqwhscfuf-Sollz-Oii stions.htmlTo learn more about the COVID-19 vaccine, we invite you to visit the CDC website for a list of frequently asked questions.https://www.cdc.gov/coronavirus/2019-ncov/vaccines/faq.html View[facility] Patient Portal Access Instructions: Stay connected with your healthcare team and access your personal medical information anytime with the [facility] Patient Portal. Please follow the directions below to create your ViewRay account: 1.Access the email account you provided upon registration to the hospital/physician office.2.Look for an invitation email from [facility].3.Open the email and access the invitation link: AcceptInvitation to [employer].4.Fill in the required morrison to create your account. To access your account, visit [employer]. Click the blue button labeled Access Patient Portal and then log in with the username and password that you created in the steps above. You will be able to view your test results, lab results, a summary of your visits, upcoming appointments and more. There is also a convenient messaging option where you can send secure messages to your p rovider. In addition, you will have the ability to download any documents or summaries to your computer and/or send the information securely to a physician. Remember that your healthcare information is confidential, so carefully consider who you will allowto register on the [facility] Patient Portal for access to your information. You can also access the [facility] Patient Portal on the [employer] himanshu. Simply click on Patient Portal and then log into your account. If you would like to receive a full copy of your medical records, please contact the [facility] Medical Records Department by calling [phone], Sunday through Sunday between 8 a.m. and 4:30 p.m. HOW TO SAFELY DISPOSE OF PRESCRIPTION MEDICATIONS Please use one of the following methods to safely dispose of your unused medications. 1.Use a drug disposal kit: the drug disposal pouch allows you to safely discard your old and unuseddrugs. Ask your nurse to give you one when you are discharged.2.Visit a local take-back location: Many local pharmacies and police departments have programs that collect old and unwanted prescriptiondrugs. Call your local pharmacy or go to http://AmeriPath.Goods Platform/7M1Cy0p to find one close to you.3.Make use of household items: Use cat litter or old coffee grounds to dispose medications if other options arenot available. Mix your drugs with these household products, seal them in an airtight container andthrow it into the garbage. Call [facility]: [phone] to be sure your drugs can be disposed of in this way. Some medicines may require a different approach.4.Never flush your medications down the toilet. IF YOU HAVE BEEN PRESCRIBED AN OPIOID FOR PAIN If you have been prescribed an opioid (such as hydrocodone, oxycodone or morphine), it is critical to understand the possible side effects and risks of opioid pain medications. Even when taken as directed, opioids can have several side effects including: Tolerance, meaning you might need to take more of a medication for the same pain relief. Nausea, vomiting and/or constipation. Sleepiness, dizziness, dry mouth, confusion, depression or itching. Physical dependence, meaning you have withdrawal symptoms when a medication is stopped, can develop within a few days. KNOW YOUR RESPONSIBILITIES It is important to know exactly how much and how often to take the opioid pain medications you are prescribed. Never take opioids in higher amounts or more often than prescribed. Do not combine opioids with alcohol or other drugs that cause drowsiness, such as benzodiazepines, also known as benzos, including diazepam and alprazolam, muscle relaxants or sleep aids. Never sell or share prescription opioids. This is illegal. Store opioids in a secure place and out of reach of others (including children, family, friends and visitors). The last page of this document has been signed and retained as a CHART COPY. Signatures Patient Education Materials Cardiac SD - Discharge Instructions for Cancelled Procedures 11/2021(CUSTOM) Medication Leaflets My discharge plan and instructions have been reviewed and explained to me and I,GINO AVILEZ understand my current condition and have read and understand these discharge instructions. I have received a written copy of the plan/instructions. If I have questions, I am aware that I should contact my doctor. 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 It does not appear serious at this time. But symptoms of a more serious problem, such as a mild brain injury (concussion) or bruising or bleeding in the brain, may appear later. For this reason, you or someone caring for you will need to watch for the symptoms listed below. Once you re home, also be sure to follow any care instructions you re given. Home care Watch for the following symptoms Seek emergency medical care if you have any of these symptoms over the next hours to days: Headache Nausea or vomiting Dizziness Sensitivity to light or noise Unusual sleepiness or grogginess Trouble falling asleep Personality changes Vision changes Memory loss Confusion Trouble walking or clumsiness Loss of consciousness (even for a short time) Inability to be awakened Stiff neck Weakness or numbness in any part of the body Seizures General care If you were prescribed medicines for pain, use them as directed. Note: Don t take other medicines for pain without talking to your provider first. To help reduce swelling and pain, apply a cold source to the injured area for up to 20 minutes at atime. Do this as often as directed. Use a cold pack or bag of ice wrapped in a thin towel. Never apply a cold source directly to the skin. If you have cuts or scrapes as a result of your head injury, care for them as directed. For the next 24 hours (or longer, if instructed): oDon t drink alcohol or use sedatives or other medicines that make you sleepy. oDon t drive or operate machinery. oDon t do anything strenuous, such as heavy lifting or straining. oLimit tasks that require concentration. This includes reading, using a smartphone or computer, watching TV, and playing video games. oDon t return to sports or other activities that could result in another head injury. Follow-up care Follow up with your healthcare provider, or as directed. If imaging tests were done, they will be reviewed by a doctor. You will be told the results and any new findings that may affect your care. When to seek medical advice Call your healthcare provider right away if any of these occur: Pain doesn t get better or worsens New or increased swelling or bruising Fever of 100.4 F (38 C) or higher, or as directed by your provider Increased redness, warmth, drainage, or bleeding from the injured area Fluid drainage or bleeding from the nose or ears Any depression or bony abnormality in the injured area Persistent confusion or lethargy Bruising behind the ears or bruising around the eyes 8360-2228 [employer]. [address] [place] [address]. All rights reserved. This information is not intended as a substitute for professional medical care. Always follow yourhealthcare professional's instructions. Follow Up Care 10/13/2023 13:35:01 With:СЕРГЕЙ BERGMAN APRN - [employer] Address: [address] [place] [phone]- When:2-4 days [facility] 06-29-2024 Note Discharge Instructions Thank you for allowing [facility] to assist you with your healthcare needs. The following is importantdischarge information regarding your hospital visit. Diagnosis from Today's Visit Head injury What to Do Next Instructions from Your Care Team No qualifying data available. Post Acute Orders No qualifying data available. You Need to Schedule the Following Appointments Follow Up with СЕРГЕЙ BERGMAN APRN, CNP When:Within 2-4 days Where:[address] [place] [phone]- Allergies Ceclor Rash Medications Please ask your primary doctor or pharmacist before taking any other medication not listed, including over the counter drugs, herbal medications, vitamins and or supplements as they may interact withyour home medications. What How Much When Why Instructions Last Dose Unchanged albuterol (albuterol MDI (90 mcg/ inh) CFC free inhalation aerosol) 2 puff(s) by inhalation Every 6 hours as needed for as needed for wheezing Asthma Duration: 30 Days Unchanged cetirizine (Zyrtec 10 mg oral tablet) 1 tab(s) by mouth Once a day Seasonal allergies Duration: 90 Days Unchanged cholecalciferol (cholecalciferol 1250 mcg (50,000 intl units) oral capsule) 1 cap by mouth Every other week Vitamin D deficiency Duration: 90 Days Unchanged famotidine (Pepcid 40 mg oral tablet) 1 tab(s) by mouth Daily at bedtime GERD (gastroesophageal reflux disease) Duration: 90 Days Unchanged fluticasone nasal (Flonase 50 mcg/ inh nasal spray) 2 spray(s) each nostril Once a day (in the morning) Seasonal allergies Duration: 30 Days Unchanged fluticasone-salmeterol (Advair Diskus 100 mcg-50 mcg inhalation powder) 1 puff(s) by inhalation Two (2) times a day Asthma Duration: 30 Days Unchanged montelukast (Singulair 10 mg oral tablet) 1 tab(s) by mouth Once a day Seasonal allergies Duration: 90 Days Unchanged OLANZapine (OLANZapine 7.5 mg oral tablet) 1 tab(s) by mouth Every day Unchanged omeprazole (omeprazole 40 mg oral delayed release capsule) 1 cap by mouth Once a day GERD (gastroesophageal reflux disease) Unchanged prazosin (prazosin 2 mg oral capsule) 1 cap by mouth Three (3) times a day Unchanged ramipril (ramipril 5 mg oral capsule) 1 cap by mouth Every day HTN, goal below 140/90 Unchanged rosuvastatin (rosuvastatin 5 mg oral tablet) 1 tab(s) by mouth Once a day Hypercholesterolemia Unchanged triamcinolone topical (triamcinolone 0.1% topical cream) 1 application Topical Two (2) times a day Psoriasis Duration: 14 Days Please take this list to your next doctor s visit. Bring all medications you take, including over the counter medications, herbals and other supplements with you to your doctor s visit. Patients and families are reminded to discard old lists and to update any records with all medication providers or retail pharmacies. Education Materials Head Injury (Adult) You have a head injury. It does not appear serious at this time. But symptoms of a more serious problem, such as a mild brain injury (concussion) or bruising or bleeding in the brain, may appear later. For this reason, you or someone caring for you will need to watch for the symptoms listed below. Once you re home, also be sure to follow any care instructions you re given. Home care Watch for the following symptoms Seek emergency medical care if you have any of these symptoms over the next hours to days: Headache Nausea or vomiting Dizziness Sensitivity to light or noise Unusual sleepiness or grogginess Trouble falling asleep Personality changes Vision changes Memory loss Confusion Trouble walking or clumsiness Loss of consciousness (even for a short time) Inability to be awakened Stiff neck Weakness or numbness in any part of the body Seizures General care If you were prescribed medicines for pain, use them as directed. Note: Don t take other medicines for pain without talking to your provider first. To help reduce swelling and pain, apply a cold source to the injured area for up to 20 minutes at atime. Do this as often as directed. Use a cold pack or bag of ice wrapped in a thin towel. Never apply a cold source directly to the skin. If you have cuts or scrapes as a result of your head injury, care for them as directed. For the next 24 hours (or longer, if instructed): oDon t drink alcohol or use sedatives or other medicines that make you sleepy. oDon t drive or operate machinery. oDon t do anything strenuous, such as heavy lifting or straining. oLimit tasks that require concentration. This includes reading, using a smartphone or computer, watching TV, and playing video games. oDon t return to sports or other activities that could result in another head injury. Follow-up care Follow up with your healthcare provider, or as directed. If imaging tests were done, they will be reviewed by a doctor. You will be told the results and any new findings that may affect your care. When to seek medical advice Call your healthcare provider right away if any of these occur: Pain doesn t get better or worsens New or increased swelling or bruising Fever of 100.4 F (38 C) or higher, or as directed by your provider Increased redness, warmth, drainage, or bleeding from the injured area Fluid drainage or bleeding from the nose or ears Any depression or bony abnormality in the injured area Persistent confusion or lethargy Bruising behind the ears or bruising around the eyes [phone] [employer]. [address] [place] [address]. All rights reserved. This information is not intended as a substitute for professional medical care. Always follow yourhealthcare professional's instructions. Additional Information VACCINATE! IT SAVES LIVES! Members of the community who have not yet received the COVID-19 vaccine and would like to receive it can visit one of [facility] vaccine clinics. There are many vaccine clinic locations within the [facility]. For locations and available times, please visit www.[email or web address]/. It is important to note that some COVID mobile vaccine clinics are held outdoors and may be canceled in rainy or stormy conditions. To learn more about pediatric vaccinations (ages 5-11), we invite you to visit the [facility] webpage. https://www.[email or web address]/pages/[email or web address]-Jueguzdsaxx-Nkpbvtyubi-Asaiw-Zko stions.htmlTo learn more about the COVID-19 vaccine, we invite you to visit the CDC website for a list of frequently asked questions. https://www.cdc.gov/coronavirus/2019-ncov/vaccines/faq.html [facility] Patient Portal Access Instructions: Stay connected with your healthcare team and access your personal medical information anytime with the [facility] [employer] Patient Portal. If you would like a full copy of your medical records please contact the [facility] Medical Records Department Sunday through Sunday between 8a.m. and 4:30p.m. Please follow the directions below to access the portal: 1.Access the email account you provided upon registration to the hospital.2.Look for an invitation email from [facility].3.Open the email and access the invitation link: Accept Invitation to [employer]4.Fill in the required morrison to create your account. Sign into www.[email or web address] with your username and password that you created in the above steps to stay up to date. You can then view a summary of results, a summary of your visits, and the ability to download your summaries to your computer or send the information securely to a physician. Remember that your healthcare information is confidential, so carefully consider who you will allow to register on the [facility] Patient Portal for access to your information. You can also access the [facility] Patient Portal on the [employer] himanshu. Simply click on Health Records under [employer] and then click on the [employer]Park logo. HOW TO SAFELY DISPOSE OF PRESCRIPTION MEDICATIONS Please use one of the following methods to safely dispose of your unused medications. 1.Use a drug disposal kit: the drug disposal pouch allows you to safely discard your old and unuseddrugs. Ask your nurse to give you one when you are discharged.2.Visit a local take-back location: Many local pharmacies and police departments have programs that collect old and unwanted prescriptiondrugs. Call your local pharmacy or go to http://AmeriPath.Goods Platform/9X3Dg8z to find one close to you.3.Make use of household items: Use cat litter or old coffee grounds to dispose medications if other options arenot available. Mix your drugs with these household products, seal them in an airtight container andthrow it into the garbage. Call [facility]: [phone] to be sure your drugs can be disposed of in this way. Some medicines may require a different approach.4.Never flush your medications down the toilet. IF YOU HAVE BEEN PRESCRIBED AN OPIOIDS FOR PAIN If you have been prescribed an opioid (such as hydrocodone, oxycodone or morphine), it is critical to understand the possible side effects and risks of opioid pain medications. Even when taken as directed, opioids can have several side effects including: Tolerance, meaning you might need to take more of a medication for the same pain relief. Nausea, vomiting and/or constipation. Sleepiness, dizziness, dry mouth, confusion, depression or itching. Physical dependence, meaning you have withdrawal symptoms when a medication is stopped ? this can develop within a few days. KNOW YOUR RESPONSIBILITIES It is important to know exactly how much and how often to take the opioid pain medications you are prescribed. Never take opioids in higher amounts or more often than prescribed. Do not combine opioids with alcohol or other drugs that cause drowsiness, such as benzodiazepines, also known as benzos,including diazepam and alprazolam, muscle relaxants or sleep aids. Never sell or share prescriptionopioids. This is illegal. Store opioids in a secure place and out of reach of others (including children, family, friends and visitors). The last page(s) of this document has been signed and retained as a CHART COPY Signatures Patient Education Materials Head Injury (Adult) Medication Leaflets My discharge plan and instructions have been reviewed and explained to me and I,GINO AVILEZ understand my current condition and have read and understand these discharge instructions. I have received a written copy of the plan/instructions. If I have questions, I am aware that I should contact my doctor. 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 It usually affects the armsor legs, and causes a change in physical feeling. Sometimes it causes weakness in the muscles. You may feel tingling, numbness or shooting pains. Symptoms may be more common at night. Skin may be extra sensitive to light touch or temperature changes. Neuropathy may be caused by a complication of a chronic disease such as diabetes, virus or bacterial infections, or physical injury. A ruptured disk with pressure on the spinal nerve may also lead tothe problem. Certain vitamin deficiencies may also lead to it. It may also be caused by exposure tocertain drugs or chemicals. Home care Tell the healthcare provider about all medicines you take. This includes prescription and begn-gyk-wglaceq medicines, vitamins, and herbs. Ask if any of the medicines may be causing your problems. Don't make any changes to prescription medicines without talking to your healthcare provider first. You may be prescribed medicines to help relieve the tingling feeling or for pain. Take all medicines as directed. A numb hand or foot may be more prone to injury. To help protect it: oAlways use oven mitts. oTest water with an unaffected hand or foot. oUse caution when trimming nails. File sharp areas. oWear shoes that fit well to avoid pressure points, blisters, and ulcers. oInspect your hands and feet carefully (including the soles of your feet and between your toes) at least once a week. If you see red areas, sores, or other problems, tell your healthcare provider. Follow-up care Follow up with your doctor or as advised by our staff. You may need further testing or evaluation. When to seek medical advice Call your healthcare provider right away if any of the following occur: Redness, swelling, cracking, or ulcer on any numb area, especially the feet New symptoms of numbness or muscle weakness numbness Loss of bowel or bladder control Slurred speech, confusion, or trouble speaking, walking, or seeing [phone] [employer]. [address] [place] [address]. All rights reserved. This information is not intended as a substitute for professional medical care. Always follow yourhealthcare professional's instructions. 09/15/2023 12:29:09 Shoulder Sprain Shoulder Sprain A sprain is a stretching or tearing of the ligaments that hold a joint together. A sprain may take up to 8 weeks to fully heal, depending on how severe it is. Moderate to severe shoulder sprains are treated with a sling or shoulder immobilizer. Minor sprains can be treated without any special support. Home care The following guidelines will help you care for your injury at home: If a sling was given to you, leave it in place for the time advised by your healthcare provider. Ifyou aren t sure how long to wear it, ask for advice. If the sling becomes loose, adjust it so that your forearm is level with the ground. Your shoulder should feel well supported. Put an ice pack on the injured area for 20 minutes every 1 to 2 hours the first day. You can make your own ice pack by putting ice cubes in a plastic bag. A bag of frozen peas or something similar works well too. Wrap the bag in a thin towel. Continue with ice packs 3 to 4 times a day for the next 2 to 3 days. Then use the pack as needed to ease pain and swelling. You may use acetaminophen or ibuprofen to control pain, unless another pain medicine was prescribed. If you have chronic liver or kidney disease, talk with your healthcare provider before using thesemedicines. Also talk with your provider if you ve had a stomach ulcer or gastrointestinal bleeding. Shoulder joints become stiff if left in a sling for too long. You should start range of motion exercises about 7 to 10 days after the injury. Talk with your provider to find out what type of exercises to do and how soon to start. Follow-up care Follow up with your healthcare provider, or as advised. Any X-rays you had today don t show any broken bones, breaks, or fractures. Sometimes fractures dont show up on the first X-ray. Bruises and sprains can sometimes hurt as much as a fracture. These injuries can take time to heal completely. If your symptoms don t improve or they get worse, talk with your provider. You may need a repeat X-ray or other treatments. When to seek medical advice Call your healthcare provider right away if any of these occur: Shoulder pain or swelling in your arm that gets worse Fingers become cold, blue, numb, or tingly Large amount of bruising of the shoulder or upper arm Fever or chills [phone] [employer]. [address] [place] [address]. All rights reserved. This information is not intended as a substitute for professional medical care. Always follow yourhealthcare professional's instructions. Follow Up Care 09/15/2023 10:43:42 With:CHARISMA ROBERT Address: [facility] [facility], [address] [facility] [place] [address] [phone] Business (1) When:2-4 days Comments:Return to ED if symptoms worsen With:СЕРГЕЙ BERGMAN APRN - [employer] Address: [address] [facility] [place] [address]- When:2-4 days [facility] 06-01-2024 Note Discharge Instructions Thank you for allowing [facility] to assist you with your healthcare needs. The following is importantdischarge information regarding your hospital visit. Diagnosis from Today's Visit Radiculopathy Sprain, shoulder joint, posterior What to Do Next Instructions from Your Care Team No qualifying data available. Post Acute Orders No qualifying data available. You Need to Schedule the Following Appointments Follow Up with CHARISMA ROBERT When:Within 2-4 days Where:[address] [facility], [address] [facility] [place] [phone] [facility] (1) Additional Information: Return to ED if symptoms worsen Follow Up with СЕРГЕЙ BERGMAN APRN - ALEX When:Within 2-4 days Where:[address] [facility] [place] [address]- Allergies Ceclor Rash Medications Please ask your primary doctor or pharmacist before taking any other medication not listed, including over the counter drugs, herbal medications, vitamins and or supplements as they may interact withyour home medications. What How Much When Why Instructions Last Dose New methylPREDNISolone (Medrol Dosepak 4 mg oral tablet) Per Dosepak Instructions by mouth Every day Duration: 6 Days Printed Prescription New naproxen (naproxen 500 mg oral tablet) 1 tab(s) by mouth Twice daily with meals as needed for Pain Duration: 5 Days Printed Prescription Unchanged albuterol (albuterol MDI (90 mcg/ inh) CFC free inhalation aerosol) 2 puff(s) by inhalation Every 6 hours as needed for as needed for wheezing Asthma Duration: 30 Days Unchanged cetirizine (Zyrtec 10 mg oral tablet) 1 tab(s) by mouth Once a day Seasonal allergies Duration: 90 Days Unchanged cholecalciferol (cholecalciferol 1250 mcg (50,000 intl units) oral capsule) 1 cap by mouth Every other week Vitamin D deficiency Duration: 90 Days Unchanged famotidine (Pepcid 40 mg oral tablet) 1 tab(s) by mouth Daily at bedtime GERD (gastroesophageal reflux disease) Duration: 90 Days Unchanged fluticasone nasal (Flonase 50 mcg/ inh nasal spray) 2 spray(s) each nostril Once a day (in the morning) Seasonal allergies Duration: 30 Days Unchanged fluticasone-salmeterol (Advair Diskus 100 mcg-50 mcg inhalation powder) 1 puff(s) by inhalation Two (2) times a day Asthma Duration: 30 Days Unchanged montelukast (Singulair 10 mg oral tablet) 1 tab(s) by mouth Once a day Seasonal allergies Duration: 90 Days Unchanged OLANZapine (OLANZapine 7.5 mg oral tablet) 1 tab(s) by mouth Every day Unchanged omeprazole (omeprazole 40 mg oral delayed release capsule) 1 cap by mouth Once a day GERD (gastroesophageal reflux disease) Unchanged prazosin (prazosin 2 mg oral capsule) 1 cap by mouth Three (3) times a day Unchanged ramipril (ramipril 5 mg oral capsule) 1 cap by mouth Every day HTN, goal below 140/90 Unchanged rosuvastatin (rosuvastatin 5 mg oral tablet) 1 tab(s) by mouth Once a day Hypercholesterolemia Unchanged triamcinolone topical (triamcinolone 0.1% topical cream) 1 application Topical Two (2) times a day Psoriasis Duration: 14 Days Please take this list to your next doctor s visit. Bring all medications you take, including over the counter medications, herbals and other supplements with you to your doctor s visit. Patients and families are reminded to discard old lists and to update any records with all medication providers or retail pharmacies. Medication Leaflets methylprednisolone (oral) (METH il pred NIS [place]) Medrol, Medrol Dosepak, MethylPREDNISolone Dose Pack What is the most important information I should know about methylprednisolone? You should not use this medicine if you have a fungal infection anywhere in your body. What is methylprednisolone? Methylprednisolone is a steroid that prevents the release of substances in the body that cause inflammation. Methylprednisolone is used to treat many different inflammatory conditions such as arthritis, lupus, psoriasis, ulcerative colitis, allergic disorders, gland (endocrine) disorders, and conditions that affect the skin, eyes, lungs, stomach, nervous system, or blood cells. Methylprednisolone may also be used for purposes not listed in this medication guide. What should I discuss with my healthcare provider before taking methylprednisolone? You should not use methylprednisolone if you are allergic to it, or if you have: a fungal infection anywhere in your body. Methylprednisolone can weaken your immune system, making it easier for you to get an infection. Steroids can also worsen an infection you already have, or reactivate an infection you recently had. Tell your doctor about any illness or infection you have had within the past several weeks. To make sure methylprednisolone is safe for you, tell your doctor if you have ever had: a thyroid disorder; herpes infection of the eyes; stomach ulcers, ulcerative colitis, or diverticulitis; depression, mental illness, or psychosis; liver disease (especially cirrhosis); high blood pressure; osteoporosis; a muscle disorder such as myasthenia gravis; or multiple sclerosis. Also tell your doctor if you have diabetes. Steroid medicines may increase the glucose (sugar) levels in your blood or urine. You may also need to adjust the dose of your diabetes medications. It is not known whether this medicine will harm an unborn baby. Tell your doctor if you are or plan to become . It is not known whether methylprednisolone passes into breast milk or if it could affect the nursing baby. Tell your doctor if you are breast-feeding. How should I take methylprednisolone? Follow all directions on your prescription label. Your doctor may occasionally change your dose. Donot use this medicine in larger or smaller amounts or for longer than recommended. Methylprednisolone is sometimes taken every other day. Follow your doctor's dosing instructions very carefully. Your dose needs may change if you have unusual stress such as a serious illness, fever or infection, or if you have surgery or a medical emergency. Tell your doctor about any such situation that affects you. This medicine can cause unusual results with certain medical tests. Tell any doctor who treats you that you are using methylprednisolone. You should not stop using methylprednisolone suddenly. Follow your doctor's instructions about tapering your dose. Wear a medical alert tag or carry an ID card stating that you take methylprednisolone. Any medical care provider who treats you should know that you take steroid medication. If you need surgery, tell the surgeon ahead of time that you are using methylprednisolone. You may need to stop using the medicine for a short time. Store at room temperature away from moisture and heat. What happens if I miss a dose? Call your doctor for instructions if you miss a dose of methylprednisolone. What happens if I overdose? Seek emergency medical attention or call the Poison Help line at . An overdose of methylprednisolone is not expected to produce life threatening symptoms. However, skilled nursing use of high steroid doses can lead to symptoms such as thinning skin, easy bruising, changesin the shape or location of body fat (especially in your face, neck, back, and waist), increased acne or facial hair, menstrual problems, impotence, or loss of interest in sex. What should I avoid while taking methylprednisolone? Avoid being near people who are sick or have infections. Call your doctor for preventive treatment if you are exposed to chicken pox or measles. These conditions can be serious or even fatal in people who are using steroid medication. Do not receive a 'live' vaccine while using methylprednisolone. The vaccine may not work as well during this time, and may not fully protect you from disease. Live vaccines include measles, mumps, rubella (MMR), polio, rotavirus, typhoid, yellow fever, varicella (chickenpox), zoster (shingles), andnasal flu (influenza) vaccine. What are the possible side effects of methylprednisolone? Get emergency medical help if you have signs of an allergic reaction: hives; difficult breathing; swelling of your face, lips, tongue, or throat. Call your doctor at once if you have: shortness of breath (even with mild exertion), swelling, rapid weight gain; bruising, thinning skin, or any wound that will not heal; blurred vision, tunnel vision, eye pain, or seeing halos around lights; severe depression, changes in personality, unusual thoughts or behavior; new or unusual pain in an arm or leg or in your back; bloody or tarry stools, coughing up blood or vomit that looks like coffee grounds; seizure (convulsions); or low potassium--leg cramps, constipation, irregular heartbeats, fluttering in your chest, increased thirst or urination, numbness or tingling. Steroids can affect growth in children. Tell your doctor if your child is not growing at a normal rate while using this medicine. Common side effects may include: fluid retention (swelling in your hands or ankles); dizziness, spinning sensation; changes in your menstrual periods; headache; mild muscle pain or weakness; or stomach discomfort, bloating. This is not a complete list of side effects and others may occur. Call your doctor for medical advice about side effects. You may report side effects to FDA at 1-148-ANL-2467. What other drugs will affect methylprednisolone? Other drugs may interact with methylprednisolone, including prescription and gbte-xda-hguhaen medicines, vitamins, and herbal products. Tell each of your health care providers about all medicines youuse now and any medicine you start or stop using. Where can I get more information? Your pharmacist can provide more information about methylprednisolone. Remember, keep this and all other medicines out of the reach of children, never share your medicines with others, and use this medication only for the indication prescribed. Every effort has been made to ensure that the information provided by [employer]. ('[employer]') is accurate, up-to-date, and complete, but no guarantee is made to that effect. Drug information contained herein may be time sensitive. [employer] information has been compiled for use by healthcare practitioners and consumers in the [place] and therefore [employer] does not warrant that uses outside of the [place] are appropriate, unless specifically indicated otherwise. [employer] drug information does not endorse drugs, diagnose patients or recommend therapy. [employer] drug information isan informational resource designed to assist licensed healthcare practitioners in caring for their p atients and/or to serve consumers viewing this service as a supplement to, and not a substitute for, the expertise, skill, knowledge and judgment of healthcare practitioners. The absence of a warningfor a given drug or drug combination in no way should be construed to indicate that the drug or drug combination is safe, effective or appropriate for any given patient. [employer] does not assume any responsibility for any aspect of healthcare administered with the aid of information [employer] provides. The information contained herein is not intended to cover all possible uses, directions, precautions, warnings, drug interactions, allergic reactions, or adverse effects. If you have questions about the drugs you are taking, check with your doctor, nurse or pharmacist. Copyright 7330-7653 [employer]. Version: 9.01. Revision Date: 12/13/2016. naproxen (na PROX en) Aleve, Aleve Back and Muscle Pain, Aleve Easy Open Arthritis, Aleve Liquid Gels, Anaprox-DS, EC-Naprosyn, Naprelan, Naprosyn What is the most important information I should know about naproxen? Naproxen can increase your risk of fatal heart attack or stroke. Do not use this medicine just before or after heart bypass surgery (coronary artery bypass graft, or CABG). Naproxen may also cause stomach or intestinal bleeding, which can be fatal. What is naproxen? Naproxen is a nonsteroidal anti-inflammatory drug (NSAID). Naproxen is used to treat pain or inflammation caused by conditions such as arthritis, ankylosing spondylitis, tendinitis, bursitis, gout, or menstrual cramps. The delayed-release or extended-release tablets are slower-acting forms of naproxen that are used only for treating chronic conditions such as arthritis or ankylosing spondylitis. These forms of naproxen will not work fast enough to treat acute pain. Naproxen may also be used for purposes not listed in this medication guide. What should I discuss with my healthcare provider before taking naproxen? Naproxen can increase your risk of fatal heart attack or stroke, even if you don't have any risk factors. Do not use this medicine just before or after heart bypass surgery (coronary artery bypass graft, or CABG). Naproxen may also cause stomach or intestinal bleeding, which can be fatal. These conditions can occur without warning while you are using naproxen, especially in older adults. You should not use naproxen if you are allergic to it, or if you have ever had an asthma attack or severe allergic reaction after taking aspirin or an NSAID. Ask a doctor before giving naproxen to a child younger than 12 years old. Ask a doctor or pharmacist if this medicine is safe to use if you have: heart disease, high blood pressure, high cholesterol, diabetes, or if you smoke; a heart attack, stroke, or blood clot; stomach ulcers or bleeding; asthma; liver or kidney disease; fluid retention; or if you take aspirin to prevent heart attack or stroke. If you are , you should not take naproxen unless your doctor tells you to. Taking an NSAID during the last 20 weeks of can cause serious heart or kidney problems in the unborn baby and possible complications with your . It may not be safe to breastfeed while using this medicine. Ask your doctor about any risk. How should I take naproxen? Use exactly as directed on the label, or as prescribed by your doctor. Use the lowest dose that is effective in treating your condition. Shake the oral suspension (liquid) before you measure a dose. Measure a dose with the supplied measuring device (not a kitchen spoon). Take this medicine with food or milk if it upsets your stomach. Always follow directions on the medicine label about giving this medicine to a child. Naproxen doses are based on weight in children. Your child's dose needs may change if the child gains or loses weight. If you use naproxen long-term, you may need frequent medical tests. This medicine can affect the results of certain medical tests. Tell any doctor who treats you that you are using naproxen. Store at room temperature away from moisture, heat, and light. Keep the bottle tightly closed when not in use. What happens if I miss a dose? Since naproxen is used when needed, you may not be on a dosing schedule. Skip any missed dose if it's almost time for your next dose. Do not use two doses at one time. What happens if I overdose? Seek emergency medical attention or call the Poison Help line at . What should I avoid while taking naproxen? Avoid drinking alcohol. It may increase your risk of stomach bleeding. Avoid taking aspirin or other NSAIDs unless your doctor tells you to. Ask a doctor or pharmacist before using other medicines for pain, fever, swelling, or cold/flu symptoms. They may contain ingredients similar to naproxen (such as aspirin, ibuprofen, or ketoprofen). Ask your doctor before using an antacid, and use only the type your doctor recommends. Some antacids can make it harder for your body to absorb naproxen. What are the possible side effects of naproxen? Get emergency medical help if you have signs of an allergic reaction (runny or stuffy nose, wheezing or trouble breathing, hives, swelling in your face or throat) or a severe skin reaction (fever, sore throat, burning eyes, skin pain, red or purple skin rash with blistering and peeling). Stop using naproxen and seek medical treatment if you have a serious drug reaction that can affect many parts of your body. Symptoms may include skin rash, fever, swollen glands, muscle aches, severeweakness, unusual bruising, or yellowing of your skin or eyes. Get emergency medical help if you have signs of a heart attack or stroke: chest pain spreading to your jaw or shoulder, sudden numbness or weakness on one side of the body, slurred speech, leg swelling, feeling short of breath. Stop using naproxen and call your doctor at once if you have: shortness of breath (even with mild exertion); swelling or rapid weight gain; the first sign of any skin rash or blister, no matter how mild; signs of stomach bleeding--bloody or tarry stools, coughing up blood or vomit that looks like coffee grounds; liver problems--nausea, upper stomach pain, loss of appetite, dark urine, latisha- colored stools, jaundice (yellowing of the skin or eyes); kidney problems--little or no urination, painful urination, swelling in your feet or ankles; or low red blood cells (anemia)--pale skin, unusual tiredness, feeling light-headed or short of breath, cold hands and feet. Common side effects may include: headache; indigestion, heartburn, stomach pain; or flu symptoms; This is not a complete list of side effects and others may occur. Call your doctor for medical advice about side effects. You may report side effects to FDA at 1-477-PET-8553. What other drugs will affect naproxen? Ask your doctor before using naproxen if you take an antidepressant. Taking certain antidepressantswith an NSAID may cause you to bruise or bleed easily. Ask a doctor or pharmacist before using naproxen with any other medications, especially: other NSAIDs or salicylates (diflunisal, salsalate); antacids and sucralfate; cholestyramine; cyclosporine; digoxin; lithium; methotrexate; pemetrexed; probenecid; warfarin (Coumadin, Jantoven) or similar blood thinners; a diuretic or 'water pill'; or heart or blood pressure medication. This list is not complete. Other drugs may affect naproxen, including prescription and xqsg-frd-nrvwosn medicines, vitamins, and herbal products. Not all possible drug interactions are listed here. Where can I get more information? Your pharmacist can provide more information about naproxen. Remember, keep this and all other medicines out of the reach of children, never share your medicines with others, and use this medication only for the indication prescribed. Every effort has been made to ensure that the information provided by [employer]. ('[employer]') is accurate, up-to-date, and complete, but no guarantee is made to that effect. Drug information contained herein may be time sensitive. [employer] information has been compiled for use by healthcare practitioners and consumers in the [place] and therefore [employer] does not warrant that uses outside of the [place] are appropriate, unless specifically indicated otherwise. [employer]'s drug information does not endorse drugs, diagnose patients or recommend therapy. [facility] drug information isan informational resource designed to assist licensed healthcare practitioners in caring for their p atients and/or to serve consumers viewing this service as a supplement to, and not a substitute for, the expertise, skill, knowledge and judgment of healthcare practitioners. The absence of a warningfor a given drug or drug combination in no way should be construed to indicate that the drug or drug combination is safe, effective or appropriate for any given patient. [facility] does not assume any responsibility for any aspect of healthcare administered with the aid of information [facility] provides. The information contained herein is not intended to cover all possible uses, directions, precautions, warnings, drug interactions, allergic reactions, or adverse effects. If you have questions about the drugs you are taking, check with your doctor, nurse or pharmacist. Copyright 3095-8979 [facility] [employer]. Version: 22.. Revision Date: 11/16/2022. Education Materials Peripheral Neuropathy Peripheral neuropathy is the result of damage to the peripheral nerves. It usually affects the armsor legs, and causes a change in physical feeling. Sometimes it causes weakness in the muscles. You may feel tingling, numbness or shooting pains. Symptoms may be more common at night. Skin may be extra sensitive to light touch or temperature changes. Neuropathy may be caused by a complication of a chronic disease such as diabetes, virus or bacterial infections, or physical injury. A ruptured disk with pressure on the spinal nerve may also lead tothe problem. Certain vitamin deficiencies may also lead to it. It may also be caused by exposure tocertain drugs or chemicals. Home care Tell the healthcare provider about all medicines you take. This includes prescription and fsth-mli-iifzcte medicines, vitamins, and herbs. Ask if any of the medicines may be causing your problems. Don't make any changes to prescription medicines without talking to your healthcare provider first. You may be prescribed medicines to help relieve the tingling feeling or for pain. Take all medicines as directed. A numb hand or foot may be more prone to injury. To help protect it: oAlways use oven mitts. oTest water with an unaffected hand or foot. oUse caution when trimming nails. File sharp areas. oWear shoes that fit well to avoid pressure points, blisters, and ulcers. oInspect your hands and feet carefully (including the soles of your feet and between your toes) at least once a week. If you see red areas, sores, or other problems, tell your healthcare provider. Follow-up care Follow up with your doctor or as advised by our staff. You may need further testing or evaluation. When to seek medical advice Call your healthcare provider right away if any of the following occur: Redness, swelling, cracking, or ulcer on any numb area, especially the feet New symptoms of numbness or muscle weakness numbness Loss of bowel or bladder control Slurred speech, confusion, or trouble speaking, walking, or seeing 8743-6336 [employer]. [address] [place] [address]68. All rights reserved. This information is not intended as a substitute for professional medical care. Always follow yourhealthcare professional's instructions. Shoulder Sprain A sprain is a stretching or tearing of the ligaments that hold a joint together. A sprain may take up to 8 weeks to fully heal, depending on how severe it is. Moderate to severe shoulder sprains are treated with a sling or shoulder immobilizer. Minor sprains can be treated without any special support. Home care The following guidelines will help you care for your injury at home: If a sling was given to you, leave it in place for the time advised by your healthcare provider. Ifyou aren t sure how long to wear it, ask for advice. If the sling becomes loose, adjust it so that your forearm is level with the ground. Your shoulder should feel well supported. Put an ice pack on the injured area for 20 minutes every 1 to 2 hours the first day. You can make your own ice pack by putting ice cubes in a plastic bag. A bag of frozen peas or something similar works well too. Wrap the bag in a thin towel. Continue with ice packs 3 to 4 times a day for the next 2 to 3 days. Then use the pack as needed to ease pain and swelling. You may use acetaminophen or ibuprofen to control pain, unless another pain medicine was prescribed. If you have chronic liver or kidney disease, talk with your healthcare provider before using thesemedicines. Also talk with your provider if you ve had a stomach ulcer or gastrointestinal bleeding. Shoulder joints become stiff if left in a sling for too long. You should start range of motion exercises about 7 to 10 days after the injury. Talk with your provider to find out what type of exercises to do and how soon to start. Follow-up care Follow up with your healthcare provider, or as advised. Any X-rays you had today don t show any broken bones, breaks, or fractures. Sometimes fractures dont show up on the first X-ray. Bruises and sprains can sometimes hurt as much as a fracture. These injuries can take time to heal completely. If your symptoms don t improve or they get worse, talk with your provider. You may need a repeat X-ray or other treatments. When to seek medical advice Call your healthcare provider right away if any of these occur: Shoulder pain or swelling in your arm that gets worse Fingers become cold, blue, numb, or tingly Large amount of bruising of the shoulder or upper arm Fever or chills [phone] [employer]. [address] [place] [address]. All rights reserved. This information is not intended as a substitute for professional medical care. Always follow yourhealthcare professional's instructions. Additional Information VACCINATE! IT SAVES LIVES! Members of the community who have not yet received the COVID-19 vaccine and would like to receive it can visit one of [facility] vaccine clinics. There are many vaccine clinic locations within the [facility]. For locations and available times, please visit www.[email or web address].[place].gov/. It is important to note that some COVID mobile vaccine clinics are held outdoors and may be canceled in rainy or stormy conditions. To learn more about pediatric vaccinations (ages 5-11), we invite you to visit the [facility] webpage. https://www.[facility].org/pages/6670-Golmf-Yxerosgqfol-Kacvnkwvzr-Lckud-Dsk stions.htmlTo learn more about the COVID-19 vaccine, we invite you to visit the CDC website for a list of frequently asked questions. https://www.cdc.gov/coronavirus/2019-ncov/vaccines/faq.html [facility] Patient Portal Access Instructions: Stay connected with your healthcare team and access your personal medical information anytime with the [facility] Patient Portal. If you would like a full copy of your medical records please contact the [facility] Medical Records Department Sunday through Zhao between 8a.m. and 4:30p.m. Please follow the directions below to access the portal: 1.Access the email account you provided upon registration to the [facility].2.Look for an invitation email from [facility].3.Open the email and access the invitation link: Accept Invitation to [employer]4.Fill in the required morrison to create your account. Sign into [email or web address] with your username and password that you created in the above steps to stay up to date. You can then view a summary of results, a summary of your visits, and the ability to download your summaries to your computer or send the information securely to a physician. Remember that your healthcare information is confidential, so carefully consider who you will allow to register on the [facility] Patient Portal for access to your information. You can also access the [employer] Patient Portal on the [employer]. Simply click on Health Records under T[employer]rating and then click on the Alma logo. HOW TO SAFELY DISPOSE OF PRESCRIPTION MEDICATIONS Please use one of the following methods to safely dispose of your unused medications. 1.Use a drug disposal kit: the drug disposal pouch allows you to safely discard your old and unuseddrugs. Ask your nurse to give you one when you are discharged.2.Visit a local take-back location: Many local pharmacies and police departments have programs that collect old and unwanted prescriptiondrugs. Call your local pharmacy or go to http://bit.ly/2U1Ai6j to find one close to you.3.Make use of household items: Use cat litter or old coffee grounds to dispose medications if other options arenot available. Mix your drugs with these household products, seal them in an airtight container andthrow it into the garbage. Call [facility]: [phone] to be sure your drugs can be disposed of in this way. Some medicines may require a different approach.4.Never flush your medications down the toilet. IF YOU HAVE BEEN PRESCRIBED AN OPIOIDS FOR PAIN If you have been prescribed an opioid (such as hydrocodone, oxycodone or morphine), it is critical to understand the possible side effects and risks of opioid pain medications. Even when taken as directed, opioids can have several side effects including: Tolerance, meaning you might need to take more of a medication for the same pain relief. Nausea, vomiting and/or constipation. Sleepiness, dizziness, dry mouth, confusion, depression or itching. Physical dependence, meaning you have withdrawal symptoms when a medication is stopped ? this can develop within a few days. KNOW YOUR RESPONSIBILITIES It is important to know exactly how much and how often to take the opioid pain medications you are prescribed. Never take opioids in higher amounts or more often than prescribed. Do not combine opioids with alcohol or other drugs that cause drowsiness, such as benzodiazepines, also known as benzos,including diazepam and alprazolam, muscle relaxants or sleep aids. Never sell or share prescriptionopioids. This is illegal. Store opioids in a secure place and out of reach of others (including children, family, friends and visitors). The last page(s) of this document has been signed and retained as a CHART COPY Signatures Patient Education Materials Neuropathy, Peripheral Shoulder Sprain Medication Leaflets methylprednisolone (oral), naproxen My discharge plan and instructions have been reviewed and explained to me and I,GINO AVILEZ understand my current condition and have read and understand these discharge instructions. I have received a written copy of the plan/instructions. If I have questions, I am aware that I should contact my doctor. 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 HISTORY: ORDERING SYSTEM PROVIDED HISTORY: Reason for Exam: pain FINDINGS: No fracture or dislocation is identified. There are no abnormal periarticular calcifications. The acromioclavicular joint is normal. The included thoracic structures are normal. IMPRESSION: No acute fracture or dislocation. Interpreted by: Donald Muirllo MD Preliminary Report By: Donald Murillo MD Electronically signed By Donald Murillo MD Dictated Date: 09/15/2023 12:14:58 PM Prelim Date: 09/15/2023 12:15:51 PM Sign Date: 09/15/2023 12:15:51 PM [facility] NoteSinus rhythm Low voltage, precordial leads Borderline T abnormalities, inferior leads Electronic Signature: MD MARLYS PERERA MD 09/15/2023 11:39:09[facility] 04-29-2024 Discharge summary Author Jaziel Lainez [facility] August 13, 2023 4:01pm Note Date/Time August 13, 2023 2:4 1pm [facility] Physical Therapy [facility] [address] [place] [address] / REHABILITATION SERVICES DISCHARGE SUMMARY MR#: [id number] Acct: [id number] Name: GINO AVILEZ Rep #: [id number] : 1985 37 From: Cert. STACIE TaborT, OCS Referring Dr.: Dr. Steve Kim DO Status: [facility] Insurance: [facility] SELF PAY INSURANCE Discharge Summary D/C summary: It has been my pleasure to treat GINO AVILEZ referred by Dr. Steve Kim DO, with the diagnosis of OTHER INTERVETEBRAL DISC DEGENERATION for a total of 9visit(s). Discharge Date: Please see the following information for a summary of their discharge status. Subjective Subjective: Doing some better Patient reports getting dizziness and fell backwards .Patient has had to go to MRI Pain Bilateral Back: Pain Intensity (Out of 10): 10 Overall Improvement % Improvement: 70 Objective Objective/Function: POSTURE: mild forward posture GAIT: reciprocal pattern NEURO:denies paresthesia/tingling , reflexes L3-4,L4-5,L5-S1 1/3 PALAPTION: tender LS /SI LUMBAR ROM: flexion mod loss ,extension min/mod ,side glides min/mod loss FLEXIBILITY: hamstrings min tight Goals Goal 1:: Patient to be I with HEP for back Goal 2:: Patient to improve posture/body presser 80% OF THE TIME Goal 3:: Patient to improve lumbar ROM for function of recovery to put on and tie shoes Goal 4:: Patient to demonstrate 50% improvement with less pain and improved function Goal 5:: Patient to improve back oswestry score by 5 points to improve QOL and function Plan Plan: RTD D/C Information d/c sentence: If there are questions or concerns regarding this patient's physical therapy, please feel free to call me at [phone]. Thank you for the referral of thispatient. Sincerely, Jaziel Lainez, PT, Cert MDT, OCS Balance/Gait/Functional tests Balance/Special Test Scores Oswestry Low Back Score: 35 Improvement % Improvement: 70 <Electronically signed by Jaziel Lainez PT, Cert. MDT, OCS> 08/13/23 1601 CC: EXTENDERArmen Bergman; Dr. Steve Kim, DO ~ [place] Signed [facility] Work Phone: [phone] Hospital Discharge instructions Patient Education 09/30/2022 12:26:07 Rib Contusion Rib Contusion A rib contusion is a bruise to one or more rib bones. It may cause pain, tenderness, swelling and apurplish discoloration. There may be a sharp pain while breathing. You will be assessed for other injuries. You will likely be given pain medicine. Rib contusions heal on their own, without further treatment. However, pain may take weeks to months to go away. Note that a small crack (fracture) in the rib may cause the same symptoms as a rib contusion. The small crack may not be seen on a chest X-ray. However, the conditions are managed in the same way. Home care Rest. Avoid heavy lifting, strenuous exertion, or any activity that causes pain. Ice the area to reduce pain and swelling. Put ice cubes in a plastic bag or use a cold pack. (Wrap the cold source in a thin towel. Do not place it directly on your skin.) Ice the injured area for 20minutes every 1 to 2 hours the first day. Continue with ice packs 3 to 4 times a day for the next 2days, then as needed for the relief of pain and swelling. Take any prescribed pain medicine as directed by your healthcare provider. If none was prescribed, take acetaminophen, ibuprofen, or naproxen to control pain. If you have a significant injury, you may be given a device called an incentive spirometer to keep your lungs healthy. Use as directed. Follow-up care Follow up with your healthcare provider during the next week or as directed. When to seek medical advice Call your healthcare provider for any of the following: Shortness of breath or trouble breathing Increasing chest pain with breathing Coughing Dizziness, weakness, or fainting New or worsening pain Fever of 100.4 F (38 C) or higher, or as directed by your healthcare provider [phone] [employer]. [address] [place] [address]. All rights reserved. This information is not intended as a substitute for professional medical care. Always follow yourhealthcare professional's instructions. Follow Up Care 09/30/2022 11:31:49 With:СЕРГЕЙ BERGMAN APRN, CNP Address: [address] [place] [address]- When:2-4 days [facility] 06-17-2023 Note Discharge Instructions Thank you for allowing [facility] to assist you with your healthcare needs. The following is importantdischarge information regarding your hospital visit. Diagnosis from Today's Visit Rib pain Generalized pain What to Do Next Instructions from Your Care Team No qualifying data available. Post Acute Orders No qualifying data available. You Need to Schedule the Following Appointments Follow Up with СЕРГЕЙ BERGMAN APRN, CNP When Within 2-4 days Where: [address] [place] [phone]- Allergies Ceclor (Rash) Medications Please ask your primary doctor or pharmacist before taking any other medication not listed, including over the counter drugs, herbal medications, vitamins and or supplements as they may interact withyour home medications. What How Much When Why Instructions Last Dose Unchanged albuterol (albuterol MDI (90 mcg/ inh) CFC free inhalation aerosol) 2 puff(s) by inhalation Every 6 hours as needed for as needed for wheezing Asthma Duration: 30 Days Unchanged cetirizine (Zyrtec 10 mg oral tablet) 1 tab(s) by mouth Once a day Seasonal allergies Duration: 90 Days Unchanged cholecalciferol (cholecalciferol 1250 mcg (50,000 intl units) oral capsule) 1 cap by mouth Once a month Vitamin D deficiency Duration: 90 Days Unchanged famotidine (Pepcid 40 mg oral tablet) 1 tab(s) by mouth Daily at bedtime GERD (gastroesophageal reflux disease) Duration: 90 Days Unchanged fluticasone nasal (Flonase 50 mcg/ inh nasal spray) 2 spray(s) each nostril Once a day (in the morning) Seasonal allergies Duration: 30 Days Unchanged fluticasone-salmeterol (Advair Diskus 100 mcg-50 mcg inhalation powder) 1 puff(s) by inhalation Two (2) times a day Asthma Duration: 30 Days Unchanged montelukast (Singulair 10 mg oral tablet) 1 tab(s) by mouth Once a day Seasonal allergies Duration: 90 Days Unchanged OLANZapine (OLANZapine 7.5 mg oral tablet) 1 tab(s) by mouth Every day Unchanged omeprazole (omeprazole 40 mg oral delayed release capsule) 1 cap by mouth Once a day GERD (gastroesophageal reflux disease) Unchanged prazosin (prazosin 2 mg oral capsule) 1 cap by mouth Three (3) times a day Unchanged rosuvastatin (rosuvastatin 5 mg oral tablet) 1 tab(s) by mouth Once a day Hypercholesterolemia Unchanged triamcinolone topical (triamcinolone 0.1% topical cream) 1 application Topical Two (2) times a day Psoriasis Duration: 14 Days Please take this list to your next doctor s visit. Bring all medications you take, including over the counter medications, herbals and other supplements with you to your doctor s visit. Patients and families are reminded to discard old lists and to update any records with all medication providers or retail pharmacies. Education Materials Rib Contusion A rib contusion is a bruise to one or more rib bones. It may cause pain, tenderness, swelling and apurplish discoloration. There may be a sharp pain while breathing. You will be assessed for other injuries. You will likely be given pain medicine. Rib contusions heal on their own, without further treatment. However, pain may take weeks to months to go away. Note that a small crack (fracture) in the rib may cause the same symptoms as a rib contusion. The small crack may not be seen on a chest X-ray. However, the conditions are managed in the same way. Home care Rest. Avoid heavy lifting, strenuous exertion, or any activity that causes pain. Ice the area to reduce pain and swelling. Put ice cubes in a plastic bag or use a cold pack. (Wrap the cold source in a thin towel. Do not place it directly on your skin.) Ice the injured area for 20minutes every 1 to 2 hours the first day. Continue with ice packs 3 to 4 times a day for the next 2days, then as needed for the relief of pain and swelling. Take any prescribed pain medicine as directed by your healthcare provider. If none was prescribed, take acetaminophen, ibuprofen, or naproxen to control pain. If you have a significant injury, you may be given a device called an incentive spirometer to keep your lungs healthy. Use as directed. Follow-up care Follow up with your healthcare provider during the next week or as directed. When to seek medical advice Call your healthcare provider for any of the following: Shortness of breath or trouble breathing Increasing chest pain with breathing Coughing Dizziness, weakness, or fainting New or worsening pain Fever of 100.4 F (38 C) or higher, or as directed by your healthcare provider [phone] [employer]. [address] [place] [address]. All rights reserved. This information is not intended as a substitute for professional medical care. Always follow yourhealthcare professional's instructions. Additional Information VACCINATE! IT SAVES LIVES! Members of the community who have not yet received the COVID-19 vaccine and would like to receive it can visit one of [facility] vaccine clinics. There are many vaccine clinic locations within the [facility]. For locations and available times, please visit www.[email or web address].[place].gov/. It is important to note that some COVID mobile vaccine clinics are held outdoors and may be canceled in rainy or stormy conditions. To learn more about pediatric vaccinations (ages 5-11), we invite you to visit the [facility] webpage. https://www.[facility].org/pages/9359-Glpfw-Weqnoyofmcf-Huczwjzkyb-Ugpbu-Xjk stions.htmlTo learn more about the COVID-19 vaccine, we invite you to visit the CDC website for a list of frequently asked questions. https://www.cdc.gov/coronavirus/2019-ncov/vaccines/faq.html [facility] Patient Portal Access Instructions: Stay connected with your healthcare team and access your personal medical information anytime with the [employer] Patient Portal. If you would like a full copy of your medical records please contact the [facility] Medical Records Department Sunday through Sunday between 8a.m. and 4:30p.m. Please follow the directions below to access the portal: 1.Access the email account you provided upon registration to the [facility].2.Look for an invitation email from [facility].3.Open the email and access the invitation link: Accept Invitation to [employer]4.Fill in the required morrison to create your account. Sign into [email or web address] with your username and password that you created in the above steps to stay up to date. You can then view a summary of results, a summary of your visits, and the ability to download your summaries to your computer or send the information securely to a physician. Remember that your healthcare information is confidential, so carefully consider who you will allow to register on the [employer] Patient Portal for access to your information. You can also access the [employer] Patient Portal on the [employer] himanshu. Simply click on Health Records under Think [employer] and then click on the GigPark logo. HOW TO SAFELY DISPOSE OF PRESCRIPTION MEDICATIONS Please use one of the following methods to safely dispose of your unused medications. 1.Use a drug disposal kit: the drug disposal pouch allows you to safely discard your old and unuseddrugs. Ask your nurse to give you one when you are discharged.2.Visit a local take-back location: Many local pharmacies and police departments have programs that collect old and unwanted prescriptiondrugs. Call your local pharmacy or go to http://bit.ly/3S9Pl5g to find one close to you.3.Make use of household items: Use cat litter or old coffee grounds to dispose medications if other options arenot available. Mix your drugs with these household products, seal them in an airtight container andthrow it into the garbage. Call [facility]: [phone] to be sure your drugs can be disposed of in this way. Some medicines may require a different approach.4.Never flush your medications down the toilet. IF YOU HAVE BEEN PRESCRIBED AN OPIOIDS FOR PAIN If you have been prescribed an opioid (such as hydrocodone, oxycodone or morphine), it is critical to understand the possible side effects and risks of opioid pain medications. Even when taken as directed, opioids can have several side effects including: Tolerance, meaning you might need to take more of a medication for the same pain relief. Nausea, vomiting and/or constipation. Sleepiness, dizziness, dry mouth, confusion, depression or itching. Physical dependence, meaning you have withdrawal symptoms when a medication is stopped ? this can develop within a few days. KNOW YOUR RESPONSIBILITIES It is important to know exactly how much and how often to take the opioid pain medications you are prescribed. Never take opioids in higher amounts or more often than prescribed. Do not combine opioids with alcohol or other drugs that cause drowsiness, such as benzodiazepines, also known as benzos,including diazepam and alprazolam, muscle relaxants or sleep aids. Never sell or share prescriptionopioids. This is illegal. Store opioids in a secure place and out of reach of others (including children, family, friends and visitors). The last page(s) of this document has been signed and retained as a CHART COPY Signatures Patient Education Materials Rib Contusion Medication Leaflets My discharge plan and instructions have been reviewed and explained to me and I,GINO AVILEZ understand my current condition and have read and understand these discharge instructions. I have received a written copy of the plan/instructions. If I have questions, I am aware that I should contact my doctor. 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 No pleural effusion, pneumothorax, vascular congestion, or focal consolidation. There is no acute osseous abnormality. Specifically, no evidence of rib fracture. IMPRESSION: No acute radiographic process. Interpreted by: John Chatterjee DO Preliminary Report By: John Chatterjee DO Electronically signed By John Chatterjee DO Dictated Date: 09/30/2022 12:20:05 PM Prelim Date: 09/30/2022 12:22:06 PM Sign Date: 09/30/2022 12:22:06 PM [facility]ing [facility] Note ORIGINAL EXAMINATION: 4 XRAY VIEWS OF LEFT RIBS WITH 2 XRAY VIEWS OF THE CHEST09/30/2022 12:06 pm COMPARISON: June 18, 2022 HISTORY: ORDERING SYSTEM PROVIDED HISTORY: Reason for Exam: left rib pain FINDINGS: Cardiac silhouette is normal. No pleural effusion, pneumothorax, vascular congestion, or focal consolidation. There is no acute osseous abnormality. Specifically, no evidence of rib fracture. IMPRESSION: No acute radiographic process. Interpreted by: John Chatterjee DO Preliminary Report By: John Chatterjee DO Electronically signed By John Chatterjee DO Dictated Date: 09/30/2022 12:20:05 PM Prelim Date: 09/30/2022 12:22:06 PM Sign Date: 09/30/2022 12:22:06 PM Ordering Provider: SAMANTHA [facility]03-06-2023 Hospital Discharge instructions Patient Education 06/18/2022 22:05:27 Muscle Spasm Muscle Spasm A muscle spasm is a sudden tightening of the muscle you can t control. This may be caused by strain, overworking the muscle, or injury. It can also be caused by dehydration, electrolyte imbalance, diabetes, alcohol use, and certain medicines. If it goes on long enough the muscle spasm causes pain. Common areas for muscle spasm are the legs, neck, and back. Home care Heat, massage, and stretching will help relax muscle spasm. When the spasm is in your arm or leg, stretch the muscle passively. To do this, have someone bend or straighten the joint above or below the muscle until you feel the stretch on the sore muscle. You can stretch the muscle actively by moving the affected body part. This will stretch the muscle that is in spasm. For example, if the spasm is in your calf, bend the ankle so your toes point upward toward your knee. This will stretch your calf muscle. You may use vljn-wru-yjmpoqd pain medicine to control pain, unless another medicine was prescribed.If you have chronic liver or kidney disease or ever had a stomach ulcer or gastrointestinal bleeding, talk with your healthcare provider before using these medicines. Follow-up care Follow up with your healthcare provider, or as advised. When to seek medical advice Call your healthcare provider right away if any of the following occur: Fingers or toes become swollen, cold, blue, numb, or tingly You develop weakness in the affected arm or leg Pain increases and is not controlled by the above measures [phone] [employer]. [address] [place] [address]. All rights reserved. This information is not intended as a substitute for professional medical care. Always follow yourhealthcare professional's instructions. Follow Up Care 06/18/2022 21:19:57 With:СЕРГЕЙ BERGMAN APRN, CNP Address: [address] [place] [id number]- When:2-4 days [facility] 03-05-2023 Note Discharge Instructions Thank you for allowing [facility] to assist you with your healthcare needs. The following is importantdischarge information regarding your hospital visit. Diagnosis from Today's Visit Back pain Impaired gas exchange post bicycle ride uphill What to Do Next Instructions from Your Care Team No qualifying data available. Post Acute Orders No qualifying data available. You Need to Schedule the Following Appointments Follow Up with СЕРГЕЙ BERGMAN APRN, CNP When Within 2-4 days Where: [address] [place] [address] [place] [id number]- Allergies Ceclor (Rash) Medications Please ask your primary doctor or pharmacist before taking any other medication not listed, including over the counter drugs, herbal medications, vitamins and or supplements as they may interact withyour home medications. What How Much When Why Instructions Last Dose New cyclobenzaprine (cyclobenzaprine 10 mg oral tablet) 1 tab(s) by mouth Three (3) times a day Duration: 5 Days Printed Prescription Unchanged cetirizine (Zyrtec 10 mg oral tablet) 1 tab(s) by mouth Once a day Seasonal allergies Duration: 90 Days Unchanged cholecalciferol (cholecalciferol 1250 mcg (50,000 intl units) oral capsule) 1 cap by mouth Once a month Vitamin D deficiency Duration: 90 Days Unchanged famotidine (Pepcid 40 mg oral tablet) 1 tab(s) by mouth Daily at bedtime GERD (gastroesophageal reflux disease) Duration: 90 Days Unchanged montelukast (Singulair 10 mg oral tablet) 1 tab(s) by mouth Once a day Seasonal allergies Duration: 90 Days Unchanged OLANZapine (OLANZapine 7.5 mg oral tablet) 1 tab(s) by mouth Every day Unchanged omeprazole (omeprazole 40 mg oral delayed release capsule) 1 cap by mouth Once a day GERD (gastroesophageal reflux disease) Duration: 30 Days Unchanged prazosin (prazosin 2 mg oral capsule) 1 cap by mouth Three (3) times a day Please take this list to your next doctor s visit. Bring all medications you take, including over the counter medications, herbals and other supplements with you to your doctor s visit. Patients and families are reminded to discard old lists and to update any records with all medication providers or retail pharmacies. Education Materials Muscle Spasm A muscle spasm is a sudden tightening of the muscle you can t control. This may be caused by strain, overworking the muscle, or injury. It can also be caused by dehydration, electrolyte imbalance, diabetes, alcohol use, and certain medicines. If it goes on long enough the muscle spasm causes pain. Common areas for muscle spasm are the legs, neck, and back. Home care Heat, massage, and stretching will help relax muscle spasm. When the spasm is in your arm or leg, stretch the muscle passively. To do this, have someone bend or straighten the joint above or below the muscle until you feel the stretch on the sore muscle. You can stretch the muscle actively by moving the affected body part. This will stretch the muscle that is in spasm. For example, if the spasm is in your calf, bend the ankle so your toes point upward toward your knee. This will stretch your calf muscle. You may use hplr-rol-[id number] pain medicine to control pain, unless another medicine was prescribed.If you have chronic liver or kidney disease or ever had a stomach ulcer or gastrointestinal bleeding, talk with your healthcare provider before using these medicines. Follow-up care Follow up with your healthcare provider, or as advised. When to seek medical advice Call your healthcare provider right away if any of the following occur: Fingers or toes become swollen, cold, blue, numb, or tingly You develop weakness in the affected arm or leg Pain increases and is not controlled by the above measures [id number] [employer]. [address] [place] [address]. All rights reserved. This information is not intended as a substitute for professional medical care. Always follow yourhealthcare professional's instructions. Additional Information VACCINATE! IT SAVES LIVES! Members of the community who have not yet received the COVID-19 vaccine and would like to receive it can visit one of [facility] vaccine clinics. There are many vaccine clinic locations within the [facility]. For locations and available times, please visit www.gettheshot.coronavirus.[place].gov/. It is important to note that some COVID mobile vaccine clinics are held outdoors and may be canceled in rainy or stormy conditions. To learn more about pediatric vaccinations (ages 5-11), we invite you to visit the [facility] webpage. https://www.[email or web address]/pages/[email or web address]-Abwwy-Lgsaumgahhj-Oexspcycvn-Qkkhk-Hbp stions.htmlTo learn more about the COVID-19 vaccine, we invite you to visit the CDC website for a list of frequently asked questions. https://www.cdc.gov/coronavirus/2019-ncov/vaccines/faq.html [facility] Patient Portal Access Instructions: Stay connected with your healthcare team and access your personal medical information anytime with the [facility] Patient Portal. If you would like a full copy of your medical records please contact the [facility] Medical Records Department Sunday through Sunday between 8a.m. and 4:30p.m. Please follow the directions below to access the portal: 1.Access the email account you provided upon registration to the [facility].2.Look for an invitation email from [facility].3.Open the email and access the invitation link: Accept Invitation to [employer]4.Fill in the required morrison to create your account. Sign into [email or web address] with your username and password that you created in the above steps to stay up to date. You can then view a summary of results, a summary of your visits, and the ability to download your summaries to your computer or send the information securely to a physician. Remember that your healthcare information is confidential, so carefully consider who you will allow to register on the [facility] Patient Portal for access to your information. You can also access the [employer] Patient Portal on the [employer]. Simply click on Health Records under T[employer]rating and then click on the [employer] logo. HOW TO SAFELY DISPOSE OF PRESCRIPTION MEDICATIONS Please use one of the following methods to safely dispose of your unused medications. 1.Use a drug disposal kit: the drug disposal pouch allows you to safely discard your old and unuseddrugs. Ask your nurse to give you one when you are discharged.2.Visit a local take-back location: Many local pharmacies and police departments have programs that collect old and unwanted prescriptiondrugs. Call your local pharmacy or go to http://AmeriPath.Goods Platform/5H1Ff4o to find one close to you.3.Make use of household items: Use cat litter or old coffee grounds to dispose medications if other options arenot available. Mix your drugs with these household products, seal them in an airtight container andthrow it into the garbage. Call [facility]: [phone] to be sure your drugs can be disposed of in this way. Some medicines may require a different approach.4.Never flush your medications down the toilet. IF YOU HAVE BEEN PRESCRIBED AN OPIOIDS FOR PAIN If you have been prescribed an opioid (such as hydrocodone, oxycodone or morphine), it is critical to understand the possible side effects and risks of opioid pain medications. Even when taken as directed, opioids can have several side effects including: Tolerance, meaning you might need to take more of a medication for the same pain relief. Nausea, vomiting and/or constipation. Sleepiness, dizziness, dry mouth, confusion, depression or itching. Physical dependence, meaning you have withdrawal symptoms when a medication is stopped ? this can develop within a few days. KNOW YOUR RESPONSIBILITIES It is important to know exactly how much and how often to take the opioid pain medications you are prescribed. Never take opioids in higher amounts or more often than prescribed. Do not combine opioids with alcohol or other drugs that cause drowsiness, such as benzodiazepines, also known as benzos,including diazepam and alprazolam, muscle relaxants or sleep aids. Never sell or share prescriptionopioids. This is illegal. Store opioids in a secure place and out of reach of others (including children, family, friends and visitors). The last page(s) of this document has been signed and retained as a CHART COPY Signatures Patient Education Materials Muscle Spasm Medication Leaflets My discharge plan and instructions have been reviewed and explained to me and I,GINO AVILEZ understand my current condition and have read and understand these discharge instructions. I have received a written copy of the plan/instructions. If I have questions, I am aware that I should contact my doctor. 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 HISTORY: ORDERING SYSTEM PROVIDED HISTORY: Reason for Exam: sob FINDINGS: Cardiomediastinal silhouette is normal in size Costophrenic angles are sharp. No pneumothorax. Low lung volumes. No focal consolidation. Osseous structures unremarkable. IMPRESSION: Low lung volumes. Interpreted by: Carlos Manuel Huffman Preliminary Report By: Carlos Manuel Huffman Electronically signed By Carlos Manuel Huffman Dictated Date: 06/18/2022 10:01:11 PM Prelim Date: 06/18/2022 10:01:36 PM Sign Date: 06/18/2022 10:01:36 PM Ordering Provider: [facility]03-05-2023 Note ORIGINAL EXAMINATION: ONE XRAY VIEW OF THE CHEST 06/18/2022 9:57 pm COMPARISON: None. HISTORY: ORDERING SYSTEM PROVIDED HISTORY: Reason for Exam: sob FINDINGS: Cardiomediastinal silhouette is normal in size Costophrenic angles are sharp. No pneumothorax. Low lung volumes. No focal consolidation. Osseous structures unremarkable. IMPRESSION: Low lung volumes. Interpreted by: Carlos Manuel Huffman Preliminary Report By: Carlos Manuel Huffman Electronically signed By Carlos Manuel Huffman Dictated Date: 06/18/2022 10:01:11 PM Prelim Date: 06/18/2022 10:01:36 PM Sign Date: 06/18/2022 10:01:36 PM Ordering Provider: JACQUELYN [facility]10-13-2022 Miscellaneous Notes* Telephone Encounter - Dulce Maria Hanna RN - 01/26/2022 12:35 PM EDT This RN attempted to contact patient at this time No answer Mailbox is full Will attempt again at a later time * Telephone Encounter - Dulce Maria Hanna RN - 01/10/2022 12:01 PM EDT Denial information received: Your doctor s request for a(n) Lumbar Spine MRI (Magnetic Resonance Imaging - pictures of inside your lower spine) cannot be approved. We made this decision based on [place] Clinical Guideline 044 for Lumbar Spine MRI. Information Relied Upon: Based on what was given, you have back pain, your doctor s request cannot be approved. A person might need a(n) Lumbar Spine MRI if these notes have/has been given: doctor's notes that say you did six weeks of back exercises (physical therapy, chiropractic treatments, or medically directed home exercise program) in the last six months. We also need to know the number of visits you went to. If you did this, the notes do not show the dates that you did the exercises. The information we got did not include these notes. Will need signed consent form to proceed with appeal documented [facility] Miscellaneous Notes* Telephone Encounter - Amy Kennedy Ma - 12/22/2021 3:08 PM EDT Called and notified patient of MRI denial. Informed him that his insurance is requiring six of physical therapy in order to get this approved. Patient refuses to participate in physical therapy as he is in too much pain. Patient states that he will figure something else out. Staff message forwarded to [place] with information from patient. * Telephone Encounter - Amy Hassan RN - 12/22/2021 10:23 AM EDT Hi my name is [place] I'm a nurse here at the clinic and I work with the prior authorization team. I'm calling regarding Dr. chauhan's patient Gino Avilez date of is 1985 has this medical record no. is [id number] and is scheduled for an MRI of the lumbar spine on 12/30/2021. However he doesnot meet the payer criteria for advanced imaging. They do require a minimum of six weeks of physical therapy within the last six months. They are pretty strict regarding this criteria however if you have her information that would that you could provide showing that physical therapy would not be beneficial. I would appreciate that. If you wanna give me a call back my direct line is [phone] if you have any additional information that you can provide. My fax no. is [phone]. Thank you and have a good day. documented in this encounterTri[facility]06-[facility]22 History of Present illness Narrative* DuniaSHANELLE Li - 09/14/2021 2:00 PM EDT PRIMARY CARE SOCIAL WORK PROGRESS NOTE Provider Action / FYI PCP Action n/a SERVICE DATE: September 14, 2021 SERVICE TIME: 2p REASON FOR CONTACT: Community Resources Progress Note: ALISON Lara received and reviewed order. SW contacted pt to address community resources. Pt reply was: I do not need to talk to you. It was court ordered so please lose this number. SW unaware of what pt is referring to as this is a new order and first time reaching out. Pt declinedto speak with SW at this time. Did you receive information on your AVS about the [facility] and [facility] [employer]? N/A Did you like receiving this information? N/A Patient reported caregiver was able to meet their needs today? N/A INTERVENTION: Declines Resources Time Spent:: 15 minutes SIGNATURE: SHANELLE Rucker PATIENT NAME: Gino Avilez DATE: September 14, 2021 TIME: 2:00 PM CONTACT #: [id number] documented in this encounterTri[facility] HospitalEvaluation + Plan note Future Appointments Appointment Date:08/01/2022 03:00:00 PM Scheduled Provider:СЕРГЕЙ BERGMAN APRN, CNP Location:[place] Appointment Type:PC OV Follow Up Future Scheduled Tests Laboratory* Complete Blood Count 08/01/22 * Complete Blood Count 08/02/22 * Lipid Profile 08/01/22 * Lipid Profile 08/02/22 * Microalbumin Level Urine 08/01/22 * Microalbumin Level Urine 12/11/21 * Microalbumin Level Urine 08/02/22 * Vitamin D Level 08/01/22 * Vitamin D Level 08/02/22 * Complete Metabolic Panel 08/01/22 * Complete Metabolic Panel 08/02/22 [facility] Evaluation + Plan note Future Appointments Appointment Date:10/02/2022 02:40:00 PM Scheduled Provider:СЕРГЕЙ BERGMAN APRN, CNP Location:[facility] [place] Appointment Type:PC OV Follow Up Appointment Date:02/01/2023 02:00:00 PM Scheduled Provider:СЕРГЕЙ BERGMAN APRN, CNP Location:[facility] [place] Appointment Type:PC OV Follow Up Future Scheduled Tests Laboratory* A1C Hemoglobin 01/31/23 * Complete Blood Count 08/02/22 * Lipid Profile 01/31/23 * Lipid Profile 08/02/22 * Albumin/Creatinine Ratio, Random Urine 01/31/23 * Microalbumin Level Urine 08/01/22 * Microalbumin Level Urine 08/02/22 * Vitamin D Level 01/31/23 * Vitamin D Level 08/02/22 * Complete Metabolic Panel 01/31/23 * Complete Metabolic Panel 08/02/22 [facility] Evaluation + Plan note Future Appointments Appointment Date:10/12/2022 02:40:00 PM Scheduled Provider:СЕРГЕЙ BERGMAN APRN - ALEX Location:[facility] [place] Appointment Type:PC OV Follow Up Appointment Date:02/01/2023 02:00:00 PM Scheduled Provider:СЕРГЕЙ BERGMAN APRN - ALEX Location:[facility] [place] Appointment Type:PC OV Follow Up Future Scheduled Tests Laboratory* A1C Hemoglobin 01/31/23 * Complete Blood Count 08/02/22 * Lipid Profile 01/31/23 * Lipid Profile 08/02/22 * Albumin/Creatinine Ratio, Random Urine 01/31/23 * Microalbumin Level Urine 08/01/22 * Microalbumin Level Urine 08/02/22 * Vitamin D Level 01/31/23 * Vitamin D Level 08/02/22 * Complete Metabolic Panel 01/31/23 * Complete Metabolic Panel 08/02/22 [facility] Evaluation + Plan note Future Appointments Appointment Date:02/28/2024 03:20:00 PM Scheduled Provider:СЕРГЕЙ BERGMAN PHONE BANKER - [employer] Location:[facility] Appointment Type:PC OV Future Scheduled Tests Laboratory* A1C Hemoglobin 03/01/24 * Lipid Profile 03/01/24 * Albumin/Creatinine Ratio, Random Urine 03/01/24 * Albumin/Creatinine Ratio, Random Urine 08/03/23 * Vitamin D Level 03/01/24 * Complete Metabolic Panel 03/01/24 [facility] Evaluation + Plan note Future Appointments Appointment Date:10/16/2023 02:00:00 PM Scheduled Provider:СЕРГЕЙ BERGMAN APRN, CNP Location:[facility] [place] Appointment Type:PC OV Appointment Date:02/28/2024 03:20:00 PM Scheduled Provider:СЕРГЕЙ BERGMAN APRN, CNP Location:[facility] [place] Appointment Type:PC OV Future Scheduled Tests Laboratory* A1C Hemoglobin 03/01/24 * Lipid Profile 03/01/24 * Albumin/Creatinine Ratio, Random Urine 03/01/24 * Albumin/Creatinine Ratio, Random Urine 08/03/23 * Vitamin D Level 03/01/24 * Complete Metabolic Panel 03/01/24 [facility] Evaluation + Plan note Future Appointments Appointment Date:12/10/2023 03:00:00 PM Scheduled Provider:СЕРГЕЙ BERGMAN APRN, CNP Location:[facility] [place] Appointment Type:PC OV Appointment Date:02/28/2024 03:20:00 PM Scheduled Provider:СЕРГЕЙ BERGMAN APRN, CNP Location:[facility] Appointment Type:PC OV Future Scheduled Tests Laboratory* A1C Hemoglobin 03/01/24 * Lipid Profile 03/01/24 * Albumin/Creatinine Ratio, Random Urine 03/01/24 * Albumin/Creatinine Ratio, Random Urine 08/03/23 * Vitamin D Level 03/01/24 * Complete Metabolic Panel 03/01/24 [facility] Evaluation + Plan note Future Appointments Appointment Date:01/07/2024 01:30:00 PM Scheduled Provider: Location:[facility] Appointment Type:CV Procedure - Heart Lab/Hybrid OR Appointment Date:02/13/2024 02:30:00 PM Scheduled Provider: Location:[facility] Appointment Type:CV OV Appointment Date:06/09/2024 03:00:00 PM Scheduled Provider:СЕРГЕЙ BERGMAN APRN, CNP Location:[facility] Appointment Type:PC OV Future Scheduled Tests Laboratory* A1C Hemoglobin 06/11/24 * A1C Hemoglobin 03/01/24 * Lipid Profile 06/11/24 * Lipid Profile 03/01/24 * Albumin/Creatinine Ratio, Random Urine 06/11/24 * Albumin/Creatinine Ratio, Random Urine 03/01/24 * Albumin/Creatinine Ratio, Random Urine 08/03/23 * Vitamin D Level 06/11/24 * Vitamin D Level 03/01/24 * Complete Metabolic Panel 06/11/24 * Complete Metabolic Panel 03/01/24 [facility] Evaluation + Plan note Future Appointments Appointment Date:02/13/2024 02:30:00 PM Scheduled Provider: Location:[facility] Appointment Type:CV OV Appointment Date:06/09/2024 03:00:00 PM Scheduled Provider:СЕРГЕЙ BERGMAN APRN, CNP Location:[facility] [place] Appointment Type:PC OV Diagnostic Tests Pending * Basic Metabolic Panel 01/07/24 Future Scheduled Tests Laboratory* A1C Hemoglobin 06/11/24 * A1C Hemoglobin 03/01/24 * Lipid Profile 06/11/24 * Lipid Profile 03/01/24 * Albumin/Creatinine Ratio, Random Urine 06/11/24 * Albumin/Creatinine Ratio, Random Urine 03/01/24 * Albumin/Creatinine Ratio, Random Urine 08/03/23 * Vitamin D Level 06/11/24 * Vitamin D Level 03/01/24 * Complete Metabolic Panel 06/11/24 * Complete Metabolic Panel 03/01/24 [facility] Evaluation note* Diagnosis Need for community resource- Primary documented in this encounter [facility] noteNo assessment information availableWSt. Charles Hospital Work Phone: Evaluation note* Diagnosis Onset Date Resolution Status DDD (degenerative disc disease), lumbar acute Left-sided chest wall pain a [facility] Work Phone: Evaluation note* Diagnosis Onset Date Resolution Status Left-sided chest wall pain a [facility] Work Phone: Evaluation note* Diagnosis Onset Date Resolution Status Mass of left lung acute Muscle strain of chest wall acute [facility] Work Phone: Evaluation note* Diagnosis Onset Date Resolution Status Mass of left lung acute Muscle strain of chest wall acute DDD (degenerative disc disease), lumbar acute Excessive cerumen in right ear canal acute [facility] Work Phone: Evaluation note* Diagnosis Onset Date Resolution Status DDD (degenerative disc disease), lumbar acute Excessive cerumen in right ear canal acute [facility] Work Phone: Evaluation note* Diagnosis Onset Date Resolution Status DDD (degenerative disc disease), lumbar acute Excessive cerumen in right ear canal acute DDD (degenerative disc disease), lumbar acute Herniation of intervertebral disc between L5 and S1 acute [facility] Work Phone: Evaluation note* Diagnosis Nausea and vomiting, unspecified vomiting type- Primary documented in this encounter [facility] note* Diagnosis Bronchopneumonia- Primary Bronchopneumonia, organism unspecified documented in this encounter [facility] note* Diagnosis Procedure not carried out- Primary Procedure not carried out for other reasons documented in this encounter [facility] note* Diagnosis Acute cough- Primary Wheezing documented in this encounter [facility] note* Diagnosis Acute cough [facility] Narrative No data available for this section [facility] Hospital Discharge instructions No data available for this section [facility] Discharge instructions Additional Instructions Follow-up with your PCP and return for any worsening symptoms.[facility] Work Phone: Progress note No data available for this section [facility] Reason for referral (narrative)No reason for referral information availableWSt. Charles Hospital Work Phone: Advance Directives No Advanced Directives Records Found Advance Directive Response Recorded Date/ Time Living Will No January 05, 2019 3:08pm Power of Yard Rigger No December 3:08pm Advance Directive Response Recorded Date/ Time Living Will No January 05, 2019 2:08pm Power of Yard Rigger No December 2:08pm Advance Directive Response Recorded Date/ Time Living Will No July 09, 2023 1:52am Power of Yard Rigger No July 08 1:52am Advance Directive Response Recorded Date/ Time Living Will No July 30, 2023 4:01pm Power of Yard Rigger No July 29 4:01pm Advance Directive Response Recorded Date/ Time Living Will No July 30, 2023 3:01pm Power of Yard Rigger No July 29 3:01pm Living Will No June 01, 2 025 1:37pm Power of Yard Rigger No June 01, 2024 1:37pm Advance Directive Response Recorded Date/ Time Living Will No June 01, 025 2:37pm Do you have a Healthcare Power of Yard Rigger? No June 01, 2024 2:37pm Advance Directive Response Recorded Date/ Time Living Will No August 03, 2024 1:21pm Do you have a Healthcare Power of Yard Rigger? No August 03, 2024 1:21pm Living Will No June 01 025 2:37pm Do you have a Healthcare Power of Yard Rigger? No June 01, 2024 2:37pm Advance Directive Response Recorded Date/ Time Living Will No August 03, 2024 1:21pm Do you have a Healthcare Power of Yard Rigger? No August 03, 2024 1:21pm Chief Complaint and Reason for Visit Chief Complaint LUMBAR SPINE Rm 4 LEFT SIDE PAIN EORDER- RIB PAIN Reason for Visit DDD (degenerative di sc disease), lumbar Left-sided chest wall pain Chief Complaint LEFT SIDE PAIN EORDER- RIB PAIN Reason for Visit Left-sided chest wal l pain Chief Complaint RIGHT SIDE PAIN pain R91.8 Other nonspecific abnormal finding of lung f Reason for Visit Mass of left lung Muscle strain of chest wall Chief Complaint RIGHT SIDE PAIN pain R91.8 Other nonspecific abnormal finding of lung f LUMBAR SPINE RM 2 RT ear infection DDD. RX HERE back Reason for Visit Mass of left lung Muscle strain of chest wall DDD (degenerative disc disease), lumbar Excessive cerumen in right ear canal Chief Complaint R91.8 Other nonspeci fic abnormal finding of lung f LUMBAR SPINE RM 2 RT ear infection back DDD. RX HERE Reason for Visit DDD (degenerative di sc disease), lumbar Excessive cerumen in right ear canal Chief Complaint R91.8 Other nonspeci fic abnormal finding of lung f LUMBAR SPINE RM 2 RT ear infection back DDD. RX HERE LUMBAR SPINE Reason for Visit DDD (degenerative di sc disease), lumbar Excessive cerumen in right ear canal DDD (degenerative disc disease), lumbar Herniation of intervertebral disc between L5 and S1 Chief Complaint Admit Date LUMBAR SPINE May 02, 2024 1 :46pm chest pain June 01, 2024 1:37pm LUMBAR RADICULOPATHY June 09, 2024 1:01pm LUMBAR RADIC/RX HERE June 10, 2024 3:30pm Reason for Visit Admit Date Lumbar radiculopathy May 02, 2024 1:46pm Chief Complaint Admit Date LUMBAR SPINE May 02, 2024 1 :46pm chest pain June 01, 2024 1:37pm LUMBAR RADICULOPATHY June 09, 2024 1:01pm lumbar spine June 20, 2024 10:5 3am LUMBAR RADIC/RX HERE July 08, 2024 3: 30pm Reason for Visit Admit Date Lumbar radiculopathy May 02, 2024 1:46pm Lumbar radiculopathy June 20, 2024 10: 53am Chief Complaint Admit Date LUMBAR SPINE May 02, 2024 1 :46pm chest pain June 01, 2024 1:37pm LUMBAR RADICULOPATHY June 09, 2024 1:01pm lumbar spine June 20, 2024 10:5 3am LUMBAR RADIC/RX HERE July 08, 2024 3: 30pm CP August 03, 2024 1:0 6pm Chief Complaint Admit Date CP August 03, 2024 1:0 6pm CHEST PAIN, CARIOMYOPATHY November 04 2:36pm Chief Complaint Admit Date CP August 03, 2024 1:0 6pm CHEST PAIN, CARIOMYOPATHY November 04 2:36pm 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 November 19, 2024 1:03pm Summary Purpose Family History No Family History Records Found Additional Source Comments Source Comments (unrecognize d section and content) In the event this informatio n is protected by the Federal Confidentiality of Alcohol and Drug Abuse Patient Records regulations: The Federal rules restrict any use of the information to criminally investigate or prosecute any alcohol or drug abuse patient.[facility] the event this information is protected by the Federal Confidentiality of Alcohol and Drug Abuse Patient Records regulations: The Federal rules restrict any use of the information to criminally investigate or prosecute any alcohol or drug abuse patient.[facility] the event this information is protected by the Federal Confidentiality of Alcohol and Drug Abuse Patient Records regulations: The Federal rules restrict any use of the information to criminally investigate or prosecute any alcohol or drug abuse patient.[facility] the event this information is protected by the Federal Confidentiality of Alcohol and Drug Abuse Patient Records regulations: The Federal rules restrict any use of the information to criminally investigate or prosecute any alcohol or drug abuse patient.[facility] the event this information is protected by the Federal Confidentiality of Alcohol and Drug Abuse Patient Records regulations: The Federal rules restrict any use of the information to criminally investigate or prosecute any alcohol or drug abuse patient.[facility] the event this information is protected by the Federal Confidentiality of Alcohol and Drug Abuse Patient Records regulations: The Federal rules restrict any use of the information to criminally investigate or prosecute any alcohol or drug abuse patient.[facility] the event this information is protected by the Federal Confidentiality of Alcohol and Drug Abuse Patient Records regulations: The Federal rules restrict any use of the information to criminally investigate or prosecute any alcohol or drug abuse patient.[facility] the event this information is protected by the Federal Confidentiality of Alcohol and Drug Abuse Patient Records regulations: The Federal rules restrict any use of the information to criminally investigate or prosecute any alcohol or drug abuse patient.[facility] Reason for Visit (unrecogniz ed section and content) Reason Comments 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 Reason Comments MRI denial 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 Reason Comments Nausea & Vomiting Vomiting since 1 am, hot and cold flashes x 3 days (pt said he could have possible food poisoning) Reason Comments Cough Chest congestion, wh eeze, tightness in chest, SOB, hard to catch breath x 11 days Reason Comments Cough wheezing x 3-4 days, exposure to black mold Reason Comments Cough With wheezing x 3 da ys, chills x 1 day Care Teams (unrecognized sec tion and content) Cane Piler Relationship Specialty Start Date End Date Сергей Bergman, [employer] TE[employer]ER [address] [place] [address] PCP - General Family Practice 05/08/13 Cane Piler Relationship Specialty Start Date End Date Сергей Bergman, [employer] [address] [place] [address] PCP - General Family Practice 05/08/13 Cane Piler Relationship Specialty Start Date End Date Сергей Bergman, [employer] TE[employer]ER [address] [place] [address] PCP - General Family Medicine 05/08/13 Team Status: Active Member Role Status Dates Сергей Bergman EXTENDER, EXTENDER-C Family Provider Activ e Сергей Bergman EXTENDER, EXTENDER-C Primary Care Provider Active Team Status: Inactive Member Role Status Dates Сергей Bergman EXTENDER, EXTENDER-C Primary Care Provider, Attending Provider Active Team Status: Inactive Member Role Status Dates Сергей Bergman EXTENDER, EXTENDER-C Primary Care Provider, Referring Provider Active Dr. Steve Kim DO Attending Provider Active Team Status: Inactive Member Role Status Dates Сергей Bergman EXTENDER, EXTENDER-C Primary Care Provider Active Dr. Jorge Alberto Hawkins MD Attending Provider Active Team Status: Inactive Member Role Status Dates Сергей Bergman EXTENDER, EXTENDER-C Primary Care Provider, Referring Provider Active Corey James PA, PA Attending Provider Active Team Status: Inactive Member Role Status Dates Сергей Bergman EXTENDER, EXTENDER-C Primary Care Provider, Attending Provider, Referring Provider Active Team Status: Active Member Role Status Dates Сергей Bergman EXTENDER, EXTENDER-C Primary Care Provider Active Corey James PA, PA Attending Provider, Referring Pr ovider Active Team Status: Inactive Member Role Status Dates Сергей Bergman EXTENDER, EXTENDER-C Primary Care Provider Active Corey James PA, PA Attending Provider, Referring Pr ovider Active Team Status: Inactive Member Role Status Dates Сергей Bergman EXTENDER, EXTENDER-C Primary Care Provider Active Dr. Segundo Griffin , DO Emergency Provider Active Team Status: Active Member Role Status Dates Сергей Bergman EXTENDER, EXTENDER-C Primary Care Provider Active Dr. Steve Kim , DO Attending Provider, Referring P rovider Active Team Status: Inactive Member Role Status Dates Сергей Bergman EXTENDER, EXTENDER-C Primary Care Provider Active Dr. Segundo Griffin , DO Attending Provider, Emergency P rovider Active Team Status: Active Member Role Status Dates Сергей Bergman EXTENDER, EXTENDER-C Primary Care Provider, Attending Provider Active Team Status: Inactive Member Role Status Dates Сергей Bergman EXTENDER, EXTENDER-C Primary Care Provider Active Dr. Steve Kim , DO Attending Provider, Referring P rovider Active Cane Piler Relationship Specialty Start Date End Date Сергей Bergman, [employer] [address] [place] [id number] PCP - General Family Medicine 05/08/13 Cane Piler Relationship Specialty Start Date End Date Сергей Bergman, [employer] [address] [place] [id number] PCP - General Family Medicine 05/08/13 Cane Piler Relationship Specialty Start Date End Date Сергей Bergman, [employer] [address] [place] [id number] PCP - General Family Medicine 05/08/13 Cane Piler Relationship Specialty Start Date End Date Сергей Bergman, [employer] [address] [place] [id number] PCP - General Family Medicine 05/08/13 Team Status: Active Member Role Status Dates Сергей Bergman EXTENDER, EXTENDER-C Primary Care Provider Active Team Status: Inactive Member Role Status Dates Сергей Bergman EXTENDER, EXTENDER-C Primary Care Provider Active Start: February End: February 22, 2024 Сергей Bergman EXTENDER, EXTENDER-C Attending Provider Active Start: February 22, 2024 End: February 22, 2024 Сергей Bergman EXTENDER, EXTENDER-C Referring Provider Active Start: February 22, 2024 End: February 22, 2024 Team Status: Inactive Member Role Status Dates Сергей Bergman EXTENDER, EXTENDER-C Primary Care Provider Active Start: April End: May 02, 2024 Сергей Bergman EXTENDER, EXTENDER-C Referring Provider Active Start: May 02, 2024 End: May 02, 2024 CALEB Armenta Attending Provider Active Star t: May 02, 2024 End: May 02, 2024 Team Status: Inactive Member Role Status Dates Сергей Bergman EXTENDER, EXTENDER-C Primary Care Provider Active Start: June [id number] End: June 01, 2024 Dr. Emil Nicole MD Attending Provider Active Sta rt: June 01, 2024 End: June 01, 2024 Dr. Emil Nicole MD Emergency Provider Active Sta rt: June 01, 2024 End: June 01, 2024 Team Status: Inactive Member Role Status Dates Сергей Bergman EXTENDER, EXTENDER-C Primary Care Provider Active Start: June 092024 End: June 09, 2024 CALEB Armenta Attending Provider Active Star t: June 09, 2024 End: June 09, 2024 CALEB Armenta Referring Provider Active Star t: June 09, 2024 End: June 09, 2024 Team Status: Active Member Role Status Dates Сергей Bergman EXTENDER, EXTENDER-C Primary Care Provider Active Start: June 102024 CALEB Armenta Attending Provider Active Star t: June 10, 2024 CALEB Armenta Referring Provider Active Star t: June 10, 2024 Team Status: Inactive Member Role Status Dates Сергей Bergman EXTENDER, EXTENDER-C Primary Care Provider Active Start: June 20, 2024 End: June 20, 2024 Сергей Bergman EXTENDER, EXTENDER-C Referring Provider Ac tive Start: June 20, 2024 End: June 20, 2024 CALEB Armenta Attending Provider Active Star t: June 20, 2024 End: June 20, 2024 Team Status: Inactive Member Role Status Dates Сергей Bergman EXTENDER, EXTENDER-C Primary Care Provider Active Start: July 08, 2024 End: July 08, 2024 CALEB Armenta Attending Provider Active Star t: July 08, 2024 End: July 08, 2024 CALEB Armenta Referring Provider Active Star t: July 08, 2024 End: July 08, 2024 Team Status: Inactive Member Role Status Dates Сергей Bergman EXTENDER, EXTENDER-C Primary Care Provider Active Start: August 03, 2024 End: August 03, 2024 Dr. Emil Nicole MD Emergency Provider Active Sta rt: August 03, 2024 End: August 03, 2024 Cane Piler Relationship Specialty Start Date End Date Сергей Bergman CNP [address] [place] [id number] PCP - General Family Medicine 05/08/13 Team Status: Active Member Role/Relationship Status Dates Сергей Bergman EXTENDER, EXTENDER-C Primary Care Provider Active Team Status: Inactive Member Role/Relationship Status Dates Сергей Bergman EXTENDER, EXTENDER-C Primary Care Provider Active Start: August 03, 2024 End: August 03, 2024 Dr. Emil Nicole MD Attending Provider Active Sta rt: August 03, 2024 End: August 03, 2024 Dr. Emil Nicole MD Emergency Provider Active Sta rt: August 03, 2024 End: August 03, 2024 Team Status: Inactive Member Role/Relationship Status Dates Сергей Bergman EXTENDER, EXTENDER-C Primary Care Provider Active Start: November 04, 2024 End: November 04, 2024 Dr. Breezy sharif MD Attending Provider Active Start: November 04 End: November 04, 2024 Dr. Breezy sharif MD Referring Provider Active Start: November 04 End: November 04, 2024 Team Status: Active Member Role/Relationship Status Dates Сергей Bergman EXTENDER, EXTENDER-C Primary Care Provider Active Start: November 04, 2024 Dr. Jorge Alberto Hawkins MD Attending Provider Active S tart: November 04, 2024 Team Status: Inactive Member Role/Relationship Status Dates Сергей Bergman EXTENDER, EXTENDER-C Primary Care Provider Active Start: November 19, 2024 End: November 19, 2024 Сергей Bergman EXTENDER, EXTENDER-C Attending Provider Ac tive Start: November 19, 2024 End: November 19, 2024 Сергей Bergman NP, EXTENDER-C Referring Provider Ac tive Start: November 19, 2024 End: November 19, 2024 Patricia ELLIS, PA Other Provider Active Start : November 19, 2024 End: November 19, 2024 Goals (unrecognized section and content) Goals may be documented in a n alternate sectionGoals may be documented in an alternate section No data available for this section No data available for this section No data available for this sectionGoals may be documented in an alternate sectionGoals may be documented in an alternate sectionGoals may be documented in an alternate sectionGoals may be documented in an alternate sectionGoals may be documented in an alternate sectionGoals may be documented in an alternate sectionGoals may be documented in an alternate section No data available for this section No data available for this section No data available for this section No data available for this section No data available for this sectionGoals may be documented in an alternate sectionGoals may be documented in an alternate sectionGoals may be documented in an alternate sectionGoals may be documented in an alternate sectionGoals may be documented in an alternate section Care Team (unrecognized sect ion and content) Care Team Personnel Name: СЕРГЕЙ BERGMAN PHONE BANKER - [employer] TE[employer] Position: [employer] Coordinator Member Role: Primary Care Physician Address: Address: [address] [place] [address] [address] [place], [place] [address] Name: JACQUELYN ANDRES MD Position: ED Physician Member Role: ED Physician Address: Address: [facility] [address] [place], [place] [address] Care Team Related Persons Name: ELIER JAMES (unrecognized sect ion and content) No Status Records FoundNo Status Records FoundNo Status Records FoundNo Status Records FoundNo Status Records Found INFORMATION SOURCE (unrecogn ized section and content) DATE CREATED AUTHOR 12/10/2023 [facility] ([place]) DATE CREATED AUTHOR AUTHOR'S ORGANIZ ATION 01/09/2024 [facility] DATE CREATED AUTHOR AUTHOR'S ORGANIZ ATION 05/02/2024 [facility] DATE CREATED AUTHOR AUTHOR'S ORGANIZ ATION 08/31/2024 [facility] DATE CREATED AUTHOR AUTHOR'S ORGANIZ ATION 12/23/2024 [facility] FOR RECORDS PERTAINING TO PATIENTS WHO ARE OR HAVE BEEN ENROLLED IN A CHEMICAL DEPENDENCY/SUBSTANCEABUSE PROGRAM, SOME INFORMATION MAY BE OMITTED. This clinical summary was aggregated from multiple sources. Caution should be exercised in using it in the provision of clinical care. This summary normalizes information from multiple sources, and as a consequence, information in this document may materially change the coding, format and clinical context of patient data. In addition, data may be omitted in some cases. CLINICAL DECISIONS SHOULD BE BASED ON THE PRIMARY CLINICAL RECORDS. [facility] [employer] provides no warranty or guarantee of the accuracy or completeness of information in this document.
[2024-12-28 04:59] VITALS: BP 154/94; PULSE 98; RESP 16; TEMP 36.6; O2SAT 100
== END 2024-12-28 05:00 | disposition home or self-care (01) ==
PROVIDERS: Emergency Provider Student in an Organized Health Care Education/Training Program; PCP Nurse Practitioner Family; Visit Provider Student in an Organized Health Care Education/Training Program
DX: S30.0XXA Contusion of lower back and pelvis, initial encounter (principal); F20.9 Schizophrenia, unspecified; F31.9 Bipolar disorder, unspecified; E78.00 Pure hypercholesterolemia, unspecified; I10 Essential (primary) hypertension; F17.200 Nicotine dependence, unspecified, uncomplicated; J45.909 Unspecified asthma, uncomplicated; Z79.51 Long term (current) use of inhaled steroids; Z79.82 Long term (current) use of aspirin; Z79.899 Other long term (current) drug therapy; Z79.84 Long term (current) use of oral hypoglycemic drugs; W19.XXXA Unspecified fall, initial encounter
CPT/HCPCS: 72131; 72170; 96372; 99282

== ENCOUNTER 2025-01-07 02:35 | Emergency (ER) | payer MEDICARE, MEDICAID, SELFPAY ==
[2025-01-07 02:36] VITALS: BP 151/91; PULSE 103; RESP 18; TEMP 36.4; O2SAT 97; BMI 40.2
--- NOTE | 2025-01-07 02:38 | EDS_ITS ---
HPI History of Present Illness Chief Complaint: Nausea/Vomiting [facility] Medical History Gastroenteritis due to food toxin Nausea & vomiting Hypercholesteremia Smoker Hypertension Night terrors, adult Bipolar disorder Schizophrenia Excessive cerumen in right ear canal Mass of left lung Muscle strain of chest wall Left-sided chest wall pain Lumbar strain Lumbar contusion Back pain Asthma Fatigue Home Medications ?Medication ?Instructions ?Recorded ?Last Taken ?Type atenolol 25 mg tablet 25 mg PO DAILY 10/09/18 Unkn own History omeprazole 10 mg capsule,delayed 10 mg PO DAILY Unknown History release fluticasone 100 mcg-salmeterol 50 1 inh inhalation TRE LY 11/23/22 Unknown History mcg/dose blistr powdr for inhalation (Advair Diskus) albuterol sulfate 90 mcg/actuation 2 puff inhalation Q 4H PRN 12/28/24 Unknown History aerosol inhaler shortness of breath or wheez ing aspirin 81 mg tablet,delayed 81 mg PO DAILY 12/28/24 U nknown History release cetirizine 10 mg tablet 10 mg PO DAILY ALLERGIES Unknown History cholecalciferol (vitamin D3) 1,250 1,250 mcg PO QMONTH 12/28/24 Unknown History mcg (50,000 unit) capsule famotidine 40 mg tablet 40 mg PO DAILY INDIGESTION 0 12/28/24 Unknown History fluticasone propionate 50 2 spray intranasal Q12H JIMI RGIES 12/28/24 Unknown History mcg/actuation nasal spray,suspension metformin 500 mg tablet 500 mg PO BID 12/28/24 Unkno wn History metoprolol succinate 25 mg 25 mg PO DAILY HEART RATE 0 12/28/24 Unknown History tablet,extended release 24 hr montelukast 10 mg tablet 10 mg PO DAILY ALLERGIES Unknown History olanzapine 15 mg tablet 15 mg PO QHS 12/28/24 Unknow n History omeprazole 40 mg capsule,delayed 40 mg PO DAILY Unknown History release prazosin 1 mg capsule 1 mg PO QHS 12/28/24 Unknown History prazosin 2 mg capsule 2 mg PO QHS 12/28/24 Unknown History ramipril 10 mg capsule 10 mg PO DAILY 12/28/24 Unkn own History rosuvastatin 5 mg tablet 5 mg PO DAILY HIGH CHOLESTER OL 12/28/24 Unknown History amoxicillin 875 mg-potassium 1 tab PO Q12H 10 days #20 tabs 01/01/25 Unknown Rx clavulanate 125 mg tablet [id number]-gnptoxlhx 3.5 3 drp otic (ear) Q4H 10 days #10 mL 01/01/25 Unknown Rx mg-10,000 unit/mL-1 % ear drops,susp ondansetron HCl 4 mg tablet 4 mg PO Q8H PRN nausea and 01/06/25 Unknown Rx vomiting #7 tabs ondansetron 4 mg disintegrating 4 mg PO Q8H PRN PRN Na usea #10 tabs 01/07/25 Unknown Rx tablet Allergy/AdvReac Type Severity Reaction Status Date / Time cefaclor (From [facility], 1928–1983) Allergy Hives Verified 01/07/25 02:41 Surgical History History of ankle surgery Social History Smoking Status: Heavy Smoker (>10/day) alcohol intake: never substance use type: marijuana EXAM Physical Exam Const Vital Signs: 01/07/25 02:36 Temperature 97.5 F L Temperature Source Temporal Pulse Rate 103 H Respiratory Rate 18 Blood Pressure 151/91 H Blood Pressure Mean 111 Pulse Ox 97 Oxygen Delivery Method Room Air MDM MDM MDM Narrative Medical decision making narrative: HISTORY OF PRESENT ILLNESS: Chief complaint: Nausea and vomit 39-year-old male history of hyperlipidemia, hypertension, GERD, type 2 diabetes, schizophrenia, bipolar disorder presents with nausea and vomiting. States this began yesterday morning. He was told by urgent care a stomach virus and prescribed nausea medicine however he could not fill it because insurance not cover it. States he had [facility] tonight started vomiting afterwards. Also notes he began taking antibiotics for ear infection. Denies any ear pain at this time. Notes abdominal pain with vomiting only REVIEW OF SYSTEMS: Pertinent positives: Nausea vomiting, abdominal pain Pertinent negatives: Fever PHYSICAL EXAM: Nursing triage notes reviewed, Vital signs reviewed Constitutional: please see mdm HENT: MMM Eyes: Pupils equal round and reactive to light, Extraocular muscles intact Neck: No stridor, no JVD, full neck ROM Lungs: Clear to auscultation, No wheezing or rales. No increased work of breathing, no conversational dyspnea, no accessory muscle use, no nasal flaring. No respiratory distress noted Heart: Regular rate and rhythm, No murmurs, No rubs and No gallops, 2+ distal pulses (radial, femoral, posterior tibial) in all extremities Abdomen: Soft, there is no tenderness, rigidity, rebound or guarding, no obvious peritoneal signs, no palpable pulsatile abdominal masses, no auscultated abdominal bruit : No CVAT Extremities: No edema Neuro: No new focal neurological deficits, cranial nerves II through XII intact, 5/5 strength in all present extremities. Intact sensation to light touch in all present extremities, 2+ reflexes bilateral patella tendons. Skin: No rash or lesions noted MEDICAL DECISION MAKING: Chief Complaint: please see HPI External records reviewed: Reviewed prior imaging studies: No recent [place] imaging of the abdomen or pelvis noted Factors affecting care: As per HPI Social determinants of health: Denies illicit drug History obtained from others: Mother Consults: none [facility] Narrative: Patient was initially hemodynamically stable, afebrile nontoxic-appearing. Abdominal exam overall benign I considered the following differential diagnosis: Dehydration, electrolyte disturbance, acute kidney injury, bowel obstruction, bowel perforation, other surgical pathology of the abdomen or pelvis I obtained labs to further determine if the patient was suffering from a life- threatening etiology. While I considered acute surgical emergency of the abdomen pelvis patient's reassuring abdominal exam made advanced imaging not indicated at this time ALL IMAGES (IF OBTAINED) HAVE BEEN PERSONALLY REVIEWED AND INTERPRETED BY MYSELF. CBC with baseline leukocytosis, elevated hemoglobin suggestive of hemoconcentration, no thrombocytopenia BMP without significant electrolyte MIs, noted signs of mild metabolic acidosis and endorgan hypoperfusion, no acute kidney injury LFTs show no evidence of hepatobiliary pathology. Lipase is wnl indicating no pancreatic inflammation. Repeat abdominal exam remained benign. The patient is likely suffering from either a viral gastroenteritis versus side effect to recent antibiotic initiation. Given the benign nature of his abdominal exam we do not require advanced imaging at this time. Wrote a prescription for ondansetron. Gave instructions to drink plenty of oral fluids. Strict return precautions were discussed The patient and/or family, caregivers express understanding. The patient and/or family, caregivers agrees with the plan. Shared decision making: I will have a discussion with the patient and or visitors regarding risk/benefits of further testing or admission. They will be made aware of of the risk/benefits inherent in this decision they will be given the opportunity to voice understanding. Total critical care time today provided was at least 0 [] minutes. This excludes separately billable procedures. Critical care time (if documented) is secondary to the patient having high probability of clinically significant/life threatening deterioration in the patient's condition which required my urgent intervention. Impression: 1. Acute nausea and vomiting 2. Dehydration Dispo: Discharge home This note was generated with [employer] dictation software. It may contain incorrect words, spelling, and punctuation that were not noted in review of the chart prior to signing. Lab Data Labs: Laboratory Results - last 24 hr 01/07/25 03:07 WBC 12.5 H RBC 5.67 Hgb 17.1 H Hct 48.7 MCV 85.9 MCH 30.2 MCHC 35.1 RDW Std Deviation 41.7 RDW Coeff of Joey 13.4 Plt Count 228 MPV 10.9 Immature Gran % (Auto) 0.300 Neut % (Auto) 62.8 Lymph % (Auto) 25.8 [place] % (Auto) 9.7 Eos % (Auto) 0.7 Baso % (Auto) 0.7 Absolute Neuts (auto) 7.8 H Absolute Lymphs (auto) 3.23 Nucleated RBC % 0 Sodium 136 Potassium 4.1 Chloride 99 Carbon Dioxide 18.2 L Anion Gap 19 H BUN 28 H Creatinine 1.00 Estim Creat Clear Calc 144.88 Est GFR (MDRD) Non-Af 99 BUN/Creatinine Ratio 27.9 H Glucose 108 H Calcium 9.3 Total Bilirubin 0.95 AST 48 H ALT 42 Alkaline Phosphatase 63 Total Protein 8.2 Albumin 4.7 Globulin 3.6 Albumin/Globulin Ratio 1.3 Lipase 24 Discharge Plan Triage Chief Complaint: Nausea/Vomiting ED Provider: Sharif Sheikh Dx/Rx/DC Orders Instructions: ED Vomiting (Adult) Prescriptions: New ondansetron 4 mg tablet,disintegrating 4 mg PO Q8H PRN PRN (Reason: Nausea) Qty: 10 0RF No Action omeprazole 10 mg capsule,delayed release(DR/EC) 10 mg PO DAILY fluticasone propion-salmeterol [Advair Diskus] 100-50 mcg/dose blister with device 1 inh inhalation DAILY amoxicillin-pot clavulanate 875-125 mg tablet 1 tab PO Q12H 10 Days Qty: 20 0RF [id number]-GS 3.5-10,000-1 mg/mL-unit/mL-% drops,suspension 3 drp otic (ear) Q4H 10 Days Qty: 10 0RF Rx Instructions: apply to (cotton) wick; replace wick every 24 hours ondansetron HCl 4 mg tablet 4 mg PO Q8H PRN (Reason: nausea and vomiting) Qty: 7 0RF atenolol 25 tablet 25 mg PO DAILY aspirin 81 mg tablet,delayed release (DR/EC) 81 mg PO DAILY albuterol sulfate 90 mcg/actuation HFA aerosol inhaler 2 puff inhalation Q4H PRN (Reason: shortness of breath or wheezing) cetirizine 10 mg tablet 10 mg PO DAILY cholecalciferol (vitamin D3) 1,250 mcg (50,000 unit) capsule 1,250 mcg PO QMONTH metformin 500 mg tablet 500 mg PO BID prazosin 1 mg capsule 1 mg PO QHS Rx Instructions: TAKE WITH 2 MG TABLET FOR A TOTAL OF 3 MG AT NIGHT omeprazole 40 mg capsule,delayed release(DR/EC) 40 mg PO DAILY montelukast 10 mg tablet 10 mg PO DAILY olanzapine 15 mg tablet 15 mg PO QHS metoprolol succinate 25 mg tablet extended release 24 hr 25 mg PO DAILY prazosin 2 mg capsule 2 mg PO QHS Rx Instructions: TAKE WITH 1 MG TABLET FOR A TOTAL OF 3 MG AT NIGHT famotidine 40 mg tablet 40 mg PO DAILY fluticasone propionate 50 mcg/actuation spray,suspension 2 spray INTRANASAL Q12H ramipril 10 mg capsule 10 mg PO DAILY rosuvastatin 5 mg tablet 5 mg PO DAILY Primary Care Provider: Tobias Bergman NP Referrals: Uriel Em DO [Med Staff - Active Staff, Gastroenterology] Tobias Bergman NP, CODING EDUCATOR-C [Primary Care Provider, Family Practice] Activity Restrictions/Additional Instructions: Thank you for trusting us with your care today! Your labs are consistent with dehydration. Please take nausea medicine as prescribed. You may have to pay [id number] for nausea medicine if your insurance does not cover the prescription Please drink plenty of oral fluids I recommend Body Armor and Pedialyte. Please return to the emergency department if your symptoms change or worsen. Please follow with your primary care physician for further outpatient evaluation and management. Print Language: Khmer Disposition Disposition: Home, Self Care
--- OUTSIDE RECORDS SUMMARY | 2025-01-07 03:03 | XMS RPT_ITS | CCD ---
Author Organization [facility] Care Team Providers Care Well Service Floor Worker Name Role Phone Сергей Bergman CNP Primary Care Provider [phone] MADALYN MIR - СЕРГЕЙ JOHNSON Primary Care Phys ician Madalyn METAL DRILLING MACHINE OPERATOR, METAL DRILLING MACHINE OPERATOR-C Сергей López Primary Care Pr ovider Madalyn METAL DRILLING MACHINE OPERATOR, METAL DRILLING MACHINE OPERATOR-C Сергей López Referring Provi arlen Dr. Steve Kim Attending Provider Dr. Jorge Alberto Hawkins Attending Provider CALEB Couch Attending Provider Madalyn METAL DRILLING MACHINE OPERATOR, METAL DRILLING MACHINE OPERATOR-C Сергей López Primary Care Pr ovider Madalyn METAL DRILLING MACHINE OPERATOR, METAL DRILLING MACHINE OPERATOR-C Сергей López Referring Provi arlen Madalyn METAL DRILLING MACHINE OPERATOR, METAL DRILLING MACHINE OPERATOR-C Сергей López Primary Care Pr ovider Madalyn METAL DRILLING MACHINE OPERATOR, METAL DRILLING MACHINE OPERATOR-C Сергей López Referring Provi arlen CALEB Couch Attending Provider Madalyn METAL DRILLING MACHINE OPERATOR, METAL DRILLING MACHINE OPERATOR-C Сергей López Primary Care Pr ovider Madalyn METAL DRILLING MACHINE OPERATOR, METAL DRILLING MACHINE OPERATOR-C Сергей López Referring Provi arlen CALEB Couch Attending Provider Dr. Steve Kim Attending Provider Dr. Jorge Alberto Hawkins Attending Provider Madalyn METAL DRILLING MACHINE OPERATOR, METAL DRILLING MACHINE OPERATOR-C Сергей López Primary Care Pr ovider Madalyn METAL DRILLING MACHINE OPERATOR, METAL DRILLING MACHINE OPERATOR-C Сергей López Referring Provi arlen Erika ELLIS, CALEB Shaffer Attending Provider TREVER QUINONES, DR MARLYS Fair Attending Unadcramona gordonle MADALYN FINANCIAL REPORT SERVICE SALES AGENT - PAI GOW MANAGER, СЕРГЕЙ Louise [facility] navailable [facility] SAMANTHA Attending Unavailable MADALYN FINANCIAL REPORT SERVICE SALES AGENT - PAI GOW MANAGER, СЕРГЕЙ Louise Primary Care U navailable MADALYN FINANCIAL REPORT SERVICE SALES AGENT - PAI GOW MANAGER, СЕРГЕЙ Louise Attending U navailable MADALYN FINANCIAL REPORT SERVICE SALES AGENT - PAI GOW MANAGER, СЕРГЕЙ Louise Primary Care U navailable MADALYN FINANCIAL REPORT SERVICE SALES AGENT - PAI GOW MANAGER, СЕРГЕЙ Louise Primary Care U navailable APARNA QUINONES, BREEZY Attending U navailable Preston PAI GOW MANAGER, Сергей Louise Primary Care Provider [phone] MADALYN FINANCIAL REPORT SERVICE SALES AGENT - PAI GOW MANAGER, СЕРГЕЙ Louise Primary Care U navailable APARNA QUINONES, BREEZY Attending U navailable MADALYN FINANCIAL REPORT SERVICE SALES AGENT - PAI GOW MANAGER, СЕРГЕЙ Louise Primary Care U navailable APARNA QUINONES, BREEZY Attending U navailable Preston METAL DRILLING MACHINE OPERATOR-C, Сергей López Primary Care Provi arlen Madalyn METAL DRILLING MACHINE OPERATOR-C, Сергей López Attending Provider Madalyn METAL DRILLING MACHINE OPERATOR-C, Сергей López Referring Provider Ana Stewart Attending Provider Dr. Emil Nicole MD Attending Provider Dr. Emil Nicole MD Emergency Provider Ana Stewart Referring Provider Preston METAL DRILLING MACHINE OPERATOR-C, Сергей López Primary Care Provi arlen Madalyn METAL DRILLING MACHINE OPERATOR-C, Сергей López Referring Provider Ana Stewart Attending Provider Corey QUINONES, Dr. Stein Attending Provider Dr. Emil Nicole MD Emergency Provider Ana Stewart Referring Provider MADALYN, СЕРГЕЙ Louise Primary Care Unavailable GANGA ORDONEZ Attending Unavailable MADALYN, СЕРГЕЙ D Primary Care Unavailable MADALYN, СЕРГЕЙ D Primary Care Unavailable MADALYN, СЕРГЕЙ D Primary Care Unavailable MADALYN, СЕРГЕЙ D Primary Care Unavailable Preston METAL DRILLING MACHINE OPERATOR-C, Сергей López Primary Care Provi arlen Corey QUINONES, Dr. Stein Attending Provider Corey QUINONES, Dr. Stein Emergency Provider Aparna QUINONES, Dr. Breezy Umana Attending P rovider Aparna QUINONES, Dr. Breezy Umana Referring P rovider Shruthi QUINONES, Dr. Azul Attending Provider Preston METAL DRILLING MACHINE OPERATOR-C, Сергей López Attending Provider Madalyn METAL DRILLING MACHINE OPERATOR-C, Сергей López Referring Provider Patricia Em Other Provider Preston METAL DRILLING MACHINE OPERATOR-C, Сергей López Primary Care Provi arlen Damir QUINONES, Dr. Raman Emergency Provider Unavailab le Madalyn METAL DRILLING MACHINE OPERATOR, Сергей López Referring Unav ailable Madalyn METAL DRILLING MACHINE OPERATOR, Сергей López Primary Care Unav ailable Ana Elizabeth Attending Unavailable Madalyn METAL DRILLING MACHINE OPERATOR, Сергей López Referring Unav ailable Madalyn METAL DRILLING MACHINE OPERATOR, Сергей Rene Primary Care Unav ailable Ana Elizabeth Attending Unavailable Preston METAL DRILLING MACHINE OPERATOR, Сергей López Primary Care Unav ailable Ren Hall Attending Unavailable Madalyn METAL DRILLING MACHINE OPERATOR, Сергей López Referring Unav ailable Jorge Alberto Hawkins Attending Unavailable Preston METAL DRILLING MACHINE OPERATOR, Сергей López Primary Care Unav ailable Madalyn METAL DRILLING MACHINE OPERATOR, Сергей López Referring Unav ailable Patricia Em Consulting Unavailable Preston METAL DRILLING MACHINE OPERATOR, Сергей López Primary Care Unav ailable Preston METAL DRILLING MACHINE OPERATOR, Сергей López Attending Unav ailable Danisha Reich Attending Unavailable Madalyn METAL DRILLING MACHINE OPERATOR, Сергей Rene Primary Care Unav ailable Preston METAL DRILLING MACHINE OPERATOR, Сергей López Primary Care Unav ailable AparnaBreezy french Attending Un available AparnaBreezy french Referring Un available Preston METAL DRILLING MACHINE OPERATOR, Сергей Rene Primary Care Unav ailable Clara, Ana Attending Unavailable Clara, Ana Referring Unavailable Nicole, Emil Attending Unavailable Madalyn METAL DRILLING MACHINE OPERATOR, Сергей Rene Primary Care Unav ailable Nicole, Emil Attending Unavailable Madalyn METAL DRILLING MACHINE OPERATOR, Сергей López Primary Care Unav ailable Preston METAL DRILLING MACHINE OPERATOR, Сергей Floriannis Referring Unav ailable Madalyn METAL DRILLING MACHINE OPERATOR, Сергей López Primary Care Unav ailable Preston METAL DRILLING MACHINE OPERATOR, Сергей López Attending Unav ailable Madalyn METAL DRILLING MACHINE OPERATOR, Сергей López Primary Care Unav ailable Clara, Ana Attending Unavailable Clara, Ana Referring Unavailable Preston METAL DRILLING MACHINE OPERATOR-C, Сергей López Primary Care Physi maura Aparna QUINONES, Dr. Breezy Umana Attending P hysician Shruthi QUINONES, Dr. Azul Attending Physician Madalyn METAL DRILLING MACHINE OPERATOR-C, Сергей López Attending Physicia n Patricia Em Nurse Practitioner Damir QUINONES, Dr. Raman Attending Physician Riki naeem Reich MD, Dr. Raman Emergency Department Physici an Unavailable Ren Hall Attending Physician [phone] Allergies Allergy Classification Reported Allergen(s) Allergy Type Date of Onset Reaction(s) Facility (20 sources) Cefaclor; Translations: [cefaclor] Drug Allergy 4 Rash, Eruption of skin (disorder) [facility] Work Phone: (1 source) Cefaclor Drug Allergy [facility] Medications Current Medications Medication Drug Class(es) Dates Sig (Normalized) Sig (Original) [id number] 200 actuat albuterol 0.09 mg/actuat metered dose inhaler (10 sources) beta2-Adrenergic Agonist Start: 12-28-2024 ALBUTEROL SULFAT E (PROAIR HFA INHALATION) Inhale as instructed. Active ALBUTEROL SULFAT E (PROAIR HFA INHALATION) Inhale as instructed. 0 Active Comment on above: Inhale as instructed . albuterol MDI (90 mcg/inh) CFC free inhalation aerosol (7 sources) Start: End: take 2 puff(s) by inhalation every six hours as needed for wheezing albuterol MDI (90 mcg/inh) CFC free inhalation aerosol 2 puff(s), Inhalation, q6h, PRN as needed for wheezing, # 6.7 gram(s), 5 Refill(s), Pharmacy: [id number], Asthma, 187.5, cm, 08/30/23 14:18:00 EDT, Height, kg, 08/30/23 14:18:00 EDT, Dosing Weight Start Date: 08/30/23 Stop Date: 02/26/24 Status: Ordered Start: 08-01-2022 End: 01-28-2023 take 2 puff(s) by inhalation every six hours as needed for wheezing albuterol MDI (90 mcg/inh) CFC free inhalation aerosol 2 puff(s), Inhalation, q6h, PRN PRN as needed for wheezing, # 6.7 gram(s), 5 Refill(s), Pharmacy: [email or web address][id number], Asthma, 186.4, cm, 08/01/22 14:54:00 EDT, Height Start Date: 08/01/22 Stop Date: 01/28/23 Status: Ordered amoxicillin 875 mg / clavulanate 125 mg oral tablet (1 source) Penicillin-class Antibacterial Start: 01-01-2025 Amoxicillin-Pot Clavulanate 875-125 mg tablet Active 1 {tbl} PO Q12H 20 10 0 January 01, 2025 12:00am January 10, 2025 12:00am Acute sinusitis, unspecified Complies with drug therapy ARIPiprazole 30 mg oral tablet (8 sources) Atypical Antipsychotic take 30 mg by mouth once daily ARIPIPRAZOLE (ABILIFY ORAL) Take 30 mg by mouth once daily. Active Comment on above: Take 30 mg by mouth once daily. aspirin 81 mg delayed release oral tablet (9 sources) Platelet Aggregation Inhibitor, Nonsteroidal Anti-inflammatory Drug Start: 12-28-2024 take 1 tablet by mouth once daily Start: 03-27-2024 aspirin, enter ic coated (ASPIRIN, ENTERIC COATED) 81 mg EC tablet 03/27/2024 Active Start: 12-28-2023 aspirin 81 mg oral delayed release tablet Dose : 81 mg = 1 tab(s), Oral, Daily, # 30 tab(s), 6 Refill(s), Pharmacy: [id number], 187, cm, 12/28/23 14:54:00 EDT, Height, kg, 12/10/23 14:40:00 EDT, Dosing Weight Start Date: 12/28/23 Status: Ordered atenolol 25 mg oral tablet (20 sources) beta-Adrenergic Adamaris Start: 10-09-2018 take 1 tablet by mouth once daily Comment on above: Take 25 mg by [...] daily. cetirizine hydrochloride 10 mg oral tablet (10 sources) Histamine-1 Receptor Antagonist Start: 12-28-2024 take 1 tablet by mouth once daily Start: 08-30-2023 End: 02-26-2024 Zyrtec 10 mg oral tablet Dos e : 10 mg = 1 tab(s), Oral, qDay, # 90 tab(s), 1 Refill(s), Pharmacy: [facility], Seasonal allergies, 187.5, cm, 08/30/23 14:18:00 EDT, Height, kg, 08/30/23 14:18:00 EDT, Dosing Weight Start Date: 08/30/23 Stop Date: 02/26/24 Status: Ordered Start: 05-04-2022 End: 01-28-2023 Zyrtec 10 mg oral tablet Dos e : 10 mg = 1 tab(s), Oral, qDay, # 90 tab(s), 1 Refill(s), Pharmacy: [facility] #[id number], Seasonal allergies, 186.4, cm, 08/01/22 14:54:00 EDT, Height, kg, 08/01/22 14:54:00 EDT, Dosing Weight Start Date: 08/01/22 Stop Date: 01/28/23 Status: Ordered cholecalciferol 1.25 mg oral capsule (10 sources) Vitamin D Start: 12-28-2024 take 1 capsule by [facility] every month Start: 08-30-2023 End: 02-26-2024 cholecalciferol 1250 mcg (50 ,000 intl units) oral capsule Dose : 50,000 International_Unit = 1 cap(s), Oral, every other week, # 7 cap(s), 1 Refill(s), Pharmacy: [facility], Vitamin D deficiency, 187.5, cm, 08/30/23 14:18:00 EDT, Height, kg, 08/30/23 14:18:00 EDT, Dosing Weight Start Date: 08/30/23 Stop Date: 02/26/24 Status: Ordered Start: 05-04-2022 End: 01-28-2023 cholecalciferol 1250 mcg (50 ,000 intl units) oral capsule Dose : 50,000 International_Unit = 1 cap(s), Oral, qmonth, # 4 cap(s), 1 Refill(s), Pharmacy: [facility] #[id number], Vitamin D deficiency, 186.4, cm, 08/01/22 14:54:00 [...] Take 0.1 mg by mouth once daily. doxycycline hyclate 100 mg oral tablet (1 source) Tetracycline-class Drug Start: 04-13-20 End: 04-23-19 take 1 tablet by mouth twice daily doxycycline (VIBRA-TABS) 100 mg tablet Indications: Bronchopneumonia Take 1 tablet by mouth two times a day for 10 days. 20 tablet 04/13/2024 04/23/2024 Active famotidine 40 mg oral tablet (10 sources) Histamine-2 Receptor Antagonist Start: 12-29-19 take 1 tablet by mouth once daily Start: 08-30-2023 End: 02-26-2024 Pepcid 40 mg oral tablet Dos e : 40 mg = 1 tab(s), Oral, qHS, # 90 tab(s), 1 Refill(s), Pharmacy: [facility], GERD (gastroesophageal reflux disease), 187.5, cm, 08/30/23 14:18:00 EDT, Height, kg, 08/30/23 14:18:00 EDT, Dosing Weight Start Date: 08/30/23 Stop Date: 02/26/24 Status: Ordered Start: 05-04-2022 End: 01-28-2023 Pepcid 40 mg oral tablet Dos e : 40 mg = 1 tab(s), Oral, qHS, # 90 tab(s), 1 Refill(s), Pharmacy: [facility] #[id number], GERD (gastroesophageal reflux disease), 186.4, cm, 08/01/22 14:54:00 EDT, Height, kg, 08/01/22 14:54:00 EDT, Dosing Weight Start Date: 08/01/22 Stop Date: 01/28/23 Status: Ordered fluticasone propionate 0.05 mg/actuat metered dose nasal spray (17 sources) Corticosteroid Start: 12-28-2024 Start: 08-30-2023 End: 02-26-2024 take 1 dose nasal route once daily in the morning Flonase 50 mcg/inh nasal spray Dose = 2 spray(s), Nostril, each, qAM, # 9.9 mL, 5 Refill(s), Pharmacy: [facility], Seasonal allergies, 187.5, cm, 08/30/23 14:18:00 EDT, Height, kg, 08/30/23 14:18:00 EDT, Dosing Weight Start Date: 08/30/23 Stop Date: 02/26/24 Status: Ordered Start: 09-04-2022 End: 12-03-2022 take 1 dose nasal route once daily in the morning Flonase 50 mcg/inh nasal spray Dose = 2 spray(s), Nostril, each, qAM, # 9.9 mL, 2 Refill(s), Pharmacy: [facility] #[id number], Seasonal allergies, 186.5, cm, 09/04/22 14:48:00 EDT, [...] BID, # 1 EA, 5 Refill(s), Pharmacy: [facility], Asthma, 187.5, cm, 08/30/23 14:18:00 EDT, Height, kg, 08/30/23 14:18:00 EDT, Dosing Weight Start Date: 08/30/23 Stop Date: 02/26/24 Status: Ordered Start: 11-23-2022 Start: 11-23-2022 Fluticasone Pr opion-Salmeterol (Advair Diskus) [...] BID, # 1 EA, 0 Refill(s), Pharmacy: [facility] #[id number], Asthma, 186.5, cm, 09/04/22 14:48:00 EDT, Height Start Date: 09/04/22 Stop Date: 10/04/22 Status: Ordered hydrocortisone 10 mg/ml / neomycin 3.5 mg/ml / polymyxin b 39613 unt/ml otic suspension (17 sources) Aminoglycoside Antibacterial, Polymyxin-class Antibacterial, Corticosteroid Start: 01-01-2025 Qowmhcjn-Grpgnhnxn-Dv 3.5-10,000-1 mg/mL-unit/mL-% drops,suspension Active 3 NMA OTIC Q4H 10 10 0 January 01, 2025 12:00am January 10, 2025 12:00am apply to (cotton) wick; replace wick every 24 hours Complies with drug therapy Start: 05-13-2019 End: 05-23-2019 Elnmzeag-Lqwhdmgyc-Ds 3.5-10 ,000-1 mg/mL-unit/mL-% drops,suspension Discontinued 3 NMA OTIC Q4H 10 10 0 May 13, 2019 1:00am May 22, 2019 1:00am May 23, 2019 1:09am apply to (cotton) wick; replace wick every 24 hours Start: 05-13-2019 End: 05-23-2019 Popvzfvl-Bexwkhcyd-Pl Discon tinued 3 DRP OTIC Q4H 10 May 13, 2019 1:00am May 23, 2019 1:09am apply to (cotton) wick; replace wick every 24 hours lansoprazole 30 mg delayed release oral capsule [...] mg oral tablet (5 sources) Benzodiazepine Start: 4 LORazepam (ATIVAN) 1 mg tablet 03/17/2024 Active metFORMIN hydrochloride 500 mg oral tablet (7 sources) Biguanide Start: 5 take 1 tablet by mouth twice daily Start: 03-31-2024 metFORMIN (GLU COPHAGE) 500 mg tablet 03/31/2024 Active methylPREDNISolone 4 [...] succinate 25 mg extended release oral tablet (7 sources) beta-Adrenergic Adamaris Start: 12-28-2024 take 1 tablet by mouth once daily Start: 02-13-2024 metoprolol suc cinate ER (TOPROL XL) 25 mg 24 hr tablet 02/13/2024 Active montelukast 10 mg oral tablet (18 sources) Leukotriene Receptor Antagonist Start: 12-28-2024 take 1 tablet by mouth once daily Start: 08-30-2023 End: 02-26-2024 Singulair 10 mg oral tablet Dose : 10 mg = 1 tab(s), Oral, qDay, # 90 tab(s), 1 Refill(s), Pharmacy: [facility], Seasonal allergies, 187.5, cm, 08/30/23 14:18:00 EDT, Height, kg, 08/30/23 14:18:00 EDT, Dosing Weight Start Date: 08/30/23 Stop Date: 02/26/24 Status: Ordered Start: 05-04-2022 End: 01-28-2023 Singulair 10 mg oral tablet Dose : 10 mg = 1 tab(s), Oral, qDay, # 90 tab(s), 1 Refill(s), Pharmacy: [facility] #[id number], Seasonal allergies, 186.4, cm, 08/01/22 14:54:00 EDT, Height, kg, 08/01/22 14:54:00 EDT, Dosing Weight Start Date: 08/01/22 Stop Date: 01/28/23 Status: Ordered Comment on above: Take 10 mg by mouth once daily. OLANZapine 15 mg oral tablet (15 sources) Atypical Antipsychotic Start: 12-28-2024 take 1 tablet by mouth at bedtime Start: 03-20-2024 OLANZapine (ZY PREXA) 15 mg tablet 03/20/2024 Active Start: 01-31-2022 OLANZapine 7.5 mg oral tablet Dose : 7.5 mg = 1 tab(s), Oral, Daily, # 30 tab(s), 0 Refill(s) Start Date: 01/31/22 Status: Ordered omeprazole 40 mg delayed release oral capsule (20 sources) Proton Pump Inhibitor Start: 12-28-2024 take 1 capsule by mouth once daily Start: 08-30-2023 omeprazole (HI ILOSEC) 40 mg capsule 40 mg. 08/30/2023 Active Start: 08-01-2022 End: 09-30-2022 omeprazole 40 mg oral delaye d release capsule Dose : 40 mg = 1 cap(s), Oral, qDay, # 90 cap(s), 1 Refill(s), Pharmacy: [facility] #[id number], GERD (gastroesophageal reflux disease), 186.4, cm, 08/01/22 14:54:00 EDT, Height, kg, 08/01/22 14:54:00 EDT, Dosing Weight Start Date: 08/01/22 Stop Date: 09/30/22 Status: Ordered Start: 05-04-2022 End: 07-03-2022 omeprazole 40 mg oral delaye d release capsule Dose : 40 mg = 1 cap(s), Oral, qDay, # 30 cap(s), 1 Refill(s), Pharmacy: [facility] #[id number], GERD (gastroesophageal reflux disease), 186.4, cm, 05/04/22 15:00:00 EST, Height Start Date: 05/04/22 Stop Date: 07/03/22 Status: Ordered Start: 11-16-2018 take 1 capsule by [facility] once daily ondansetron 4 mg disintegrating oral tablet (5 sources) Serotonin-3 Receptor Antagonist Start: 04-05-2024 take 1 tablet by mouth every eight hours as needed ondansetron orally disintegrating (ZOFRAN ODT) 4 mg disintegrating tablet Take 1 tablet by mouth every 8 hours as needed. 12 tablet 04/05/2024 Active prazosin 1 mg oral capsule (17 sources) alpha-Adrenergic Adamaris Start: 12-28-2024 Start: 12-28-2024 Start: 01-31-2022 prazosin (MINI PRESS) 2 mg cap Take 2 mg by mouth. 01/31/2022 Active predniSONE 20 mg oral tablet (18 sources) Start: 07-07-2024 End: 07-12-2024 take 2 [...] 1 tablet daily for 3 days. ramipril 10 mg oral capsule (12 sources) Angiotensin Converting Enzyme Inhibitor Start: 12-28-2024 take 1 capsule by mouth once daily Start: 08-30-2023 ramipril (KATELYNN CE) 5 mg capsule 5 mg. 08/30/2023 Active raNITIdine 150 mg oral tablet (8 sources) Histamine-2 Receptor Antagonist take 150 mg by mouth twice daily RANITIDINE HCL (ZANTAC ORAL) Take 150 mg by mouth twice daily. Active Comment on above: Take 150 mg by mouth twice daily. rosuvastatin calcium 5 mg oral tablet (14 sources) HMG-CoA Reductase Inhibitor Start: take 1 tablet by mouth once daily Start: 08-01-2022 rosuvastatin ( CRESTOR) 5 mg tablet 5 mg. 08/01/2022 Active [...] / thonzonium bromide 0.5 mg/ml otic suspension (16 sources) Aminoglycoside Antibacterial, Corticosteroid Start: 11-16-2018 End: 11-16-2018 Bvloondm-Ufadiw-Ph-Thonzoniu m (Cortisporin-Tc) 3.3-3-10-0.5 mg/mL drops,suspension Discontinued 4 NMA OTIC THREE TIMES A DAY 10 7 0 November 16, 2018 12:00am November 22, 2018 12:00am November 16, 2018 12:43pm Start: 11-16-2018 End: 11-16-2018 Abmgdtgg-Rgxxey-Oj-Thonzoniu m (Cortisporin-Tc) 3.3-3-10-0.5 mg/mL drops,suspension Discontinued 4 DRP OTIC THREE TIMES A DAY 10 7 November 16, 2018 12:00am November 16, 2018 12:43pm cyclobenzaprine hydrochloride 10 mg oral tablet (20 sources) Muscle Relaxant Start: 06-28-2022 End: 12-28-2024 take 1 tablet by mouth three times daily Cyclobenzaprine 10 mg tablet Discontinued 10 mg PO THREE TIMES A DAY June 28, 2022 12:00am December 28, 2024 1:43am Start: 01-25-2016 End: 03-10-2023 take 1 tablet by mouth three times daily as needed for muscle spasms Cyclobenzaprine 10 mg tablet Discontinued 10 mg PO THREE TIMES A DAY as needed for muscle spasm May 05, 2021 1:00am June 29, 2021 3:11pm Comment on above: Take 1 tablet by yolette th three times daily as needed for Muscle Spasm. naproxen 500 mg oral tablet (20 sources) Nonsteroidal Anti-inflammatory Drug Start: 01-06-20 End: 12-29-19 take 1 tablet by mouth twice daily as needed Naproxen 500 MG tablet Discontinued 500 mg PO TWICE DAILY NEEDED July 09, 2023 2:38am December 28, 2024 1:42am triamcinolone acetonide 1 mg/ml topical cream (7 sources) Corticosteroid Start: 10-13-19 End: 11-24-19 triamcinolone 0.1% topical cream Apply 1 himanshu, Topical, BID, # 15 gram(s), 2 Refill(s), Pharmacy: [facility] #[id number], Cream, 187.4, cm, 10/12/22 14:42:00 EDT, Height, 149.7, kg, 10/12/22 14:42:00 EDT, Dosing Weight Start Date: 10/12/22 Stop Date: 11/23/22 Status: Ordered Start: 08-01-2022 End: 09-12-2022 triamcinolone 0.1% topical c ream Apply 1 himanshu, Topical, BID, # 15 gram(s), 2 Refill(s), Pharmacy: [facility] #[id number], Cream, 186.4, cm, 08/01/22 14:54:00 EDT, Height, [...] valve disorders] Onset: 4 07-21-2013 Chronic Lymphadenitis (12 sources) Axillary lymphadenopathy; Translations: [Localized enlarged lymph nodes] 11-24-2022 Episodic Nausea and vomiting (1 source) Nausea and vomiting; Translations: [Nausea with vomiting, unspecified] 04-05-2024 Episodic Nonspecific chest pain (20 sources) Atypical chest pain; Translations: [Other chest pain] Onset: 5 11-04-2016 Episodic Nutritional deficiencies (8 sources) Vitamin D deficiency 01-31-2022 Chronic Other circulatory disease (7 sources) Elevated blood-pressure reading without diagnosis of hypertension; Translations: [Elevated blood-pressure reading, without diagnosis of hypertension] 06-09-2024 Episodic Other ear and sense organ disorders (18 sources) Acute otitis externa; Translations: [Diffuse otitis externa, right ear] 05-13-2019 Episodic Other ear and sense organ disorders (11 sources) Excessive cerumen in ear canal ; Translations: [Impacted cerumen, right ear] 06-11-2023 Episodic Other ear and sense organ disorders (4 sources) Impacted cerumen, right ear; Translations: [Impacted cerumen] 06-11-2023 Episodic Other gastrointestinal disorders (7 sources) Heartburn; Translations: [Heartburn] 06-09-2024 Episodic Other gastrointestinal disorders (11 sources) History of gastroesophageal reflux disease; Translations: [...] Onset: 3 Episodic Other lower respiratory disease (12 sources) Lung mass; Translations: [Other nonspecific abnormal [...] [Nerve root and plexus disorder, unspecified] Onset: 4 Chronic Other nutritional; endocrine; and metabolic disorders (8 sources) Lipoprotein deficiency disorder; Translations: [Lipoprotein deficiency] Onset: 4 07-21-2013 Chronic Other nutritional; endocrine; and metabolic disorders (8 sources) 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 Other nutritional; endocrine; and metabolic disorders (8 sources) Hypocalcemia 06-13-2021 Chronic Other nutritional; endocrine; and metabolic disorders (18 sources) Body mass index 40+ - severely obese; Translations: [Morbid (severe) obesity due to excess calories] 09-04-2022 Chronic Other nutritional; endocrine; and metabolic disorders (2 sources) Morbid obesity 12-28-2023 Chronic Other nutritional; endocrine; and metabolic disorders (4 sources) Body mass index 30+ - obesity; Translations: [Body mass index (BMI) 37.0-37.9, adult] 08-11-2024 Chronic Other screening for suspected conditions (not mental disorders or infectious disease) (2 sources) Impaired left ventricular function 12-10-2023 Episodic Other skin disorders (3 sources) Acne 06-10-2020 Episodic Other upper respiratory disease (8 sources) Seasonal allergy 06-09-2019 Chronic Otitis media and related conditions (2 sources) Acute left otitis media; Translations: [Otitis media, unspecified, left ear] 01-01-2025 Episodic Tracy-; endo-; and myocarditis; cardiomyopathy (except that [...] unspecified reason] 06-01-2024 Episodic Residual codes; unclassified (12 sources) Tobacco use and exposure - finding; Translations: [Tobacco use] 06-09-2024 Episodic Spondylosis; intervertebral disc disorders; other back problems (20 sources) Degeneration of lumbar intervertebral disc; Translations: [Other intervertebral disc degeneration, lumbar region] Onset: 4 07-21-2013 Chronic Sprains and strains (20 sources) Low back strain; Translations: [Strain of muscle, fascia and tendon of lower back, initial encounter] Onset: 4 05-05-2021 Episodic Substance-related disorders (18 sources) Harmful pattern of use of caffeine; Translations: [Tobacco user] 09-04-2022 Chronic Substance-related disorders (11 sources) Cannabis abuse; Translations: [Cannabis use, unspecified, uncomplicated] 07-09-2023 Episodic Superficial injury; contusion (16 sources) Contusion of lower back; Translations: [Contusion of lower back and pelvis, initial encounter] 05-05-2021 Episodic Syncope (6 sources) Syncope and collapse; Translations: [Syncope and collapse] 10-16-2023 Episodic Unclassified (16 sources) Patient encounter status 12-08-2019 Unclassified (6 sources) M54.16 - Radiculopathy, lumbar region Unclassified (1 source) Acute cough; Translations: [Acute cough] Onset: 5 Unclassified (1 source) Low back pain, unspecified; Translations: [Low back pain, unspecified] Onset: 5 Past or Other Problems Problem [...] Test Name Value Interpretation Reference Range Facility Urgent Care Visit Reporton 0 01-01-2025 Urgent Care Visit Report [facility] [address], [address] [place] [id number] OFFICE VISIT Date of Service: 01/01/25 MR#: [id number] Acct: [id number] Name: GINO AVILEZ Rep #: [id number] : 1985 Provider: CALEB Kebede Age/Sex: 39/M Location: [facility] Status: Signed Intake Vital Signs 12/28/24 01:35 01/01/25 14:16 Height 6 ft 1 in BP 138/80 H Blood Pressure Location Lt brachial Position Sitting Respiration 16 Pulse 90 Pulse Source NIBP Temp 98.3 F Temp Source Oral Pulse Oximetry (%) 96 Oxygen Delivery Method room air Intake Visit Reasons: L EAR CONCERN Chief Complaint: left ear Clinical Appeals Auditor Required: No Is patient in pain?: No Allergies cefaclor (From [facility]) Allergy (Verified 01/01/25 14:16) Hives Have you fallen in the past year?: No Nurse's Note: left ear feels like fluid inside x 3-4 days. denies fever or ear pain. denies recent viral illness or significant ear hx [facility] Medical History Hypercholesteremia Smoker Hypertension Night terrors, adult Bipolar disorder Schizophrenia Excessive cerumen in right ear canal Mass of left lung Muscle strain of chest wall Left-sided chest wall pain Lumbar strain Lumbar contusion Back pain Asthma Fatigue Surgical History History of ankle surgery Social History Smoking Status: Heavy Smoker (>10/day) alcohol intake: never substance use type: marijuana HPI HPI Chief Complaint: left ear Details: GINO AVILEZ, is a 39 M who presents to the office today for complaint of left ear pain. Patient states that he believes he may have gotten water in his left ear. He denies otorrhea or hearing change/loss. No fever, chills or sweats. No other associated symptoms or alleviating/aggravating factors. ROS Const Constitutional: No other (As above) Exam Const General: cooperative and well developed HENMT Head: normal to inspection and atraumatic Ears: hearing grossly normal bilaterally, EAC abnormal edema on the left and EAC tenderness on the left and TM abnormal bulging on the left and erythematous on the left Nose: nasal discharge clear Face and sinus: normal facial exam Mouth: oral mucosae normal Resp Effort Inspection: normal respiratory effort and no audible wheezes Auscultation: Bilateral: Clear to Auscultation Cardio Rate: regular rate Rhythm: regular rhythm Neuro General: patient alert Psych Appearance: grossly normal Mental Status: mental status grossly normal Coding Level of Care Code Off vis,new,level 3 Diagnoses Acute diffuse otitis externa of left ear H60.312 Acute otitis media, left H66.92 Assessment and Plan Assessment and Plan (1) Acute diffuse otitis externa of left ear: Status: Acute (2) Acute otitis media, left: Status: Acute Plan: Augmentin and eardrops as prescribed today. Encouraged to get plenty of rest, drink lots of clear liquids, and use Tylenol or Ibuprofen (unless contraindicated) for fever and comfort. Patient also educated on other symptomatic management techniques. To be seen in 7-10 days if no improvement; sooner if worsening of symptoms. Patient advised of potential red flags and when appropriate to report to the ED. Patient verbalized understanding and agreement with all the above. Medications: New amoxicillin-pot clavulanate 875-125 mg 1 TAB PO Q12H 20 tabs 0RF 10 days J01.90 - Acute sinusitis, unspecified yjvchlyz-pycvzeizb-CS 3.5-10,000-1 mg/mL-unit/mL-% apply to (cotton) wick; replace wick every 24 hours 3 drps otic (ear) Q4H 10 mL 0RF 10 days Clinical Quality Measures Falls Risk Screening/Assistive Devices Have you fallen in the past year?: No 01/01/25 1436 Date Ren Flynn Signature: Date (if applicable) CC: [facility] Emergency Department Summary on 12-28-2024 Emergency Department Summary [facility] Department [address] [place] [address] Emergency Department Summary 12/28/24 MR#: [id number] Acct: [id number] Name: GINO AVILEZ Rep #: [id number] : 1985 39 From: Danisha Reich MD PCP: Сергей Bergman, METAL DRILLING MACHINE OPERATOR-C Status:REG ER Location: ED HPI History of Present Illness Chief Complaint: Back Narrative Narrative: Patient is a 39-year-old male presenting to the emergency department for back pain after a fall. 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 Patient states that he got up around midnight and his cat knocked over its water bowl and he did not see this and he slipped in the puddle of water. States he landed on his buttocks. Was able to get up by himself. Denies hitting his head, any loss of consciousness, neck pain or use of oral anticoagulation. Denies any numbness, weakness in his legs, bowel or bladder retention or incontinence, saddle anesthesia. He was able to ambulate after the fall. Endorses mild right hip pain as well that he states is slightly worse than baseline for him. Denies any other injuries or pain. [facility] Medical History Hypercholesteremia Smoker Hypertension Night terrors, adult Bipolar disorder Schizophrenia Excessive cerumen in right ear canal Mass of left lung Muscle strain of chest wall Left-sided chest wall pain Lumbar strain Lumbar contusion Back pain Asthma Fatigue Home Medications ???Medication ???Instructions ???Recorded ???Last Taken ???Type atenolol 25 mg tablet 25 mg PO DAILY 10/09/18 Unknown Hi story omeprazole 10 mg capsule,delayed 10 mg PO DAILY 11/16/18 Unknown Hi story release fluticasone 100 mcg-salmeterol 50 1 inh inhalation DAILY 11/23/22 U nknown History mcg/dose blistr powdr for inhalation (Advair Diskus) albuterol sulfate 90 mcg/actuation 2 puff inhalation Q4H PRN Unknown History aerosol inhaler shortness of breath or wheezing aspirin 81 mg tablet,delayed 81 mg PO DAILY 12/28/24 Unknown Hi story release cetirizine 10 mg tablet 10 mg PO DAILY ALLERGIES 12/28/24 Unknown History cholecalciferol (vitamin D3) 1,250 1,250 mcg PO QMONTH 12/28/24 Unk nown History mcg (50,000 unit) capsule famotidine 40 mg tablet 40 mg PO DAILY INDIGESTION 5 Unknown History fluticasone propionate 50 2 spray intranasal Q12H ALLERGIES 12/28/24 Unknown History mcg/actuation nasal spray,suspension metformin 500 mg tablet 500 mg PO BID 12/28/24 Unknown His tory metoprolol succinate 25 mg 25 mg PO DAILY HEART RATE 12/28/24 Unknown History tablet,extended release 24 hr montelukast 10 mg tablet 10 mg PO DAILY ALLERGIES 12/28/24 Unknown History olanzapine 15 mg tablet 15 mg PO QHS 12/28/24 Unknown Hist ory omeprazole 40 mg capsule,delayed 40 mg PO DAILY 12/28/24 Unknown Hi story release prazosin 1 mg capsule 1 mg PO QHS 12/28/24 Unknown Histo ry prazosin 2 mg capsule 2 mg PO QHS 12/28/24 Unknown Histo ry ramipril 10 mg capsule 10 mg PO DAILY 12/28/24 Unknown Hi story rosuvastatin 5 mg tablet 5 mg PO DAILY HIGH CHOLESTEROL Unknown History Allergy/AdvReac Type Severity Reaction Status Date / Time cefaclor (From Ceclor) Allergy Hives Verified 12/28/24 01:36 Surgical History History of ankle surgery Social History Smoking Status: Heavy Smoker (>10/day) alcohol intake: never substance use type: marijuana ROS ROS ED ROS Narrative See HPI EXAM Physical Exam Narrative Exam Narrative: Vital signs: Reviewed General: Alert and oriented x 3. No acute distress HEENT: Head is normocephalic and atraumatic, sinuses nontender, pupils equal round and reactive. Nares are patent. Oropharynx and throat exams normal. Neck: Supple without lymphadenopathy nontender. No midline cervical spinal tenderness to palpation. No step-offs or deformities. Cardiovascular: Regular rate and rhythm, no murmurs. No rubs or gallops. Normal S1 and S2 Respiratory: Clear to auscultation bilaterally. No wheezes, rales, rhonchi Abdominal: Soft and nontender. Normal bowel sounds. No guarding or rebound. Nonsurgical abdomen Extremities: Extremities are atraumatic and nontender to palpation with normal active range of motion. 5 out of 5 strength in all extremities. Sensation intact in all extremities. Back: No midline thoracic spinal tenderness to palpation. No step-offs or deformities. There is lower midline lumbar spinal tenderness to palpation with no step-offs or deformities. There is bilateral paraspinal lumbar tenderness to palpation. No erythem (more content not included)... [facility] Pelvis 1 or 2 Viewson 2024 Pelvis 1 or 2 Views [facility] Imaging Services [address] [place] [address] Pelvis 1 or 2 Views MR#: [id number] Acct: [id number] Name: GINO AVILEZ Rep #: [id number] : 1985 M 39 From: Una vuong MD PCP: Сергей Bergman METAL DRILLING MACHINE OPERATOR-C Status: REG ER Study: Pelvis 1 or 2 Views Date of Exam: 12/28/24 Exam# [id number] Ordering Dr: Danisha Reich MD PROCEDURE: PELVIS 1 OR 2 VIEWS 12/28/2024 REASON FOR EXAM: FALL, RIGHT HIP PAIN TECHNIQUE: Procedure Code: RADPEL Modality: DX Procedure: PELVIS 1 OR 2 VIEWS COMPARISON: None. 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 There is a non-specific bowel gas pattern. Normal visualized soft tissue structures. Normal visualized sacrum and bilateral iliac wings. Normal visualized bilateral superior and inferior pubic rami. Normal ischial tuberosities. Normal pubic symphysis. Normal visualized right femoral head. Normal right acetabulum. Normal right hip joint. Normal visualized left femoral head. Normal left acetabulum. Normal left hip joint. RAD/Pelvis 1 or 2 Views IMPRESSION: No evidence for acute abnormality. Reading Location: [place] [address] CC: METAL DRILLING MACHINE OPERATOR-C Сергей Bergman; Dr. Danisha Reich MD [employer] Pilot: Signed [facility] Spine Lumbar without Contras ton 12-28-2024 Spine Lumbar without Contrast [facility] Imaging Services [address] [place] [address] Spine Lumbar without Contrast MR#: [id number] Acct: [id number] Name: GINO AVILEZ Rep #: [id number] : 1985 M 39 From: Una vuong MD PCP: ORI Gamboa Status: REG ER Study: Spine Lumbar without Contrast Date of Exam: Exam# [id number] Ordering Dr: Danisha Reich MD PROCEDURE: SPINE LUMBAR WITHOUT CONTRAST 12/28/2024 REASON FOR EXAM: FALL, LOW BACK PAIN TECHNIQUE: Procedure Code: CTSPL Modality: CT Procedure: SPINE LUMBAR WITHOUT CONTRAST Coronal and Sagittal reconstruction series were provided. One or more dose reduction techniques were used (e.g., Automated exposure control, adjustment of the mA and/or kV according to patient size, use of iterative reconstruction technique COMPARISON: MRI of the lumbar spine on 06/09/2024. RADIATION DOSE SUMMARY: CTDlvol: 56.96 mGy DLP: 2139 mGycm FINDINGS: There are diffuse spondylotic changes. Findings are demonstrated to by diffuse disc space narrowing, osteophyte formation and degenerative endplate sclerosis. There is diffuse facet joint arthropathy with secondary bilateral neural foramina narrowing. No fracture or dislocation is seen. No aggressive lytic or blastic bony lesion is noted. Moderate arthrosis of the sacroiliac joints. CT/Spine Lumbar without Contrast IMPRESSION: Spondylosis. Findings are more prominent at L2-L3. No CT evidence of an acute traumatic abnormality. Reading Location: [place] [address] CC: ORI Bergman; Dr. Danisha Reich MD [employer] Pilot: Signed [facility] Anion gap in Serum or Plasma Ordered By: Сергей Bergman on 11-19-2024 Anion gap [Moles/Vol] 13 mmol/L 5-15 [facility] BUN/creatinine ratioOrdered By: Сергей Bergman on 11-19-2024 Urea nitrogen/Creatinine [Mass ratio] 18.0 mg/mg 10-20 [facility] Bilirubin, totalOrdered By: Сергей Bergman on 11-19-2024 Bilirubin [Mass/Vol] 0.37 mg/dL 0.00-1.30 [facility] CBC-Complete Blood Cnt No Di ffon 11-19-2024 Erythrocyte distribution width (RBC) [Ratio] 13.6 % Normal 11.6-14.6 [facility] Comment on above: Order Comment: SEND CBC,A1C,LIPID,VITD AND CMP RESULTS TO PATRICIA JAMES Performed By: #### L 501.9985, L500.4050, L500.4100, L502.0250, L506.1001, L100.0500, L501.5200 #### [facility] [address] [place], [address] Hematocrit (Bld) [Volume fraction] 50.0 % Normal 40-54 [facility] Comment on above: Order Comment: SEND CBC,A1C,LIPID,VITD AND CMP RESULTS TO PATRICIA JAMES Performed By: #### L 501.9985, L500.4050, L500.4100, L502.0250, L506.1001, L100.0500, L501.5200 #### [facility] [address] [place], [address] Hemoglobin (Bld) [Mass/Vol] 17.0 g/dL High 13.0-16.5 [facility] Comment on above: Order Comment: SEND CBC,A1C,LIPID,VITD AND CMP RESULTS TO PATRICIA JAMES Performed By: #### L 501.9985, L500.4050, L500.4100, L502.0250, L506.1001, L100.0500, L501.5200 #### [facility] [address] [place], [address] MCH (RBC) [Entitic mass] 29.7 pg Normal 27.0-32.0 [facility] Comment on above: Order Comment: SEND CBC,A1C,LIPID,VITD AND CMP RESULTS TO PATRICIA JAMES Performed By: #### L 501.9985, L500.4050, L500.4100, L502.0250, L506.1001, L100.0500, L501.5200 #### [facility] [address] [place], [address] MCHC (RBC) [Mass/Vol] 34.0 g/dL Normal 32-36 [facility] Comment on above: Order Comment: SEND CBC,A1C,LIPID,VITD AND CMP RESULTS TO PATRICIA JAMES Performed By: #### L 501.9985, L500.4050, L500.4100, L502.0250, L506.1001, L100.0500, L501.5200 #### [facility] [address] [place], [address] MCV (RBC) [Entitic vol] 87.3 fL Normal 80-94 [facility] Comment on above: Order Comment: SEND CBC,A1C,LIPID,VITD AND CMP RESULTS TO PATRICIA JAMES Performed By: #### L 501.9985, L500.4050, L500.4100, L502.0250, L506.1001, L100.0500, L501.5200 #### [facility] [address] [place], [address] Platelet mean volume (Bld) [Entitic vol] 10.6 fL Normal 6.2-12.0 [facility] Comment on above: Order Comment: SEND CBC,A1C,LIPID,VITD AND CMP RESULTS TO PATRICIA JAMES Performed By: #### L 501.9985, L500.4050, L500.4100, L502.0250, L506.1001, L100.0500, L501.5200 #### [facility] [address] [place], [address] Platelets (Bld) [#/Vol] 176 10*3/uL Normal 150-450 [facility] Comment on above: Order Comment: SEND CBC,A1C,LIPID,VITD AND CMP RESULTS TO PATRICIA JAMES Performed By: #### L 501.9985, L500.4050, L500.4100, L502.0250, L506.1001, L100.0500, L501.5200 #### [facility] [address] [place], [address] RBC (Bld) [#/Vol] 5.73 10*6/uL Normal 4.6-6.2 [facility] Comment on above: Order Comment: SEND CBC,A1C,LIPID,VITD AND CMP RESULTS TO PATRICIA JAMES Performed By: #### L 501.9985, L500.4050, L500.4100, L502.0250, L506.1001, L100.0500, L501.5200 #### [facility] [address] [place], [address] RDW SD 43.4 fl Normal 35.1-43.9 [facility] Comment on above: Order Comment: SEND CBC,A1C,LIPID,VITD AND CMP RESULTS TO PATRICIA JAMES Performed By: #### L 501.9985, L500.4050, L500.4100, L502.0250, L506.1001, L100.0500, L501.5200 #### [facility] [address] [place], [place], [phone] WBC (Bld) [#/Vol] 12.8 10*3/uL High 4.4-11.0 [facility] Comment on above: Order Comment: SEND CBC,A1C,LIPID,VITD AND CMP RESULTS TO PATRICIA JAMES Performed By: #### L 501.9985, L500.4050, L500.4100, L502.0250, L506.1001, L100.0500, L501.5200 #### [facility] [address] [place], [place], [id number] Calculated very low density lipoprotein (VLDL) cholesterol measurementOrdered By: Сергей Bergman on 11-19-2024 Calculated very low density lipoprotein (VLDL) cholesterol measurement 25 mg/dL 5-40 [facility] Carbon dioxide, total [Moles /volume] in Central venous bloodOrdered By: Сергей Bergman on 11-19-2024 CO2 [Moles/Vol] 24.8 mmol/L 21.0-32.0 [facility] Chloride assayOrdered By: Silvia Bergman on 11-19-2024 Chloride [Moles/Vol] 102 mmol/L 98-108 [facility] Comprehensive Metabolic Prof ilon 11-19-2024 Albumin [Mass/Vol] 4.3 g/dL Normal 3.5-5.0 [facility] Comment on above: Order Comment: SEND CBC,A1C,LIPID,VITD AND CMP RESULTS TO PATRICIA JAMES Performed By: #### L 501.9985, L500.4050, L500.4100, L502.0250, L506.1001, L100.0500, L501.5200 ####[facility] [address] [place], [place], [phone] Albumin/Globulin [Mass ratio] 1.3 {ratio} Normal 0.9-2.4 [facility] Comment on above: Order Comment: SEND CBC,A1C,LIPID,VITD AND CMP RESULTS TO PATRICIA JAMES Performed By: #### L 501.9985, L500.4050, L500.4100, L502.0250, L506.1001, L100.0500, L501.5200 ####[facility] [address] [place], [place], [phone] ALK PHOS 69 U/L Normal 40-129 [facility] Comment on above: Order Comment: SEND CBC,A1C,LIPID,VITD AND CMP RESULTS TO PATRICIA JAMES Performed By: #### L 501.9985, L500.4050, L500.4100, L502.0250, L506.1001, L100.0500, L501.5200 ####[facility] [address] [place], [place], [phone] ALT [Catalytic activity/Vol] 29 U/L Normal <=46 [facility] Comment on above: Order Comment: SEND CBC,A1C,LIPID,VITD AND CMP RESULTS TO PATRICIA JAMES Performed By: #### L 501.9985, L500.4050, L500.4100, L502.0250, L506.1001, L100.0500, L501.5200 ####[facility] [address] [facility] [address] [place], [place], [phone] AST [Catalytic activity/Vol] 23 U/L Normal <=37 [facility] Comment on above: Order Comment: SEND CBC,A1C,LIPID,VITD AND CMP RESULTS TO PATRICIA JAMES Performed By: #### L 501.9985, L500.4050, L500.4100, L502.0250, L506.1001, L100.0500, L501.5200 ####[facility] [address] [facility] [place], [address] Bilirubin [Mass/Vol] 0.37 mg/dL Normal 0.00-1.30 [facility] Comment on above: Order Comment: SEND CBC,A1C,LIPID,VITD AND CMP RESULTS TO PATRICIA JAMES Performed By: #### L 501.9985, L500.4050, L500.4100, L502.0250, L506.1001, L100.0500, L501.5200 ####[facility] [address] [place], [place], [phone] BUN/CRE 18.0 RATIO Normal 10-20 [facility] Comment on above: Order Comment: SEND CBC,A1C,LIPID,VITD AND CMP RESULTS TO PATRICIA JAMES Performed By: #### L 501.9985, L500.4050, L500.4100, L502.0250, L506.1001, L100.0500, L501.5200 ####[facility] [address] [place], [place], [phone] Calcium [Mass/Vol] 9.4 mg/dL Normal 7.6-11.0 [facility] Comment on above: Order Comment: SEND CBC,A1C,LIPID,VITD AND CMP RESULTS TO PATRICIA JAMES Performed By: #### L 501.9985, L500.4050, L500.4100, L502.0250, L506.1001, L100.0500, L501.5200 ####[facility] [address] [place], [place], [phone] Chloride [Moles/Vol] 102 mmol/L Normal 98-108 [facility] Comment on above: Order Comment: SEND CBC,A1C,LIPID,VITD AND CMP RESULTS TO PATRICIA JAMES Performed By: #### L 501.9985, L500.4050, L500.4100, L502.0250, L506.1001, L100.0500, L501.5200 ####[facility] [address] [place], [address] CO2 [Moles/Vol] 24.8 mmol/L Normal 21.0-32.0 [facility] Comment on above: Order Comment: SEND CBC,A1C,LIPID,VITD AND CMP RESULTS TO PATRICIA JAMES Performed By: #### L 501.9985, L500.4050, L500.4100, L502.0250, L506.1001, L100.0500, L501.5200 ####[facility] [address] [place], [address] Creatinine [Mass/Vol] 0.90 mg/dL Normal 0.70-1.20 [facility] Comment on above: Order Comment: SEND CBC,A1C,LIPID,VITD AND CMP RESULTS TO PATRICIA JAMES Performed By: #### L 501.9985, L500.4050, L500.4100, L502.0250, L506.1001, L100.0500, L501.5200 ####[facility] [address] [place], [address] GAP 13 Normal 5-15 [facility] Comment on above: Order Comment: SEND CBC,A1C,LIPID,VITD AND CMP RESULTS TO PATRICIA JAMES Performed By: #### L 501.9985, L500.4050, L500.4100, L502.0250, L506.1001, L100.0500, L501.5200 ####[facility] [address] [place], [place], [phone] GFR/1.73 sq M.predicted among non-blacks MDRD (S/P/Bld) [Vol rate/Area] 111 mL/min/{1.73_m2} Normal >60 [facility] Comment on above: Order Comment: SEND CBC,A1C,LIPID,VITD AND CMP RESULTS TO PATRICIA JAMES Result Comment: mL/m in/1.73m2 CKD-EPI Creatinine Equation (2020) Performed By: #### L 501.9985, L500.4050, L500.4100, L502.0250, L506.1001, L100.0500, L501.5200 ####[facility] [address] [place], [address] Globulin (S) [Mass/Vol] 3.3 g/dL Normal 2.2-4.2 [facility] Comment on above: Order Comment: SEND CBC,A1C,LIPID,VITD AND CMP RESULTS TO PATRICIA JAMES Performed By: #### L 501.9985, L500.4050, L500.4100, L502.0250, L506.1001, L100.0500, L501.5200 ####[facility] [address] [place], [address] Glucose [Mass/Vol] 96 mg/dL Normal 70-99 [facility] Comment on above: Order Comment: SEND CBC,A1C,LIPID,VITD AND CMP RESULTS TO PATRICIA JAMES Performed By: #### L 501.9985, L500.4050, L500.4100, L502.0250, L506.1001, L100.0500, L501.5200 ####[facility] [address], [address] Potassium [Moles/Vol] 4.1 mmol/L Normal 3.3-5.1 [facility] Comment on above: Order Comment: SEND CBC,A1C,LIPID,VITD AND CMP RESULTS TO PATRICIA JAMES Performed By: #### L 501.9985, L500.4050, L500.4100, L502.0250, L506.1001, L100.0500, L501.5200 ####[facility] [address] [place], [address] Sodium [Moles/Vol] 140 mmol/L Normal 133-145 [facility] Comment on above: Order Comment: SEND CBC,A1C,LIPID,VITD AND CMP RESULTS TO PATRICIA JAMES Performed By: #### L 501.9985, L500.4050, L500.4100, L502.0250, L506.1001, L100.0500, L501.5200 ####[facility] [address] [place], [address] T PROT 7.6 g/dL Normal 5.9-8.4 [facility] Comment on above: Order Comment: SEND CBC,A1C,LIPID,VITD AND CMP RESULTS TO PATRICIA JAMES Performed By: #### L 501.9985, L500.4050, L500.4100, L502.0250, L506.1001, L100.0500, L501.5200 ####[facility] [address] [place], [place], [phone] Urea nitrogen [Mass/Vol] 16 mg/dL Normal 4-19 [facility] Comment on above: Order Comment: SEND CBC,A1C,LIPID,VITD AND CMP RESULTS TO PATRICIA JAMES Performed By: #### L 501.9985, L500.4050, L500.4100, L502.0250, L506.1001, L100.0500, L501.5200 ####[facility] [address] [place], [place], [phone] Erythrocyte distribution wid th ratioOrdered By: Сергей Bergman on 11-19-2024 Erythrocyte distribution width (RBC) [Ratio] 13.6 % 11.6-14.6 [facility] Erythrocyte distribution wid th standard deviationOrdered By: Сергей Bergman on 11-19-2024 Erythrocyte distribution width (RBC) [Ratio] 43.4 fl 35.1-43.9 [facility] Glomerular filtration rate ( GFR) estimation/1.73 sq m using serum, plasma, or whole bOrdered By: Сергей Bergman on 11-19-2024 GFR/1.73 sq M.predicted among non-blacks MDRD (S/P/Bld) [Vol rate/Area] 111 mL/min/{1.73_m2} >60 [facility] Comment on above: mL/min/1.73m2 CKD-EP I Creatinine Equation (2020) Hematocrit Auto (Bld) [Volum e fraction]Ordered By: Сергей Bergman on 11-19-2024 Hematocrit (Bld) [Volume fraction] 50.0 % 40-54 [facility] Hemoglobin A1con 11-19-2024 HbA1c (Bld) [Mass fraction] 5.5 % Normal <=5.6 [facility] Comment on above: Order Comment: SEND CBC,A1C,LIPID,VITD AND CMP RESULTS TO PATRICIA JAMES Result Comment: Norm al < 5.7 % Prediabetic 5.7 - 6.4 % Diabetic >or= 6.5 % Please note range changes. Performed By: #### L 501.9985, L500.4050, L500.4100, L502.0250, L506.1001, L100.0500, L501.5200 #### [facility] [address] [place], [address] Hemoglobin A1c percentageOrd ered By: Сергей Bergman on 11-19-2024 HbA1c (Bld) [Mass fraction] 5.5 % <5.7 [facility] Comment on above: Normal < 5.7 % Predi abetic 5.7 - 6.4 % Diabetic >or= 6.5 % Please note range changes. Hemoglobin measurementOrdere d By: Сергей Bergman on 11-19-2024 Hemoglobin (Bld) [Mass/Vol] 17.0 g/dL High 13.0-16.5 [facility] LDL calc ser/plasOrdered By: Сергей Bergman on 11-19-2024 Cholesterol in LDL [Mass/Vol] 87 mg/dL [facility] Comment on above: Gliztzhkdt=940-848 m g/dL & Higher Afgr=144 mg/dL or greaterFriedwald Equation for LDL-C Laboratory - Chemistry and C hemistry - challengeOrdered By: Сергей Bergman on 11-19-2024 AST [Catalytic activity/Vol] 23 U/L <38 [facility] Lipid Profileon 11-19-2024 CHOL:HDL 4.10 Normal [facility] Comment on above: Order Comment: SEND CBC,A1C,LIPID,VITD AND CMP RESULTS TO PATRICIA JAMES Performed By: #### L 501.9985, L500.4050, L500.4100, L502.0250, L506.1001, L100.0500, L501.5200 ####[facility] [address] [place], [address] Cholesterol [Mass/Vol] 148 mg/dL Normal <=200 [facility] Comment on above: Order Comment: SEND CBC,A1C,LIPID,VITD AND CMP RESULTS TO PATRICIA JAMES Result Comment: Chol esterol level, Desirable <200 mg/dL Borderline high cholesterol 200-239 mg/dL High cholesterol >=240 mg/dL Recommendations of the NCEP Adult Treatment Panel for the following risk-cutoff thresholds for the [place] population. Performed By: #### L 501.9985, L500.4050, L500.4100, L502.0250, L506.1001, L100.0500, L501.5200 ####[facility] [address] [place], [address] Cholesterol in HDL [Mass/Vol] 36 mg/dL Low [facility] Comment on above: Order Comment: SEND CBC,A1C,LIPID,VITD AND CMP RESULTS TO PATRICIARebiotix Result Comment: Karen onal Cholesterol Education Program (NCEP) guidelines: <40 mg/dL: Low HDL-cholesterol (major risk factor for CHD) >= 60 mg/dL: High HDL-cholesterol (negative risk factor for CHD) HDL-cholesterol is affected by a number of factors, e.g. smoking, exercise, hormones, sex and age. Performed By: #### L 501.9985, L500.4050, L500.4100, L502.0250, L506.1001, L100.0500, L501.5200 ####[facility] [address] [place], [place], [phone]) Cholesterol in LDL [Mass/Vol] 87 mg/dL Normal [facility] Comment on above: Order Comment: SEND CBC,A1C,LIPID,VITD AND CMP RESULTS TO PATRICIA JAMES Result Comment: Bord moavxz=478-084 mg/dL Higher Rqgi=009 mg/dL or greater Friedwald Equation for LDL-C Performed By: #### L 501.9985, L500.4050, L500.4100, L502.0250, L506.1001, L100.0500, L501.5200 ####[facility] [address] [place], [place], [phone] Cholesterol in VLDL [Mass/Vol] 25 mg/dL Normal 5-40 [facility] Comment on above: Order Comment: SEND CBC,A1C,LIPID,VITD AND CMP RESULTS TO PATRICIA JAMES Performed By: #### L 501.9985, L500.4050, L500.4100, L502.0250, L506.1001, L100.0500, L501.5200 ####[facility] [address] [place], [address] Triglyceride [Mass/Vol] 124 mg/dL Normal [facility] Comment on above: Order Comment: SEND CBC,A1C,LIPID,VITD AND CMP RESULTS TO PATRICIA JAMES Result Comment: The drugs N-Acetylcysteine and Metamizole may falsely depress this assay. Normal range: <150 mg/dL Borderline High: 150-199 mg/dL High: 200-499 mg/dL Very High: >500 mg/dL Performed By: #### L 501.9985, L500.4050, L500.4100, L502.0250, L506.1001, L100.0500, L501.5200 ####[facility] [address] [place], [place], [phone] MCV (mean corpuscular volume ) determinationOrdered By: Сергей Bergman on 11-19-2024 MCV (RBC) [Entitic vol] 87.3 fL 80-94 [facility] Magnesiumon 11-19-2024 Magnesium [Mass/Vol] 1.7 mg/dL Normal 1.5-2.2 [facility] Comment on above: Order Comment: SEND CBC,A1C,LIPID,VITD AND CMP RESULTS TO PATRICIA JAMES Performed By: #### L 501.9985, L500.4050, L500.4100, L502.0250, L506.1001, L100.0500, L501.5200 ####[facility] [address] [place], [place], [phone] Magnesium measurement (mass/ volume)Ordered By: Сергей Bergman on 11-19-2024 Magnesium (Unsp spec) [Mass/Vol] 1.7 mg/dL 1.5-2.2 [facility] Mean corpuscular hemoglobin (MCH) determinationOrdered By: Сергей Bergman on 11-19-2024 MCH (RBC) [Entitic mass] 29.7 pg 27.0-32.0 [facility] Mean corpuscular hemoglobin concentration (MCHC) determinationOrdered By: Сергей Bergman on 11-19-2024 MCHC (RBC) [Mass/Vol] 34.0 g/dL 32-36 [facility] Mean platelet volume determi nationOrdered By: Сергей Bergman on 11-19-2024 Platelet mean volume (Bld) [Entitic vol] 10.6 fL 6.2-12.0 [facility] Microalb:Creat Ratio,Random URon 11-19-2024 MALB:CREAT Normal <30 mg/g CRE [facility] Comment on above: Result Comment: SHAYNE ENT SAID HE DIDNT NEED THE URINE Performed By: #### L 501.9985, L500.4050, L500.4100, L502.0250, L506.1001, L100.0500, L501.5200 #### [facility] [address] [place], [place], [phone] MICROALBUMIN,UR Normal <20 mg/L [facility] Comment on above: Result Comment: SHAYNE ENT SAID HE DIDNT NEED THE URINE Performed By: #### L 501.9985, L500.4050, L500.4100, L502.0250, L506.1001, L100.0500, L501.5200 #### [facility] [address] [place], [address] UR CREAT Normal 39.00-259.0 0 [facility] Comment on above: Result Comment: SHAYNE AGATHA SAID HE DIDNT NEED THE URINE Performed By: #### L 501.9985, L500.4050, L500.4100, L502.0250, L506.1001, L100.0500, L501.5200 #### [facility] [address] [place], [address] Platelet countOrdered By: Silvia Bergman on 11-19-2024 Platelets (Bld) [#/Vol] 176 10*3/uL 150-450 [facility] Potassium measurement (mass/ volume)Ordered By: Сергей Bergman on 11-19-2024 Potassium (Unsp spec) [Mass/Vol] 4.1 mmol/L 3.3-5.1 [facility] RBC Auto (Bld) [#/Vol]Ordere d By: Сергей Bergman on 11-19-2024 RBC (Bld) [#/Vol] 5.73 10*6/uL 4.6-6.2 [facility] Screening total cholesterol/ high density lipoprotein (HDL) cholesterol ratioOrdered By: Сергей Bergman on 11-19-2024 Cholesterol.total/Valencia sterol in HDL [Mass ratio] 4.10 {ratio} [facility] Serum creatinine measurement (mass/volume)Ordered By: Сергей Bergman on 11-19-2024 Creatinine [Mass/Vol] 0.90 mg/dL 0.70-1.20 [facility] Serum globulin measurementOr dered By: Сергей Bergman on 11-19-2024 Globulin (S) [Mass/Vol] 3.3 g/dL 2.2-4.2 [facility] Serum glucose measurement (m ass/volume)Ordered By: Сергей Bergman on 11-19-2024 Glucose [Mass/Vol] 96 mg/dL 70-99 [facility] Serum or plasma alanine gaffney otransferase (ALT) measurementOrdered By: Сергей Bergman on 11-19-2024 ALT [Catalytic activity/Vol] 29 U/L <47 [facility] Serum or plasma albumin blanca urement (mass/volume)Ordered By: Сергей Bergman on 11-19-2024 Albumin [Mass/Vol] 4.3 g/dL 3.5-5.0 [facility] Serum or plasma albumin/glob ulin mass ratioOrdered By: Сергей Bergman on 11-19-2024 Albumin/Globulin [Mass ratio] 1.3 {ratio} 0.9-2.4 [facility] Serum or plasma alkaline jeramy sphatase measurementOrdered By: Сергей Bergman on 11-19-2024 ALP [Catalytic activity/Vol] 69 U/L 40-129 [facility] Serum or plasma calcium blanca urement (mass/volume)Ordered By: Сергей Bergman on 11-19-2024 Calcium [Mass/Vol] 9.4 mg/dL 7.6-11.0 [facility] Serum or plasma cholesterol in HDL measurement (mass/volume)Ordered By: Сергей Bergman on 11-19-2024 Cholesterol in HDL [Mass/Vol] 36 mg/dL Low >40 [facility] Comment on above: National Cholesterol Education Program (NCEP) guidelines:<40 mg/dL: Low HDL-cholesterol (major risk factor for CHD)>= 60 mg/dL: High HDL-cholesterol (negative risk factor for CHD)HDL-cholesterol is affected by a number of factors, e.g. smoking, exercise, hormones, sex and age. Serum or plasma cholesterol measurement (mass/volume)Ordered By: Сергей Bergman on 11-19-2024 Cholesterol [Mass/Vol] 148 mg/dL <201 [facility] Comment on above: Cholesterol level, D esirable <200 mg/dLBorderline high cholesterol 200-239 mg/dLHigh cholesterol >=240 mg/dLRecommendations of the NCEP Adult Treatment Panel for the following risk-cutoff thresholds for the [place] population. Serum or plasma urea nitroge n measurement (mass/volume)Ordered By: Сергей Bergman on 11-19-2024 Urea nitrogen [Mass/Vol] 16 mg/dL 4-19 [facility] Sodium levelOrdered By: Clinton Bergman on 11-19-2024 Sodium [Moles/Vol] 140 mmol/L 133-145 [facility] Total proteinOrdered By: Dion Bergman on 11-19-2024 Protein [Mass/Vol] 7.6 g/dL 5.9-8.4 [facility] Triglycerides measurementOrd ered By: Сергей Bergman on 11-19-2024 Triglyceride [Mass/Vol] 124 mg/dL <199 [facility] Comment on above: The drugs N-Acetylcy steine and Metamizole may falsely depress this assay. Normal range: <150 mg/dLBorderline High: 150-199 mg/dLHigh: 200-499 mg/dLVery High: >500 mg/dL Vitamin D,25 Hydroxyon 11-19 Vitamin D 25-OH 16.4 ng/mL Low 30-100 [facility] Comment on above: Order Comment: SEND CBC,A1C,LIPID,VITD AND CMP RESULTS TO PATRICIA JAMES Result Comment: Sheryl min D Status Deficiency: <20 ng/mL (50nmol/L) Insufficiency: 20-30 ng/mL (50-75 nmol/L) Sufficiency: 30-100 ng/mL (75-250 nmol/L) Toxicity: >100 ng/mL (>250 nmol/L) Performed By: #### L 501.9985, L500.4050, L500.4100, L502.0250, L506.1001, L100.0500, L501.5200 ####[facility] [address] [place], [address] White blood cell (WBC) count Ordered By: Сергей Bergman on 11-19-2024 WBC (Bld) [#/Vol] 12.8 10*3/uL High 4.4-11.0 [facility] Echo Completeon 11-04-2024 Echo [facility] Cardi[facility] Services [address] [place] [address] Echo Complete 11/04/24 1444 MR#: [id number] Acct: [id number] Name: GINO AVILEZ Rep #: [id number] : 1985 39 From: Jorge Alberto Hawkins MD Attending Dr: Dr. Breezy Braun Sta tus: REG CLI Ordering Dr: César Braun MD Date: 11/04/24 Location: [facility] Sex: M C Admitted: Reason For Study [...] Braun Performed By: Leonidas Denise RCS 11/04/24 1734 Date Jorge Alberto Hawkins MD CC: ORI Bergman; Dr. Breezy Braun Date Dictated: 11/04/24 1444 Date Transcribed: 11/04/24 1734 [employer] Pilot: Signed Normal [facility] Echocardiogram study reportO rdered By: Jorge Alberto Hawkins on 11-04-[address] [facility] [place] [address] Echo Complete 11/04/24 1444 MR#: [id number] Acct: [id number] Name: GINO AVILEZ Rep #:[id number] : 1985 39 From: Jorge Alberto Louise Attending Dr: Dr. Breezy Braun Status: REG CLI Ordering Dr: César Braun MD Date: 11/04/24 Location: [facility] Sex: M C Admitted: Reason For Study [...] dysfunction. Structurally normal valves. Ordering Physician: Aparna^César hale^Lyndsay^^ Referring Physician: Breezy Braun Performed By: Leonidas Denise RCS 11/04/241733 Date _ Jorge Alberto Hawkins MD CC: METAL DRILLING MACHINE OPERATOR-C Сергей Bergman; Dr. Breezy Braun ~ Date Dictated: 11/04/24 1444 Date Transcribed: 11/04/241733 [employer] Pilot: Signed [facility] Work Phone: OVon 08-31-2024 [facility] GINO AVILEZ ([id number]) 1985 M Date Time Provider Department 08/31/24 12:45 PM GANGA ORDONEZ [facility] During your visit today, we recorded the following information about you: Temperature Pulse Respiration Blood pressure 99.1 degrees 88/minute 20/minute 118/88 Weight 132.5 kg Ganga Ordonez APRN.PAI GOW MANAGER 08/31/2024 12:56 PM Signed [facility] Subjective Gino Weathers Raghav is a 38 year old male. Patient [...] of current allergy medication and use of esmm-ftq-wrdfhyq antitussives as needed. - Advised to monitor symptoms and follow up if condition worsens or does not improve within a week. and Recording using [employer] software for draft documentation of the visit was discussed with the patient/authorized billing representative; all questions welcomed and answered. Patient/authorized billing representative agreed to proceed MDM Procedures Allergies As of Date: 08/31/2024 Noted Allergy Reaction CECLOR (CEFACLOR) 07/21/2013 2 [...] Encounter Status:Closed by GANGA ORDONEZ on 08/31/24 [facility] 12 Lead EKGon 08-03-2024 12 Lead EKG [facility] Cardiovascular Services [address] [place] [address] 12 Lead EKG 08/03/24 1318 MR#: [id number] Acct: [id number] Name: GINO AVILEZ Rep #: [id number] : 1985 38 From: Jorge Alberto Hawkins [...] ECG Confirmed by JORGE ALBERTO HAWKINS MD ([id number]), technical editor JANN LAWRENCE ([id number]) on 08/06/2024 7:57:17 AM Referred By: Confirmed By: JORGE ALBERTO HAWKINS MD 08/06/24 0757 Date Jorge Alberto Hawkins MD CC: METAL DRILLING MACHINE OPERATOR-C Сергей Bergman; Dr. Emil Nicole MD; CALEB Hutchison Signed Normal [facility] Absolute lymphocyte countOrd ered By: Adela Ascencio on 08-03-2024 Lymphocytes Auto (Unsp spec) [#/Vol] 2.75 10*3/uL 0.83-4.51 [facility] Absolute neutrophil countOrd ered By: Adela Ascencio on 08-03-2024 Neutrophils (Bld) [#/Vol] 5.2 10*3/uL 2.0-7.7 [facility] Anion gap in Serum or Plasma Ordered By: Adela Ascencio on 08-03-2024 Anion gap [Moles/Vol] 12 mmol/L 5-15 [facility] Automated lymphocyte count a s percentage of total leukocytesOrdered By: Adela Ascencio on 08-03-2024 Lymphocytes/100 WBC Auto (Unsp spec) 31.8 % 19-41 [facility] BUN/creatinine ratioOrdered By: Adela Ascencio on 08-03-2024 Urea nitrogen/Creatinine [Mass ratio] 17.4 mg/mg - [facility] Basic Metabolic Profile (BMP )on 08-03-2024 BUN/CRE 17.4 RATIO Normal - [facility] Comment on above: Performed By: #### L 100.0100, L500.2500, L501.4021 ####[facility] [address] [place], [address] Calcium [Mass/Vol] 8.9 mg/dL Normal 7.6-11.0 [facility] Comment on above: Performed By: #### L 100.0100, L500.2500, L501.4021 ####[facility] [address] [place], [address] Chloride [Moles/Vol] 106 mmol/L Normal 98-108 [facility] Comment on above: Performed By: #### L 100.0100, L500.2500, L501.4021 ####[facility] [address] [place], [address] CO2 [Moles/Vol] 19.9 mmol/L Low 21.0-32.0 [facility] Comment on above: Performed By: #### L 100.0100, L500.2500, L501.4021 ####[facility] [address] [place], [address] Creatinine [Mass/Vol] 0.93 mg/dL Normal 0.70-1.20 [facility] Comment on above: Performed By: #### L 100.0100, L500.2500, L501.4021 ####[facility] [address] [place], [address] ECRCL 151.80 ml/min Normal 50-250 [facility] Comment on above: Performed By: #### L 100.0100, L500.2500, L501.4021 ####[facility] [address] [place], [address] GAP 12 Normal 5-15 [facility] Comment on above: Performed By: #### L 100.0100, L500.2500, L501.4021 ####[facility] [address] [place], [address] GFR/1.73 sq M.predicted among non-blacks MDRD (S/P/Bld) [Vol rate/Area] 108 mL/min/{1.73_m2} Normal >60 [facility] Comment on above: Result Comment: mL/m in/1.73m2 CKD-EPI Creatinine Equation (2020) Performed By: #### L 100.0100, L500.2500, L501.4021 ####[facility] [address] [place], [address] Glucose [Mass/Vol] 105 mg/dL High 70-99 [facility] Comment on above: Performed By: #### L 100.0100, L500.2500, L501.4021 ####[facility] [address] [place], [address] Potassium [Moles/Vol] 4.1 mmol/L Normal 3.3-5.1 [facility] Comment on above: Performed By: #### L 100.0100, L500.2500, L501.4021 ####[facility] [address] [place], [address] Sodium [Moles/Vol] 138 mmol/L Normal 133-145 [facility] Comment on above: Performed By: #### L 100.0100, L500.2500, L501.4021 ####[facility] [address] [place], [address] Urea nitrogen [Mass/Vol] 16 mg/dL Normal 4-19 [facility] Comment on above: Performed By: #### L 100.0100, L500.2500, L501.4021 ####[facility] [address] [place], [address] Basophil percentageOrdered B y: Adela Ascencio on 08-03-2024 Basophils/100 WBC (Bld) 0.8 % 0-1 [facility] CBC W/Diff, Automatedon 07-16-2024 Absolute Lymph 2.75 X10 3/uL Normal 0.83-4.51 [facility] Comment on above: Performed By: #### L 100.0100, L500.2500, L501.4021 ####[facility] [address] [place], [address] Absolute Neut 5.2 X10 3/uL Normal 2.0-7.7 [facility] Comment on above: Performed By: #### L 100.0100, L500.2500, L501.4021 ####[facility] [address] [place], [address] Basophils/100 WBC (Bld) 0.8 % Normal 0-1 [facility] Comment on above: Performed By: #### L 100.0100, L500.2500, L501.4021 ####[facility] [address] [place], [address] Eosinophils/100 WBC (Bld) 1.2 % Normal 0-5 [facility] Comment on above: Performed By: #### L 100.0100, L500.2500, L501.4021 ####[facility] [address] [place], [address] Erythrocyte distribution width (RBC) [Ratio] 13.2 % Normal 11.6-14.6 [facility] Comment on above: Performed By: #### L 100.0100, L500.2500, L501.4021 ####[facility] [address] [place], [address] Hematocrit (Bld) [Volume fraction] 48.8 % Normal 40-54 [facility] Comment on above: Performed By: #### L 100.0100, L500.2500, L501.4021 ####[facility] [address] [place], [address] Hemoglobin (Bld) [Mass/Vol] 16.7 g/dL High 13.0-16.5 [facility] Comment on above: Performed By: #### L 100.0100, L500.2500, L501.4021 ####[facility] [address] [place], [address] IG% 0.200 Normal 0.0-0.9 [facility] Comment on above: Result Comment: IG% - Immature Granulocytes (promyelocytes, myelocytes and metamyelocytes) > 1% indicates that a LEFT SHIFT is Present. Performed By: #### L 100.0100, L500.2500, L501.4021 ####[facility] [address] [place], [address] Lymphocytes/100 WBC (Bld) 31.8 % Normal 19-41 [facility] Comment on above: Performed By: #### L 100.0100, L500.2500, L501.4021 ####[facility] [address] [place], [address] MCH (RBC) [Entitic mass] 29.3 pg Normal 27.0-32.0 [facility] Comment on above: Performed By: #### L 100.0100, L500.2500, L501.4021 ####[facility] [address] [place], [address] MCHC (RBC) [Mass/Vol] 34.2 g/dL Normal 32-36 [facility] Comment on above: Performed By: #### L 100.0100, L500.2500, L501.4021 ####[facility] [address] [place], [address] MCV (RBC) [Entitic vol] 85.8 fL Normal 80-94 [facility] Comment on above: Performed By: #### L 100.0100, L500.2500, L501.4021 ####[facility] [address] [place], [address] Monocytes/100 WBC (Bld) 6.1 % Normal 0-10 [facility] Comment on above: Performed By: #### L 100.0100, L500.2500, L501.4021 ####[facility] [address] [place], [address] Neutrophils/100 WBC (Bld) 59.9 % Normal 47-70 [facility] Comment on above: Performed By: #### L 100.0100, L500.2500, L501.4021 ####[facility] [address] [place], [address] Nucleated RBC (Bld) [#/Vol] 0 10*3/uL Normal 0-5 [facility] Comment on above: Performed By: #### L 100.0100, L500.2500, L501.4021 ####[facility] [address] [place], [address] Platelet mean volume (Bld) [Entitic vol] 9.9 fL Normal 6.2-12.0 [facility] Comment on above: Performed By: #### L 100.0100, L500.2500, L501.4021 ####[facility] [address] [place], [address] Platelets (Bld) [#/Vol] 231 10*3/uL Normal 150-450 [facility] Comment on above: Performed By: #### L 100.0100, L500.2500, L501.4021 ####[facility] [address] [place], [address] RBC (Bld) [#/Vol] 5.69 10*6/uL Normal 4.6-6.2 [facility] Comment on above: Performed By: #### L 100.0100, L500.2500, L501.4021 ####[facility] [address] [place], [address] RDW SD 40.2 fl Normal 35.1-43.9 [facility] Comment on above: Performed By: #### L 100.0100, L500.2500, L501.4021 ####[facility] [address] [place], [address] WBC (Bld) [#/Vol] 8.7 10*3/uL Normal 4.4-11.0 [facility] Comment on above: Performed By: #### L 100.0100, L500.2500, L501.4021 ####[facility] [address] [place], [address] Carbon dioxide, total [Moles /volume] in Central venous bloodOrdered By: Adela Ascencio on 08-03-2024 CO2 [Moles/Vol] 19.9 mmol/L Low 21.0-32.0 [facility] Chest PA and Lateralon 08-03 Chest PA and Lateral [facility] Imaging Services [address] [place] [address] Chest PA and Lateral MR#: [id number] Acct: [id number] Name: GINO AVILEZ Rep #: [id number] : 1985 M 38 From: Janessa Blackmon nd, MD PCP: Сергей Bergman, METAL DRILLING MACHINE OPERATOR-C Status: [facility] ER Study: Chest PA and Lateral Date of Exam: 08/03/24 Exam# [id number] Ordering Dr: Adela Ascencio PROCEDURE: CHEST PA [...] and Lateral IMPRESSION: NEGATIVE CHEST Reading Location: [id number] CC: ORI Bergman; CALEB Hutchison [employer] Pilot: Signed Normal [facility] Chloride assayOrdered By: Michelle Ascencio on 08-03-2024 Chloride [Moles/Vol] 106 mmol/L 98-108 [facility] Emergency Department Summary on 08-03-2024 Emergency Department Summary [facility] Medical Records Department [address] [place] [address] Emergency Department Summary 08/03/24 MR#: [id number] Acct: [id number] Name: GINO AVILEZ Rep #: [id number] : 1985 38 From: Adela ELLIS PCP: [...] Immobilization, Prior DVT or PE or Cancer [facility] Medical History Excessive cerumen in right ear [...] Reaction Status Date / Time cefaclor (From [facility]) Allergy Hives Verified 08/03/24 13:07 Family History [...] the le (more content not included)... Normal [facility] [facility] Eosinophil percentageOrdered By: Adela Ascencio on 08-03-2024 Eosinophils/100 WBC (Bld) 1.2 % 0-5 [facility] Erythrocyte distribution wid th (RBC) [Ratio]Ordered By: Adela Ascencio on 08-03-2024 Erythrocyte distribution width (RBC) [Entitic vol] 40.2 fL 35.1-43.9 [facility] Erythrocyte distribution wid th ratioOrdered By: Adela Ascencio on 08-03-2024 Erythrocyte distribution width (RBC) [Ratio] 13.2 % 11.6-14.6 [facility] Erythrocyte distribution wid th standard deviationOrdered By: Adela Ascencio on 08-03-2024 Erythrocyte distribution width (RBC) [Ratio] 40.2 fl 35.1-43.9 [facility] Estimation of creatinine juan aranceOrdered By: Adela Ascencio on 08-03-2024 Estimated Creatinine Clearance Calc 151.80 ml/min 50-250 [facility] GFR/1.73 sq M.predicted martin g non-blacks MDRD (S/P/Bld) [Vol rate/Area]Ordered By: Adela Ascencio on 08-03-2024 Estimated GFR (MDRD) Non-Af Amer 108 >60 [facility] Comment on above: mL/min/1.73m2 CKD-EP I Creatinine Equation (2020) Glomerular filtration rate ( GFR) estimation/1.73 sq m using serum, plasma, or whole bOrdered By: Adela Ascencio on 08-03-2024 GFR/1.73 sq M.predicted among non-blacks MDRD (S/P/Bld) [Vol rate/Area] 108 mL/min/{1.73_m2} >60 [facility] Comment on above: mL/min/1.73m2 CKD-EP I Creatinine Equation (2020) Hematocrit Auto (Bld) [Volum e fraction]Ordered By: Adela Ascencio on 08-03-2024 Hematocrit (Bld) [Volume fraction] 48.8 % 40-54 [facility] Hemoglobin measurementOrdere d By: Adela Ascencio on 08-03-2024 Hemoglobin (Bld) [Mass/Vol] 16.7 g/dL High 13.0-16.5 [facility] Immature granulocytes/100 WB C Auto (Bld)Ordered By: Adela Ascencio on 08-03-2024 Immature granulocytes/100 WBC (Bld) 0.200 % 0.0-0.9 [facility] Comment on above: IG% - Immature Granu locytes (promyelocytes, myelocytes and metamyelocytes) > 1% indicates that a LEFT SHIFT is Present. L501.4021on 08-03-2024 Trop T High Sen 8 ng/L Normal <=22 [facility] Comment on above: Performed By: #### L 100.0100, L500.2500, L501.4021 ####[facility] [address] [place], [address] Lymphocytes Auto (Unsp spec) [#/Vol]Ordered By: Adela Ascencio on 08-03-2024 Lymphocytes (Bld) [#/Vol] 2.75 10*3/uL 0.83-4.51 [facility] Lymphocytes/100 WBC Auto (Un sp spec)Ordered By: Adela Ascencio on 08-03-2024 Lymphocytes/100 WBC (Bld) 31.8 % 19-41 [facility] MCV (mean corpuscular volume ) determinationOrdered By: Adela Ascencio on 08-03-2024 MCV (RBC) [Entitic vol] 85.8 fL 80-94 [facility] Mean corpuscular hemoglobin (MCH) determinationOrdered By: Adela Ascencio on 08-03-2024 MCH (RBC) [Entitic mass] 29.3 pg 27.0-32.0 [facility] Mean corpuscular hemoglobin concentration (MCHC) determinationOrdered By: Adela Ascencio on 08-03-2024 MCHC (RBC) [Mass/Vol] 34.2 g/dL 32-36 [facility] Mean platelet volume determi nationOrdered By: Adela Ascencio on 08-03-2024 Platelet mean volume (Bld) [Entitic vol] 9.9 fL 6.2-12.0 [facility] Monocyte percentageOrdered B y: Adela Ascencio on 08-03-2024 Monocytes/100 WBC (Bld) 6.1 % 0-10 [facility] Neutrophil percentageOrdered By: Adela Ascencio on 08-03-2024 Neutrophils/100 WBC (Bld) 59.9 % 47-70 [facility] Nucleated red blood cell per centageOrdered By: Adela Ascencio on 08-03-2024 Nucleated RBC/100 WBC (Bld) [Ratio] 0 % 0-5 [facility] Platelet countOrdered By: Michelle Ascencio on 08-03-2024 Platelets (Bld) [#/Vol] 231 10*3/uL 150-450 [facility] Potassium (Unsp spec) [Mass/ Vol]Ordered By: Adela Ascencio on 08-03-2024 Potassium [Moles/Vol] 4.1 mmol/L 3.3-5.1 [facility] Potassium measurement (mass/ volume)Ordered By: Adela Ascencio on 08-03-2024 Potassium (Unsp spec) [Mass/Vol] 4.1 mmol/L 3.3-5.1 [facility] RBC Auto (Bld) [#/Vol]Ordere d By: Adela Ascencio on 08-03-2024 RBC (Bld) [#/Vol] 5.69 10*6/uL 4.6-6.2 [facility] Serum creatinine measurement (mass/volume)Ordered By: Adela Ascencio on 08-03-2024 Creatinine [Mass/Vol] 0.93 mg/dL 0.70-1.20 [facility] Serum glucose measurement (m ass/volume)Ordered By: Adela Ascencio on 08-03-2024 Glucose [Mass/Vol] 105 mg/dL High 70-99 [facility] Serum or plasma calcium blanca urement (mass/volume)Ordered By: Adela Ascencio on 08-03-2024 Calcium [Mass/Vol] 8.9 mg/dL 7.6-11.0 [facility] Serum or plasma urea nitroge n measurement (mass/volume)Ordered By: Adela Ascencio on 08-03-2024 Urea nitrogen [Mass/Vol] 16 mg/dL 4-19 [facility] Sodium levelOrdered By: Florian Ascencio on 08-03-2024 Sodium [Moles/Vol] 138 mmol/L 133-145 [facility] Troponin T.cardiac High sens itivity method [Mass/Vol]Ordered By: Adela Ascencio on 08-03-2024 Troponin T High Sensitivity 8 ng/L <22 [facility] Troponin T.cardiac [Mass/vol ume] in Serum or Plasma by High sensitivity methodOrdered By: Adela Ascencio on 08-03-2024 Troponin T.cardiac High sensitivity method [Mass/Vol] 8 ng/L <22 [facility] White blood cell (WBC) count Ordered By: Adela Ascencio on 08-03-2024 WBC (Bld) [#/Vol] 8.7 10*3/uL 4.4-11.0 [facility] PT D/C Summary (1)on 025 PT D/C Summary (1) [facility] Physical Therapy [address] [place] [address] / REHABILITATION SERVICES DISCHARGE SUMMARY MR#: [id number] Acct: [id number] Name: GINO AVILEZ Rep #: [id number] : 1985 38 From: Trevor Segal PT, ATC Referring Dr.: CALEB Armenta Status: REG RCR Insurance: [facility] SELF PAY INSURANCE Discharge Summary D/C [...] please feel free to call me at [phone]. Thank you for the referral of this patient. 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 Normal [facility] Orthopedic Visit Reporton Orthopedic Visit Report [facility] [address] [place] [address] OFFICE VISIT Date of Service: 06/20/24 MR#: [id number] Acct: [id number] Name: GINO AVILEZ Rep #: [id number] : 1985 Provider: CALEB Armenta Age/Sex: 38/M Location: [facility] Status: Signed Intake Vital Signs 06/01/24 13:38 Height 6 ft 1 in Intake Visit Reasons: lumbar spine Chief Complaint: lumbar spine All[facility]ies [facility] Allergy (Verified 06/20/24 10:57) Hives Medications ???Medication [...] 500 mg PO BID PRN #20 tabs 07/08/2 4 06/20/24 Rx PFSH Medical History Excessive [...] R parasp (more content not included)... Normal [facility] Re-Evaluation - PT (1)on Re-Evaluation - PT (1) [facility] Physical Therapy [facility] [facility] [place] [address] / REEVALUATION / MEDICARE RECERTIFICATION PHYSICAL THERAPY MR#: [id number] Acct: [id number] Name: GINO AVILEZ Rep #: [id number] : 1985 38 From: Trevor Segal PT, ATC Referring DrThelma: CALEB Armenta Status:REG RCR Insurance: [facility] SELF PAY INSURANCE Re-Evaluation Intro: CALEB [...] do not hesitate to contact me at [phone] by phone or if you have questions or concerns regarding this new plan of care! Sincerely, Trevor Segal, PT, ATC 06/10/24 1616 CC: ORI Bergman; CALEB Armenta [facility] Signed For Medicare only, by signing this I certify the plan of care. Physicians Signature Date Normal [facility] Magnetic resonance imaging r eportOrdered By: Donald Roew on 06-09-2024 Study report [facility] Imaging Services [address] [place], [place] [address] Spine Lumbar (Routine) MR#: [id number] Acct: [id number] Name: GINO AVILEZ Rep #: [id number] : 1985 M 38 From: Hunter Rowe DO PCP: Сергей Bergman, METAL DRILLING MACHINE OPERATOR-C Status: REG CLI Study:Spine Lumbar (Routine) Date of Exam: 06/09/24 Exam# [id number] Ordering Dr: Travis Elizabeth PROCEDURE: MRI lumbar [...] L2-L3 respectively. 2. Varying degrees of acquired ljrc-py-lzwhcark foraminal narrowing. See level by level comments above. Reading Location: [facility] CC: METAL DRILLING MACHINE OPERATORNolanC Сергей Bergman; CALEB Armenta ~ Commercial [employer]one Pilot: Signed [facility] Spine Lumbar (Routine)on Spine Lumbar (Routine) [facility] Imaging Services [address] [place] [address] Spine Lumbar (Routine) MR#: [id number] Acct: [id number] Name: GINO AVILEZ Rep #: [id number] : 1985 M 38 From: Donald Stokes PCP: ORI Gamboa Status: REG CLI Study: Spine Lumbar (Routine) Date of Exam: 06/09/24 Exam# [id number] Ordering Dr: Ana Elizabeth PROCEDURE: MRI lumbar [...] L2-L3 respectively. 2. Varying degrees of acquired flth-lq-sjoaywqn foraminal narrowing. See level by level comments above. Reading Location: [facility] CC: ORI Bergman; CALEB Armenta [employer] Pilot: Signed Normal [facility] Absolute neutrophil countOrd ered By: Emil Nicole on 06-01-2024 Neutrophils (Bld) [#/Vol] 6.0 10*3/uL 2.0-7.7 [facility] Basic Metabolic Profile (BMP )on 06-01-2024 BUN/CRE 19.0 RATIO Normal 10-20 [facility] Comment on above: Performed By: #### L 100.0100, L500.2500, L501.5425 ####[facility] [address] [place], [address] CA,Total 9.0 mg/dL Normal 8.5-10.1 [facility] Comment on above: Performed By: #### L 100.0100, L500.2500, L501.5425 ####[facility] [address] [place], [address] Chloride [Moles/Vol] 107 mmol/L Normal 98-107 [facility] Comment on above: Performed By: #### L 100.0100, L500.2500, L501.5425 ####[facility] [address] [place], [address] CO2 [Moles/Vol] 29.0 mmol/L Normal 21.0-32.0 [facility] Comment on above: Performed By: #### L 100.0100, L500.2500, L501.5425 ####[facility] [address] [place], [address] Creatinine [Mass/Vol] 1.00 mg/dL Normal 0.70-1.30 [facility] Comment on above: Result Comment: The validity of the calculated GFR GFRAA in patients over 70 years has not been determined. Clinical correlation is essential. Performed By: #### L 100.0100, L500.2500, L501.5425 ####[facility] [address] [place], [address] ECRCL 142.57 ml/min Normal [facility] Comment on above: Performed By: #### L 100.0100, L500.2500, L501.5425 ####[facility] [address] [place], [address] EST GFR - AA 107 mL/min Normal >60 [facility] Comment on above: Result Comment: Afri can Gabonese GFR Calc Performed By: #### L 100.0100, L500.2500, L501.5425 ####[facility] [address] [place], [address] GAP 3 Low 5-15 [facility] Comment on above: Performed By: #### L 100.0100, L500.2500, L501.5425 ####[facility] [address] [place], [address] GFR/1.73 sq M.predicted among non-blacks MDRD (S/P/Bld) [Vol rate/Area] 89 mL/min/{1.73_m2} Normal >60 [facility] Comment on above: Result Comment: Non- GFR Calc Performed By: #### L 100.0100, L500.2500, L501.5425 ####[facility] [address] [place], [address] Glucose [Mass/Vol] 96 mg/dL Normal 74-106 [facility] Comment on above: Performed By: #### L 100.0100, L500.2500, L501.5425 ####[facility] [address] [place], [address] Potassium [Moles/Vol] 4.2 mmol/L Normal 3.5-5.1 [facility] Comment on above: Performed By: #### L 100.0100, L500.2500, L501.5425 ####[facility] [address] [place], [address] Sodium [Moles/Vol] 139 mmol/L Normal 136-145 [facility] Comment on above: Performed By: #### L 100.0100, L500.2500, L501.5425 ####[facility] [address] [place], [address] Urea nitrogen [Mass/Vol] 19 mg/dL High 7-18 [facility] Comment on above: Performed By: #### L 100.0100, L500.2500, L501.5425 ####[facility] [address] [place], [address] Basophil percentageOrdered B y: Emil Nicole on 06-01-2024 Basophils/100 WBC (Bld) 0.7 % 0-1 [facility] Blood urea nitrogen (BUN)/cr eatinine ratioOrdered By: Emil Nicole on 06-01-2024 Urea nitrogen/Creatinine [Mass ratio] 19.0 mg/mg 10-20 [facility] CBC W/Diff, Automatedon 05-17 Absolute Lymph 2.93 X10 3/uL Normal 0.83-4.51 [facility] Comment on above: Performed By: #### L 100.0100, L500.2500, L501.5425 ####[facility] [address] [place], [address] Absolute Neut 6.0 X10 3/uL Normal 2.0-7.7 [facility] Comment on above: Performed By: #### L 100.0100, L500.2500, L501.5425 ####[facility] [address] [place], [address] Basophils/100 WBC (Bld) 0.7 % Normal 0-1 [facility] Comment on above: Performed By: #### L 100.0100, L500.2500, L501.5425 ####[facility] [address] [place], [address] Eosinophils/100 WBC (Bld) 1.3 % Normal 0-5 [facility] Comment on above: Performed By: #### L 100.0100, L500.2500, L501.5425 ####[facility] [address] [place], [address] Erythrocyte distribution width (RBC) [Ratio] 14.2 % Normal 11.6-14.6 [facility] Comment on above: Performed By: #### L 100.0100, L500.2500, L501.5425 ####[facility] [address] [place], [address] Hematocrit (Bld) [Volume fraction] 51.9 % Normal 40-54 [facility] Comment on above: Performed By: #### L 100.0100, L500.2500, L501.5425 ####[facility] [address] [place], [address] Hemoglobin (Bld) [Mass/Vol] 17.1 g/dL High 13.0-16.5 [facility] Comment on above: Performed By: #### L 100.0100, L500.2500, L501.5425 ####[facility] [address] [place], [address] IG% 0.400 Normal 0.0-0.9 [facility] Comment on above: Result Comment: IG% - Immature Granulocytes (promyelocytes, myelocytes and metamyelocytes) > 1% indicates that a LEFT SHIFT is Present. Performed By: #### L 100.0100, L500.2500, L501.5425 ####[facility] [address] [place], [address] Lymphocytes/100 WBC (Bld) 30.0 % Normal 19-41 [facility] Comment on above: Performed By: #### L 100.0100, L500.2500, L501.5425 ####[facility] [address] [place], [address] MCH (RBC) [Entitic mass] 29.0 pg Normal 27.0-32.0 [facility] Comment on above: Performed By: #### L 100.0100, L500.2500, L501.5425 ####[facility] [address] [place], [address] MCHC (RBC) [Mass/Vol] 32.9 g/dL Normal 32-36 [facility] Comment on above: Performed By: #### L 100.0100, L500.2500, L501.5425 ####[facility] [address] [place], [address] MCV (RBC) [Entitic vol] 88.1 fL Normal 80-94 [facility] Comment on above: Performed By: #### L 100.0100, L500.2500, L501.5425 ####[facility] [address] [place], [address] Monocytes/100 WBC (Bld) 6.1 % Normal 0-10 [facility] Comment on above: Performed By: #### L 100.0100, L500.2500, L501.5425 ####[facility] [address] [place], [address] Neutrophils/100 WBC (Bld) 61.5 % Normal 47-70 [facility] Comment on above: Performed By: #### L 100.0100, L500.2500, L501.5425 ####[facility] [address] [place], [address] Nucleated RBC (Bld) [#/Vol] 0 10*3/uL Normal 0-5 [facility] Comment on above: Performed By: #### L 100.0100, L500.2500, L501.5425 ####[facility] [address] [place], [address] Platelet mean volume (Bld) [Entitic vol] 10.5 fL Normal 6.2-12.0 [facility] Comment on above: Performed By: #### L 100.0100, L500.2500, L501.5425 ####[facility] [address] [place], [address] Platelets (Bld) [#/Vol] 211 10*3/uL Normal 150-450 [facility] Comment on above: Performed By: #### L 100.0100, L500.2500, L501.5425 ####[facility] [address] [place], [address] RBC (Bld) [#/Vol] 5.89 10*6/uL Normal 4.6-6.2 [facility] Comment on above: Performed By: #### L 100.0100, L500.2500, L501.5425 ####[facility] [address] [place], [address] RDW SD 45.8 fl High 35.1-43.9 [facility] Comment on above: Performed By: #### L 100.0100, L500.2500, L501.5425 ####[facility] [address] [place], [address] WBC (Bld) [#/Vol] 9.8 10*3/uL Normal 4.4-11.0 [facility] Comment on above: Performed By: #### L 100.0100, L500.2500, L501.5425 ####[facility] [address] [place], [address] CNOVon 06-01-2024 CNOV Office Visit (UCWSTR ) GINO AVILEZ ([id number]) 1985 M Date Time Provider Department 06/01/24 1:30 PM EMMA CLAROS [facility] During your visit today, we recorded the following information about you: Emma Claros APRN.ALEX 06/01/2024 1:24 PM Signed Triage note: Gino [...] by private auto. He will go to [facility]. Emma Claros APRN.PAI GOW MANAGER Allergies As of Date: 06/01/2024 Noted Allergy [...] Status:Closed by EMMA CLAROS on 06/01/24 Normal [facility] Carbon dioxide measurementOr dered By: Emil Nicole on 06-01-2024 CO2 [Moles/Vol] 29.0 mmol/L 21.0-32.0 [facility] Chest PA and Lateralon 06-01 Chest PA and Lateral [facility] Imaging Services [address] [place] [id number] Chest PA and Lateral MR#: [id number] Acct: [id number] Name: GINO AVILEZ Rep #: [id number] : 1985 M 38 From: Janessa Blackmon nd, MD PCP: Сергей Bergman, HEATHER-C Status: PRE ER Study: Chest PA and Lateral Date of Exam: 06/01/24 Exam# [id number] Ordering Dr: Emil Nicole MD PROCEDURE: CHEST [...] and Lateral IMPRESSION: NEGATIVE CHEST Reading Location: [facility] CC: METAL DRILLING MACHINE OPERATOR-C Сергей Bergman; Dr. Emil Nicole MD Commercial [employer] Pilot: Signed Normal [facility] Chloride measurementOrdered By: Emil Nicole on 02-16-2025 Chloride [Moles/Vol] 107 mmol/L 98-107 [facility] Emergency Department Summary on 06-01-2024 Emergency Department Summary [facility] Medical Records Department [address] [place] [address] Emergency Department Summary 06/01/24 MR#: [id number] Acct: [id number] Name: GINO AVILEZ Rep #: [id number] : 1985 38 From: Emil Nicole MD PCP: Сергей Bergman, METAL DRILLING MACHINE OPERATOR-C Status:REG ER Location: ED HPI History of [...] for Marfan's Syndrome or Family History PFSH PFSH Medical History Excessive cerumen in right [...] Reaction Status Date / Time cefaclor (From [facility]) Allergy Hives Verified 06/01/24 13:39 Surgical History [...] 13:54 Tem (more content not included)... Normal [facility] Eosinophil percentageOrdered By: Emilmilvia Nicole on 06-01-2024 Eosinophils/100 WBC (Bld) 1.3 % 0-5 [facility] Erythrocyte distribution wid th ratioOrdered By: Emil Nicole on 06-01-2024 Erythrocyte distribution width (RBC) [Ratio] 14.2 % 11.6-14.6 [facility] Erythrocyte distribution wid th standard deviationOrdered By: Emil Nicole on 06-01-2024 Erythrocyte distribution width (RBC) [Entitic vol] 45.8 fL High 35.1-43.9 [facility] Estimated glomerular filtrat ion rate (GFR) AmericanOrdered By: Emil Nicole on 06-01-2024 Estimated GFR (MDRD) Amer 107 mL/min >60 [facility] Comment on above: GFR Calc Estimation of creatinine juan aranceOrdered By: Emil Nicole on 06-01-2024 Estimated Creatinine Clearance Calc 142.57 ml/min [facility] Glomerular filtration rate ( GFR) estimationOrdered By: Emil Nicole on 06-01-2024 Estimated GFR (MDRD) Non-Af Amer 89 mL/min >60 [facility] Comment on above: Non- GFR Calc Glucose measurementOrdered B y: Emil Nicole on 06-01-2024 Glucose [Mass/Vol] 96 mg/dL 74-106 [facility] Hematocrit Auto (Bld) [Volum e fraction]Ordered By: Emil Nicole on 06-01-2024 Hematocrit (Bld) [Volume fraction] 51.9 % 40-54 [facility] Hemoglobin measurementOrdere d By: Emil Nicole on 06-01-2024 Hemoglobin (Bld) [Mass/Vol] 17.1 g/dL High 13.0-16.5 [facility] Immature granulocytes/100 WB C Auto (Bld)Ordered By: Emil Nicole on 06-01-2024 Immature granulocytes/100 WBC (Bld) 0.400 % 0.0-0.9 [facility] Comment on above: IG% - Immature Granu locytes (promyelocytes, myelocytes and metamyelocytes) > 1% indicates that a LEFT SHIFT is Present. L501.4020on 06-01-2024 TROPONIN-I HS 5 pg/mL Normal 3.0-78.0 [facility] Comment on above: Result Comment: Plea se Note: New Test Units and Gender Specific Reference Ranges. For more information see Policy Stat Procedure [place] High Sensitivity Troponin (TNIH) and attachments. Performed By: #### L 501.4020 ####[facility] [address] [place], [address] L501.5425on 06-01-2024 TROPONIN-I HS 7 pg/mL Normal 3.0-78.0 [facility] Comment on above: Order Comment: 1Y Result Comment: Plejasiel se Note: New Test Units and Gender Specific Reference Ranges. For more information see Policy Stat Procedure [place] High Sensitivity Troponin (TNIH) and attachments. Performed By: #### L 100.0100, L500.2500, L501.5425 ####[facility] [address] [place], [address] Lymphocytes Auto (Unsp spec) [#/Vol]Ordered By: Emilmilvia Nicole on 06-01-2024 Lymphocytes (Bld) [#/Vol] 2.93 10*3/uL 0.83-4.51 [facility] Lymphocytes/100 WBC Auto (Un sp spec)Ordered By: Emilmilvia Nicole on 06-01-2024 Lymphocytes/100 WBC (Bld) 30.0 % 19-41 [facility] MCV (mean corpuscular volume ) determinationOrdered By: Emilmilvia Nicole on 06-01-2024 MCV (RBC) [Entitic vol] 88.1 fL 80-94 [facility] Mean corpuscular hemoglobin (MCH) determinationOrdered By: Emil Nicole on 06-01-2024 MCH (RBC) [Entitic mass] 29.0 pg 27.0-32.0 [facility] Mean corpuscular hemoglobin concentration (MCHC) determinationOrdered By: Emil Nicole on 06-01-2024 MCHC (RBC) [Mass/Vol] 32.9 g/dL 32-36 [facility] Mean platelet volume determi nationOrdered By: Emil Nicole on 06-01-2024 Platelet mean volume (Bld) [Entitic vol] 10.5 fL 6.2-12.0 [facility] Monocyte percentageOrdered B y: Emil Nicole on 06-01-2024 Monocytes/100 WBC (Bld) 6.1 % 0-10 [facility] Neutrophil percentageOrdered By: Emil Nicole on 06-01-2024 Neutrophils/100 WBC (Bld) 61.5 % 47-70 [facility] Nucleated red blood cell per centageOrdered By: Emil Nicole on 06-01-2024 Nucleated RBC/100 WBC (Bld) [Ratio] 0 % 0-5 [facility] Platelet countOrdered By: Ug milvia Nicole on 06-01-2024 Platelets (Bld) [#/Vol] 211 10*3/uL 150-450 [facility] Potassium measurementOrdered By: Emil Nicole on 06-01-2024 Potassium [Moles/Vol] 4.2 mmol/L 3.5-5.1 [facility] RBC Auto (Bld) [#/Vol]Ordere d By: Emil Nicole on 06-01-2024 RBC (Bld) [#/Vol] 5.89 10*6/uL 4.6-6.2 [facility] Serum anion gap measurementO rdered By: Emil Nicole on 06-01-2024 Anion gap [Moles/Vol] 3 mmol/L Low 5-15 [facility] Serum or plasma calcium blanca urement (mass/volume)Ordered By: Emil Nicole on 06-01-2024 Calcium [Mass/Vol] 9.0 mg/dL 8.5-10.1 [facility] Serum or plasma creatinine m easurement (mass/volume)Ordered By: Emil Nicole on 06-01-2024 Creatinine [Mass/Vol] 1.00 mg/dL 0.70-1.30 [facility] Comment on above: The validity of the calculated GFR & GFRAA in patients over 70 years has not been determined. Clinical correlation is essential. Serum or plasma urea nitroge n measurement (mass/volume)Ordered By: Emil Nicole on 06-01-2024 Urea nitrogen [Mass/Vol] 19 mg/dL High 7-18 [facility] Sodium levelOrdered By: Emil Nicole on 06-01-2024 Sodium [Moles/Vol] 139 mmol/L 136-145 [facility] Troponin IOrdered By: Emil zabala on 06-01-2024 Troponin I High Sensitivity 5 pg/mL 3.0-78.0 [facility] Comment on above: Please Note: New Leyla t Units and Gender Specific Reference Ranges. For more information see Policy Stat Procedure [place] High Sensitivity Troponin (TNIH) and attachments. White blood cell (WBC) count Ordered By: Emil Nicole on 06-01-2024 WBC (Bld) [#/Vol] 9.8 10*3/uL 4.4-11.0 [facility] Inital Evaluation (1) - PTon 05-12-2024 Inital Evaluation (1) - PT [facility] Physical Therapy Health[address] [place] [address] / REHABILITATION SERVICES INITIAL EVALUATION MR#: [id number] Acct: [id number] Name: GINO AVILEZ Rep #: [id number] : 1985 38 From: Trevor Segal PT, ATC Referring Dr.: CALEB Armenta Status: REG RCR Insurance: [facility] SELF PAY INSURANCE Patient's Visit Information Visit Information Visit Information: GINO AVILEZ is a 38 year old M referred to Physical Therapy by CALEB Armenta with a diagnosis of LBP with radiculopathy. Date of Evaluation: 05/12/24 Physical Therapist: Trevor M Hartzler, PT, ATC Visit Plan Frequency: 2x /Week [...] to be FAXED BACK to us at [phone] for Medicare purposes. For Medicare only, by signing this I certify the plan of care. Please let me know if there are questions or concerns regarding this plan of care. Physician Signature: Date: 05/12/24 4589 CC: ORI Bergman; CALEB Armenta [facility] Signed Normal [facility] Orthopedic Visit Reporton Orthopedic Visit Report [facility] [address] [place] [id number] OFFICE VISIT Date of Service: 05/02/24 MR#: [id number] Acct: [id number] Name: GINO AVILEZ Jasiel Rep #: [id number] : 1985 Provider: CALEB Armenta Age/Sex: 38/M Location: [facility] Status: Signed Intake Vital Signs 11/29/23 13:34 Height 6 ft 1 in Intake Visit Reasons: LUMBAR SPINE Chief Complaint: lumbar spine Allergies cefaclor (From Ceclor) Allergy (Verified 05/02/24 13:55) Hives Medications ???Medication [...] decisions made by me, CALEB Armenta 05/02/24 3504. Part of today???s visit was documented by [...] L2-3 wi (more content not included)... [facility] Office Visit (UCWSTR ) GINO AVILEZ ([id number]) 1985 M Date Time Provider Department 04/13/24 1:00 PM [facility] During your visit today, we recorded the following information about you: Temperature Pulse Respiration Blood pressure 97.9 degrees 82/minute 20/minute 119/84 Weight 126 kg Jl Root PA-C 04/13/2024 1:43 PM Signed This note was created using Cumedriter. Subjective Gino Avilez is a 38 year [...] mg. - (more content not included)... Normal [facility] CNOVon 04-05-2024 CNOV Office Visit (UCWSTR ) RAGHAVGINO ([id number]) 1985 M Date Time Provider Department 04/05/24 12:45 PM MEGHAN HUITRON [facility] During your visit today, we recorded the following information about you: Temperature Pulse Respiration Blood pressure 97.5 degrees 105/minute 21/minute 120/86 Weight 130.1 kg Meghan Huitron PA-C 04/05/2024 1:51 PM Signed This note was created using [employer]. Subjective Gino Avilez is a 38 year [...] Reaction CECLO (more content not included)... Normal [facility] 03-XH-Jvcsiit DOrdered By: Ray Bergman on 02-22-2024 Vitamin D 25-Hydroxy 20.5 ng/mL [facility] Comment on above: Vitamin D 25(OH) Sta tus Range Deficiency <20 ng/mL (50nmol/L) Insufficiency 20 - 30 ng/mL (50 - 75 nmol/L) Sufficiency 30 - 100 ng/mL (75 - 250 nmol/L) Toxicity >100 ng/mL (>250 nmol/L) Albumin to globulin ratioOrd ered By: Сергей Bergman on 02-22-2024 Albumin/Globulin [Mass ratio] 1.0 {ratio} 0.9-2.4 [facility] Bilirubin, totalOrdered By: Сергей Bergman on 02-22-2024 Bilirubin [Mass/Vol] 0.40 mg/dL 0.20-1.00 [facility] Comment on above: For patients on eltr ombopag therapy, use of Dimension [place] TBIL is not recommended. Blood urea nitrogen (BUN)/cr eatinine ratioOrdered By: Сергей Bergman on 02-22-2024 Urea nitrogen/Creatinine [Mass ratio] 11.2 mg/mg 10-20 [facility] Carbon dioxide measurementOr dered By: Сергей Bergman on 02-22-2024 CO2 [Moles/Vol] 25.0 mmol/L 21.0-32.0 [facility] Chloride measurementOrdered By: Сергей Bergman on 02-22-2024 Chloride [Moles/Vol] 110 mmol/L High 98-107 [facility] Comprehensive Metabolic Prof ilon 02-22-2024 Albumin [Mass/Vol] 4.0 g/dL Normal 3.2-5.0 [facility] Comment on above: Performed By: #### L 506.1000, L500.4100, L500.4050, L501.9985 ####[facility] [address] [place], [address] Albumin/Globulin [Mass ratio] 1.0 {ratio} Normal 0.9-2.4 [facility] Comment on above: Performed By: #### L 506.1000, L500.4100, L500.4050, L501.9985 ####[facility] [address] [place], [address] ALK P 76 U/L Normal 45-117 [facility] Comment on above: Performed By: #### L 506.1000, L500.4100, L500.4050, L501.9985 ####[facility] [address] [place], [address] ALT [Catalytic activity/Vol] 44 U/L Normal 16-61 [facility] Comment on above: Performed By: #### L 506.1000, L500.4100, L500.4050, L501.9985 ####[facility] [address] [place], [address] AST [Catalytic activity/Vol] 22 U/L Normal 15-37 [facility] Comment on above: Performed By: #### L 506.1000, L500.4100, L500.4050, L501.9985 ####[facility] [address] [place], [address] Bilirubin [Mass/Vol] 0.40 mg/dL Normal 0.20-1.00 [facility] Comment on above: Result Comment: For patients on eltrombopag therapy, use of Dimension [place] TBIL is not recommended. Performed By: #### L 506.1000, L500.4100, L500.4050, L501.9985 ####[facility] [address] [place], [address] BUN/CRE 11.2 RATIO Normal 10-20 [facility] Comment on above: Performed By: #### L 506.1000, L500.4100, L500.4050, L501.9985 ####[facility] [address] [place], [address] CA,Total 9.0 mg/dL Normal 8.5-10.1 [facility] Comment on above: Performed By: #### L 506.1000, L500.4100, L500.4050, L501.9985 ####[facility] [address] [place], [address] Chloride [Moles/Vol] 110 mmol/L High 98-107 [facility] Comment on above: Performed By: #### L 506.1000, L500.4100, L500.4050, L501.9985 ####[facility] [address] [place], [address] CO2 [Moles/Vol] 25.0 mmol/L Normal 21.0-32.0 [facility] Comment on above: Performed By: #### L 506.1000, L500.4100, L500.4050, L501.9985 ####[facility] [address] [place], [address] Creatinine [Mass/Vol] 1.07 mg/dL Normal 0.70-1.30 [facility] Comment on above: Result Comment: The validity of the calculated GFR GFRAA in patients over 70 years has not been determined. Clinical correlation is essential. Performed By: #### L 506.1000, L500.4100, L500.4050, L501.9985 ####[facility] [address] [place], [address] EST GFR - AA 99 mL/min Normal >60 [facility] Comment on above: Result Comment: Afri can [place] GFR Calc Performed By: #### L 506.1000, L500.4100, L500.4050, L501.9985 ####[facility] [address] [place], [address] GAP 3 Low 5-15 [facility] Comment on above: Performed By: #### L 506.1000, L500.4100, L500.4050, L501.9985 ####[facility] [address] [place], [address] GFR/1.73 sq M.predicted among non-blacks MDRD (S/P/Bld) [Vol rate/Area] 82 mL/min/{1.73_m2} Normal >60 [facility] Comment on above: Result Comment: Non- GFR Calc Performed By: #### L 506.1000, L500.4100, L500.4050, L501.9985 ####[facility] [address] [place], [address] Globulin (S) [Mass/Vol] 3.9 g/dL Normal 2.2-4.2 [facility] Comment on above: Performed By: #### L 506.1000, L500.4100, L500.4050, L501.9985 ####[facility] [address] [place], [address] Glucose [Mass/Vol] 102 mg/dL Normal 74-106 [facility] Comment on above: Result Comment: Fast ing Glucose result from 100 to 125 mg/dL suggests IMPAIRED HOMEOSTASIS per A.D.A. criteria. Performed By: #### L 506.1000, L500.4100, L500.4050, L501.9985 ####[facility] [address] [place], [address] Potassium [Moles/Vol] 4.1 mmol/L Normal 3.5-5.1 [facility] Comment on above: Performed By: #### L 506.1000, L500.4100, L500.4050, L501.9985 ####[facility] [address] [place], [address] Sodium [Moles/Vol] 138 mmol/L Normal 136-145 [facility] Comment on above: Performed By: #### L 506.1000, L500.4100, L500.4050, L501.9985 ####[facility] [address] [place], [address] T PROT 7.9 g/dL Normal 6.4-8.2 [facility] Comment on above: Performed By: #### L 506.1000, L500.4100, L500.4050, L501.9985 ####[facility] [address] [place], [address] Urea nitrogen [Mass/Vol] 12 mg/dL Normal 7-18 [facility] Comment on above: Performed By: #### L 506.1000, L500.4100, L500.4050, L501.9985 ####[facility] [address] [place], [address] Estimated glomerular filtrat ion rate (GFR) AmericanOrdered By: Сергей Bergman on 02-22-2024 Estimated GFR (MDRD) Amer 99 mL/min >60 [facility] Comment on above: GFR Calc Glomerular filtration rate ( GFR) estimationOrdered By: Сергей Bergman on 02-22-2024 Estimated GFR (MDRD) Non-Af Amer 82 mL/min >60 [facility] Comment on above: Non- GFR Calc Glucose measurementOrdered B y: Сергей Bergman on 02-22-2024 Glucose [Mass/Vol] 102 mg/dL 74-106 [facility] Comment on above: Fasting Glucose resu lt from 100 to 125 mg/dL suggests IMPAIRED HOMEOSTASIS per A.D.A. criteria. Hemoglobin A1con 02-22-2024 HbA1c (Bld) [Mass fraction] 5.2 % Normal 3.8-5.6 [facility] Comment on above: Result Comment: Norm al < 5.7 % Prediabetic 5.7 - 6.4 % Diabetic >or= 6.5 % Please note range changes. Performed By: #### L 506.1000, L500.4100, L500.4050, L501.9985 ####[facility] [address] [place], [address] Hemoglobin A1c percentageOrd ered By: Сергей Bergman on 02-22-2024 HbA1c (Bld) [Mass fraction] 5.2 % 3.8-5.6 [facility] Comment on above: Normal < 5.7 % Predi abetic 5.7 - 6.4 % Diabetic >or= 6.5 % Please note range changes. High density lipoprotein (HD L) measurementOrdered By: Сергей Bergman on 02-22-2024 Cholesterol in HDL [Mass/Vol] 31 mg/dL Low >40 [facility] Comment on above: The drugs N-Acetylcy steine and Metamizole may falsely depress this assay. Reference Range HDL <40 mg/dL Low HDL Cholesterol HDL >or= 60 mg/dL High HDL Cholesterol Laboratory - Chemistry and C hemistry - challengeOrdered By: Сергей Bergman on 02-22-2024 AST [Catalytic activity/Vol] 22 U/L 15-37 [facility] Lipid Profileon 02-22-2024 Cholesterol [Mass/Vol] 150 mg/dL Normal 200 [facility] Comment on above: Result Comment: <200 mg/dL Desirable 200-240 mg/dL Borderline >240 mg/dL High Risk Performed By: #### L 506.1000, L500.4100, L500.4050, L501.9985 ####[facility] [address] [place], [address] Cholesterol in HDL [Mass/Vol] 31 mg/dL Low [facility] Comment on above: Result Comment: The drugs N-Acetylcysteine and Metamizole may falsely depress this assay. Reference Range HDL <40 mg/dL Low HDL Cholesterol HDL >or= 60 mg/dL High HDL Cholesterol Performed By: #### L 506.1000, L500.4100, L500.4050, L501.9985 ####[facility] [address] [place], [address] Cholesterol in LDL [Mass/Vol] 84 mg/dL Normal 0-130 [facility] Comment on above: Performed By: #### L 506.1000, L500.4100, L500.4050, L501.9985 ####[facility] [address] [place], [address] Cholesterol in VLDL [Mass/Vol] 35 mg/dL Normal 5-40 [facility] Comment on above: Performed By: #### L 506.1000, L500.4100, L500.4050, L501.9985 ####[facility] [address] [place], [address] Triglyceride [Mass/Vol] 176 mg/dL Normal [facility] Comment on above: Result Comment: The drugs N-Acetylcysteine and Metamizole may falsely depress this assay. Serum Triglycerides Reference Interval Normal <150 mg/dL Borderline high 150 - 199 mg/dL High 200 - 499 mg/dL Very High > or = 500 mg/dL Performed By: #### L 506.1000, L500.4100, L500.4050, L501.9985 ####[facility] [address] [place], [address] Low density lipoprotein (LDL ) cholesterol measurementOrdered By: Сергей Bergman on 02-22-2024 Cholesterol in LDL [Mass/Vol] 84 mg/dL 0-130 [facility] Potassium measurementOrdered By: Сергей Bergman on 02-22-2024 Potassium [Moles/Vol] 4.1 mmol/L 3.5-5.1 [facility] Serum anion gap measurementO rdered By: Сергей Bergman on 02-22-2024 Anion gap [Moles/Vol] 3 mmol/L Low 5-15 [facility] Serum globulin measurementOr dered By: Сергей Bergman on 02-22-2024 Globulin (S) [Mass/Vol] 3.9 g/dL 2.2-4.2 [facility] Serum or plasma alanine gaffney otransferase (ALT) measurementOrdered By: Сергей Bergman on 02-22-2024 ALT [Catalytic activity/Vol] 44 U/L 16-61 [facility] Serum or plasma albumin blanca urement (mass/volume)Ordered By: Сергей Bergman on 02-22-2024 Albumin [Mass/Vol] 4.0 g/dL 3.2-5.0 [facility] Serum or plasma alkaline jeramy sphatase measurementOrdered By: Сергей Bergman on 02-22-2024 ALP [Catalytic activity/Vol] 76 U/L 45-117 [facility] Serum or plasma calcium blanca urement (mass/volume)Ordered By: Сергей Bergman on 02-22-2024 Calcium [Mass/Vol] 9.0 mg/dL 8.5-10.1 [facility] Serum or plasma cholesterol measurement (mass/volume)Ordered By: Сергей Bergman on 02-22-2024 Cholesterol [Mass/Vol] 150 mg/dL <200 [facility] Comment on above: <200 mg/dL Desirable 200-240 mg/dL Borderline >240 mg/dL High Risk Serum or plasma creatinine m easurement (mass/volume)Ordered By: Сергей Bergman on 02-22-2024 Creatinine [Mass/Vol] 1.07 mg/dL 0.70-1.30 [facility] Comment on above: The validity of the calculated GFR & GFRAA in patients over 70 years has not been determined. Clinical correlation is essential. Serum or plasma urea nitroge n measurement (mass/volume)Ordered By: Сергей Bergman on 02-22-2024 Urea nitrogen [Mass/Vol] 12 mg/dL 7-18 [facility] Sodium levelOrdered By: Clinton Bergman on 02-22-2024 Sodium [Moles/Vol] 138 mmol/L 136-145 [facility] Total proteinOrdered By: Dion Bergman on 02-22-2024 Protein [Mass/Vol] 7.9 g/dL 6.4-8.2 [facility] Triglycerides measurementOrd ered By: Сергей Bergman on 02-22-2024 Triglyceride [Mass/Vol] 176 mg/dL <199 [facility] Comment on above: The drugs N-Acetylcy steine and Metamizole may falsely depress this assay.Serum Triglycerides Reference Interval Normal <150 mg/dL Borderline high 150 - 199 mg/dL High 200 - 499 mg/dL Very High > or = 500 mg/dL Very low density lipoprotein (VLDL) cholesterol measurementOrdered By: Сергей Bergman on 02-22-2024 VLDL Cholesterol 35 mg/dL 5-40 [facility] Vitamin D,25 Hydroxyon 02-21 Vitamin D 25-OH 20.5 ng/mL Normal [facility] Comment on above: Result Comment: Sheryl min D 25(OH) Status Range Deficiency <20 ng/mL (50nmol/L) Insufficiency 20 - 30 ng/mL (50 - 75 nmol/L) Sufficiency 30 - 100 ng/mL (75 - 250 nmol/L) Toxicity >100 ng/mL (>250 nmol/L) Performed By: #### L 506.1000, L500.4100, L500.4050, L501.9985 ####[facility] [address] [place], [address] .Auto Diffon 01-04-2024 Basophil, Absolute 0.0 10 3/mcL Normal 0.0-0.2 [facility] Comment on above: Performed By: #### T SH, ESR, ADIFF, PBNP, PRO, LIPID, GFR, CRP, ANEU, BMP, CBC #### [address] [address] Basophils/100 WBC (Bld) 0.6 % Normal 0.0-2.5 [facility] Comment on above: Performed By: #### T SH, ESR, ADIFF, PBNP, PRO, LIPID, GFR, CRP, ANEU, BMP, CBC #### [address] [address] Eosinophil, Absolute 0.2 10 3/mcL Normal 0.0-0.7 [facility] Comment on above: Performed By: #### T SH, ESR, ADIFF, PBNP, PRO, LIPID, GFR, CRP, ANEU, BMP, CBC #### [address] [address] Eosinophils/100 WBC (Bld) 2.2 % Normal 0.0-7.0 [facility] Comment on above: Performed By: #### T SH, ESR, ADIFF, PBNP, PRO, LIPID, GFR, CRP, ANEU, BMP, CBC #### [address] [address] Lymphocyte, Absolute 2.5 10 3/mcL Normal 0.9-4.3 [facility] Comment on above: Performed By: #### T SH, ESR, ADIFF, PBNP, PRO, LIPID, GFR, CRP, ANEU, BMP, CBC #### [address] [address] Lymphocytes/100 WBC (Bld) 30.4 % Normal 20.0-40.0 [facility] Comment on above: Performed By: #### T SH, ESR, ADIFF, PBNP, PRO, LIPID, GFR, CRP, ANEU, BMP, CBC #### [address] [address] Monocyte, Absolute 0.6 10 3/mcL Normal 0.1-1.4 [facility] Comment on above: Performed By: #### T SH, ESR, ADIFF, PBNP, PRO, LIPID, GFR, CRP, ANEU, BMP, CBC #### [address] [address] Monocytes/100 WBC (Bld) 6.9 % Normal 2.0-13.0 [facility] Comment on above: Performed By: #### T SH, ESR, ADIFF, PBNP, PRO, LIPID, GFR, CRP, ANEU, BMP, CBC #### [address] [address] Neutrophils/100 WBC (Bld) 59.9 % Normal 50.0-75.0 [facility] Comment on above: Performed By: #### T SH, ESR, ADIFF, PBNP, PRO, LIPID, GFR, CRP, ANEU, BMP, CBC #### [address] [address] .GFRon 01-04-2024 GFR 92 ml/min/1.73sqm Normal [facility] Comment on above: Result Comment: GFR [...] LIPID, GFR, CRP, ANEU, BMP, CBC #### [address] [address] GFR Non- 76 ml/min/1.73sqm Normal [facility] Comment on above: Result Comment: GFR [...] LIPID, GFR, CRP, ANEU, BMP, CBC #### [address] [address] .NEUABSon 01-04-2024 Neutrophil, Absolute 4.9 10 3/mcL Normal 2.3-8.1 [facility] Comment on above: Performed By: #### T SH, ESR, ADIFF, PBNP, PRO, LIPID, GFR, CRP, ANEU, BMP, CBC #### [address] [address] BMPon 01-04-2024 BUN/Creatinine Ratio 11 ratio Normal 7-27 [facility] Comment on above: Performed By: #### T SH, ESR, ADIFF, PBNP, PRO, LIPID, GFR, CRP, ANEU, BMP, CBC #### [address] [address] Calcium [Mass/Vol] 9.1 mg/dL Normal 8.4-10.2 [facility] Comment on above: Performed By: #### T SH, ESR, ADIFF, PBNP, PRO, LIPID, GFR, CRP, ANEU, BMP, CBC #### [address] [address] Chloride [Moles/Vol] 106 mmol/L Normal 98-107 [facility] Comment on above: Performed By: #### T SH, ESR, ADIFF, PBNP, PRO, LIPID, GFR, CRP, ANEU, BMP, CBC #### [place] [id number] CO2 [Moles/Vol] 28 mmol/L Normal 22-29 [facility] Comment on above: Performed By: #### T SH, ESR, ADIFF, PBNP, PRO, LIPID, GFR, CRP, ANEU, BMP, CBC #### [address] [address] Creatinine [Mass/Vol] 1.09 mg/dL Normal 0.70-1.30 [facility] Comment on above: Result Comment: Test ing performed on Siemens Dimension EXL analyzer using a modified kinetic Brad technique. Performed By: #### T SH, ESR, ADIFF, PBNP, PRO, LIPID, GFR, CRP, ANEU, BMP, CBC #### [place] [address] Electrolyte Balance 8.0 mEq/L Normal 4.0-15.0 [facility] Comment on above: Performed By: #### T SH, ESR, ADIFF, PBNP, PRO, LIPID, GFR, CRP, ANEU, BMP, CBC #### [address] [address] Glucose [Mass/Vol] 100 mg/dL Normal 70-105 [facility] Comment on above: Performed By: #### T SH, ESR, ADIFF, PBNP, PRO, LIPID, GFR, CRP, ANEU, BMP, CBC #### [address] [address] Potassium [Moles/Vol] 4.5 mmol/L Normal 3.5-5.1 [facility] Comment on above: Performed By: #### T SH, ESR, ADIFF, PBNP, PRO, LIPID, GFR, CRP, ANEU, BMP, CBC #### [place] [id number] Sodium [Moles/Vol] 142 mmol/L Normal 136-145 [facility] Comment on above: Performed By: #### T SH, ESR, ADIFF, PBNP, PRO, LIPID, GFR, CRP, ANEU, BMP, CBC #### [place] [address] Urea nitrogen [Mass/Vol] 12 mg/dL Normal 7-18 [facility] Comment on above: Performed By: #### T SH, ESR, ADIFF, PBNP, PRO, LIPID, GFR, CRP, ANEU, BMP, CBC #### [place] [address] CBCon 01-04-2024 Erythrocyte distribution width (RBC) [Ratio] 15.4 % Normal 11.5-15.5 [facility] Comment on above: Performed By: #### T SH, ESR, ADIFF, PBNP, PRO, LIPID, GFR, CRP, ANEU, BMP, CBC #### [place] [address] Hematocrit (Bld) [Volume fraction] 49.1 % Normal 40.0-52.0 [facility] Comment on above: Performed By: #### T SH, ESR, ADIFF, PBNP, PRO, LIPID, GFR, CRP, ANEU, BMP, CBC #### [place] [address] Hgb 16.5 G/dL Normal 13.0-17.5 [facility] Comment on above: Performed By: #### T SH, ESR, ADIFF, PBNP, PRO, LIPID, GFR, CRP, ANEU, BMP, CBC #### [place] [address] MCH (RBC) [Entitic mass] 29.5 pg Normal 27.0-33.0 [facility] Comment on above: Performed By: #### T SH, ESR, ADIFF, PBNP, PRO, LIPID, GFR, CRP, ANEU, BMP, CBC #### [address] [address] MCHC 33.7 G/dL Normal 32.0-36.0 [facility] Comment on above: Performed By: #### T SH, ESR, ADIFF, PBNP, PRO, LIPID, GFR, CRP, ANEU, BMP, CBC #### [address] [address] MCV (RBC) [Entitic vol] 87.7 fL Normal 81.0-100.0 [facility] Comment on above: Performed By: #### T SH, ESR, ADIFF, PBNP, PRO, LIPID, GFR, CRP, ANEU, BMP, CBC #### [address] [address] Platelet 190 10 3/mcL Normal 150-450 [facility] Comment on above: Performed By: #### T SH, ESR, ADIFF, PBNP, PRO, LIPID, GFR, CRP, ANEU, BMP, CBC #### [address] [address] Platelet mean volume (Bld) [Entitic vol] 8.8 fL Normal 6.4-10.5 [facility] Comment on above: Performed By: #### T SH, ESR, ADIFF, PBNP, PRO, LIPID, GFR, CRP, ANEU, BMP, CBC #### [address] [address] RBC 5.60 10 6/mcL Normal 4.50-6.00 [facility] Comment on above: Performed By: #### T SH, ESR, ADIFF, PBNP, PRO, LIPID, GFR, CRP, ANEU, BMP, CBC #### [address] [address] WBC 8.2 10 3/mcL Normal 4.5-10.8 [facility] Comment on above: Performed By: #### T SH, ESR, ADIFF, PBNP, PRO, LIPID, GFR, CRP, ANEU, BMP, CBC #### [address] [address] CRPon 01-04-2024 C-Reactive Protein 0.4 mg/dL High 0.0-0.3 [facility] Comment on above: Performed By: #### T SH, ESR, ADIFF, PBNP, PRO, LIPID, GFR, CRP, ANEU, BMP, CBC #### [id number] [place], [place] [address] ESRon 01-04-2024 Erythrocyte Sed Rate 10 mm/hr Normal 0-15 [facility] Comment on above: Performed By: #### T SH, ESR, ADIFF, PBNP, PRO, LIPID, GFR, CRP, ANEU, BMP, CBC #### [id number] [place], [place] [address] LABORATORYOrdered By: SYSTEM SYSTEM on 01-04-2024 Basophils [...] Comment on above: Interpretive Data: Mini sanchez [employer] (CHEST, 1992, 102:[id number]) [...] 01-04-2024 Cholesterol [Mass/Vol] 140 mg/dL Normal 0-200 [facility] Comment on above: Result Comment: Chol esterol Reference Interval: Less than 200 Desirable 200-239 Borderline high risk 240 and above High risk Performed By: #### T SH, ESR, ADIFF, PBNP, PRO, LIPID, GFR, CRP, ANEU, BMP, CBC #### [id number] [place], [place] [address] Cholesterol in HDL [Mass/Vol] 29 mg/dL Low 40-60 [facility] Comment on above: Performed By: #### T SH, ESR, ADIFF, PBNP, PRO, LIPID, GFR, CRP, ANEU, BMP, CBC #### [id number] [place], [place] [address] Cholesterol in LDL [Mass/Vol] 83 mg/dL Normal 0-130 [facility] Comment on above: Performed By: #### T SH, ESR, ADIFF, PBNP, PRO, LIPID, GFR, CRP, ANEU, BMP, CBC #### [id number] [place], [place] [address] Triglyceride [Mass/Vol] 141 mg/dL Normal 0-150 [facility] Comment on above: Result Comment: Trig lyceride Reference Interval: Less than 150 Normal 150-199 Borderline high risk 200-499 High risk 500 or higher Very high risk Performed By: #### T SH, ESR, ADIFF, PBNP, PRO, LIPID, GFR, CRP, ANEU, BMP, CBC #### [address] [address] PBNPon 01-04-2024 Natriuretic peptide B (Bld) [Mass/Vol] 228 pg/mL High 0-125 [facility] Comment on above: Result Comment: NT-p roBNP results of less than 300 pg/mL effectively rules out acute congestive heart failure with 99% negative predictive value. Performed By: #### T SH, ESR, ADIFF, PBNP, PRO, LIPID, GFR, CRP, ANEU, BMP, CBC #### [address] [address] PROon 01-04-2024 PT Coag (PPP) [Time] 11.4 s Normal 9.0-14.4 [facility] Comment on above: Performed By: #### T SH, ESR, ADIFF, PBNP, PRO, LIPID, GFR, CRP, ANEU, BMP, CBC #### [address] [address] PT International Ratio 1.[address] [facility] Comment on above: Result Comment: [employer] (CHEST, 1992, 102:[id number]) recommended therapeutic range for oral anticoagulant therapy is: LOW RISK: Prophylaxis of venous thrombosis INR: 2.0-3.0 Treatment of pulmonary embolism 2.0-3.0 Prevention of systemic embolism 2.0-3.0 HIGH RISK: Mechanical prosthetic valves 2.5-3.5 Performed By: #### T SH, ESR, ADIFF, PBNP, PRO, LIPID, GFR, CRP, ANEU, BMP, CBC #### [facility] [address] [place], [place] [address] TSHon 01-04-2024 TSH Qn 0.88 m[IU]/L Normal 0.36-3.74 [facility] Comment on above: Performed By: #### T SH, ESR, ADIFF, PBNP, PRO, LIPID, GFR, CRP, ANEU, BMP, CBC #### [facility] [address] [place], [place] [address] XR SHOULDER MINIMUM 2 VIEWS LEFTon 09-15-2023 [...] 09/15/2023 12:15:51 PM Ordering Provider: [facility] ([place]) Basophil percentageOrdered B y: Сергей Bergman on 07-25-2023 Bilirubin [Mass/Vol] 0.50 mg/dL 0.20-1.00 [facility] Comment on above: For patients on eltr ombopag therapy, use of Dimension [place] TBIL is not recommended. Chloride [Moles/Vol] 109 mmol/L 98-107 [facility] Cholesterol [Mass/Vol] 133 mg/dL <200 [facility] Comment on above: <200 mg/dL Desirable 200-240 mg/dL Borderline >240 mg/dL High Risk Glucose [Mass/Vol] 99 mg/dL 74-106 [facility] Potassium [Moles/Vol] 3.9 mmol/L 3.5-5.1 [facility] Protein [Mass/Vol] 7.8 g/dL 6.4-8.2 [facility] Sodium [Moles/Vol] 138 mmol/L 136-145 [facility] Triglyceride [Mass/Vol] 144 mg/dL <199 [facility] Comment on above: The drugs N-Acetylcy steine and Metamizole may falsely depress this assay.Serum Triglycerides Reference Interval Normal <150 mg/dL Borderline high 150 - 199 mg/dL High 200 - 499 mg/dL Very High > or = 500 mg/dL Laboratory - Chemistry and C hemistry - challengeOrdered By: Сергей Bergman on 07-25-2023 Albumin/Globulin [Mass ratio] 1.0 {ratio} 0.9-2.4 [facility] ALP [Catalytic activity/Vol] 82 U/L 45-117 [facility] ALT [Catalytic activity/Vol] 57 U/L 16-61 [facility] Cholesterol in HDL [Mass/Vol] 29 mg/dL >40 [facility] Comment on above: The drugs N-Acetylcy steine and Metamizole may falsely depress this assay. Reference Range HDL <40 mg/dL Low HDL Cholesterol HDL >or= 60 mg/dL High HDL Cholesterol Cholesterol in LDL [Mass/Vol] 75 mg/dL 0-130 [facility] CO2 [Moles/Vol] 27.0 mmol/L 21.0-32.0 [facility] Globulin (S) [Mass/Vol] 4.0 g/dL 2.2-4.2 [facility] Urea nitrogen/Creatinine [Mass ratio] 12.7 mg/mg 10-20 [facility] No Panel InformationOrdered By: Сергей Bergman on 07-25-2023 Estimated GFR (MDRD) Amer 96 mL/min >60 [facility] Comment on above: GFR Calc Estimated GFR (MDRD) Non-Af Amer 80 mL/min >60 [facility] Comment on above: Non- GFR Calc Vitamin D 25-Hydroxy 19.6 ng/mL [facility] Comment on above: Vitamin D 25(OH) Sta tus Range Deficiency <20 ng/mL (50nmol/L) Insufficiency 20 - 30 ng/mL (50 - 75 nmol/L) Sufficiency 30 - 100 ng/mL (75 - 250 nmol/L) Toxicity >100 ng/mL (>250 nmol/L) VLDL Cholesterol 29 mg/dL 5-40 [facility] Serum or plasma calcium blanca urement (mass/volume)Ordered By: Сергей Bergman on 07-25-2023 Calcium [Mass/Vol] 8.7 mg/dL 8.5-10.1 [facility] Serum or plasma creatinine m easurement (mass/volume)Ordered By: Сергей Bergman on 07-25-2023 Creatinine [Mass/Vol] 1.10 mg/dL 0.70-1.30 [facility] Comment on above: The validity of the calculated GFR & GFRAA in patients over 70 years has not been determined. Clinical correlation is essential. Serum or plasma urea nitroge n measurement (mass/volume)Ordered By: Сергей Bergman on 07-25-2023 Urea nitrogen [Mass/Vol] 14 mg/dL 7-18 [facility] Thin prep Papanicolaou smear with manual screeningOrdered By: Сергей Bergman on 07-25-2023 Thin prep Papanicolaou smear with manual screening 3.8 g/dL 3.2-5.0 [facility] Thin prep Papanicolaou smear with manual screening 28 U/L 15-37 [facility] Thin prep Papanicolaou smear with manual screening 2 5-15 [facility] Whole blood hemoglobin A1c/t otal hemoglobin ratio (mass fraction)Ordered By: Сергей Bergman on 07-25-2023 HbA1c (Bld) [Mass fraction] 5.7 % 3.8-5.6 [facility] Comment on above: Normal < 5.7 % Predi abetic 5.7 - 6.4 % Diabetic >or= 6.5 % Please note range changes. Basophil percentageOrdered B y: Сергей Bergman on 01-19-2023 Bilirubin [Mass/Vol] 0.30 mg/dL 0.20-1.00 [facility] Comment on above: For patients on eltr ombopag therapy, use of Dimension [place] TBIL is not recommended. Chloride [Moles/Vol] 108 mmol/L 98-107 [facility] Cholesterol [Mass/Vol] 179 mg/dL <200 [facility] Comment on above: <200 mg/dL Desirable 200-240 mg/dL Borderline >240 mg/dL High Risk Glucose [Mass/Vol] 120 mg/dL 74-106 [facility] Comment on above: Fasting Glucose resu lt from 100 to 125 mg/dL suggests IMPAIRED HOMEOSTASIS per A.D.A. criteria. Potassium [Moles/Vol] 3.8 mmol/L 3.5-5.1 [facility] Protein [Mass/Vol] 7.7 g/dL 6.4-8.2 [facility] Sodium [Moles/Vol] 139 mmol/L 136-145 [facility] Triglyceride [Mass/Vol] 311 mg/dL <199 [facility] Comment on above: The drugs N-Acetylcy steine and Metamizole may falsely depress this assay.Serum Triglycerides Reference Interval Normal <150 mg/dL Borderline high 150 - 199 mg/dL High 200 - 499 mg/dL Very High > or = 500 mg/dL Laboratory - Chemistry and C hemistry - challengeOrdered By: Сергей Bergman on 01-19-2023 ALP [Catalytic activity/Vol] 68 U/L 45-117 [facility] ALT [Catalytic activity/Vol] 68 U/L 16-61 [facility] CO2 [Moles/Vol] 29.0 mmol/L 21.0-32.0 [facility] Globulin (S) [Mass/Vol] 3.9 g/dL 2.2-4.2 [facility] Urea nitrogen/Creatinine [Mass ratio] 18.6 mg/mg 10-20 [facility] No Panel InformationOrdered By: Сергей Bergman on 01-19-2023 Estimated GFR (MDRD) Amer 106 mL/min >60 [facility] Comment on above: GFR Calc Estimated GFR (MDRD) Non-Af Amer 87 mL/min >60 [facility] Comment on above: Non- GFR Calc Vitamin D 25-Hydroxy 29.1 ng/mL [facility] Comment on above: Vitamin D 25(OH) Sta tus Range Deficiency <20 ng/mL (50nmol/L) Insufficiency 20 - 30 ng/mL (50 - 75 nmol/L) Sufficiency 30 - 100 ng/mL (75 - 250 nmol/L) Toxicity >100 ng/mL (>250 nmol/L) Serum or plasma albumin blanca urement (mass/volume)Ordered By: Сергей Bergman on 01-19-2023 Albumin [Mass/Vol] 3.8 g/dL 3.2-5.0 [facility] Serum or plasma albumin/glob ulin mass ratioOrdered By: Сергей Bergman on 01-19-2023 Albumin/Globulin [Mass ratio] 1.0 {ratio} 0.9-2.4 [facility] Serum or plasma calcium blanca urement (mass/volume)Ordered By: Сергей Bergman on 01-19-2023 Calcium [Mass/Vol] 9.1 mg/dL 8.5-10.1 [facility] Serum or plasma cholesterol in HDL measurement (mass/volume)Ordered By: Сергей Bergman on 01-19-2023 Cholesterol in HDL [Mass/Vol] 32 mg/dL >40 [facility] Comment on above: The drugs N-Acetylcy steine and Metamizole may falsely depress this assay. Reference Range HDL <40 mg/dL Low HDL Cholesterol HDL >or= 60 mg/dL High HDL Cholesterol Serum or plasma cholesterol in VLDL measurement (mass/volume)Ordered By: Сергей Bergman on 01-19-2023 Cholesterol in VLDL [Mass/Vol] 62 mg/dL 5-40 [facility] Serum or plasma creatinine m easurement (mass/volume)Ordered By: Сергей Bermgan on 01-19-2023 Creatinine [Mass/Vol] 1.02 mg/dL 0.70-1.30 [facility] Comment on above: The validity of the calculated GFR & GFRAA in patients over 70 years has not been determined. Clinical correlation is essential. Serum or plasma low density lipoprotein (LDL) cholesterol measurement (mass/volume)Ordered By: еСргей Bergman on 01-19-2023 Cholesterol in LDL [Mass/Vol] 85 mg/dL 0-130 [facility] Serum or plasma urea nitroge n measurement (mass/volume)Ordered By: Сергей Bergman on 01-19-2023 Urea nitrogen [Mass/Vol] 19 mg/dL 7-18 [facility] Thin prep Papanicolaou smear with manual screeningOrdered By: Сергей Bergman on 01-19-2023 Thin prep Papanicolaou smear with manual screening 30 U/L 15-37 [facility] Thin prep Papanicolaou smear with manual screening 2 5-15 [facility] Whole blood hemoglobin A1c/t otal hemoglobin ratio (mass fraction)Ordered By: Сергей Bergman on 01-19-2023 HbA1c (Bld) [Mass fraction] 5.4 % 3.8-5.6 [facility] Comment on above: Normal < 5.7 % Predi abetic 5.7 - 6.4 % Diabetic >or= 6.5 % Please note range changes. Basophil percentageOrdered B y: Сергей Bergman on 07-26-2022 Bilirubin [Mass/Vol] 0.50 mg/dL 0.20-1.00 [facility] Comment on above: For patients on eltr ombopag therapy, use of Dimension [place] TBIL is not recommended. Chloride [Moles/Vol] 110 mmol/L 98-107 [facility] Cholesterol [Mass/Vol] 235 mg/dL <200 [facility] Comment on above: <200 mg/dL Desirable 200-240 mg/dL Borderline >240 mg/dL High Risk Glucose [Mass/Vol] 109 mg/dL 74-106 [facility] Comment on above: Fasting Glucose resu lt from 100 to 125 mg/dL suggests IMPAIRED HOMEOSTASIS per A.D.A. criteria. Potassium [Moles/Vol] 4.0 mmol/L 3.5-5.1 [facility] Protein [Mass/Vol] 7.8 g/dL 6.4-8.2 [facility] Sodium [Moles/Vol] 138 mmol/L 136-145 [facility] Triglyceride [Mass/Vol] 209 mg/dL <199 [facility] Comment on above: The drugs N-Acetylcy steine and Metamizole may falsely depress this assay.Serum Triglycerides Reference Interval Normal <150 mg/dL Borderline high 150 - 199 mg/dL High 200 - 499 mg/dL Very High > or = 500 mg/dL WBC (Bld) [#/Vol] 9.6 10*3/uL 4.4-11.0 [facility] Blood erythrocytes count (nu mber/volume)Ordered By: Сергей Bergman on 07-26-2022 RBC (Bld) [#/Vol] 5.80 10*6/uL 4.6-6.2 [facility] Blood hemoglobin measurement (mass/volume)Ordered By: Сергей Bergman on 07-26-2022 Hemoglobin (Bld) [Mass/Vol] 16.7 g/dL 13.0-16.5 [facility] Blood platelet mean volumeOr dered By: Сергей Bergman on 07-26-2022 Platelet mean volume (Bld) [Entitic vol] 11.0 fL 6.2-12.0 [facility] Determination of erythrocyte mean corpuscular volume (MCV)Ordered By: Сергей Bergman on 07-26-2022 MCV (RBC) [Entitic vol] 87.6 fL 80-94 [facility] Hematocrit Auto (Bld) [Volum e fraction]Ordered By: Сергей Bergman on 07-26-2022 Hematocrit (Bld) [Volume fraction] 50.8 % 40-54 [facility] Laboratory - Chemistry and C hemistry - challengeOrdered By: Сергей Bergman on 07-26-2022 ALP [Catalytic activity/Vol] 57 U/L 45-117 [facility] ALT [Catalytic activity/Vol] 50 U/L 16-61 [facility] CO2 [Moles/Vol] 24.0 mmol/L 21.0-32.0 [facility] Globulin (S) [Mass/Vol] 4.0 g/dL 2.2-4.2 [facility] Urea nitrogen/Creatinine [Mass ratio] 26.6 mg/mg 10-20 [facility] Laboratory - Hematology and Cell countsOrdered By: Сергей Bergman on 07-26-2022 Erythrocyte distribution width (RBC) [Entitic vol] 45.5 fL 35.1-43.9 [facility] Erythrocyte distribution width (RBC) [Ratio] 14.3 % 11.6-14.6 [facility] MCH (RBC) [Entitic mass] 28.8 pg 27.0-32.0 [facility] MCHC Auto (RBC) [Mass/Vol]Or dered By: Сергей Bergman on 07-26-2022 MCHC (RBC) [Mass/Vol] 32.9 g/dL 32-36 [facility] No Panel InformationOrdered By: Сергей Bergman on 07-26-2022 Estimated GFR (MDRD) Amer 128 mL/min >60 [facility] Comment on above: GFR Calc Estimated GFR (MDRD) Non-Af Amer 106 mL/min >60 [facility] Comment on above: Non- GFR Calc Vitamin D 25-Hydroxy 27.1 ng/mL [facility] Comment on above: Vitamin D 25(OH) Sta tus Range Deficiency <20 ng/mL (50nmol/L) Insufficiency 20 - 30 ng/mL (50 - 75 nmol/L) Sufficiency 30 - 100 ng/mL (75 - 250 nmol/L) Toxicity >100 ng/mL (>250 nmol/L) Platelets bldOrdered By: Dion Bergman on 07-26-2022 Platelets (Bld) [#/Vol] 210 10*3/uL 150-450 [facility] Serum or plasma albumin blanca urement (mass/volume)Ordered By: Сергей Bergman on 07-26-2022 Albumin [Mass/Vol] 3.8 g/dL 3.2-5.0 [facility] Serum or plasma albumin/glob ulin mass ratioOrdered By: Сергей Bergman on 07-26-2022 Albumin/Globulin [Mass ratio] 1.0 {ratio} 0.9-2.4 [facility] Serum or plasma calcium blanca urement (mass/volume)Ordered By: Сергей Bergman on 07-26-2022 Calcium [Mass/Vol] 8.7 mg/dL 8.5-10.1 [facility] Serum or plasma cholesterol in HDL measurement (mass/volume)Ordered By: Сергей Bergman on 07-26-2022 Cholesterol in HDL [Mass/Vol] 29 mg/dL >40 [facility] Comment on above: The drugs N-Acetylcy steine and Metamizole may falsely depress this assay. Reference Range HDL <40 mg/dL Low HDL Cholesterol HDL >or= 60 mg/dL High HDL Cholesterol Serum or plasma cholesterol in VLDL measurement (mass/volume)Ordered By: Сергей Bergman on 07-26-2022 Cholesterol in VLDL [Mass/Vol] 42 mg/dL 5-40 [facility] Serum or plasma creatinine m easurement (mass/volume)Ordered By: Сергей Bergman on 07-26-2022 Creatinine [Mass/Vol] 0.87 mg/dL 0.70-1.30 [facility] Comment on above: The validity of the calculated GFR & GFRAA in patients over 70 years has not been determined. Clinical correlation is essential. Serum or plasma low density lipoprotein (LDL) cholesterol measurement (mass/volume)Ordered By: Сергей Bergman on 07-26-2022 Cholesterol in LDL [Mass/Vol] 164 mg/dL 0-130 [facility] Serum or plasma urea nitroge n measurement (mass/volume)Ordered By: Сергей Bergman on 07-26-2022 Urea nitrogen [Mass/Vol] 23 mg/dL 7-18 [facility] Thin prep Papanicolaou smear with manual screeningOrdered By: Сергей Bergman on 07-26-2022 Thin prep Papanicolaou smear with manual screening 33 U/L 15-37 [facility] Thin prep Papanicolaou smear with manual screening 4 5-15 [facility] No Panel InformationOrdered By: Сергей Bergman on 04-28-2022 Vitamin D 25-Hydroxy 43.9 ng/mL [facility] Comment on above: Vitamin D 25(OH) Sta tus Range Deficiency <20 ng/mL (50nmol/L) Insufficiency 20 - 30 ng/mL (50 - 75 nmol/L) Sufficiency 30 - 100 ng/mL (75 - 250 nmol/L) Toxicity >100 ng/mL (>250 nmol/L) Basophil percentageon 2021 Bilirubin [Mass/Vol] 0.50 mg/dL 0.20-1.00 [facility] Work Phone: Comment on above: For patients on eltr ombopag therapy, use of Dimension [place] TBIL is not recommended. Chloride [Moles/Vol] 109 mmol/L 98-107 [facility] Work Phone: Cholesterol [Mass/Vol] 205 mg/dL <200 [facility] Work Phone: Comment on above: <200 mg/dL Desirable 200-240 mg/dL Borderline >240 mg/dL High Risk Glucose [Mass/Vol] 103 mg/dL 74-106 [facility] Work Phone: Comment on above: Fasting Glucose resu lt from 100 to 125 mg/dL suggests IMPAIRED HOMEOSTASIS per A.D.A. criteria. Potassium [Moles/Vol] 3.9 mmol/L 3.5-5.1 [facility] Work Phone: [phone] Protein [Mass/Vol] 7.7 g/dL 6.4-8.2 [facility] Work Phone: [phone] Sodium [Moles/Vol] 141 mmol/L 136-145 [facility] Work Phone: [phone] Triglyceride [Mass/Vol] 154 mg/dL <199 [facility] Work Phone: [phone] Comment on above: The drugs N-Acetylcy steine and Metamizole may falsely depress this assay.Serum Triglycerides Reference Interval Normal <150 mg/dL Borderline high 150 - 199 mg/dL High 200 - 499 mg/dL Very High > or = 500 mg/dL WBC (Bld) [#/Vol] 9.5 10*3/uL 4.4-11.0 [facility] Work Phone: [phone] Blood erythrocytes count (nu mber/volume)on 12-26-2021 RBC (Bld) [#/Vol] 5.67 10*6/uL 4.6-6.2 [facility] Work Phone: [phone] Blood hemoglobin measurement (mass/volume)on 12-26-2021 Hemoglobin (Bld) [Mass/Vol] 16.6 g/dL 13.0-16.5 [facility] Work Phone: [phone] Blood platelet mean volumeon 12-26-2021 Platelet mean volume (Bld) [Entitic vol] 10.3 fL 6.2-12.0 [facility] Work Phone: [phone] Determination of erythrocyte mean corpuscular volume (MCV)on 12-26-2021 MCV (RBC) [Entitic vol] 89.2 fL 80-94 [facility] Work Phone: [phone] Hematocrit Auto (Bld) [Volum e fraction]on 12-26-2021 Hematocrit (Bld) [Volume fraction] 50.6 % 40-54 [facility] Work Phone: Laboratory - Chemistry and C hemistry - challengeon 12-26-2021 ALP [Catalytic activity/Vol] 61 U/L 45-117 [facility] Work Phone: [phone] ALT [Catalytic activity/Vol] 40 U/L 16-61 [facility] Work Phone: [phone] CO2 [Moles/Vol] 26.0 mmol/L 21.0-32.0 [facility] Work Phone: [phone] Globulin (S) [Mass/Vol] 3.9 g/dL 2.2-4.2 [facility] Work Phone: [phone] Urea nitrogen/Creatinine [Mass ratio] 17.4 mg/mg 10-20 [facility] Work Phone: [phone] Laboratory - Hematology and Cell countson 12-26-2021 Erythrocyte distribution width (RBC) [Entitic vol] 45.2 fL 35.1-43.9 [facility] Work Phone: [phone] Erythrocyte distribution width (RBC) [Ratio] 13.8 % 11.6-14.6 [facility] Work Phone: [phone] MCH (RBC) [Entitic mass] 29.3 pg 27.0-32.0 [facility] Work Phone: [phone] MCHC Auto (RBC) [Mass/Vol]on 12-26-2021 MCHC (RBC) [Mass/Vol] 32.8 g/dL 32-36 [facility] Work Phone: No Panel Informationon 12-26 Estimated GFR (MDRD) Amer 120 mL/min >60 [facility] Work Phone: [phone] Comment on above: GFR Calc Estimated GFR (MDRD) Non-Af Amer 99 mL/min >60 [facility] Work Phone: [phone] Comment on above: Non- GFR Calc Parathyroid Hormone (Intact) 48.6 pg/mL 18.4-80.1 [facility] Work Phone: [phone] Vitamin D 25-Hydroxy 9.2 ng/mL [facility] Work Phone: Comment on above: Vitamin D 25(OH) Sta tus Range Deficiency <20 ng/mL (50nmol/L) Insufficiency 20 - 30 ng/mL (50 - 75 nmol/L) Sufficiency 30 - 100 ng/mL (75 - 250 nmol/L) Toxicity >100 ng/mL (>250 nmol/L) Platelets bldon 12-26-2021 Platelets (Bld) [#/Vol] 195 10*3/uL 150-450 [facility] Work Phone: Serum or plasma albumin blanca urement (mass/volume)on 12-26-2021 Albumin [Mass/Vol] 3.8 g/dL 3.2-5.0 [facility] Work Phone: [phone] Serum or plasma albumin/glob ulin mass ratioon 12-26-2021 Albumin/Globulin [Mass ratio] 1.0 {ratio} 0.9-2.4 [facility] Work Phone: [phone] Serum or plasma calcium blanca urement (mass/volume)on 12-26-2021 Calcium [Mass/Vol] 9.5 mg/dL 8.5-10.1 [facility] Work Phone: Serum or plasma cholesterol in HDL measurement (mass/volume)on 12-26-2021 Cholesterol in HDL [Mass/Vol] 34 mg/dL >40 [facility] Work Phone: Comment on above: The drugs N-Acetylcy steine and Metamizole may falsely depress this assay. Reference Range HDL <40 mg/dL Low HDL Cholesterol HDL >or= 60 mg/dL High HDL Cholesterol Serum or plasma cholesterol in VLDL measurement (mass/volume)on 12-26-2021 Cholesterol in VLDL [Mass/Vol] 31 mg/dL 5-40 [facility] Work Phone: [phone] Serum or plasma creatinine m easurement (mass/volume)on 12-26-2021 Creatinine [Mass/Vol] 0.92 mg/dL 0.70-1.30 [facility] Work Phone: Comment on above: The validity of the calculated GFR & GFRAA in patients over 70 years has not been determined. Clinical correlation is essential. Serum or plasma low density lipoprotein (LDL) cholesterol measurement (mass/volume)on 12-26-2021 Cholesterol in LDL [Mass/Vol] 140 mg/dL 0-130 [facility] Work Phone: Serum or plasma urea nitroge n measurement (mass/volume)on 12-26-2021 Urea nitrogen [Mass/Vol] 16 mg/dL 7-18 [facility] Work Phone: Thin prep Papanicolaou smear with manual screeningon 12-26-2021 Thin prep Papanicolaou smear with manual screening 17 U/L 15-37 [facility] Work Phone: Thin prep Papanicolaou smear with manual screening 6 5-15 [facility] Work Phone: Vital Signs Date Time Vital Sign Value Performing Clinician Facility 01-01-2025 14:16-0400 Body temperature 98.3 [degF] Сергей Bergman [employer] Work Phone: [facility] 01-01-2025 14:16-0400 Diastolic blood pressure 80 mm[Hg] Сергей Bergman [employer]ACHINE [employer]PER[employer] Work Phone: [facility] 01-01-2025 14:16-0400 Heart rate 90 /min Сергей Bergman [employer]INE [employer]PER[employer] Work Phone: [facility] 01-01-2025 14:16-0400 Respiratory rate 16 /min Сергей Bergman [employer]ACHINE OPERATOR[employer] Work Phone: [facility] 01-01-2025 14:16-0400 SaO2% (BldA) [Mass fraction] 96 % Сергей Bergman [employer] MACHINE OPERATOR[employer] Work Phone: [facility] 01-01-2025 14:16-0400 Systolic blood pressure 138 mm[Hg] Сергей Bergman METAL DRILLING MACHINE OPERATOR-C Work Phone: [facility] 12-28-2024 04:59-0400 Body temperature 98 [degF] Сергей Bergman METAL DRILLING MACHINE OPERATOR-C Work Phone: [facility] 12-28-2024 04:59-0400 Diastolic blood pressure 94 mm[Hg] Сергей Bergman METAL DRILLING MACHINE OPERATOR-C Work Phone: [facility] 12-28-2024 04:59-0400 Heart rate 98 /min Сергей Bergman METAL DRILLING MACHINE OPERATOR-C Work Phone: [facility] 12-28-2024 04:59-0400 Respiratory rate 16 /min Сергей Bergman METAL DRILLING MACHINE OPERATOR-C Work Phone: [facility] 12-28-2024 04:59-0400 SaO2% (BldA) [Mass fraction] 100 % Сергей Bergman METAL DRILLING MACHINE OPERATOR-C Work Phone: [facility] 12-28-2024 04:59-0400 Systolic blood pressure 154 mm[Hg] Сергей Bergman METAL DRILLING MACHINE OPERATOR-C Work Phone: [facility] 12-28-2024 01:35-0400 Body height 185.42 cm Сергей Bergman METAL DRILLING MACHINE OPERATOR-C Work Phone: [facility] 12-28-2024 01:35-0400 Body mass index (BMI) [Ratio] 43.6 kg/m2 Сергей Bergman METAL DRILLING MACHINE OPERATOR-C Work Phone: [facility] 12-28-2024 01:35-0400 Body weight 150 kg Сергей Bergman METAL DRILLING MACHINE OPERATOR-C Work Phone: [facility] 08-31-2024 12:43-0400 Body mass index (BMI) [Ratio] 38.54 kg/m2 Ganga Ordonez APRN.PAI GOW MANAGER Work Phone: [facility] 08-31-2024 12:43-0400 Body temperature 99.1 [degF] Ganga Ordonez APRN.PAI GOW MANAGER Work Phone: [facility] 08-31-2024 12:43-0400 Body weight 132.5 kg Ganga Ordonez APRN.PAI GOW MANAGER Work Phone: [facility] 08-31-2024 12:43-0400 Diastolic blood pressure 88 mm[Hg] Ganga Jaziel MIR.PAI GOW MANAGER Work Phone: [facility] 08-31-2024 12:43-0400 Heart rate 88 /min Ganga Ordonez APRN.PAI GOW MANAGER Work Phone: [facility] 08-31-2024 12:43-0400 Respiratory rate 20 /min Ganga Ordonez APRN.PAI GOW MANAGER Work Phone: [facility] 08-31-2024 12:43-0400 SaO2% (BldA) [Mass fraction] 96 % Ganga Ordonez APRN.PAI GOW MANAGER Work Phone: [facility] 08-31-2024 12:43-0400 Systolic blood pressure 118 mm[Hg] Ganga Jaziel MIR.PAI GOW MANAGER Work Phone: [facility] 08-03-2024 14:47-0400 Body temperature 98.4 [degF] Сергей Bergman METAL DRILLING MACHINE OPERATOR-C Work Phone: [facility] 08-03-2024 14:47-0400 Diastolic blood pressure 105 mm[Hg] Сергей Bergman METAL DRILLING MACHINE OPERATOR-C Work Phone: [facility] 08-03-2024 14:47-0400 Heart rate 88 /min Сергей Bergman METAL DRILLING MACHINE OPERATOR-C Work Phone: [facility] 08-03-2024 14:47-0400 Respiratory rate 16 /min Сергей Bergman METAL DRILLING MACHINE OPERATOR-C Work Phone: [facility] 08-03-2024 14:47-0400 SaO2% (BldA) [Mass fraction] 98 % Сергей Bergman METAL DRILLING MACHINE OPERATOR-C Work Phone: [facility] 08-03-2024 14:47-0400 Systolic blood pressure 148 mm[Hg] Сергей Bergman METAL DRILLING MACHINE OPERATOR-C Work Phone: [facility] 08-03-2024 13:07-0400 Body height 185.42 cm Сергей Bergman METAL DRILLING MACHINE OPERATOR-C Work Phone: [facility] 08-03-2024 13:07-0400 Body mass index (BMI) [Ratio] 37.5 kg/m2 Сергей Bergman METAL DRILLING MACHINE OPERATOR-C Work Phone: [facility] 08-03-2024 13:07-0400 Body weight 129.27 kg Сергей Bergman METAL DRILLING MACHINE OPERATOR-C Work Phone: [facility] 07-07-2024 13:17-0400 Body mass index (BMI) [Ratio] 38.42 kg/m2 Krislyn Aberegg PA Work Phone: [facility] 07-07-2024 13:17-0400 Body temperature 98.01 [degF] Krislyn Aberegg PA Work Phone: [facility] 07-07-2024 13:17-0400 Body weight 132.1 kg Krislyn Aberegg PA Work Phone: [facility] 07-07-2024 13:17-0400 Diastolic blood pressure 80 mm[Hg] Krislyn Aberegg PA Work Phone: [facility] 07-07-2024 13:17-0400 Heart rate 82 /min Krislyn Aberegg PA Work Phone: [facility] 07-07-2024 13:17-0400 Respiratory rate 16 /min Krislyn Aberegg PA Work Phone: [facility] 07-07-2024 13:17-0400 SaO2% (BldA) [Mass fraction] 97 % Krislyn Aberegg PA Work Phone: [facility] 07-07-2024 13:17-0400 Systolic blood pressure 124 mm[Hg] Krislyn Aberegg PA Work Phone: [facility] 06-01-2024 17:00-0500 Diastolic blood pressure 100 mm[Hg] Сергей Bergman METAL DRILLING MACHINE OPERATOR-C Work Phone: [facility] 06-01-2024 17:00-0500 Heart rate 77 /min Сергей Bergman METAL DRILLING MACHINE OPERATOR-C Work Phone: [facility] 06-01-2024 17:00-0500 Respiratory rate 19 /min Сергей Bergman METAL DRILLING MACHINE OPERATOR-C Work Phone: [facility] 06-01-2024 17:00-0500 SaO2% (BldA) [Mass fraction] 99 % Сергей Bergman METAL DRILLING MACHINE OPERATOR-C Work Phone: [facility] 06-01-2024 17:00-0500 Systolic blood pressure 161 mm[Hg] Сергей Bergman METAL DRILLING MACHINE OPERATOR-C Work Phone: [facility] 06-01-2024 14:37-0500 Body temperature 98.4 [degF] Сергей Bergman METAL DRILLING MACHINE OPERATOR-C Work Phone: [facility] 06-01-2024 13:38-0500 Body height 185.42 cm Сергей Bergman METAL DRILLING MACHINE OPERATOR-C Work Phone: [facility] 06-01-2024 13:38-0500 Body mass index (BMI) [Ratio] 38.3 kg/m2 Сергей Bergman METAL DRILLING MACHINE OPERATOR-C Work Phone: [facility] 06-01-2024 13:38-0500 Body weight 131.74 kg Сергей Bergman METAL DRILLING MACHINE OPERATOR-C Work Phone: [facility] 04-13-2024 13:18-0500 Body mass index (BMI) [Ratio] 36.65 kg/m2 Jl Clutter PA-C Work Phone: [facility] 04-13-2024 13:18-0500 Body temperature 97.9 [degF] Jl Clutter PA-C Work Phone: [facility] 04-13-2024 13:18-0500 Body weight 126 kg Jl Clutter PA-C Work Phone: [facility] 04-13-2024 13:18-0500 Diastolic blood pressure 84 mm[Hg] Jl Clutter PA-C Work Phone: [facility] 04-13-2024 13:18-0500 Heart rate 82 /min Lj Clutter PA-C Work Phone: [facility] 04-13-2024 13:18-0500 Respiratory rate 20 /min Jl Clutter PA-C Work Phone: [facility] 04-13-2024 13:18-0500 SaO2% (BldA) [Mass fraction] 96 % Jl Clutter PA-C Work Phone: [facility] 04-13-2024 13:18-0500 Systolic blood pressure 119 mm[Hg] Jl Clutter PA-C Work Phone: [facility] 04-05-2024 12:44-0500 Body mass index (BMI) [Ratio] 37.84 kg/m2 Meghan Athy PA-C Work Phone: [facility] 04-05-2024 12:44-0500 Body temperature 97.5 [degF] Meghan Athy PA-C Work Phone: [facility] 04-05-2024 12:44-0500 Body weight 130.1 kg Meghan Athy PA-C Work Phone: [facility] 04-05-2024 12:44-0500 Diastolic blood pressure 86 mm[Hg] Meghan Athy PA-C Work Phone: [facility] 04-05-2024 12:44-0500 Heart rate 105 /min Meghan Athy PA-C Work Phone: [facility] 04-05-2024 12:44-0500 Respiratory rate 21 /min Meghan Athy PA-C Work Phone: [facility] 04-05-2024 12:44-0500 SaO2% (BldA) [Mass fraction] 95 % Meghan Athy PA-C Work Phone: [facility] 04-05-2024 12:44-0500 Systolic blood pressure 120 mm[Hg] Meghan Athy PA-C Work Phone: [facility] 10-13-2023 13:54-0400 Body height 185.4 cm [facility] 10-13-2023 13:54-0400 Body temperature 97.16 [degF] SAMANTHA DIXONT DO [facility] 10-13-2023 13:54-0400 Body weight 156 kg [facility]THA [facility] 10-13-2023 13:54-0400 Diastolic Blood Pressure Non-Invasive 81 mm[Hg] SAMANTHA DIXONCollective IP [facility] 10-13-2023 13:54-0400 Heart rate 107 /min [facility]A [facility] 10-13-2023 13:54-0400 Respiratory rate 20 /min [facility]A [facility] 10-13-2023 13:54-0400 Systolic Blood Pressure Non-Invasive 128 mm[Hg] SAMANTHA GRIMES DO [facility] 09-15-2023 10:43-0400 Body temperature 98.6 [degF] DR MARLYS PERERA MD [facility] 09-15-2023 10:43-0400 Diastolic Blood Pressure Non-Invasive 97 mm[Hg] DR MARLYS PERERA MD [facility] 09-15-2023 10:43-0400 Heart rate 95 /min DR MARLYS PERERA MD [facility] 09-15-2023 10:43-0400 Respiratory rate 16 /min DR MARLYS PERERA MD [facility] 09-15-2023 10:43-0400 Systolic Blood Pressure Non-Invasive 167 mm[Hg] DR MARLYS PERERA MD [facility] 07-30-2023 16:01-0400 Body height 185.42 cm METAL DRILLING MACHINE OPERATOR-C Сергей Bergman METAL DRILLING MACHINE OPERATOR Work Phone: [facility] 07-09-2023 01:50-0400 Body height 185.42 cm METAL DRILLING MACHINE OPERATOR-C Сергей Bergman METAL DRILLING MACHINE OPERATOR Work Phone: [facility] 07-09-2023 01:50-0400 Body mass index (BMI) [Ratio] 49 kg/m2 METAL DRILLING MACHINE OPERATOR-C Сергей Bergman METAL DRILLING MACHINE OPERATOR Work Phone: [facility] 07-09-2023 01:50-0400 Body temperature 97.5 [degF] METAL DRILLING MACHINE OPERATOR-C Сергей Bergman METAL DRILLING MACHINE OPERATOR Work Phone: [facility] 07-09-2023 01:50-0400 Body weight 168.6 kg METAL DRILLING MACHINE OPERATOR-C Сергей Bergman METAL DRILLING MACHINE OPERATOR Work Phone: [facility] 07-09-2023 01:50-0400 Diastolic blood pressure 102 mm[Hg] METAL DRILLING MACHINE OPERATOR-C Сергей Bergman METAL DRILLING MACHINE OPERATOR Work Phone: [facility] 07-09-2023 01:50-0400 Heart rate 113 /min METAL DRILLING MACHINE OPERATOR-C Сергей Bergman METAL DRILLING MACHINE OPERATOR Work Phone: [facility] 07-09-2023 01:50-0400 Respiratory rate 22 /min METAL DRILLING MACHINE OPERATOR-C Сергей Bergman METAL DRILLING MACHINE OPERATOR Work Phone: [facility] 07-09-2023 01:50-0400 SaO2% (BldA) [Mass fraction] 96 % METAL DRILLING MACHINE OPERATOR-C Сергей Bergman METAL DRILLING MACHINE OPERATOR Work Phone: [facility] 07-09-2023 01:50-0400 Systolic blood pressure 188 mm[Hg] METAL DRILLING MACHINE OPERATOR-C Сергей Bergman METAL DRILLING MACHINE OPERATOR Work Phone: [facility] 06-11-2023 15:17-0500 Body temperature 98.6 [degF] METAL DRILLING MACHINE OPERATOR-C Сергей Bergman METAL DRILLING MACHINE OPERATOR Work Phone: [facility] 06-11-2023 15:17-0500 Diastolic blood pressure 92 mm[Hg] METAL DRILLING MACHINE OPERATOR-C Сергей Bergman METAL DRILLING MACHINE OPERATOR Work Phone: [facility] 06-11-2023 15:17-0500 Heart rate 105 /min METAL DRILLING MACHINE OPERATOR-C Сергей Bergman METAL DRILLING MACHINE OPERATOR Work Phone: [facility] 06-11-2023 15:17-0500 Respiratory rate 18 /min METAL DRILLING MACHINE OPERATOR-C Сергей Bergman METAL DRILLING MACHINE OPERATOR Work Phone: [facility] 06-11-2023 15:17-0500 SaO2% (BldA) [Mass fraction] 95 % METAL DRILLING MACHINE OPERATOR-C Сергей Bergman METAL DRILLING MACHINE OPERATOR Work Phone: [facility] 06-11-2023 15:17-0500 Systolic blood pressure 132 mm[Hg] METAL DRILLING MACHINE OPERATOR-C Сергей Bergman METAL DRILLING MACHINE OPERATOR Work Phone: [facility] 03-20-2023 16:03-0500 Diastolic blood pressure 102 mm[Hg] METAL DRILLING MACHINE OPERATOR-C Сергей Bergman METAL DRILLING MACHINE OPERATOR Work Phone: [facility] 03-20-2023 16:03-0500 Systolic blood pressure 136 mm[Hg] METAL DRILLING MACHINE OPERATOR-C Сергей Bergman METAL DRILLING MACHINE OPERATOR Work Phone: [facility] 03-20-2023 15:28-0500 Body height 187.96 cm METAL DRILLING MACHINE OPERATOR-C Сергей Bergman METAL DRILLING MACHINE OPERATOR Work Phone: [facility] 03-20-2023 15:28-0500 Body mass index (BMI) [Ratio] 44.9 kg/m2 METAL DRILLING MACHINE OPERATOR-C Сергей Bergman METAL DRILLING MACHINE OPERATOR Work Phone: [facility] 03-20-2023 15:28-0500 Body temperature 98 [degF] METAL DRILLING MACHINE OPERATOR-C Сергей Bergman METAL DRILLING MACHINE OPERATOR Work Phone: [facility] 03-20-2023 15:28-0500 Body weight 158.75 kg METAL DRILLING MACHINE OPERATOR-C Сергей Bergman METAL DRILLING MACHINE OPERATOR Work Phone: [facility] 03-20-2023 15:28-0500 Heart rate 113 /min METAL DRILLING MACHINE OPERATOR-C Сергей Bergman METAL DRILLING MACHINE OPERATOR Work Phone: [facility] 03-20-2023 15:28-0500 Respiratory rate 16 /min METAL DRILLING MACHINE OPERATOR-C Сергей Bergman METAL DRILLING MACHINE OPERATOR Work Phone: [facility] 03-20-2023 15:28-0500 SaO2% (BldA) [Mass fraction] 93 % METAL DRILLING MACHINE OPERATOR-C Сергей Bergman METAL DRILLING MACHINE OPERATOR Work Phone: [facility] 10-24-2022 17:00-0400 Heart rate 96 /min METAL DRILLING MACHINE OPERATOR-C Сергей Bergman METAL DRILLING MACHINE OPERATOR Work Phone: [facility] 10-24-2022 17:00-0400 Respiratory rate 18 /min METAL DRILLING MACHINE OPERATOR-C Сергей Bergman METAL DRILLING MACHINE OPERATOR Work Phone: [facility] 10-24-2022 16:33-0400 Body temperature 98 [degF] METAL DRILLING MACHINE OPERATOR-C Сергей Bergman METAL DRILLING MACHINE OPERATOR Work Phone: [facility] 10-24-2022 16:33-0400 Diastolic blood pressure 92 mm[Hg] METAL DRILLING MACHINE OPERATOR-C Сергей Bergman METAL DRILLING MACHINE OPERATOR Work Phone: [facility] 10-24-2022 16:33-0400 SaO2% (BldA) [Mass fraction] 97 % METAL DRILLING MACHINE OPERATOR-C Сергей Bergman METAL DRILLING MACHINE OPERATOR Work Phone: [facility] 10-24-2022 16:33-0400 Systolic blood pressure 146 mm[Hg] METAL DRILLING MACHINE OPERATOR-C Сергей Bergman METAL DRILLING MACHINE OPERATOR Work Phone: [facility] 09-30-2022 12:33-0400 Respiratory rate 20 /min SAMANTHA DIXONMini DO [facility] 09-30-2022 11:41-0400 Body height 185.4 cm SAMANTHA DIXONT DO [facility] 09-30-2022 11:41-0400 Body temperature 98.6 [degF] SAMANTHA ZACKT DO [facility] 09-30-2022 11:41-0400 Body weight 147.6 kg SAMANHTA [employer] [facility] 09-30-2022 11:41-0400 Diastolic Blood Pressure Non-Invasive 81 1 SAMANTHA GALLARDOTripHobo [facility] 09-30-2022 11:41-0400 Heart rate 121 /min SAMANTHA [employer] [facility] 09-30-2022 11:41-0400 Respiratory rate 18 /min SAMANTHA GALLARDOTripHobo [facility] 09-30-2022 11:41-0400 Systolic Blood Pressure Non-Invasive 153 1 SAMANTHA GALLARDOTripHobo [facility] 06-18-2022 21:32-0500 Diastolic Blood Pressure Non-Invasive [address] JACQUELYN ANDRES MD [facility] 06-18-2022 21:32-0500 Heart rate 97 /min DR JACQUELYN ANDRES MD [facility] 06-18-2022 21:32-0500 Respiratory rate 20 /min DR JACQUELYN ANDRES MD [facility] 06-18-2022 21:32-0500 Systolic Blood Pressure Non-Invasive [address] JACQUELYN ANDRES MD [facility] Encounters Encounter Date Encounter Type Care Provider Facility Start: 01-01-2025 End: 01-01-2025 Patient encounter procedure Ren Toney [facility] Work Phone: Start: 01-01-2025 End: 01-01-2025 ambulatory Сергей Bergman NP Facility:[facility] Start: 12-28-2024 End: 12-28-2024 Emergency department patient visit Сергей Bergman METAL DRILLING MACHINE OPERATOR-C Work Phone: -Emergency Department Work Phone: Start: 11-19-2024 End: 11-19-2024 ambulatory Сергей Bergman METAL DRILLING MACHINE OPERATOR-C Work Phone: -Laboratory Start: 11-19-2024 End: 11-19-2024 Patient encounter procedure Сергей Bergman METAL DRILLING MACHINE OPERATOR-C -Laboratory Work Phone: Start: 11-19-2024 End: 11-19-2024 ambulatory Сергей López Madalyn METAL DRILLING MACHINE OPERATOR Facility:[facility] Start: 11-04-2024 Non-patient / Non-[facility] Start: 11-04-2024 End: 11-04-2024 ambulatory Сергей Rene Millerpkins METAL DRILLING MACHINE OPERATOR-C Work Phone: -Cardiovascular Services Start: 11-04-2024 End: 11-04-[address] Breezy Braun -Cardiovascular Services Work Phone: Start: 11-04-2024 End: 11-04-2024 ambulatory Сергей Bergman METAL DRILLING MACHINE OPERATOR Facility:[facility] Start: 08-31-2024 End: 08-31-2024 Patient encounter procedure Ganga Ordonez APRN.PAI GOW MANAGER Work Phone: [facility] Comment on above: Acute cough Start: 08-31-2024 End: 08-31-2024 ambulatory GANGA ORDONEZ Facility:[facility] Start: 08-03-2024 End: 08-03-2024 Emergency department patient visit Сергей Bergman METAL DRILLING MACHINE OPERATOR-C Work Phone: -Emergency Department Work Phone: Start: 07-08-2024 End: 07-08-2024 ambulatory Сергей Bergman METAL DRILLING MACHINE OPERATOR-C Work Phone: [facility] Work Phone: Start: 07-08-2024 End: 07-08-2024 Discharged Recurring Ana ELLIS -Physical Therapy Work Phone: Start: 07-07-2024 End: 07-07-2024 ambulatory СЕРГЕЙ BERGMAN Facility:[facility] Start: 07-07-2024 End: 07-07-2024 Patient encounter procedure Bernice ELLIS Work Phone: [facility] Comment on above: Acute cough (Primary Dx); Wheezing Start: 06-20-2024 End: 06-20-2024 Patient encounter procedure Ana ELLIS -[facility] Work Phone: Start: 06-20-2024 End: 06-20-2024 ambulatory Сергей Bergman METAL DRILLING MACHINE OPERATOR Facility:[facility] Start: 06-10-2024 Registered Recurring Ana ELLIS -Physical Therapy Work Phone: Start: 06-09-2024 End: 06-09-2024 ambulatory Сергей Bergman METAL DRILLING MACHINE OPERATOR-C Work Phone: [facility] Work Phone: Start: 06-09-2024 End: 06-09-2024 Patient encounter procedure Ana ELLIS -[facility] Work Phone: Start: 06-09-2024 End: 06-09-2024 ambulatory Сергей Bergman METAL DRILLING MACHINE OPERATOR Facility:[facility] Start: 06-01-2024 End: 06-01-2024 Emergency department patient visit Dr. Emil Nicole MD -Emergency Department Work Phone: Start: 06-01-2024 End: 06-01-2024 Patient encounter procedure Emma Claros APRN.CNP Work Phone: [facility] Comment on above: Procedure not jeremiah d out (Primary Dx) Start: 06-01-2024 End: 06-01-2024 ambulatory СЕРГЕЙ BERGMAN Facility:[facility] Start: 05-02-2024 End: 05-02-2024 Patient encounter procedure Ana ELLIS -[facility] Work Phone: Start: 05-02-2024 End: 05-02-2024 ambulatory Сергей Bergman METAL DRILLING MACHINE OPERATOR Facility:[facility] Start: 04-29-2024 ambulatory СЕРГЕЙ VALENTINO FINANCIAL REPORT SERVICE SALES AGENT - PAI GOW MANAGER Facility:[facility] Start: 04-13-2024 End: 04-13-2024 ambulatory СЕРГЕЙ BERGMAN Facility:[facility] Start: 04-13-2024 End: 04-13-2024 Office outpatient new 30 minutes Jl Root PA-C Work Phone: [facility] Comment on above: Bronchopneumonia (Pr imary Dx) Start: 04-05-2024 End: 04-05-2024 ambulatory СЕРГЕЙ BERGMAN Facility:[facility] Start: 04-05-2024 End: 04-05-2024 Patient encounter procedure Meghan Huitron PA-C Work Phone: [facility] Comment on above: Nausea and vomiting, unspecified vomiting type (Primary Dx) Start: 02-22-2024 End: 02-22-2024 Patient encounter procedure Сергей Bergman METAL DRILLING MACHINE OPERATOR-C -Laboratory Work Phone: Start: 02-22-2024 End: 02-22-2024 ambulatory Сергей Bergman METAL DRILLING MACHINE OPERATOR Facility:[facility] Start: 01-07-2024 End: 01-07-2024 ambulatory СЕРГЕЙ BERGMAN FINANCIAL REPORT SERVICE SALES AGENT - PAI GOW MANAGER Facility:[facility] Start: 01-07-2024 End: 01-07-2024 SAME DAY STAY BREEZY BRAUN MD [facility] Start: 01-04-2024 End: 01-04-2024 ambulatory СЕРГЕЙ BERGMAN FINANCIAL REPORT SERVICE SALES AGENT - PAI GOW MANAGER Facility:[facility] Start: 01-04-2024 End: 01-04-2024 Patient encounter procedure BREEZY BRAUN MD [facility] Start: 12-06-2023 End: 12-06-2023 ambulatory СЕРГЕЙ BERGMAN FINANCIAL REPORT SERVICE SALES AGENT - PAI GOW MANAGER Facility:[facility] Start: 12-06-2023 End: 12-06-2023 Patient encounter procedure СЕРГЕЙ BERGMAN FINANCIAL REPORT SERVICE SALES AGENT - PAI GOW MANAGER [facility] Start: 10-13-2023 End: 10-13-2023 Emergency department patient visit SAMANTHA GRIMES DO [facility] Start: 09-15-2023 End: 09-15-2023 Emergency department patient visit DR MARLYS PERERA MD [facility] Start: 08-08-2023 End: 08-08-2023 Patient encounter procedure METAL DRILLING MACHINE OPERATOR-C Сергей Bergman METAL DRILLING MACHINE OPERATOR Work Phone: [facility] Work Phone: Start: 07-25-2023 End: 07-25-2023 ambulatory METAL DRILLING MACHINE OPERATOR-C Сергей Bergman METAL DRILLING MACHINE OPERATOR Work Phone: [facility] Work Phone: Start: 07-25-2023 End: 07-25-2023 Patient encounter procedure METAL DRILLING MACHINE OPERATOR-C Сергей Bergman METAL DRILLING MACHINE OPERATOR Work Phone: [facility]-Laboratory ,Future Work Phone: Start: 07-25-2023 End: 07-25-2023 ambulatory METAL DRILLING MACHINE OPERATOR-C Сергей Bergman METAL DRILLING MACHINE OPERATOR Work Phone: [facility] Work Phone: Start: 07-25-2023 End: 07-25-2023 Patient encounter procedure METAL DRILLING MACHINE OPERATOR-C Сергей Bergman METAL DRILLING MACHINE OPERATOR Work Phone: [facility]-Laboratory Work Phone: Start: 07-24-2023 End: 07-24-2023 ambulatory METAL DRILLING MACHINE OPERATOR-C Сергей Bergman METAL DRILLING MACHINE OPERATOR Work Phone: [facility] Work Phone: Start: 07-24-2023 End: 07-24-2023 Discharged Recurring METAL DRILLING MACHINE OPERATOR-C Сергей Bergman METAL DRILLING MACHINE OPERATOR Work Phone: [facility]-Physical Therapy Work Phone: Start: 07-24-2023 Registered Recurring METAL DRILLING MACHINE OPERATOR-C Clinton Begrman METAL DRILLING MACHINE OPERATOR [facility] Start: 07-09-2023 End: 07-09-2023 Emergency department patient visit METAL DRILLING MACHINE OPERATOR-C Сергей Bergman METAL DRILLING MACHINE OPERATOR Work Phone: [facility]-Emergency Department Work Phone: Start: 07-06-2023 Registered Recurring METAL DRILLING MACHINE OPERATOR-C Clinton Bergman METAL DRILLING MACHINE OPERATOR Work Phone: [facility]-Physical Therapy Work Phone: Start: 06-11-2023 End: 06-11-2023 Patient encounter procedure METAL DRILLING MACHINE OPERATOR-C Сергей Bergman METAL DRILLING MACHINE OPERATOR Work Phone: [facility] Work Phone: Start: 06-04-2023 End: 06-04-2023 Patient encounter procedure METAL DRILLING MACHINE OPERATOR-C Сергей Bergman METAL DRILLING MACHINE OPERATOR Work Phone: [facility] Work Phone: Start: 04-19-2023 End: 04-19-2023 ambulatory METAL DRILLING MACHINE OPERATOR-C Сергей Bergman METAL DRILLING MACHINE OPERATOR Work Phone: [facility] Work Phone: Start: 04-19-2023 End: 04-19-2023 Patient encounter procedure METAL DRILLING MACHINE OPERATOR-C Сергей Bergman METAL DRILLING MACHINE OPERATOR [facility] Work Phone: Start: 03-20-2023 End: 03-20-2023 Patient encounter procedure METAL DRILLING MACHINE OPERATOR-C Сергей Bergman METAL DRILLING MACHINE OPERATOR Work Phone: [facility] Work Phone: Start: 01-19-2023 End: 01-19-2023 Patient encounter procedure METAL DRILLING MACHINE OPERATOR-C Сергей Bergman METAL DRILLING MACHINE OPERATOR Work Phone: [facility] Work Phone: Start: 10-24-2022 End: 10-24-2022 ambulatory METAL DRILLING MACHINE OPERATOR-C Сергей Bergman METAL DRILLING MACHINE OPERATOR Work Phone: [facility] Work Phone: Start: 10-24-2022 End: 10-24-2022 Patient encounter procedure METAL DRILLING MACHINE OPERATOR-C Сергей Bergman METAL DRILLING MACHINE OPERATOR Work Phone: [facility] Work Phone: Start: 09-30-2022 End: 09-30-2022 Emergency department patient visit SAMANTHA GRIMES [facility] Start: 09-20-2022 End: 09-20-2022 Patient encounter procedure СЕРГЕЙ BERGMAN FINANCIAL REPORT SERVICE SALES AGENT - PAI GOW MANAGER [facility] Start: 07-26-2022 End: 07-26-2022 Patient encounter procedure METAL DRILLING MACHINE OPERATOR-C Сергей Bergman METAL DRILLING MACHINE OPERATOR [facility] Work [facility]: Start: 06-28-2022 End: 06-28-2022 Patient encounter procedure METAL DRILLING MACHINE OPERATOR-C Сергей Bergman METAL DRILLING MACHINE OPERATOR Work Phone: [facility] Work Phone: Start: 06-18-2022 End: 06-18-2022 Emergency department patient visit DR JACQUELYN ANDRES MD [facility] Start: 04-28-2022 End: 04-28-2022 ambulatory [facility] Work Phone: Start: 04-28-2022 End: 04-28-2022 Patient encounter procedure [facility] Start: 01-10-2022 Telephone encounter Parish vuong MD Work Phone: Pain Management Comment on above: Fur Blowing Machine Operator - O ther Start: 12-26-2021 End: 12-26-2021 ambulatory [facility] Work Phone: Start: 12-26-2021 End: 12-26-2021 Patient encounter procedure [facility] Start: 12-22-2021 Telephone encounter Parish vuong MD Work Phone: Pain Management Comment on above: MRI denial Start: 09-14-2021 Social Work Dunia Lara WHEEL WORKER [facility] Comment on above: Need for community r esource (Primary Dx) Procedures Date Procedure Procedure Detail Performing Clinician Start: 12-28-2024 Plain radiography of pelvis Сергей Bergman METAL DRILLING MACHINE OPERATOR-C Work Phone: Start: 12-28-2024 CT of lumbar spine Rich sherlyn Bergman METAL DRILLING MACHINE OPERATOR-C Work Phone: Start: 11-19-2024 Vitamin D, 25-hydrox y measurement Сергей Bergman METAL DRILLING MACHINE OPERATOR-C Work Phone: Comment on above: Vitamin D StatusDefi ciency: <20 ng/mL (50nmol/L)Insufficiency: 20-30 ng/mL (50-75 nmol/L)Sufficiency: 30-100 ng/mL (75-250 nmol/L)Toxicity: >100 ng/mL (>250 nmol/L) Start: 08-03-2024 X-ray of chest, PA a nd lateral views Сергей Preston METAL DRILLING MACHINE OPERATOR-C Work Phone: Start: 08-03-2024 Estimated creatinine clearance Сергей Preston METAL DRILLING MACHINE OPERATOR-C Work Phone: Start: 06-09-2024 MRI of lumbar spine Dion hard Madalyn METAL DRILLING MACHINE OPERATOR-C Work Phone: Start: 06-01-2024 X-ray of chest, PA a nd lateral views Сергей Bergman METAL DRILLING MACHINE OPERATOR-C Work Phone: Start: 06-04-2023 X-ray of lumbar spin e, two or three views METAL DRILLING MACHINE OPERATOR-C Сергей Bergman METAL DRILLING MACHINE OPERATOR Work Phone: Start: 04-19-2023 CT of chest without contrast METAL DRILLING MACHINE OPERATOR-C Сергей Bergman METAL DRILLING MACHINE OPERATOR Work Phone: Start: 03-20-2023 Plain chest X-ray METAL DRILLING MACHINE OPERATOR-C Сергей Millerpkins METAL DRILLING MACHINE OPERATOR Work Phone: Start: 10-24-2022 X-ray of chest posteroanterior view METAL DRILLING MACHINE OPERATOR-C Сергей Millerpkins METAL DRILLING MACHINE OPERATOR Work Phone: Start: 06-28-2022 X-ray of lumbar spin e, two or three views METAL DRILLING MACHINE OPERATOR-C Сергей Millerpkins METAL DRILLING MACHINE OPERATOR Work Phone: Start: 04-16-2003 Ankle region structu re (body structure) BREEZY BRAUN MD Plan of Treatment Date Care Activity Detail Author Start: 12-28-2024 [facility] Start: 12-15-2024 Influenza vaccination Influenza Vaccine (Season Ended) [facility] Start: 11-09-2024 Urine microalbumin profile DTaP,Tdap,Td Vaccine (2 - Td or Tdap) [facility] Start: 08-03-2024 [facility] Start: 08-03-2024 [facility] Start: 06-01-2024 [facility] Start: 06-01-2024 [facility] Start: 05-02-2024 Patient referral [facility] Work Phone: Start: 12-16-2023 Covid-19 Vaccine ( season) Covid-19 Vaccine ( season) [facility] Start: 12-16-2023 Influenza vaccination Influenza Vaccine (#1) [facility] Start: 07-25-2023 Creatinine other source ASSAY OF URINE CREATININE [facility] Start: 07-25-2023 Urine albumin quantitative UR ALBUMIN QUANTITATIVE [facility] Start: 07-09-2023 [facility] Start: 06-04-2023 Patient referral [facility] Work Phone: Start: 10-24-2022 XR Unspecified body region Views [facility] Start: 06-28-2022 Patient referral [facility] Work Phone: Start: 12-15-2021 Influenza vaccination [facility] Start: 04-16-2021 DEPRESSION ASSESSMENT DEPRESSION ASSESSMENT [facility] Start: 2020 Lipid panel Lipid Screening [facility] Start: 2020 LIPID SCREEN LIPID SCREEN [facility] Start: 02-03-2006 Pneumococcal vaccination Pneumococcal Vaccine (2 of 2 - PCV) [facility] Start: 2004 Hepatitis B Vaccine (1 of 3 - 19+ 3-dose series) Hepatitis B Vaccine (1 of 3 - 19+ 3-dose series) [facility] Start: 2004 Urine microalbumin profile DTAP,TDAP,TD (1 - Tdap) [facility] Start: 09-26-2003 ANNUAL PCP TEAM CHRONIC DISEASE VISIT ANNUAL PCP TEAM CHRONIC DISEASE VISIT [facility] Start: 09-26-2003 Anxiety Screening Anxiety Screening [facility] Start: 09-26-2003 BP CONTROLLED (<130/80) BP CONTROLLED (<130/80) [facility] Start: 09-26-2003 Depression Screening Depression Screening [facility] Start: 09-26-2003 HEPATITIS C SCREENING HEPATITIS C SCREENING [facility] Start: 09-26-2003 Hepatitis C screening Hepatitis C Screening [facility] Start: 09-26-2003 HIV SCREENING HIV SCREENING [facility] Start: 09-26-2003 HIV screening HIV Screening [facility] Start: 1997 Adult depression screening assessment DEPRESSION SCREENING [facility] Start: 09-26-1991 PNEUMOCOCCAL (1 - PCV) PNEUMOCOCCAL (1 - PCV) [facility] Start: 1990 COVID-19 VACCINE (#1) COVID-19 VACCINE (#1) [facility] Start: 03-27-1986 COVID-19 VACCINE (#1) COVID-19 VACCINE (#1) [facility] Start: 1985 HEPATITIS B (1 of 3 - 3-dose series) HEPATITIS B (1 of 3 - 3-dose series) [facility] MR Lumbar spine [facility] Patient Education [facility] Work Phone: Patient referral [facility] Work Phone: [facility] Immunizations Immunization Date Immunization Notes Care Provider Chris corrigan 02-21-2013 influenza virus vacc ine, unspecified formulation Meghan Huitron PA-C Work Phone: [facility] Payers Date Payer Category Payer Unknown [id number] 2024 Self-pay [id number] 2015 Medicaid [facility] MEDICAID [id number] 2015-Present [phone] [address] [place] [address] Medicaid [id number] 2015 Medicaid [id number] 2015 Unknown [id number] 2015 Unknown [id number] 1985 Unknown [id number] 1985 Unknown [id number] [id number] 1985 Unknown [id number] [id number] 1985 Unknown [id number] 2.840.1.182750.3.579.2.627 1985 Unknown [id number] [id number] 1985 Unknown [id number] [id number] Unknown [id number] [id number] Unknown [id number] 2.16.840.1.590560.3.579.2.462 Unknown [id number] 2.16.840.1.833567.3.579.2.462 Unknown [id number] 2.16.840.1.245066.3.579.2.462 Unknown [id number] 2.16.840.1.239905.3.579.2.462 Unknown [id number] 2.16.840.1.036411.3.579.2.462 Unknown [id number] 2.16.840.1.229231.3.579.2.462 Unknown [id number] 2.16.840.1.730288.3.579.2.462 Unknown [id number] 2.16.840.1.221773.3.579.2.462 Unknown [id number] [id number] Unknown [id number] [id number] Unknown [id number] Social History Date Type Detail Facility Start: 12-06-2015 End: 04-05-2024 Tobacco smoking status NHIS Occasional tobacco smoker [facility] History of tobacco use Cigarette Smoker [facility] History of tobacco use Cigar Smoker [facility] Start: 09-07-2021 End: 08-31-2024 Alcohol intake Lifetime non-drinker (finding) [facility] Start: 09-07-2021 History SDOH Alcohol Frequency 1 [facility] Start: 1985 Sex Assigned At Not on file C [facility] Start: 12-06-2015 End: 04-05-2024 Tobacco use and exposure Smokeless tobacco non-user [facility] Start: 06-29-2021 End: 07-30-2023 Tobacco smoking status TNIS Unknown if ever smoked [facility] Start: 1985 Sex Assigned At Male [facility] Start: 12-09-2020 End: 12-10-2023 Tobacco smoking status Light tobacco smoker (finding) [facility] Start: 04-28-2022 End: 04-05-2024 History of Social function [facility] Start: 04-28-2022 End: 12-21-2024 Tobacco use panel [facility] National Score (1-100), lower number is lower risk 96 [facility] Start: 06-19-2024 End: 08-03-2024 Sex Male (finding) [facility] Start: 08-03-2024 End: 12-28-2024 Tobacco smoking status NHIS Current Heavy tobacco smoker [facility] Functional Status Date Assessment Result Facility 01-07-2024 Functional Status [facility] 09-15-2023 Functional Status Independent [facility] 09-15-2023 Functional Status Standard Safet y ID band on, Allergy Band on, Call device within reach, Bed in low position, Wheels locked, Visitor at bedside [facility] 09-30-2022 Functional Status Room check performed [facility] 06-18-2022 Functional Status ID band on, Allergy Band on, Call device within reach, Bed in low position, Wheels locked, Upper/Half-Length side-rails up, Phone within reach, personal items within reach, Visitor at bedside, Safety level maintained [facility] 01-20-2014 Are you deaf, or do you have serious difficulty hearing No 01/20/2014 12:28 PM EDT Denisha Vaca Ma No [facility] 01-20-2014 Are you blind, or do you have serious difficulty seeing, even when wearing glasses No 01/20/2014 12:28 PM EDT Denisha Vaca Ma No [facility] 01-20-2014 Do you have serious difficulty walking or climbing stairs No 01/20/2014 12:28 PM EDT Denisha Vaca Ma No [facility] 01-20-2014 Do you have difficul ty dressing or bathing No 01/20/2014 12:28 PM EDT Denisha Vaca Ma No [facility] 01-20-2014 Because of a physica l, mental, or emotional condition, do you have difficulty doing errands alone such as visiting a physician's office or shopping No 01/20/2014 12:28 PM EDT Denisha Vaca Ma No [facility] Mental Status Date Assessment Result Facility 08-03-2024 Cognitive function Voice/Name [facility] Work Phone: 06-01-2024 Cognitive function Voice/Name [facility] Work Phone: 01-07-2024 Mental Status Orientation Oriented x 4 [facility] 09-15-2023 Mental Status Orientation Oriented x 4 [facility] 09-15-2023 Mental Status [facility] 09-30-2022 Mental Status Oriented x 4 [facility] 06-18-2022 Mental Status Oriented x 4 [facility] 01-20-2014 Because of a physica l, mental, or emotional condition, do you have serious difficulty concentrating, remembering, or making decisions No 01/20/2014 12:28 PM EDT Lio Laureano, Denisha Rollins No [facility] Clinical Notes 09-14-2021 to 01-01-2025 Note Date & Type Note Facility 01-01-2025 Progress note [facility] 01-01-2025 Progress note Note Date/Time January 01, 2025 2:19pm [facility] [address], [address] [place] [address] OFFICE VISIT Date of Service: 01/01/25 MR#: [id number] Acct: [id number] Name: GINO AVILEZ Rep #: [id number] : 1985 Provider: CALEB Lu Age/Sex: 39/M Location: [facility] Status: Signed Intake Vital Signs 12/28/24 01:35 01/01/25 14:16 Height 6 ft 1 in BP 138/80 H Blood Pressure Location Lt brachial Position Sitting Respiration 16 Pulse 90 Pulse Source NIBP Temp 98.3 F Temp Source Oral Pulse Oximetry (%) 96 Oxygen Delivery Method room air Intake Visit Reasons: L EAR CONCERN Chief Complaint: left ear Clinical Appeals Auditor Required: No Is patient in pain?: No Allergies cefaclor (From [facility]) Allergy (Verified 01/01/25 14:16) Hives Have you fallen in the past year?: No Nurse's Note: left ear feels like fluid inside x 3-4 days. denies fever or ear pain. denies recent viral illness or significant ear hx [facility] Medical History Hypercholesteremia Smoker Hypertension Night terrors, adult Bipolar disorder Schizophrenia Excessive cerumen in right ear canal Mass of left lung Muscle strain of chest wall Left-sided chest wall pain Lumbar strain Lumbar contusion Back pain Asthma Fatigue Surgical History History of ankle surgery Social History Smoking Status: Heavy Smoker (>10/day) alcohol intake: never substance use type: marijuana HPI HPI Chief Complaint: left ear Details: GINO AVILEZ, is a 39 M who presents to the office today for complaint of left ear pain. Patient states that he believes he may have gotten water in his left ear. He denies otorrhea or hearing change/loss. No fever, chills or sweats. No other associated symptoms or alleviating/aggravating factors. ROS Const Constitutional: No other (As above) Exam Const General: cooperative and well developed HENMT Head: normal to inspection and atraumatic Ears: hearing grossly normal bilaterally, EAC abnormal edema on the left and EACtenderness on the left and TM abnormal bulging on the left and erythematous on the left Nose: nasal discharge clear Face and sinus: normal facial exam Mouth: oral mucosae normal Resp Effort & Inspection: normal respiratory effort and no audible wheezes Auscultation: Bilateral: Clear to Auscultation Cardio Rate: regular rate Rhythm: regular rhythm Neuro General: patient alert Psych Appearance: grossly normal Mental Status: mental status grossly normal Coding Level of Care Code Off vis,new,level 3 Diagnoses Acute diffuse otitis externa of left ear H60.312 Acute otitis media, left H66.92 Assessment and Plan Assessment and Plan (1) Acute diffuse otitis externa of left ear: Status: Acute (2) Acute otitis media, left: Status: Acute Plan: Augmentin and eardrops as prescribed today. Encouraged to get plenty of rest, drink lots of clear liquids, and use Tylenol or Ibuprofen (unless contraindicated) for fever and comfort. Patient also educated on other symptomatic management techniques. To be seen in 7-10 days if no improvement; sooner if worsening of symptoms. Patient advised of potential red flags and when appropriate to report to the ED. Patient verbalized understanding and agreement with all the above. Medications: New amoxicillin-pot clavulanate 875-125 mg 1 TAB PO Q12H 20 tabs 0RF 10 days J01.90- Acute sinusitis, unspecified sjjwhciz-mrzrsateu-IW 3.5-10,000-1 mg/mL-unit/mL-% apply to (cotton) wick; replace wick every 24 hours 3 drps otic (ear) Q4H 10 mL 0RF 10 days Clinical Quality Measures Falls Risk Screening/Assistive Devices Have you fallen in the past year?: No 01/01/25 1436 <Electronically signed by Ren ELLIS> Date _ Ren ELLIS Cosigner Signature: Date (if applicable) CC: ~ [place] [employer] [facility] Work Phone: [phone] 500-959709-14-2025 Discharge summary [facility] Department [address] [place] [address] Emergency Department Summary 12/28/24 MR#: [id number] Acct: [id number] Name: GINO AVILEZ Rep #:[id number] : 1985 39 From: Danisha Reich MD PCP: ORI Gamboa tus:[facility] Location: ED HPI History of Present Illness Chief Complaint: Back Narrative Narrative: Patient is a 39-year-old male presenting to the emergency department for back pain after a fall. 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 Patient states that he got up around midnight and his cat knocked overits waterbowl and he did not see this and he slipped in the puddle of water. States he landed on his buttocks. Was able to get up by himself. Denies hitting his head, any loss of consciousness, neck pain or use of oral anticoagulation. Denies any numbness, weakness in his legs, bowel or bladder retention or incontinence, saddle anesthesia. He was able to ambulate after the fall. Endorses mild right hip pain as well that he states is slightly worse than baseline for him. Denies any other injuries or pain. [facility] Medical History Hypercholesteremia Smoker Hypertension Night terrors, adult Bipolar disorder Schizophrenia Excessive cerumen in right ear canal Mass of left lung Muscle strain of chest wall Left-sided chest wall pain Lumbar strain Lumbar contusion Back pain Asthma Fatigue Home Medications ?Medication ?Instructions ?Recorded ?Last Taken ?Type atenolol 25 mg tablet 25 mg PO DAILY 10/09/18 Unkn own History omeprazole 10 mg capsule,delayed 10 mg PO DAILY Unknown History release fluticasone 100 mcg-salmeterol 50 1 inh inhalation TRE LY 11/23/22 Unknown History mcg/dose blistr powdr for inhalation (Advair Diskus) albuterol sulfate 90 mcg/actuation 2 puff inhalation Q 4H PRN 12/28/24 Unknown History aerosol inhaler shortness of breath or wheez ing aspirin 81 mg tablet,delayed 81 mg PO DAILY 12/28/24 U nknown History release cetirizine 10 mg tablet 10 mg PO DAILY ALLERGIES Unknown History cholecalciferol (vitamin D3) 1,250 1,250 mcg PO QMONTH 12/28/24 Unknown History mcg (50,000 unit) capsule famotidine 40 mg tablet 40 mg PO DAILY INDIGESTION 0 12/28/24 Unknown History fluticasone propionate 50 2 spray intranasal Q12H JIMI RGIES 12/28/24 Unknown History mcg/actuation nasal spray,suspension metformin 500 mg tablet 500 mg PO BID 12/28/24 Unkno wn History metoprolol succinate 25 mg 25 mg PO DAILY HEART RATE 0 12/28/24 Unknown History tablet,extended release 24 hr montelukast 10 mg tablet 10 mg PO DAILY ALLERGIES Unknown History olanzapine 15 mg tablet 15 mg PO QHS 12/28/24 Unknow n History omeprazole 40 mg capsule,delayed 40 mg PO DAILY Unknown History release prazosin 1 mg capsule 1 mg PO QHS 12/28/24 Unknown History prazosin 2 mg capsule 2 mg PO QHS 12/28/24 Unknown History ramipril 10 mg capsule 10 mg PO DAILY 12/28/24 Unkn own History rosuvastatin 5 mg tablet 5 mg PO DAILY HIGH CHOLESTER OL 12/28/24 Unknown History Allergy/AdvReac Type Severity Reaction Status Date / Time cefaclor (From [facility]) Allergy Hives Verified 12/28/24 01:36 Surgical History History of ankle surgery Social History Smoking Status: Heavy Smoker (>10/day) alcohol intake: never substance use type: marijuana ROS ROS ED ROS Narrative See HPI EXAM Physical Exam Narrative Exam Narrative: Vital signs: Reviewed General: Alert and oriented x 3. No acute distress HEENT: Head is normocephalic and atraumatic, sinuses nontender, pupils equal round and reactive. Nares are patent. Oropharynx and throat exams normal. Neck: Supple without lymphadenopathy nontender. No midline cervical spinal tenderness to palpation.No step-offs or deformities. Cardiovascular: Regular rate and rhythm, no murmurs. No rubs or gallops. Normal S1 and S2 Respiratory: Clear to auscultation bilaterally. No wheezes, rales, rhonchi Abdominal: Soft and nontender. Normal bowel sounds. No guarding or rebound. Nonsurgical abdomen Extremities: Extremities are atraumatic and nontender to palpation with normal active range of motion. 5 out of 5 strength in all extremities. Sensation intact in all extremities. Back: No midline thoracic spinal tenderness to palpation. No step-offs or deformities. There is lower midline lumbar spinal tenderness to palpation with no step-offs or deformities. There is bilateral paraspinal lumbar tenderness topalpation. No erythema, lacerations, bruising. Hips are stable and nontender to palpation. Skin: No rash or redness. Neurological: Cranial nerves II through XII are grossly intact. Normal strengthand sensation. Normal cerebellar function The rest of the physical exam is unremarkable Const Vital Signs: 12/28/24 01:35 Temperature 97.9 F Temperature Source Oral Pulse Rate 95 Respiratory Rate 16 Blood Pressure 154/94 H Blood Pressure Mean 114 Pulse Ox 98 Oxygen Delivery Method Room Air MDM MDM MDM Narrative Medical decision making narrative: Patient is a 39-year-old male presenting to the emergency department after a fall with back pain. Patient was seen and examined. Vitals are stable. Patient resting bed comfortably no acute distress. Given the fall and midline spinal tenderness to palpation, CT imaging of the lumbar spine was ordered as well as pelvis x-ray to evaluate the right hip. He was given IM Toradol for symptomatic control. No red flag back pain signs. No weakness or numbness in the lower extremities. Normal neurologic exam. CT lumbar spine shows no CT evidence of an acute traumatic abnormality. Pelvis x-ray was reviewed by myself and there is no evidence of fracture or dislocation. Radiology read with no acute abnormalities as well. Patient reevaluated. He states that his pain is much improved after the Toradol. Him and his mother were updated on the negative imaging findings. Recommended Tylenol, Motrin, icing, resting and stretching his back. Recommended returning to the ED with any new or worsening symptoms including worsening back pain, weakness or numbness in his legs, bowel or bladder incontinence/retention. Patient agreeable to plan. Ambulated out of department without difficulty. Clinical impression Fall Low back pain Radiography X-Ray: Right Hip, Left Hip, Read by ED Physician, Normal and No Fracture Diagnostic Testing: Clinical Impression(s) from Imaging Studies Lumbar Spine CT 12/28/24 02:25 IMPRESSION: Spondylosis. Findings are more prominent at L2-L3. No CT evidence of an acute traumatic abnormality. Reading Location: [facility] Pelvis X-Ray 12/28/24 02:38 IMPRESSION: No evidence for acute abnormality. Reading Location: [facility] Discharge Plan Triage Chief Complaint: Back ED Provider: Danisha Reich Dx/Rx/DC Orders Clinical Impression: Low back pain, Lumbar contusion Instructions: Relieving Back Pain, Self-Care for Low Back Pain, ED Back Contusion Prescriptions: No Action omeprazole 10 mg capsule,delayed release(DR/EC) 10 mg PO DAILY fluticasone propion-salmeterol [Advair Diskus] 100-50 mcg/dose blister with device 1 inh inhalation DAILY atenolol 25 tablet 25 mg PO DAILY aspirin 81 mg tablet,delayed release (DR/EC) 81 mg PO DAILY albuterol sulfate 90 mcg/actuation HFA aerosol inhaler 2 puff inhalation Q4H PRN (Reason: shortness of breath or wheezing) cetirizine 10 mg tablet 10 mg PO DAILY cholecalciferol (vitamin D3) 1,250 mcg (50,000 unit) capsule 1,250 mcg PO QMONTH metformin 500 mg tablet 500 mg PO BID prazosin 1 mg capsule 1 mg PO QHS Rx Instructions: TAKE WITH 2 MG TABLET FOR A TOTAL OF 3 MG AT NIGHT omeprazole 40 mg capsule,delayed release(DR/EC) 40 mg PO DAILY montelukast 10 mg tablet 10 mg PO DAILY olanzapine 15 mg tablet 15 mg PO QHS metoprolol succinate 25 mg tablet extended release 24 hr 25 mg PO DAILY prazosin 2 mg capsule 2 mg PO QHS Rx Instructions: TAKE WITH 1 MG TABLET FOR A TOTAL OF 3 MG AT NIGHT famotidine 40 mg tablet 40 mg PO DAILY fluticasone propionate 50 mcg/actuation spray,suspension 2 spray INTRANASAL Q12H ramipril 10 mg capsule 10 mg PO DAILY rosuvastatin 5 mg tablet 5 mg PO DAILY Primary Care Provider: Сергей Bergman NP Referrals: Сергей Bergman NP, METAL DRILLING MACHINE OPERATOR-C [Primary Care Provider] - 2 Days Activity Restrictions/Additional Instructions: Take Tylenol and Motrin at home for pain control. Your evaluation in the Emergency Department did not reveal any acute reason for admission. However, I want to emphasize that you may be early in the course of a disease process or illness even if it is not present. For this reason you should follow-up within 24 hours for reevaluation with either your primary care physician or if necessary back here in the Emergency Department. You should return to the Emergency Department immediately if your symptoms worsen or new symptoms develop. Print Language: Somali Disposition Disposition: Home, Self Care What to do if you have Problems For any increased pain, shortness of breath, bleeding, nausea or vomiting, chestpain, or any unexpected problems, contact your Primary Care Provider. Call [facility] ([phone]) or report tothe closest Emergency Room. Call 911 if necessary. 12/28/24 6176 Cosigner Signature (if applicable): CC: METAL DRILLING MACHINE OPERATORAmren Bergman ~ [facility]igned [facility]09-14-2025 Radiology Diagnostic study note [facility] Imaging Services [address] [place] [address] Spine Lumbar without Contrast MR#: [id number] Acct: [id number] Name: GINO AVILEZ Rep #: [id number] : 1985 M 39 From: Tram Abebe MD PCP: ORI Gamboa Status: REG ER Study:Spine Lumbar without Contrast Date of E xam: 12/28/24 Exam# [id number] Ordering Dr: Sonu Reich MD PROCEDURE: SPINE LUMBAR WITHOUT CONTRAST 12/28/2024 REASON FOR EXAM: FALL, LOW BACK PAIN TECHNIQUE: Procedure Code: CTSPL Modality: CT Procedure: SPINE LUMBAR WITHOUT CONTRAST Coronal and Sagittal reconstruction series were provided. One or more dose reduction techniques were used (e.g., Automated exposure control, adjustment of the mA and/or kV according to patient size, use of iterative reconstruction technique COMPARISON: MRI of the lumbar spine on 06/09/2024. RADIATION DOSE SUMMARY: CTDlvol: 56.96 mGy DLP: 2139 mGycm FINDINGS: There are diffuse spondylotic changes. Findings are demonstrated to by diffuse disc space narrowing, osteophyte formation and degenerative endplate sclerosis. There is diffuse facet joint arthropathy with secondary bilateral neural foramina narrowing. No fracture or dislocation is seen. No aggressive lytic or blastic bony lesion is noted. Moderate arthrosis of the sacroiliac joints. CT/Spine Lumbar without Contrast IMPRESSION: Spondylosis. Findings are more prominent at L2-L3. No CT evidence of an acute traumatic abnormality. Reading Location: [place] [address] CC: ORI Bergman; Dr. Danisha Reich MD ~ Commercial Drone Pilot: [facility]igned [facility]09-14-2025 Radiology Diagnostic study note [facility] Imaging Services [address] [place], [place] [address] Pelvis 1 or 2 Views MR#: [id number] Acct: [id number] Name: GINO AVILEZ Rep #: [id number] : 1985 M 39 From: Tram Abebe MD PCP: ORI Gamboa Status: REG ER Study:Pelvis 1 or 2 Views Date of Exam: 12/28/24 Exam# [id number] Ordering Dr: Sonu Reich MD PROCEDURE: PELVIS 1 OR 2 VIEWS 12/28/2024 REASON FOR EXAM: FALL, RIGHT HIP PAIN TECHNIQUE: Procedure Code: RADPEL Modality: DX Procedure: PELVIS 1 OR 2 VIEWS COMPARISON: None. 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 There is a non-specific bowel gas pattern. Normal visualized soft tissue structures. Normal visualized sacrum and bilateral iliac wings. Normal visualized bilateral superior and inferior pubic rami. Normal ischial tuberosities. Normal pubic symphysis. Normal visualized right femoral head. Normal right acetabulum. Normal right hip joint. Normal visualized left femoral head. Normal left acetabulum. Normal left hip joint. RAD/Pelvis 1 or 2 Views IMPRESSION: No evidence for acute abnormality. Reading [facility] CC: METAL DRILLING MACHINE OPERATOR-C Сергей Bergman; Dr. Danisha Reich MD ~ Commercial Drone Pilot: [facility]igned [facility]05-18-2025 NoteHNO ID: [id number] Author: GANGA ORDONEZ APRN.PAI GOW MANAGER Service: ? Author Type: Nurse Practitioner Type: Progress Notes Filed: 08/31/2024 12:56 Note Text: [facility] Gino Avilez is a 38 year old [...] of current allergy medication and use of jfoa-xjm-rsyscla antitussives as needed. - Advised to monitor symptoms and follow up if condition worsens or does not improve within a week. and Recording using SFOX software for draft documentation of the visit was discussed with the patient/authorized billing representative; all questions welcomed and answered. Patient/authorized billing representative agreed to proceed MDM ProceduresA[facility] History of Present illness Narrative* Ganga Ordonez APRN.[facility] - 08/31/2024 12:49 PM EDT [facility] Subjective Gino Avilez is [...] of current allergy medication and use of erdh-ges-hvnaeio antitussives as needed. - Advised to monitor symptoms and follow up if condition worsens or does not improve within a week. and Recording using SFOX software for draft documentation of the visit was discussed with thepatient/authorized billing representative; all questions welcomed and answered. Patient/authorized billing representative agreed to proceed MDM Procedures documented in this [facility]Mag[facility]uder [facility]04-[facility] Radiology Diagnostic study note [facility] Imaging Services [address] [place] [address] Chest PA and Lateral MR#: [id number] Acct: [id number] Name: GINO AVILEZ Rep #: [id number] : 1985 M 38 From: Kiki Womack MD PCP: Сергей Bergman, HEATHER-C Status: REG ER Study:Chest PA and Lateral Date of Exam: 08/03/24 Exam# [id number] Ordering Dr: Adela Luna PROCEDURE: CHEST PA [...] and Lateral IMPRESSION: NEGATIVE CHEST Reading Location: [id number] CC: METAL DRILLING MACHINE OPERATOR-C Сергей Bergman; CALEB Hutchison ~ Commercial Drone Pilot: [facility]igned [facility]03-25-2025 Discharge summary Author Trevor Segal [facility] Note Date/Time July 08, 2024 7:0 0pm [facility] Physical Therapy [facility] [address] [place] [address] / REHABILITATION SERVICES DISCHARGE SUMMARY MR#: [id number] Acct: [id number] Name: GINO AVILEZ Rep #: [id number] : 1985 38 From: Trevor Segal PT, ATC Referring Dr.: CALEB Armenta Status: REG RCR Insurance: [facility] SELF PAY INSURANCE Discharge Summary D/C [...] please feel free to call me at [phone]. Thank you for the referral of thispatient. Sincerely, Trevor Segal, PT, ATC Balance/Gait/Functional tests Balance/Special Test Scores Oswestry Low Back Score: 16 Improvement % Improvement: 75 <Electronically signed by Trevor Segal PT, ATC> 07/08/24 1610 CC: METAL DRILLING MACHINE OPERATORArmen Bergman; CALEB Armenta ~ [facility]igned [facility] Work Phone: 1(369) 136-994403-25-2025 Discharge summary [facility] [address] [place] [address] / REHABILITATION SERVICES DISCHARGE SUMMARY MR#: [id number] Acct: [id number] Name: GINO AVILEZ Rep #: [id number] : 1985 38 From: Trevor Segal PT, ATC Referring Dr.: CALEB Armenta Status: REG RCR Insurance: [facility] SELF PAY INSURANCE Discharge Summary D/C [...] please feel free to call me at [phone]. Thank you for the referral of thispatient. Sincerely, Trevor Segal, PT, ATC Balance/Gait/Functional tests Balance/Special Test Scores Oswestry Low Back Score: 16 Improvement % Improvement: 75 07/08/24 1610 CC: ORI Bergman; CALEB Armenta ~ [facility]igned [facility]03-24-2025 NoteHNO ID: [id number] Author: BERNICE BELLO PA Service: ? Author Type: Physician Nail Sticker Type: Progress Notes Filed: 07/07/2024 13:22 Note Text: [facility] Subjective Gino Avilez is a [...] level of care were (more content not included)...[facility]03-24-2025 History of Present illness Narrative* Bernice Bello PA - 07/07/2024 1:20 PM EDT [facility] Subjective Gino Avilez is [...] patient was discharged. Procedures documented in this encounterMagruder [facility]02-16-2025 NoteHNO ID: [id number] Author: EMMA CLAROS APRN.CNP Service: ? Author [...] by private auto. He will go to [facility]. Emma Claros APRN.CNPAdena [facility]02-16-2025 History of Present illness Narrative* Emma Claros [...] by private auto. He will go to [facility]. Emma Claros APRN.CNP documented in this encounterMagruder [facility] Hospital01-17-2025 Evaluation note* Diagnosis Onset Date Resolution Status Admit Date Lumbar radiculopathy acute 2024 1:46pm [facility] Work Phone: [phone] 956-154801-17-2025 Evaluation note* Diagnosis Onset Date Resolution Status Admit Date Lumbar radiculopathy acute [place] 2024 1:46pm Lumbar radiculopathy acute [place] h 2024 10:53am [facility] Work Phone: [phone]) [phone] NoteHNO ID: [id number] Author: JL ROOT PA-C Service: ? Author Type: Physician Nail Sticker Type: Progress Notes Filed: 04/13/2024 13:43 Note Text: This note was created using View and Chew. Subjective Gino Avilez is a 38 year [...] TABLET - BENZONATATE 100 MG CAPSULE CALEB [facility]12-29-2024 History of Present illness Narrative* Jl Root PA-C - 04/13/2024 1:39 PM EST This note was created using View and Chew. Subjective Gino Avilez is a 38 year [...] dyspnea. Patient states he has experienced episo segnu of shortness of breath primarily with exertion. [...] CAPSULE Jl Root PA-C documented in this encounterMagruder [facility] Hospital12-21-2024 NoteHNO ID: [id number] Author: MEGHAN HUITRON PA-C Service: ? Author Type: Physician Nail Sticker Type: Progress Notes Filed: 04/05/2024 13:51 Note Text: This note was created using Cumedriter. Subjective Gino Avilez is a 38 year [...] symptoms. Patient voiced understanding to plan. CALEB [facility]12-21-2024 History of Present illness Narrative* Meghan Huitron PA-C - 04/05/2024 1:44 PM EST This note was created using Aria Networkster. Subjective Gino Avilez is a 38 year [...] plan. Meghan Huitron PA-C documented in this encounterMag[facility]uder [facility]09-23-2024 Hospital Discharge instructions Patient Education 01/07/2024 [...] pain management. You can take your usual tgdw-pgm-xjgupeb pain medication unless otherwise directed. HAND WASHING [...] Care 12/28/2023 15:17:38 With:BREEZY BRAUN MD Address: [address] [place] [address] [address] [place] [address] [phone] When:02/13/2024 14:30:00 Comments:Follow-up as scheduled [facility] 09-23-2024 Summary of episode note Discharge Instructions Thank you for allowing [facility] to assist you with your healthcare needs. The following is importantdischarge information regarding your hospital visit. Your Care Team СЕРГЕЙ BERGMAN APRN - ALEX What to do next Scheduled Follow-Up Appointments Appointment Type When With Where Contact Information StatusCV OV 02/13/2024 02:30 PM EDT [facility] Confirmed PC OV 06/09/2024 03:00 PM EST СЕРГЕЙ BERGMAN FINANCIAL REPORT SERVICE SALES AGENT - PAI GOW MANAGER [facility] Confirmed Follow Up Appointments Follow Up with BREEZY BRAUN MD Where:[address] [place] [address]- Additional Information: Follow-up as scheduled Allergies Ceclor [...] pain management. You can take your usual dfbt-mqg-ydiekhu pain medication unless otherwise directed. HAND WASHING [...] to receive it can visit one of [facility] vaccine clinics. There are many vaccine clinic locations within the [facility]. For locations and available times, please visit https://gettheshot.coronavirus.[place].gov/. It is important to note that some COVID mobile vaccine clinics are held outdoors and may be canceled in rainy or stormy conditions. To learn more about pediatric vaccinations (ages 5-11), we invite you to visit the [facility] webpage. https://www.akronSetgos.org/pages/7212-Adexc-Rcjtnrahkpz-Dzambbftay-Lpogr-Hsn stions.htmlTo learn more about the COVID-19 vaccine, we invite you to visit the CDC website for a list of frequently asked questions.https://www.cdc.gov/coronavirus/2019-ncov/vaccines/faq.html [facility] Patient Portal Access Instructions: Stay connected with your healthcare team and access your personal medical information anytime with the [facility] Patient Portal. Please follow the directions below to create your [facility] account: 1.Access the email account you provided upon registration to the hospital/physician office.2.Look for an invitation email from [facility].3.Open the email and access the invitation link: AcceptInvitation to [facility].4.Fill in the required morrison to create your account. To access your account, visit SchoolFeed/Solid Information TechnologyOneChart. Click the blue button labeled Access Patient [...] who you will allowto register on the [facility] Patient Portal for access to your information. You can also access the [facility] Patient Portal on the [employer] Anywhere himanshu. Simply click on Patient Portal and then log into your account. If you would like to receive a full copy of your medical records, please contact the [facility] Medical Records Department by calling [phone], Sunday through Sunday between 8 a.m. and [...] Call your local pharmacy or go to [email or web address] to find one close to you.3.Make use of household items: Use cat litter or old coffee grounds to dispose medications if other options arenot available. Mix your drugs with these household products, seal them in an airtight container andthrow it into the garbage. Call [facility]: [phone] to be sure your drugs can be [...] aware that I should contact my doctor. Patient/Instrumental Teacher Signature: Date/Time: Relationship to Patient: Witness Name/Signature: Date/Time: [id number] Hospital Discharge instructions Patient Education 10/13/2023 13:54:19 [...] the ears or bruising around the eyes [phone] [employer]. [address] [place] [address]. All rights reserved. This information is not intended as a substitute for professional medical care. Always follow yourhealthcare professional's instructions. Follow Up Care 10/13/2023 13:35:01 With:СЕРГЕЙ BERGMAN APRN - PAI GOW MANAGER Address: [address] [place] [address] [place] [address]- When:2-4 days [facility] 06-29-2024 Note Discharge Instructions Thank you for allowing [facility] to assist you with your healthcare needs. The following is importantdischarge information regarding your hospital visit. Diagnosis from Today's Visit Head injury What to Do Next Instructions from Your Care Team No qualifying data available. Post Acute Orders No qualifying data available. You Need to Schedule the Following Appointments Follow Up with СЕРГЕЙ BERGMAN APRN, CNP When:Within 2-4 days Where:[address] [facility] [place] [address]- Allergies Ceclor Rash Medications Please ask your [...] the ears or bruising around the eyes [phone] [employer]. [address] [place] [address]. All rights reserved. This information is not intended as a substitute for professional medical care. Always follow yourhealthcare professional's instructions. Additional Information VACCINATE! IT SAVES LIVES! Members of the community who have not yet received the COVID-19 vaccine and would like to receive it can visit one of [facility] vaccine clinics. There are many vaccine clinic locations within the [facility]. For locations and available times, please visit www.gettheshot.coronavirus.[place].gov/. It is important to note that some COVID mobile vaccine clinics are held outdoors and may be canceled in rainy or stormy conditions. To learn more about pediatric vaccinations (ages 5-11), we invite you to visit the [facility] webpage. https://www.[facility]ronchildrens.org/pages/4465-Ymqny-Gxhrixrnbiz-Gfpegglngx-Yefnf-Aix stions.htmlTo learn more about the COVID-19 vaccine, we invite you to visit the CDC website for a list of frequently asked questions. https://www.cdc.gov/coronavirus/2019-ncov/vaccines/faq.html [facility] Patient Portal Access Instructions: Stay connected with your healthcare team and access your personal medical information anytime with the [facility] Patient Portal. If you would like a full copy of your medical records please contact the [facility] Medical Records Department Sunday through Sunday between 8a.m. and 4:30p.m. Please follow the directions below to access the portal: 1.Access the email account you provided upon registration to the hospital.2.Look for an invitation email from [facility].3.Open the email and access the invitation link: Accept Invitation to [facility]4.Fill in the required morrison to create your account. Sign into [email or web address].SchoolFeed with your username and password that you [...] you will allow to register on the [facility] Patient Portal for access to your information. You can also access the [facility] Patient Portal on the Mosaic. Simply click on Health Records under Mozilla and then click on the [employer] logo. HOW TO SAFELY DISPOSE OF PRESCRIPTION [...] Call your local pharmacy or go to [email or web address] to find one close to you.3.Make use of household items: Use cat litter or old coffee grounds to dispose medications if other options arenot available. Mix your drugs with these household products, seal them in an airtight container andthrow it into the garbage. Call [facility]: [phone] to be sure your drugs can be [...] been reviewed and explained to me and I,GNIO AVILEZ understand my current condition and have read and understand these discharge instructions. I have received a written copy of the plan/instructions. If I have questions, I am aware that I should contact my doctor. Patient/Instrumental Teacher Signature: Date/Time: Relationship to Patient: Witness Name/Signature: Date/Time: [facility]-01-2024 Hospital Discharge instructions Patient Education 09/15/2023 12:29:27 [...] medicines you take. This includes prescription and hhlq-cpn-tyicomk medicines, vitamins, and herbs. Ask if any [...] confusion, or trouble speaking, walking, or seeing [phone] [employer]. [address] [place] [address], [place] [address]. All rights reserved. This information is not [...] shoulder or upper arm Fever or chills [phone] [employer]. [address] [place] [address]. All rights reserved. This information is not intended as a substitute for professional medical care. Always follow yourhealthcare professional's instructions. Follow Up Care 09/15/2023 10:43:42 With:CHARISMA ROBERT Address: [address], [address] [facility] [place] [phone] Business (1) When:2-4 days Comments:Return to ED if symptoms worsen With:СЕРГЕЙ BERGMAN APRN - PAI GOW MANAGER Address: [address] [facility] [place] [address]- When:2-4 days [facility] 06-01-2024 Note Discharge Instructions Thank you for allowing [facility] to assist you with your healthcare needs. The following is importantdischarge information regarding your hospital visit. Diagnosis from Today's Visit Radiculopathy Sprain, shoulder joint, posterior What to Do Next Instructions from Your Care Team No qualifying data available. Post Acute Orders No qualifying data available. You Need to Schedule the Following Appointments Follow Up with CHARISMA ROBERT When:Within 2-4 days Where:[address] [facility] [address] [facility] [place] [address] [phone] Business (1) Additional Information: Return to ED if symptoms worsen Follow Up with СЕРГЕЙ BERGMAN APRN - ALEX When:Within 2-4 days Where:[address] [facility] [place] [address]- Allergies Ceclor Rash Medications Please ask your [...] expected to produce life threatening symptoms. However, watermelon inspector use of high steroid doses can lead [...] may report side effects to FDA at 6-574-GDV-4221. What other drugs will affect methylprednisolone? Other drugs may interact with methylprednisolone, including prescription and ctfq-ejq-iyqyzne medicines, vitamins, and herbal products. Tell each [...] to ensure that the information provided by [employer]. ('Multum') is accurate, up-to-date, and complete, but no guarantee is made to that effect. Drug information contained herein may be time sensitive. [employer] information has been compiled for use by healthcare practitioners and consumers in the [place] and therefore [employer] does not warrant that uses outside of the [place] are appropriate, unless specifically indicated otherwise. [employer]s drug information does not endorse drugs, diagnose patients or recommend therapy. [employer]s drug information isan informational resource designed to [...] effective or appropriate for any given patient. [employer] does not assume any responsibility for any aspect of healthcare administered with the aid of information [employer] provides. The information contained herein is not intended to cover all possible uses, directions, precautions, warnings, drug interactions, allergic reactions, or adverse effects. If you have questions about the drugs you are taking, check with your doctor, nurse or pharmacist. Copyright 1423-5592 [employer]. Version: 9.01. Revision Date: 12/13/2016. naproxen (na [...] may report side effects to FDA at 6-119-SBH-6135. What other drugs will affect naproxen? Ask [...] drugs may affect naproxen, including prescription and pqsp-hri-zwwaeyb medicines, vitamins, and herbal products. Not all [...] to ensure that the information provided by [employer]. ('[employer]') is accurate, up-to-date, and complete, but no guarantee is made to that effect. Drug information contained herein may be time sensitive. [employer] information has been compiled for use by healthcare practitioners and consumers in the [place] and therefore [employer] does not warrant that uses outside of the [place] are appropriate, unless specifically indicated otherwise. [employer] drug information does not endorse drugs, diagnose patients or recommend therapy. [employer]s drug information isan informational resource designed to [...] effective or appropriate for any given patient. [employer] does not assume any responsibility for any aspect of healthcare administered with the aid of information [employer] provides. The information contained herein is not intended to cover all possible uses, directions, precautions, warnings, drug interactions, allergic reactions, or adverse effects. If you have questions about the drugs you are taking, check with your doctor, nurse or pharmacist. Copyright 6798-4852 [facility] goTaja.com. Version: 22.01. Revision Date: 11/16/2022. Education Materials Peripheral Neuropathy [...] medicines you take. This includes prescription and tqly-wyl-qblrdzw medicines, vitamins, and herbs. Ask if any [...] confusion, or trouble speaking, walking, or seeing [phone] [employer]. [address] [place] [address]. All rights reserved. This information is not [...] shoulder or upper arm Fever or chills [phone] [employer]. [address] [place] [address]. All rights reserved. This information is not intended as a substitute for professional medical care. Always follow yourhealthcare professional's instructions. Additional Information VACCINATE! IT SAVES LIVES! Members of the community who have not yet received the COVID-19 vaccine and would like to receive it can visit one of [facility] vaccine clinics. There are many vaccine clinic locations within the [facility]. For locations and available times, please visit www.gettheshot.coronavirus.[place].gov/. It is important to note that some COVID mobile vaccine clinics are held outdoors and may be canceled in rainy or stormy conditions. To learn more about pediatric vaccinations (ages 5-11), we invite you to visit the [facility] webpage. https://www.[facility].org/pages/7943-Npten-Nzggnmsylry-Laplhkooiu-Zhxva-Nwl stions.htmlTo learn more about the COVID-19 vaccine, we invite you to visit the CDC website for a list of frequently asked questions. https://www.cdc.gov/coronavirus/2019-ncov/vaccines/faq.html [facility] Patient Portal Access Instructions: Stay connected with your healthcare team and access your personal medical information anytime with the [facility] Patient Portal. If you would like a full copy of your medical records please contact the [facility] Medical Records Department Sunday through Sunday between 8a.m. and 4:30p.m. Please follow the directions below to access the portal: 1.Access the email account you provided upon registration to [facility].2.Look for an invitation email from [facility].3.Open the email and access the invitation link: Accept Invitation to [facility]4.Fill in the required morrison to create your account. Sign into [email or web address] with your username and password that you [...] you will allow to register on the [facility] [employer] Patient Portal for access to your information. You can also access the [facility] Patient Portal on the [employer] himanshu. Simply click on Health Records under Car reviewsta and then click on the [facility] logo. HOW TO SAFELY DISPOSE OF PRESCRIPTION [...] Call your local pharmacy or go to http://bit.[employer]/6K0Vs7z to find one close to you.3.Make use of household items: Use cat litter or old coffee grounds to dispose medications if other options arenot available. Mix your drugs with these household products, seal them in an airtight container andthrow it into the garbage. Call [facility]: [phone] to be sure your drugs can be [...] been reviewed and explained to me and IRAGHAV JOSHUA A understand my current condition and have read and understand these discharge instructions. I have received a written copy of the plan/instructions. If I have questions, I am aware that I should contact my doctor. Patient/Instrumental Teacher Signature: Date/Time: Relationship to Patient: Witness Name/Signature: Date/Time: [facility]-01-2024 Note ORIGINAL EXAMINATION: TWO XRAY VIEWS OF [...] Date: 09/15/2023 12:15:51 PM [facility]ing [facility] NoteSinus rhythm Low voltage, precordial leads Borderline T abnormalities, inferior leads Electronic Signature: MD MARLYS PERERA MD 09/15/2023 11:39:09[facility] 04-29-2024 Discharge summary Author Jaziel Lainez [facility] August 13, 2023 4:01pm Note Date/Time August 13, 2023 2:4 1pm [facility] [address] [place] [address] [address] [place] [address] / REHABILITATION SERVICES DISCHARGE SUMMARY MR#: [id number] Acct: [id number] Name: GINO AVILEZ Rep #: [id number] : 1985 37 From: Cert. MARIO Tabor, OCS Referring Dr.: Dr. 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 Thank you for the referral of thispatient. Sincerely, Jaziel Lainez, PT, Cert MDT, OCS Balance/Gait/Functional tests Balance/Special Test Scores Oswestry Low Back Score: 35 Improvement % Improvement: 70 <Electronically signed by Jaziel Lainez PT Cert. T, OCS> 08/13/23 1601 CC: METAL DRILLING MACHINE OPERATORArmen Bergman; Dr. Steve Kim, DO ~ JLA Signed [facility] Work Phone: [phone]) 931-749706-17-2023 Hospital Discharge instructions Patient Education 09/30/2022 12:26:07 [...] or as directed by your healthcare provider [id number] [employer]. [address] [place] [address]. All rights reserved. This information is not intended as a substitute for professional medical care. Always follow yourhealthcare professional's instructions. Follow Up Care 09/30/2022 11:31:49 With:СЕРГЕЙ BERGMAN APRN, CNP Address: [address] [place] [address] [id number]- When:2-4 days [facility] 06-17-2023 Note Discharge Instructions Thank you for allowing [facility] to assist you with your healthcare needs. The following is importantdischarge information regarding your hospital visit. Diagnosis from Today's Visit Rib pain Generalized pain What to Do Next Instructions from Your Care Team No qualifying data available. Post Acute Orders No qualifying data available. You Need to Schedule the Following Appointments Follow Up with СЕРГЕЙ BERGMAN APRN, CNP When Within 2-4 days Where: [address] [place] [id number]- Allergies Ceclor (Rash) Medications Please ask your [...] or as directed by your healthcare provider [phone] [employer]. [address] [place] [address]. All rights reserved. This information is not intended as a substitute for professional medical care. Always follow yourhealthcare professional's instructions. Additional Information VACCINATE! IT SAVES LIVES! Members of the community who have not yet received the COVID-19 vaccine and would like to receive it can visit one of [facility] vaccine clinics. There are many vaccine clinic locations within the [facility]. For locations and available times, please visit www.gettheshot.coronavirus.[place].gov/. It is important to note that some COVID mobile vaccine clinics are held outdoors and may be canceled in rainy or stormy conditions. To learn more about pediatric vaccinations (ages 5-11), we invite you to visit the [facility] webpage. https://www.[facility].org/pages/7550-Nmgys-Jpcorcivxhg-Hblhvxqplr-Zrnir-Jzd stions.htmlTo learn more about the COVID-19 vaccine, we invite you to visit the CDC website for a list of frequently asked questions. https://www.cdc.gov/coronavirus/2019-ncov/vaccines/faq.html [facility] Patient Portal Access Instructions: Stay connected with your healthcare team and access your personal medical information anytime with the [facility] Patient Portal. If you would like a full copy of your medical records please contact the [facility] Medical Records Department Sunday through Sunday between 8a.m. and 4:30p.m. Please follow the directions below to access the portal: 1.Access the email account you provided upon registration to the hospital.2.Look for an invitation email from [facility].3.Open the email and access the invitation link: Accept Invitation to [facility]4.Fill in the required morrison to create your account. Sign into [email or web address] with your username and password that you [...] you will allow to register on the [facility] Patient Portal for access to your information. You can also access the [facility] Patient Portal on the M[employer]. Simply click on Health Records under [employer] and then click on the [employer] logo. HOW TO SAFELY DISPOSE OF PRESCRIPTION [...] Call your local pharmacy or go to http://bit.[employer]/4W0Vs9s to find one close to you.3.Make use of household items: Use cat litter or old coffee grounds to dispose medications if other options arenot available. Mix your drugs with these household products, seal them in an airtight container andthrow it into the garbage. Call [facility]: [phone] to be sure your drugs can be [...] been reviewed and explained to me and IRAGHAV JOSHUA A understand my current condition and have read and understand these discharge instructions. I have received a written copy of the plan/instructions. If I have questions, I am aware that I should contact my doctor. Patient/Instrumental Teacher Signature: Date/Time: Relationship to Patient: Witness Name/Signature: Date/Time: [facility]06-17-2023 Note ORIGINAL EXAMINATION: 4 XRAY VIEWS OF [...] Date: 09/30/2022 12:22:06 PM Ordering Provider: SAMANTHA [facility]06-17-2023 Note ORIGINAL EXAMINATION: 4 XRAY VIEWS OF [...] Date: 09/30/2022 12:22:06 PM Ordering Provider: SAMANTHA [facility]03-06-2023 Hospital Discharge instructions Patient Education 06/18/2022 22:05:27 [...] stretch your calf muscle. You may use yfdy-eer-fnmsuic pain medicine to control pain, unless another [...] is not controlled by the above measures [id number] [employer]. [address] [place] [address]. All rights reserved. This information is not intended as a substitute for professional medical care. Always follow yourhealthcare professional's instructions. Follow Up Care 06/18/2022 21:19:57 With:СЕРГЕЙ BERGMAN APRN, CNP Address: [address] [place] [address] [place] [address]- When:2-4 days [facility] 03-05-2023 Note Discharge Instructions Thank you for allowing [facility] to assist you with your healthcare needs. The following is importantdischarge information regarding your hospital visit. Diagnosis from Today's Visit Back pain Impaired gas exchange post bicycle ride uphill What to Do Next Instructions from Your Care Team No qualifying data available. Post Acute Orders No qualifying data available. You Need to Schedule the Following Appointments Follow Up with MADALYN, СЕРГЕЙ D FINANCIAL REPORT SERVICE SALES AGENT - PAI GOW MANAGER When Within 2-4 days Where: [address] [facility] [place] [address]- Allergies Ceclor (Rash) Medications Please ask your [...] stretch your calf muscle. You may use prux-zup-kngenfq pain medicine to control pain, unless another [...] is not controlled by the above measures [id number] [employer]. [address] [place] [address]. All rights reserved. This information is not intended as a substitute for professional medical care. Always follow yourhealthcare professional's instructions. Additional Information VACCINATE! IT SAVES LIVES! Members of the community who have not yet received the COVID-19 vaccine and would like to receive it can visit one of [facility] vaccine clinics. There are many vaccine clinic locations within the [facility]. For locations and available times, please visit www.gettheshot.coronavirus.[place].gov/. It is important to note that some COVID mobile vaccine clinics are held outdoors and may be canceled in rainy or stormy conditions. To learn more about pediatric vaccinations (ages 5-11), we invite you to visit the [facility] webpage. https://www.[facility].org/pages/8740-Qiawi-Wymvzxuoyeh-Murijezecn-Avyrq-Foz stions.htmlTo learn more about the COVID-19 vaccine, we invite you to visit the CDC website for a list of frequently asked questions. https://www.cdc.gov/coronavirus/2019-ncov/vaccines/faq.html [facility] Patient Portal Access Instructions: Stay connected with your healthcare team and access your personal medical information anytime with the [facility] Patient Portal. If you would like a full copy of your medical records please contact the [facility] Medical Records Department Sunday through Sunday between 8a.m. and 4:30p.m. Please follow the directions below to access the portal: 1.Access the email account you provided upon registration to [facility].2.Look for an invitation email from [facility].3.Open the email and access the invitation link: Accept Invitation to [facility]4.Fill in the required morrison to create your account. Sign into [email or web address] with your username and password that you [...] you will allow to register on the [facility] Patient Portal for access to your information. You can also access the [facility] Patient Portal on the Mosaic. Simply click on Health Records under [employer] and then click on the [facility] logo. HOW TO SAFELY DISPOSE OF PRESCRIPTION [...] Call your local pharmacy or go to http://bit.[employer]/3E1Fw7z to find one close to you.3.Make use of household items: Use cat litter or old coffee grounds to dispose medications if other options arenot available. Mix your drugs with these household products, seal them in an airtight container andthrow it into the garbage. Call [facility]: [phone] to be sure your drugs can be [...] been reviewed and explained to me and IRAGHAV JOSHUA A understand my current condition and have read and understand these discharge instructions. I have received a written copy of the plan/instructions. If I have questions, I am aware that I should contact my doctor. Patient/Instrumental Teacher Signature: Date/Time: Relationship to Patient: Witness Name/Signature: Date/Time: [facility]03-05-2023 Note ORIGINAL EXAMINATION: ONE XRAY VIEW OF [...] Sign Date: 06/18/2022 10:01:36 PM Ordering Provider: [facility]03-05-2023 Note ORIGINAL EXAMINATION: ONE XRAY [...] Sign Date: 06/18/2022 10:01:36 PM Ordering Provider: [facility]10-13-2022 Miscellaneous Notes* Telephone Encounter - [...] to proceed with appeal documented in [facility]Mag[facility] Miscellaneous Notes* Telephone Encounter - Amy [...] 1985 has this medical record no. is [id number] and is scheduled for an MRI of [...] a call back my direct line is [phone] if you have any additional information that you can provide. My fax no. is [phone]. Thank you and have a good day. documented in this encounterMagruder [facility] Hospital06-01-2022 History of Present illness Narrative* SHANELLE Rucker - 09/14/2021 2:00 PM EDT PRIMARY CARE SOCIAL WORK PROGRESS NOTE Provider Action / FYI PCP Action n/a SERVICE DATE: September 14, 2021 SERVICE TIME: 2p REASON FOR CONTACT: Community Resources Progress Note: PCSW Marco received and reviewed order. SW contacted pt [...] receive information on your AVS about the [facility] [employer]? N/A Did you like receiving this information? N/A Patient reported caregiver was able to meet their needs today? N/A INTERVENTION: Declines Resources Time Spent:: 15 minutes SIGNATURE: SHANELLE Rucker PATIENT NAME: Gino Avilez DATE: September 14, 2021 TIME: 2:00 PM CONTACT #: [id number] documented in this encounterMagruder [facility] HospitalDischarge summary Author Danisha [facility] Note Date/Time December 28, 2024 4:56am [facility] Medical Records Department [address] [place] [id number] Emergency Department Summary 12/28/24 MR#: [id number] Acct: [id number] Name: GINO AVILEZ Rep #:[id number] : 1985 39 From: Danisha Reich MD PCP: Сергей Bergman, ORI Sta tus:REG ER Location: ED HPI History of Present Illness Chief Complaint: Back Narrative Narrative: Patient is a 39-year-old male presenting to the emergency department for back pain after a fall. 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 Patient states that he got up around midnight and his cat knocked over its waterbowl and he did not see this and he slipped in the puddle of water. States he landed on his buttocks. Was able to get up by himself. Denies hitting his head, any loss of consciousness, neck pain or use of oral anticoagulation. Denies any numbness, weakness in his legs, bowel or bladder retention or incontinence, saddle anesthesia. He was able to ambulate after the fall. Endorses mild right hip pain as well that he states is slightly worse than baseline for him. Denies any other injuries or pain. [facility] Medical History Hypercholesteremia Smoker Hypertension Night terrors, adult Bipolar disorder Schizophrenia Excessive cerumen in right ear canal Mass of left lung Muscle strain of chest wall Left-sided chest wall pain Lumbar strain Lumbar contusion Back pain Asthma Fatigue Home Medications ?Medication ?Instructions ?Recorded ?Last Taken ?Type atenolol 25 mg tablet 25 mg PO DAILY 10/09/18 Unkn own History omeprazole 10 mg capsule,delayed 10 mg PO DAILY Unknown History release fluticasone 100 mcg-salmeterol 50 1 inh inhalation TRE LY 11/23/22 Unknown History mcg/dose blistr powdr for inhalation (Advair Diskus) albuterol sulfate 90 mcg/actuation 2 puff inhalation Q 4H PRN 12/28/24 Unknown History aerosol inhaler shortness of breath or wheez ing aspirin 81 mg tablet,delayed 81 mg PO DAILY 12/28/24 U nknown History release cetirizine 10 mg tablet 10 mg PO DAILY ALLERGIES Unknown History cholecalciferol (vitamin D3) 1,250 1,250 mcg PO QMONTH 12/28/24 Unknown History mcg (50,000 unit) capsule famotidine 40 mg tablet 40 mg PO DAILY INDIGESTION 0 12/28/24 Unknown History fluticasone propionate 50 2 spray intranasal Q12H JIMI RGIES 12/28/24 Unknown History mcg/actuation nasal spray,suspension metformin 500 mg tablet 500 mg PO BID 12/28/24 Unkno wn History metoprolol succinate 25 mg 25 mg PO DAILY HEART RATE 0 12/28/24 Unknown History tablet,extended release 24 hr montelukast 10 mg tablet 10 mg PO DAILY ALLERGIES Unknown History olanzapine 15 mg tablet 15 mg PO QHS 12/28/24 Unknow n History omeprazole 40 mg capsule,delayed 40 mg PO DAILY Unknown History release prazosin 1 mg capsule 1 mg PO QHS 12/28/24 Unknown History prazosin 2 mg capsule 2 mg PO QHS 12/28/24 Unknown History ramipril 10 mg capsule 10 mg PO DAILY 12/28/24 Unkn own History rosuvastatin 5 mg tablet 5 mg PO DAILY HIGH CHOLESTER OL 12/28/24 Unknown History Allergy/AdvReac Type Severity Reaction Status Date / Time cefaclor (From [facility]) Allergy Hives Verified 12/28/24 01:36 Surgical History History of ankle surgery Social History Smoking Status: Heavy Smoker (>10/day) alcohol intake: never substance use type: marijuana ROS ROS ED ROS Narrative See HPI EXAM Physical Exam Narrative Exam Narrative: Vital signs: Reviewed General: Alert and oriented x 3. No acute distress HEENT: Head is normocephalic and atraumatic, sinuses nontender, pupils equal round and reactive. Nares are patent. Oropharynx and throat exams normal. Neck: Supple without lymphadenopathy nontender. No midline cervical spinal tenderness to palpation. No step-offs or deformities. Cardiovascular: Regular rate and rhythm, no murmurs. No rubs or gallops. Normal S1 and S2 Respiratory: Clear to auscultation bilaterally. No wheezes, rales, rhonchi Abdominal: Soft and nontender. Normal bowel sounds. No guarding or rebound. Nonsurgical abdomen Extremities: Extremities are atraumatic and nontender to palpation with normal active range of motion. 5 out of 5 strength in all extremities. Sensation intact in all extremities. Back: No midline thoracic spinal tenderness to palpation. No step-offs or deformities. There is lower midline lumbar spinal tenderness to palpation with no step-offs or deformities. There is bilateral paraspinal lumbar tenderness topalpation. No erythema, lacerations, bruising. Hips are stable and nontender to palpation. Skin: No rash or redness. Neurological: Cranial nerves II through XII are grossly intact. Normal strengthand sensation. Normal cerebellar function The rest of the physical exam is unremarkable Const Vital Signs: 12/28/24 01:35 Temperature 97.9 F Temperature Source Oral Pulse Rate 95 Respiratory Rate 16 Blood Pressure 154/94 H Blood Pressure Mean 114 Pulse Ox 98 Oxygen Delivery Method Room Air MDM MDM MDM Narrative Medical decision making narrative: Patient is a 39-year-old male presenting to the emergency department after a fall with back pain. Patient was seen and examined. Vitals are stable. Patient resting bed comfortably no acute distress. Given the fall and midline spinal tenderness to palpation, CT imaging of the lumbar spine was ordered as well as pelvis x-ray to evaluate the right hip. He was given IM Toradol for symptomatic control. No red flag back pain signs. No weakness or numbness in the lower extremities. Normal neurologic exam. CT lumbar spine shows no CT evidence of an acute traumatic abnormality. Pelvis x-ray was reviewed by myself and there is no evidence of fracture or dislocation. Radiology read with no acute abnormalities as well. Patient reevaluated. He states that his pain is much improved after the Toradol. Him and his mother were updated on the negative imaging findings. Recommended Tylenol, Motrin, icing, resting and stretching his back. Recommended returning to the ED with any new or worsening symptoms including worsening back pain, weakness or numbness in his legs, bowel or bladder incontinence/retention. Patient agreeable to plan. Ambulated out of department without difficulty. Clinical impression Fall Low back pain Radiography X-Ray: Right Hip, Left Hip, Read by ED Physician, Normal and No Fracture Diagnostic Testing: Clinical Impression(s) from Imaging Studies Lumbar Spine CT 12/28/24 02:25 IMPRESSION: Spondylosis. Findings are more prominent at L2-L3. No CT evidence of an acute traumatic abnormality. Reading Location: [facility] Pelvis X-Ray 12/28/24 02:38 IMPRESSION: No evidence for acute abnormality. Reading Location: [facility] Discharge Plan Triage Chief Complaint: Back ED Provider: Danisha Reich Dx/Rx/DC Orders Clinical Impression: Low back pain, Lumbar contusion Instructions: Relieving Back Pain, Self-Care for Low Back Pain, ED Back Contusion Prescriptions: No Action omeprazole 10 mg capsule,delayed release(DR/EC) 10 mg PO DAILY fluticasone propion-salmeterol [Advair Diskus] 100-50 mcg/dose blister with device 1 inh inhalation DAILY atenolol 25 tablet 25 mg PO DAILY aspirin 81 mg tablet,delayed release (DR/EC) 81 mg PO DAILY albuterol sulfate 90 mcg/actuation HFA aerosol inhaler 2 puff inhalation Q4H PRN (Reason: shortness of breath or wheezing) cetirizine 10 mg tablet 10 mg PO DAILY cholecalciferol (vitamin D3) 1,250 mcg (50,000 unit) capsule 1,250 mcg PO QMONTH metformin 500 mg tablet 500 mg PO BID prazosin 1 mg capsule 1 mg PO QHS Rx Instructions: TAKE WITH 2 MG TABLET FOR A TOTAL OF 3 MG AT NIGHT omeprazole 40 mg capsule,delayed release(DR/EC) 40 mg PO DAILY montelukast 10 mg tablet 10 mg PO DAILY olanzapine 15 mg tablet 15 mg PO QHS metoprolol succinate 25 mg tablet extended release 24 hr 25 mg PO DAILY prazosin 2 mg capsule 2 mg PO QHS Rx Instructions: TAKE WITH 1 MG TABLET FOR A TOTAL OF 3 MG AT NIGHT famotidine 40 mg tablet 40 mg PO DAILY fluticasone propionate 50 mcg/actuation spray,suspension 2 spray INTRANASAL Q12H ramipril 10 mg capsule 10 mg PO DAILY rosuvastatin 5 mg tablet 5 mg PO DAILY Primary Care Provider: Сергей Bergman NP Referrals: Сергей Bergman NP, METAL DRILLING MACHINE OPERATOR-C [Primary Care Provider] - 2 Days Activity Restrictions/Additional Instructions: Take Tylenol and Motrin at home for pain control. Your evaluation in the Emergency Department did not reveal any acute reason for admission. However, I want to emphasize that you may be early in the course of a disease process or illness even if it is not present. For this reason you should follow-up within 24 hours for reevaluation with either your primary care physician or if necessary back here in the Emergency Department. You should return to the Emergency Department immediately if your symptoms worsen or new symptoms develop. Print Language: Somali Disposition Disposition: Home, Self Care What to do if you have Problems For any increased pain, shortness of breath, bleeding, nausea or vomiting, chestpain, or any unexpected problems, contact your Primary Care Provider. Call [facility] ([phone]) or report to the closest Emergency Room. Call 911 if necessary. 12/28/24 [id number] <Electronically signed by Danisha Reich MD> Cosigner Signature (if applicable): CC: ORI Bergman ~ Signed [facility] Work Phone: Evaluation + Plan note Future Appointments Appointment Date:08/01/2022 03:00:00 PM Scheduled Provider:СЕРГЕЙ BERGMAN APRN, CNP Location:[facility] Appointment Type:PC OV Follow Up Future Scheduled Tests Laboratory* Complete Blood Count 08/01/22 * Complete Blood Count 08/02/22 * Lipid Profile 08/01/22 * Lipid Profile 08/02/22 * Microalbumin Level Urine 08/01/22 * Microalbumin Level Urine 12/11/21 * Microalbumin Level Urine 08/02/22 * Vitamin D Level 08/01/22 * Vitamin D Level 08/02/22 * Complete Metabolic Panel 08/01/22 * Complete Metabolic Panel 08/02/22 [facility] Evaluation + Plan note Future Appointments Appointment Date:10/02/2022 02:40:00 PM Scheduled Provider:СЕРГЕЙ BERGMAN APRN - ALEX Location:[facility] Appointment Type:PC OV Follow Up Appointment Date:02/01/2023 02:00:00 PM Scheduled Provider:СЕРГЕЙ BERGMAN APRN - ALEX Location:[facility] Appointment Type:PC OV Follow Up Future Scheduled Tests Laboratory* A1C Hemoglobin 01/31/23 * Complete Blood Count 08/02/22 * Lipid Profile 01/31/23 * Lipid Profile 08/02/22 * Albumin/Creatinine Ratio, Random Urine 01/31/23 * Microalbumin Level Urine 08/01/22 * Microalbumin Level Urine 08/02/22 * Vitamin D Level 01/31/23 * Vitamin D Level 08/02/22 * Complete Metabolic Panel 01/31/23 * Complete Metabolic Panel 08/02/22 [facility] Evaluation + Plan note Future Appointments Appointment Date:10/12/2022 02:40:00 PM Scheduled Provider:СЕРГЕЙ BERGMAN APRN - PAI GOW MANAGER Location:[facility] Appointment Type:PC OV Follow Up Appointment Date:02/01/2023 02:00:00 PM Scheduled Provider:СЕРГЕЙ BERGMAN APRN, CNP Location:[facility] Appointment Type:PC OV Follow Up Future Scheduled Tests Laboratory* A1C Hemoglobin 01/31/23 * Complete Blood Count 08/02/22 * Lipid Profile 01/31/23 * Lipid Profile 08/02/22 * Albumin/Creatinine Ratio, Random Urine 01/31/23 * Microalbumin Level Urine 08/01/22 * Microalbumin Level Urine 08/02/22 * Vitamin D Level 01/31/23 * Vitamin D Level 08/02/22 * Complete Metabolic Panel 01/31/23 * Complete Metabolic Panel 08/02/22 [facility] Evaluation + Plan note Future Appointments Appointment Date:02/28/2024 03:20:00 PM Scheduled Provider:СЕРГЕЙ BERGMAN APRN, CNP Location:[facility] Appointment Type:PC OV Future Scheduled Tests Laboratory* A1C Hemoglobin 03/01/24 * Lipid Profile 03/01/24 * Albumin/Creatinine Ratio, Random Urine 03/01/24 * Albumin/Creatinine Ratio, Random Urine 08/03/23 * Vitamin D Level 03/01/24 * Complete Metabolic Panel 03/01/24 [facility] Evaluation + Plan note Future Appointments Appointment Date:10/16/2023 02:00:00 PM Scheduled Provider:СЕРГЕЙ BERGMAN APRN, CNP Location:[facility] Appointment Type:PC OV Appointment Date:02/28/2024 03:20:00 PM Scheduled Provider:СЕРГЕЙ BERGMAN APRN - PAI GOW MANAGER Location:[facility] Appointment Type:PC OV Future Scheduled Tests Laboratory* A1C Hemoglobin 03/01/24 * Lipid Profile 03/01/24 * Albumin/Creatinine Ratio, Random Urine 03/01/24 * Albumin/Creatinine Ratio, Random Urine 08/03/23 * Vitamin D Level 03/01/24 * Complete Metabolic Panel 03/01/24 [facility] Evaluation + Plan note Future Appointments Appointment Date:12/10/2023 03:00:00 PM Scheduled Provider:СЕРГЕЙ BERGMAN APRN, CNP Location:[facility] Appointment Type:PC OV Appointment Date:02/28/2024 03:20:00 PM Scheduled Provider:СЕРГЕЙ BERGMAN APRN, CNP Location:[facility] Appointment Type:PC OV Future Scheduled Tests Laboratory* A1C Hemoglobin 03/01/24 * Lipid Profile 03/01/24 * Albumin/Creatinine Ratio, Random Urine 03/01/24 * Albumin/Creatinine Ratio, Random Urine 08/03/23 * Vitamin D Level 03/01/24 * Complete Metabolic Panel 03/01/24 [facility] Evaluation + Plan note Future Appointments Appointment Date:01/07/2024 01:30:00 PM Scheduled Provider: Location:[facility] Appointment Type:CV Procedure - Heart Lab/Hybrid OR Appointment Date:02/13/2024 02:30:00 PM Scheduled Provider: Location:[facility] Appointment Type:CV OV Appointment Date:06/09/2024 03:00:00 PM Scheduled Provider:СЕРГЕЙ BERGMAN APRN, CNP Location:[facility] Appointment Type:PC OV Future Scheduled Tests Laboratory* A1C Hemoglobin 06/11/24 * A1C Hemoglobin 03/01/24 * Lipid Profile 06/11/24 * Lipid Profile 03/01/24 * Albumin/Creatinine Ratio, Random Urine 06/11/24 * Albumin/Creatinine Ratio, Random Urine 03/01/24 * Albumin/Creatinine Ratio, Random Urine 08/03/23 * Vitamin D Level 06/11/24 * Vitamin D Level 03/01/24 * Complete Metabolic Panel 06/11/24 * Complete Metabolic Panel 03/01/24 [facility] Evaluation + Plan note Future Appointments Appointment Date:02/13/2024 02:30:00 PM Scheduled Provider: Location:[facility] Appointment Type:CV OV Appointment Date:06/09/2024 03:00:00 PM Scheduled Provider:СЕРГЕЙ BERGMAN APRN, CNP Location:[facility] Appointment Type:PC OV Diagnostic Tests Pending * Basic Metabolic Panel 01/07/24 Future Scheduled Tests Laboratory* A1C Hemoglobin 06/11/25 * A1C Hemoglobin 03/01/24 * Lipid Profile 2/26/25 * Lipid Profile 03/01/24 * Albumin/Creatinine Ratio, Random Urine 06/11/24 * Albumin/Creatinine Ratio, Random Urine 03/01/24 * Albumin/Creatinine Ratio, Random Urine 08/03/23 * Vitamin D Level 06/11/24 * Vitamin D Level 03/01/24 * Complete Metabolic Panel 06/11/24 * Complete Metabolic Panel 03/01/24 [facility] Evaluation note* Diagnosis Need for community [facility]- Primary documented in this encounter [facility] noteNo assessment information [facility] Work Phone: Evaluation note* Diagnosis Onset Date Resolution Status DDD (degenerative disc disease), lumbar acute Left-sided chest wall pain a [facility] Work Phone: Evaluation note* Diagnosis Onset Date Resolution Status Left-sided chest wall pain a [facility] Work Phone: Evaluation note* Diagnosis Onset Date Resolution Status Mass of left lung acute Muscle strain of chest wall acute [facility] Work Phone: Evaluation note* Diagnosis Onset Date Resolution Status Mass of left lung acute Muscle strain of chest wall acute DDD (degenerative disc disease), lumbar acute Excessive cerumen in right ear canal [facility] Work Phone: Evaluation note* Diagnosis Onset Date Resolution Status DDD (degenerative disc disease), lumbar acute Excessive cerumen in right ear canal [facility] Work Phone: Evaluation note* Diagnosis Onset Date Resolution Status DDD (degenerative disc disease), lumbar acute Excessive cerumen in right ear canal acute DDD (degenerative disc disease), lumbar acute Herniation of intervertebral disc between L5 and S1 [facility] Work Phone: Evaluation note* Diagnosis Nausea and vomiting, unspecified vomiting type- Primary documented in this encounter [facility] note* Diagnosis Bronchopneumonia- Primary Bronchopneumonia, organism unspecified documented in this encounter [facility] note* Diagnosis Procedure not carried out- Primary Procedure not carried out for other reasons documented in this encounter [facility] note* Diagnosis Acute cough- Primary Wheezing documented in this encounter [facility] note* Diagnosis Acute cough documented in this encounter [facility] note* Diagnosis Onset Date Resolution Status Admit Date Acute diffuse otitis externa of left ear acute January 01, 2025 2:12pm Acute otitis media, left acute January 01, 2025 2:12pm [facility] Work Phone: Hospital course Narrative No data available for this section [facility] Discharge instructions No data available for this section [facility] Discharge instructions Additional Instructions Follow-up with your PCP and return for any worsening symptoms.[facility] Work Phone: Hospital Discharge instructionsAdditional Instructions Take Tylenol and Motrin at home for pain control. Your evaluation in the Emergency Department did not reveal any acute reason for admission. However, I want to emphasize that you may be early in the course of a disease process or illness even if it is not present. For this reason you should follow-up within 24 hours for reevaluation with either your primary care physician or if necessary back here in the Emergency Department. You should return to the Emergency Department immediately if your symptoms worsen or new symptoms develop.[facility] Work Phone: Progress note No data available for this section [facility] Reason for referral (narrative)No reason for referral information availableWHol[facility] Work Phone: Advance Directives Advance Directive Response Recorded Date/ Time Living Will No January 05, 2019 3:08pm Power of Endodontic Assistant No December 3:08pm Advance Directive Response Recorded Date/ Time Living Will No January 05, 2019 2:08pm Power of Endodontic Assistant No December 2:08pm Advance Directive Response Recorded Date/ Time Living Will No July 09, 2023 1:52am Power of Endodontic Assistant No July 08 1:52am Advance Directive Response Recorded Date/ Time Living Will No July 30, 2023 4:01pm Power of Endodontic Assistant No July 29 4:01pm Advance Directive Response Recorded Date/ Time Living Will No July 30, 2023 3:01pm Power of Endodontic Assistant No July 29 3:01pm Living Will No June 01 025 1:37pm Power of Endodontic Assistant No June 01, 2024 1:37pm Advance Directive Response Recorded Date/ Time Living Will No June 01, 2 025 2:37pm Do you have a Healthcare Power of Endodontic Assistant? No June 01, 2024 2:37pm Advance Directive Response Recorded Date/ Time Living Will No August 03, 2024 1:21pm Do you have a Healthcare Power of Endodontic Assistant? No August 03, 2024 1:21pm Living Will No June 01 025 2:37pm Do you have a Healthcare Power of Endodontic Assistant? No June 01, 2024 2:37pm Advance Directive Response Recorded Date/ Time Living Will No August 03, 2024 1:21pm Do you have a Healthcare Power of Endodontic Assistant? No August 03, 2024 1:21pm Advance Directive Response Recorded Date/ Time Do you have a Healthcare Power of Endodontic Assistant? No December 28, 2024 1:37am Chief Complaint and Reason for Visit Chief [...] 2 ORDERING DOCTORS November 19, 2024 1:03pm Chief Complaint Admit Date CHEST PAIN, CARIOMYOPATHY November 04 2:36pm 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 November 19, 2024 1:03pm BACK PAIN December 28, 2024 1:35am Chief Complaint Admit Date CHEST PAIN, CARIOMYOPATHY November 04 2:36pm 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 November 19, 2024 1:03pm BACK PAIN December 28, 2024 1:35am L EAR CONCERN January 01, 2025 2:12pm Reason for Visit Admit Date Acute diffuse otitis externa of left ear January 01, 2025 2:12pm Acute otitis media, left January 01, 2025 2:12pm Summary Purpose Family History No Family History Records Found Additional Source Comments Source Comments (unrecognize d section and content) In the event this informatio n is protected by the Federal Confidentiality of Alcohol and Drug Abuse Patient Records regulations: The Federal rules restrict any use of the information to criminally investigate or prosecute any alcohol or drug abuse patient.[facility] the event this information is protected by the Federal Confidentiality of Alcohol and Drug Abuse Patient Records regulations: The Federal rules restrict any use of the information to criminally investigate or prosecute any alcohol or drug abuse patient.[facility] the event this information is protected by the Federal Confidentiality of Alcohol and Drug Abuse Patient Records regulations: The Federal rules restrict any use of the information to criminally investigate or prosecute any alcohol or drug abuse patient.[facility] the event this information is protected by the Federal Confidentiality of Alcohol and Drug Abuse Patient Records regulations: The Federal rules restrict any use of the information to criminally investigate or prosecute any alcohol or drug abuse patient.[facility] Hospital[facility] the event this information is protected by the Federal Confidentiality of Alcohol and Drug Abuse Patient Records regulations: The Federal rules restrict any use of the information to criminally investigate or prosecute any alcohol or drug abuse patient.[facility] Hospital[facility] the event this information is protected by the Federal Confidentiality of Alcohol and Drug Abuse Patient Records regulations: The Federal rules restrict any use of the information to criminally investigate or prosecute any alcohol or drug abuse patient.[facility] Hospital[facility] the event this information is protected by the Federal Confidentiality of Alcohol and Drug Abuse Patient Records regulations: The Federal rules restrict any use of the information to criminally investigate or prosecute any alcohol or drug abuse patient.[facility] the event this information is protected by the Federal Confidentiality of Alcohol and Drug Abuse Patient Records regulations: The Federal rules restrict any use of the information to criminally investigate or prosecute any alcohol or drug abuse patient.[facility] Reason for Visit (unrecogniz ed section and content) Reason Comments 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 Reason Comments MRI denial 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 Comments Nausea & Vomiting [...] Care Teams (unrecognized sec tion and content) Well Service Floor Worker Relationship Specialty Start Date End Date Сергей Bergman, PAI GOW MANAGER [address] [place] [address] PCP - General Family Practice 05/08/13 Well Service Floor Worker Relationship Specialty Start Date End Date Сергей Bergman, PAI GOW MANAGER [address] [place] [address] PCP - General Family Practice 05/08/13 Well Service Floor Worker Relationship Specialty Start Date End Date Сергей Bergman, PAI GOW MANAGER [address] [place] [address] PCP - General Family Medicine 05/08/13 Team Status: Active Member Role Status Dates Сергей Bergman METAL DRILLING MACHINE OPERATOR, METAL DRILLING MACHINE OPERATOR-C Family Provider Activ e Сергей Bergman METAL DRILLING MACHINE OPERATOR, METAL DRILLING MACHINE OPERATOR-C Primary Care Provider Active Team Status: Inactive Member Role Status Dates Сергей Bergman METAL DRILLING MACHINE OPERATOR, METAL DRILLING MACHINE OPERATOR-C Primary Care Provider, Attending Provider Active Team Status: Inactive Member Role Status Dates Сергйе Bergman METAL DRILLING MACHINE OPERATOR, METAL DRILLING MACHINE OPERATOR-C Primary Care Provider, Referring Provider Active Dr. Steve Kim , Attending Provider Active Team Status: Inactive Member Role Status Dates Сергей Bergman METAL DRILLING MACHINE OPERATOR, METAL DRILLING MACHINE OPERATOR-C Primary Care Provider Active Dr. Jorge Alberto Hawkins MD Attending Provider Active Team Status: Inactive Member Role Status Dates Сергей Bergman METAL DRILLING MACHINE OPERATOR, METAL DRILLING MACHINE OPERATOR-C Primary Care Provider, Referring Provider Active Corey James PA, PA Attending Provider Active Team Status: Inactive Member Role Status Dates Сергей Bergman METAL DRILLING MACHINE OPERATOR, METAL DRILLING MACHINE OPERATOR-C Primary Care Provider, Attending Provider, Referring Provider Active Team Status: Active Member Role Status Dates Сергей Bergman METAL DRILLING MACHINE OPERATOR, METAL DRILLING MACHINE OPERATOR-C Primary Care Provider Active Corey James PA, PA Attending Provider, Referring Pr ovider Active Team Status: Inactive Member Role Status Dates Сергей Bergman METAL DRILLING MACHINE OPERATOR, METAL DRILLING MACHINE OPERATOR-C Primary Care Provider Active Corey James PA, PA Attending Provider, Referring Pr ovider Active Team Status: Inactive Member Role Status Dates Сергей Bergman METAL DRILLING MACHINE OPERATOR, METAL DRILLING MACHINE OPERATOR-C Primary Care Provider Active Dr. Segundo Griffin , Emergency Provider Active Team Status: Active Member Role Status Dates Сергей Bergman METAL DRILLING MACHINE OPERATOR, METAL DRILLING MACHINE OPERATOR-C Primary Care Provider Active Dr. Steve Kim , Attending Provider, Referring P rovider Active Team Status: Inactive Member Role Status Dates Сергей Bergman METAL DRILLING MACHINE OPERATOR, METAL DRILLING MACHINE OPERATOR-C Primary Care Provider Active Dr. Segundo Griffin , Attending Provider, Emergency P rovider Active Team Status: Active Member Role Status Dates Сергей Bergman METAL DRILLING MACHINE OPERATOR, METAL DRILLING MACHINE OPERATOR-C Primary Care Provider, Attending Provider Active Team Status: Inactive Member Role Status Dates Сергей Bergman METAL DRILLING MACHINE OPERATOR, METAL DRILLING MACHINE OPERATOR-C Primary Care Provider Active Dr. Steve Kim DO Attending Provider, Referring P rovider Active Well Service Floor Worker Relationship Specialty Start Date End Date Сергей Bergman CNP [address] [place] [id number] PCP - General Family Medicine 05/08/13 Well Service Floor Worker Relationship Specialty Start Date End Date Сергей Bergman CNP [address] [place] [id number] PCP - General Family Medicine 05/08/13 Well Service Floor Worker Relationship Specialty Start Date End Date Сергей Bergman CNP [address] [place] [id number] PCP - General Family Medicine 05/08/13 Well Service Floor Worker Relationship Specialty Start Date End Date Сергей Bergman CNP [address] [place] [id number] PCP - General Family Medicine 05/08/13 Team Status: Active Member Role Status Dates Сергей Bergman METAL DRILLING MACHINE OPERATOR, METAL DRILLING MACHINE OPERATOR-C Primary Care Provider Active Team Status: Inactive Member Role Status Dates Сергей Bergman METAL DRILLING MACHINE OPERATOR, METAL DRILLING MACHINE OPERATOR-C Primary Care Provider Active Start: February End: February 22, 2024 Сергей Bergman METAL DRILLING MACHINE OPERATOR, METAL DRILLING MACHINE OPERATOR-C Attending Provider Active Start: February 22, 2024 End: February 22, 2024 Сергей Bergman METAL DRILLING MACHINE OPERATOR, METAL DRILLING MACHINE OPERATOR-C Referring Provider Active Start: February 22, 2024 End: February 22, 2024 Team Status: Inactive Member Role Status Dates Сергей Bergman METAL DRILLING MACHINE OPERATOR, METAL DRILLING MACHINE OPERATOR-C Primary Care Provider Active Start: April End: May 02, 2024 Сергей Bergman METAL DRILLING MACHINE OPERATOR, METAL DRILLING MACHINE OPERATOR-C Referring Provider Active Start: May 02, 2024 End: May 02, 2024 CALEB Armenta Attending Provider Active Star t: May 02, 2024 End: May 02, 2024 Team Status: Inactive Member Role Status Dates Сергей Bergman METAL DRILLING MACHINE OPERATOR, METAL DRILLING MACHINE OPERATOR-C Primary Care Provider Active Start: June [id number] End: June 01, 2024 Dr. Emil Nicole MD Attending Provider Active Sta rt: June 01, 2024 End: June 01, 2024 Dr. Emil Nicole MD Emergency Provider Active Sta rt: June 01, 2024 End: June 01, 2024 Team Status: Inactive Member Role Status Dates Сергей Bergman METAL DRILLING MACHINE OPERATOR, METAL DRILLING MACHINE OPERATOR-C Primary Care Provider Active Start: June [id number] End: June 09, 2024 CALEB Armenta Attending Provider Active Star t: June 09, 2024 End: June 09, 2024 CALEB Armenta Referring Provider Active Star t: June 09, 2024 End: June 09, 2024 Team Status: Active Member Role Status Dates Сергей Bergman METAL DRILLING MACHINE OPERATOR, METAL DRILLING MACHINE OPERATOR-C Primary Care Provider Active Start: June 102024 CALEB Armenta Attending Provider Active Star t: June 10, 2024 CALEB Armenta Referring Provider Active Star t: June 10, 2024 Team Status: Inactive Member Role Status Dates Сергей Bergman METAL DRILLING MACHINE OPERATOR, METAL DRILLING MACHINE OPERATOR-C Primary Care Provider Active Start: June 20, 2024 End: June 20, 2024 Сергей Bergman METAL DRILLING MACHINE OPERATOR, METAL DRILLING MACHINE OPERATOR-C Referring Provider Ac tive Start: June 20, 2024 End: June 20, 2024 CALEB Armenta Attending Provider Active Star t: June 20, 2024 End: June 20, 2024 Team Status: Inactive Member Role Status Dates Сергей Bergman METAL DRILLING MACHINE OPERATOR, METAL DRILLING MACHINE OPERATOR-C Primary Care Provider Active Start: July 08, 2024 End: July 08, 2024 CALEB Armenta Attending Provider Active Star t: July 08, 2024 End: July 08, 2024 CALEB Armenta Referring Provider Active Star t: July 08, 2024 End: July 08, 2024 Team Status: Inactive Member Role Status Dates Сергей Bergman METAL DRILLING MACHINE OPERATOR, METAL DRILLING MACHINE OPERATOR-C Primary Care Provider Active Start: August 03, 2024 End: August 03, 2024 Dr. Emil Nicole MD Emergency Provider Active Sta rt: August 03, 2024 End: August 03, 2024 Well Service Floor Worker Relationship Specialty Start Date End Date Сергей Bergman CNP [address] [place] [id number] PCP - General Family Medicine 05/08/13 Team Status: Active Member Role/Relationship Status Dates Сергей Bergman METAL DRILLING MACHINE OPERATOR, METAL DRILLING MACHINE OPERATOR-C Primary Care Provider Active Team Status: Inactive Member Role/Relationship Status Dates Сергей Bregman METAL DRILLING MACHINE OPERATOR, METAL DRILLING MACHINE OPERATOR-C Primary Care Provider Active Start: August 03, 2024 End: August 03, 2024 Dr. Emil Nicole MD Attending Provider Active Sta rt: August 03, 2024 End: August 03, 2024 Dr. Emil Nicole MD Emergency Provider Active Sta rt: August 03, 2024 End: August 03, 2024 Team Status: Inactive Member Role/Relationship Status Dates Сергей Bergman METAL DRILLING MACHINE OPERATOR, METAL DRILLING MACHINE OPERATOR-C Primary Care Provider Active Start: November 04, 2024 End: November 04, 2024 Dr. Breezy sharif MD Attending Provider Active Start: November 04 End: November 04, 2024 Dr. Breezy sharif MD Referring Provider Active Start: November 04 End: November 04, 2024 Team Status: Active Member Role/Relationship Status Dates Сергей Bergman METAL DRILLING MACHINE OPERATOR, METAL DRILLING MACHINE OPERATOR-C Primary Care Provider Active Start: November 04, 2024 Dr. Jorge Alberto Hawkins MD Attending Provider Active S tart: November 04, 2024 Team Status: Inactive Member Role/Relationship Status Dates Сергей Bergman METAL DRILLING MACHINE OPERATOR, METAL DRILLING MACHINE OPERATOR-C Primary Care Provider Active Start: November 19, 2024 End: November 19, 2024 Сергей Bergman METAL DRILLING MACHINE OPERATOR, METAL DRILLING MACHINE OPERATOR-C Attending Provider Ac tive Start: November 19, 2024 End: November 19, 2024 Сергей Bergman METAL DRILLING MACHINE OPERATOR, METAL DRILLING MACHINE OPERATOR-C Referring Provider Ac tive Start: November 19, 2024 End: November 19, 2024 Patricia ELLIS, PA Other Provider Active Start : November 19, 2024 End: November 19, 2024 Team Status: Inactive Member Role/Relationship Status Dates Сергей Bergman METAL DRILLING MACHINE OPERATOR, METAL DRILLING MACHINE OPERATOR-C Primary Care Provider Active Start: November 04, 2024 End: November 04, 2024 Dr. Breezy sharif MD Attending Provider Active Start: November 04 End: November 04, 2024 Dr. Breezy sharif MD Referring Provider Active Start: November 04 End: November 04, 2024 Team Status: Active Member Role/Relationship Status Dates Сергей Bergman METAL DRILLING MACHINE OPERATOR, METAL DRILLING MACHINE OPERATOR-C Primary Care Provider Active Start: November 04, 2024 Dr. Jorge Alberto Hawkins MD Attending Provider Active S tart: November 04, 2024 Team Status: Inactive Member Role/Relationship Status Dates Сергей Bergman METAL DRILLING MACHINE OPERATOR, METAL DRILLING MACHINE OPERATOR-C Primary Care Provider Active Start: November 19, 2024 End: November 19, 2024 Сергей Bergman METAL DRILLING MACHINE OPERATOR, METAL DRILLING MACHINE OPERATOR-C Attending Provider Ac tive Start: November 19, 2024 End: November 19, 2024 Сергей Bergman METAL DRILLING MACHINE OPERATOR, METAL DRILLING MACHINE OPERATOR-C Referring Provider Ac tive Start: November 19, 2024 End: November 19, 2024 Patricia ELLIS, PA Other Provider Active Start : November 19, 2024 End: November 19, 2024 Team Status: Inactive Member Role/Relationship Status Dates Сергей Bergman METAL DRILLING MACHINE OPERATOR, METAL DRILLING MACHINE OPERATOR-C Primary Care Provider Active Start: December 152024 End: December 28, 2024 Dr. Danisha Reich MD Emergency Provider Active S tart: December 28, 2024 End: December 28, 2024 Team Status: Active Member Role/Relationship Status Dates Сергей Bergman METAL DRILLING MACHINE OPERATOR, METAL DRILLING MACHINE OPERATOR-C Primary care physicia n Active Team Status: Inactive Member Role/Relationship Status Dates Сергей Bergman METAL DRILLING MACHINE OPERATOR, METAL DRILLING MACHINE OPERATOR-C Primary care physicia n Active Start: November 04, 2024 End: November 04, 2024 Dr. Breezy sharif MD Attending physician Active Start: November 04 End: November 04, 2024 Dr. Breezy sharif MD Referring Provider Active Start: November 04 End: November 04, 2024 Team Status: Active Member Role/Relationship Status Dates Сергей Bergman METAL DRILLING MACHINE OPERATOR, METAL DRILLING MACHINE OPERATOR-C Primary care physicia n Active Start: November 04, 2024 Dr. Jorge Alberto Hawkins MD Attending physician Active Start: November 04, 2024 Team Status: Inactive Member Role/Relationship Status Dates Сергей Bergman METAL DRILLING MACHINE OPERATOR, METAL DRILLING MACHINE OPERATOR-C Primary care physician Active Start: November End: November 19, 2024 Сергей Bergman METAL DRILLING MACHINE OPERATOR, METAL DRILLING MACHINE OPERATOR-C Attending physician Active Start: November 19 End: November 19, 2024 Сергей Bergman METAL DRILLING MACHINE OPERATOR, METAL DRILLING MACHINE OPERATOR-C Referring Provider Active Start: November 19 End: November 19, 2024 Patricia ELLIS, PA Nurse Practitioner Active S tart: November 19, 2024 End: November 19, 2024 Team Status: Inactive Member Role/Relationship Status Dates Сергей Bergman METAL DRILLING MACHINE OPERATOR, METAL DRILLING MACHINE OPERATOR-C Primary care physician Active Start: December 28, 2024 End: December 28, 2024 Dr. Danisha Reich MD Attending physician Active Start: December 28, 2024 End: December 28, 2024 Dr. Danisha Reich [facility] Active Start: December 28, 2024 End: December 28, 2024 Team Status: Inactive Member Role/Relationship Status Dates Сергей Bergman METAL DRILLING MACHINE OPERATOR, METAL DRILLING MACHINE OPERATOR-C Primary care physician Active Start: January 01, 2025 End: January 01, 2025 Сергей Bergman METAL DRILLING MACHINE OPERATOR, METAL DRILLING MACHINE OPERATOR-C Referring Provider Active Start: December End: January 01, 2025 Ren ELLIS, PA Attending physician Active St art: January 01, 2025 End: January 01, 2025 Goals (unrecognized section and content) Goals may [...] content) Care Team Personnel Name: СЕРГЕЙ BERGMAN FINANCIAL REPORT SERVICE SALES AGENT - PAI GOW MANAGER Position: P4 Advanced Transplant Immunologist Member Role: Primary Care Physician Address: Address: [address] [place] [address]- Name: JACQUELYN ANDRES MD Position: ED Physician Member Role: ED Physician Address: Address: [address] [place] [id number] Care Team Related Persons Name: ELIER JAMES (unrecognized sect ion and content) No Status Records FoundNo Status Records FoundNo Status Records FoundNo Status Records FoundNo Status Records Found INFORMATION SOURCE (unrecogn ized section and content) DATE CREATED AUTHOR 12/10/2023 [facility] ([place]) DATE CREATED AUTHOR AUTHOR'S ORGANIZ ATION 01/09/2024 [facility] DATE CREATED AUTHOR AUTHOR'S ORGANIZ ATION 05/02/2024 [facility] DATE CREATED AUTHOR AUTHOR'S ORGANIZ ATION 08/31/2024 [facility] DATE CREATED AUTHOR AUTHOR'S ORGANIZ ATION 01/03/2025 [facility] FOR RECORDS PERTAINING TO PATIENTS WHO ARE [...] BE BASED ON THE PRIMARY CLINICAL RECORDS. [employer] provides no warranty or guarantee of the accuracy or completeness of information in this document.
[2025-01-07] MEDS: 0.9% Normal Saline (1000mL) 1,000 ML 999 ML IV (03:04)
[2025-01-07] MEDS: Famotidine 200 MG/20 ML MDV 20 MG in 0.9% Normal Saline (Pres. free 8 ML 300 MG IV (03:05)
[2025-01-07 03:12] LABS: Hematocrit 48.7 % (40-54); Hemoglobin 17.1 g/dL (13.0-16.5); Immature Granulocytes Count 0.040 X10^3/uL (0.0-0.0); Mean Corp Hgb Conc 35.1 g/dL (32-36); Mean Corpuscular Volume 85.9 fL (80-94); Mean Platelet Vol. 10.9 fl (6.2-12.0); NRBC Flagged by Analyzer 0 % (0-5); Platelet Count 228 K/mm3 (150-450); RBC Distribution Width CV 13.4 % (11.6-14.6); RBC Distribution Width SD 41.7 fl (35.1-43.9); Red Blood Count 5.67 M/mm3 (4.6-6.2); White Blood Count 12.5 K/mm3 (4.4-11.0)
[2025-01-07 03:45] LABS: Lipase 24 U/L (13-75)
[2025-01-07 03:46] LABS: AST(SGOT) 48 U/L (<=37); Alanine Aminotransfer ALT/SGPT 42 U/L (<=46); Albumin, Serum 4.7 g/dL (3.5-5.0); Alkaline Phosphatase 63 U/L (40-129); Anion Gap 19 (5-15); BUN 28 mg/dL (4-19); BUN/Creat Ratio 27.9 RATIO (10-20); Calcium,Total 9.3 mg/dL (7.6-11.0); Carbon Dioxide 18.2 mmol/L (21.0-32.0); Chloride 99 mmol/L (98-108); Estimated Creatinine Clearance 144.88 ml/min (50-250); Globulin 3.6 g/dL (2.2-4.2); Glucose 108 mg/dL (70-99); Potassium 4.1 mmol/L (3.3-5.1)
[2025-01-07 04:11] VITALS: BP 147/74; PULSE 90; RESP 18; TEMP 36.4; O2SAT 97
== END 2025-01-07 04:31 | disposition home or self-care (01) ==
PROVIDERS: Emergency Provider Emergency Medicine; PCP Nurse Practitioner Family; Visit Provider Emergency Medicine
DX: R11.2 Nausea with vomiting, unspecified (principal); E11.9 Type 2 diabetes mellitus without complications; E86.0 Dehydration; I10 Essential (primary) hypertension; F17.200 Nicotine dependence, unspecified, uncomplicated; Z79.84 Long term (current) use of oral hypoglycemic drugs; Z79.899 Other long term (current) drug therapy
CPT/HCPCS: 80053; 83690; 85025; 96361; 96374; 96375; 99283; J2405

== ENCOUNTER 2025-03-23 07:26 | Emergency (ER) | payer MEDICARE, MEDICAID, SELFPAY ==
[2025-03-23 07:29] VITALS: BP 178/112; PULSE 98; RESP 16; TEMP 36.1; O2SAT 100
--- NOTE | 2025-03-23 07:56 | ED.VIS.GI ---
HPI HPI - GI History of Present Illness Chief Complaint: Nausea/Vomiting Informant: patient and parent Narrative Narrative: Patient is a 39-year-old male with a history of asthma, bipolar disorder, heart murmur, and chronic back pain, presenting with 2-3 days of emesis some some hematemesis that he noticed just this AM prior to arrival. - Reports onset of nausea and emesis 2-3 days ago, with hematemesis beginning early this morning. Upper abd pain started after the n/v. - Describes emesis as containing both blood and gastric contents; denies melena. - Unable to retain liquids. - Associated symptoms include abdominal soreness, bilateral arm numbness, and rib pain. - Denies fever, diarrhea, or chest pain. - No known sick contacts. - Takes daily aspirin for heart murmur and chest pain, as well as often taking Aleve for back pain. - Denies any previous abdominal surgeries or endoscopies. [facility] Medical History Substance abuse Gastroenteritis due to food toxin Nausea & vomiting Hypercholesteremia Smoker Hypertension Night terrors, adult Bipolar disorder Schizophrenia Excessive cerumen in right ear canal Mass of left lung Muscle strain of chest wall Left-sided chest wall pain Lumbar strain Lumbar contusion Back pain Asthma Fatigue Home Medications ?Medication ?Instructions ?Recorded ?Last Taken ?Type atenolol 25 mg tablet 25 mg PO DAILY 10/09/18 Unknown History omeprazole 10 mg capsule,delayed 10 mg PO DAILY 11/16/18 Unknown History release fluticasone 100 mcg-salmeterol 50 1 inh inhalation DAILY 11/23/22 Unknown History mcg/dose blistr powdr for inhalation (Advair Diskus) albuterol sulfate 90 mcg/actuation 2 puff inhalation Q4H PRN 12/28/24 Unknown History aerosol inhaler shortness of breath or wheezing aspirin 81 mg tablet,delayed 81 mg PO DAILY 12/28/24 Unknown History release cetirizine 10 mg tablet 10 mg PO DAILY ALLERGIES 12/28/24 Unknown History cholecalciferol (vitamin D3) 1,250 1,250 mcg PO QMONTH 12/28/24 Unknown History mcg (50,000 unit) capsule famotidine 40 mg tablet 40 mg PO DAILY INDIGESTION 12/28/24 Unknown History fluticasone propionate 50 2 spray intranasal Q12H ALLERGIES 12/28/24 Unknown History mcg/actuation nasal spray,suspension metformin 500 mg tablet 500 mg PO BID 12/28/24 Unknown History metoprolol succinate 25 mg 25 mg PO DAILY HEART RATE 12/28/24 Unknown History tablet,extended release 24 hr montelukast 10 mg tablet 10 mg PO DAILY ALLERGIES 12/28/24 Unknown History olanzapine 15 mg tablet 15 mg PO QHS 12/28/24 Unknown History omeprazole 40 mg capsule,delayed 40 mg PO DAILY 12/28/24 Unknown History release prazosin 1 mg capsule 1 mg PO QHS 12/28/24 Unknown History prazosin 2 mg capsule 2 mg PO QHS 12/28/24 Unknown History ramipril 10 mg capsule 10 mg PO DAILY 12/28/24 Unknown History rosuvastatin 5 mg tablet 5 mg PO DAILY HIGH CHOLESTEROL 12/28/24 Unknown History ondansetron HCl 4 mg tablet 4 mg PO Q8H PRN nausea and 01/06/25 Unknown Rx vomiting #7 tabs ondansetron 4 mg disintegrating 4 mg PO Q8H PRN PRN Nausea #10 tabs 01/07/25 Unknown Rx tablet potassium chloride 20 mEq 20 meq PO BID #6 tabs 03/23/25 Unknown Rx tablet,extended release (K-Tab) promethazine 25 mg tablet 25 mg PO Q6H PRN PRN Nausea #10 03/23/25 Unknown Rx TABLETS sucralfate 1 gram tablet (Carafate) 1 g PO TID 1 week #21 tabs 03/23/25 Unknown Rx Allergy/AdvReac Type Severity Reaction Status Date / Time [facility] Allergy Hives Verified 03/23/25 07:30 Surgical History History of ankle surgery Social History Smoking Status: Heavy Smoker (>10/day) alcohol intake: never substance use type: marijuana ROS ROS ED Constitutional Constitutional ED: Denies chills or fever(s) Eyes Eyes: Denies change in vision or diplopia ENT ENT ED: Denies rhinorrhea or sore throat Cardiovascular Cardiovascular: Denies chest pain or palpitations Respiratory/Chest Respiratory/Chest: Denies cough or dyspnea Gastrointestinal Gastrointestinal: Reports abdominal pain, hematemesis, nausea and vomiting; Denies diarrhea, hematochezia or melena Genitourinary Genitourinary ED: Denies dysuria or hematuria Musculoskeletal Musculoskeletal: Reports back pain and other Details: no acute worsening of chronic low back pain ; Denies neck pain Integumentary Denies abscess or rash Neurologic Neurologic: Denies headache(s), paresthesias or weakness EXAM Physical Exam Const Vital Signs: 03/23/25 07:29 03/23/25 09:26 Temperature 97 F L Temperature Source Temporal Pulse Rate 98 98 Respiratory Rate 16 22 H Blood Pressure 178/112 H 160/100 H Blood Pressure Mean 134 120 Pulse Ox 100 100 Oxygen Delivery Method Room Air Room Air Positive well nourished, well developed and obese General Appearance ED: well developed and NAD Nutritional Appearance: obese HEENT Reports moist mucous membranes normocephalic and atraumatic Eyes PERRL and EOMs intact bilaterally Neck full ROM and supple Resp normal respiratory effort and clear to auscultation bilaterally Cardio regular rate, regular rhythm and no murmurs Rate: Negative for tachycardic GI non-distended GI Narrative: Benign objective abdominal exam. Patient states sore with palpation everywhere, nonfocal. Auscultation: normoactive bowel sounds Palpation: soft Back/Spine no CVA tenderness General Back: other FROM Extremity normal to inspection General Extremety ED: Negative for edema, pulses abnormal or tenderness General Extremity: Negative for edema or pulses abnormal Neuro oriented x3, CN's II-XII intact bilaterally and no sensory deficits noted Sensorium / Orientation: awake and alert Motor Exam: strength 5/5 throughout Psych Psych Narrative: yelling at his mother. Mood & Affect: anxious Skin no rashes or lesions noted and no wounds MDM MDM MDM Narrative Medical decision making narrative: With the patient?s frequent NSAID use and lack of fevers, there is concern for possible hemorrhagic gastritis or peptic ulcer. Therefore, we obtained blood counts, a CMP, and lipase, given that pancreatitis is also in the differential. We administered IV fluids, Reglan for nausea, and pantoprazole to protect the gastric lining. His workup shows leukocytosis of 18.6 with a mild leftward shift, no bandemia, and a low potassium of 3.0, presumably from losses. His liver enzymes are unremarkable, and his lipase is normal, making acute pancreatitis unlikely. After re-evaluation, medication, and fluids, he is feeling much better: his nausea has resolved, and he is tolerating oral fluids, though he reports some heartburn. We gave him Mylanta and Toradol because he was experiencing rib pain from vomiting. He has no history suggesting fracture or other intrathoracic pathology. As long as his lung exam remains clear, his oxygen levels are normal, and he has no cough, I do not believe a repeat chest X-ray is needed to evaluate for pneumonia. His blood pressure is now 160/100, and he appears somewhat agitated and anxious. My suspicion is acute gastritis; the leukocytosis may be due to demargination from stress, though infectious gastritis is still possible. My suspicion for H. pylori is not particularly high, but NSAID-induced gastritis could have caused some bleeding, or this could be a Lida-Alexis tear. His BUN is slightly elevated, which could be related to mild dehydration or possible upper GI bleeding. However, given that his hemoglobin is 17.9, I do not see a need for admission. I will discharge him with an antiemetic, a PPI, Carafate, and potassium, and advise outpatient follow-up. Portions of this note were generated using voice recognition software ([employer]). I have reviewed the contents and every effort has been made to ensure accuracy; however, inadvertent errors in grammar, spelling, punctuation, or word choice may occur, that were not noted before signing the document and should not alter the intended clinical meaning. History & Record Review Discussion w/independent historian: Patient and Family Lab Data Attestation: I reviewed the patient's lab results. Labs: Laboratory Results - last 24 hr 03/23/25 07:40 WBC 18.6 H RBC 6.04 Hgb 17.9 H Hct 51.2 MCV 84.8 MCH 29.6 MCHC 35.0 RDW Std Deviation 41.9 RDW Coeff of Joey 13.6 Plt Count 267 MPV 10.8 Immature Gran % (Auto) 0.500 Neut % (Auto) 71.9 H Lymph % (Auto) 18.3 L Sharkey % (Auto) 9.1 Eos % (Auto) 0.0 Baso % (Auto) 0.2 Absolute Neuts (auto) 13.3 H Absolute Lymphs (auto) 3.40 Nucleated RBC % 0 Sodium 133 Potassium 3.0 L Chloride 90 L Carbon Dioxide 24.2 Anion Gap 19 H BUN 34 H Creatinine 1.20 Estim Creat Clear Calc 123.37 Est GFR (MDRD) Non-Af 79 BUN/Creatinine Ratio 28.4 H Glucose 137 H Calcium 9.6 Total Bilirubin 1.09 AST 51 H ALT 47 Alkaline Phosphatase 64 Total Protein 8.6 H Albumin 4.8 Globulin 3.8 Albumin/Globulin Ratio 1.3 Lipase 20 Discharge Plan Triage Chief Complaint: Nausea/Vomiting ED Provider: Rivera Chavez Dx/Rx/DC Orders Clinical Impression: Acute gastritis with bleeding, Acute hypokalemia, Leukocytosis Instructions: ED Gastritis (Adult), ED Upper GI Bleeding (Stable) Prescriptions: New sucralfate [Carafate] 1 gram tablet 1 g PO TID 7 Days Qty: 21 0RF promethazine 25 mg tablet 25 mg PO Q6H PRN PRN (Reason: Nausea) Qty: 10 0RF potassium chloride [K-Tab] 20 mEq tablet extended release 20 meq PO BID Qty: 6 0RF No Action omeprazole 10 mg capsule,delayed release(DR/EC) 10 mg PO DAILY fluticasone propion-salmeterol [Advair Diskus] 100-50 mcg/dose blister with device 1 inh inhalation DAILY ondansetron HCl 4 mg tablet 4 mg PO Q8H PRN (Reason: nausea and vomiting) Qty: 7 0RF atenolol 25 tablet 25 mg PO DAILY ondansetron 4 mg tablet,disintegrating 4 mg PO Q8H PRN PRN (Reason: Nausea) Qty: 10 0RF aspirin 81 mg tablet,delayed release (DR/EC) 81 mg PO DAILY albuterol sulfate 90 mcg/actuation HFA aerosol inhaler 2 puff inhalation Q4H PRN (Reason: shortness of breath or wheezing) cetirizine 10 mg tablet 10 mg PO DAILY cholecalciferol (vitamin D3) 1,250 mcg (50,000 unit) capsule 1,250 mcg PO QMONTH metformin 500 mg tablet 500 mg PO BID prazosin 1 mg capsule 1 mg PO QHS Rx Instructions: TAKE WITH 2 MG TABLET FOR A TOTAL OF 3 MG AT NIGHT omeprazole 40 mg capsule,delayed release(DR/EC) 40 mg PO DAILY montelukast 10 mg tablet 10 mg PO DAILY olanzapine 15 mg tablet 15 mg PO QHS metoprolol succinate 25 mg tablet extended release 24 hr 25 mg PO DAILY prazosin 2 mg capsule 2 mg PO QHS Rx Instructions: TAKE WITH 1 MG TABLET FOR A TOTAL OF 3 MG AT NIGHT famotidine 40 mg tablet 40 mg PO DAILY fluticasone propionate 50 mcg/actuation spray,suspension 2 spray INTRANASAL Q12H ramipril 10 mg capsule 10 mg PO DAILY rosuvastatin 5 mg tablet 5 mg PO DAILY Primary Care Provider: Tobias Bergman NP Referrals: Tobias Bergman NP, SUPERVISOR CHLORINE LIQUEFACTION-C [Primary Care Provider, Family Practice] - 3-5 Days Activity Restrictions/Additional Instructions: Make sure you still have your omeprazole and continue to take it as prescribed Print Language: Azeri Disposition Disposition: Home, Self Care
[2025-03-23 08:05] VITALS: BMI 41.8
[2025-03-23] MEDS: 0.9% Normal Saline (1000mL) 1,000 ML 999 ML IV (08:07)
[2025-03-23] MEDS: Pantoprazole Sodium 40 MG in 0.9% Normal Saline (100mL MB+) 100 ML 300 MG IV (08:07)
[2025-03-23 08:30] LABS: Differential Indicated SCAN CRITERIA MET; Hematocrit 51.2 % (40-54); Hemoglobin 17.9 g/dL (13.0-16.5); Immature Granulocytes Count 0.100 X10^3/uL (0.0-0.0); Mean Corp Hgb Conc 35.0 g/dL (32-36); Mean Corpuscular Volume 84.8 fL (80-94); Mean Platelet Vol. 10.8 fl (6.2-12.0); NRBC Flagged by Analyzer 0 % (0-5); POSITIVE DIFFERENTIAL YES; Platelet Count 267 K/mm3 (150-450); RBC Distribution Width CV 13.6 % (11.6-14.6); RBC Distribution Width SD 41.9 fl (35.1-43.9); Red Blood Count 6.04 M/mm3 (4.6-6.2); White Blood Count 18.6 K/mm3 (4.4-11.0)
[2025-03-23 08:52] LABS: AST(SGOT) 51 U/L (<=37); Alanine Aminotransfer ALT/SGPT 47 U/L (<=46); Albumin, Serum 4.8 g/dL (3.5-5.0); Alkaline Phosphatase 64 U/L (40-129); Anion Gap 19 (5-15); BUN 34 mg/dL (4-19); BUN/Creat Ratio 28.4 RATIO (10-20); Calcium,Total 9.6 mg/dL (7.6-11.0); Carbon Dioxide 24.2 mmol/L (21.0-32.0); Chloride 90 mmol/L (98-108); Estimated Creatinine Clearance 123.37 ml/min (50-250); Globulin 3.8 g/dL (2.2-4.2); Glucose 137 mg/dL (70-99); Lipase 20 U/L (13-75); Potassium 3.0 mmol/L (3.3-5.1)
[2025-03-23 09:26] VITALS: BP 160/100; PULSE 98; RESP 22; O2SAT 100
[2025-03-23] MEDS: Ketorolac 30 MG/ML Syringe IV (09:40)
[2025-03-23] MEDS: Potassium Chloride Oral Tablet 20 MEQ 40 MEQ PO (09:41)
== END 2025-03-23 10:29 | disposition home or self-care (01) ==
PROVIDERS: Emergency Provider Emergency Medicine; PCP Nurse Practitioner Family; Visit Provider Emergency Medicine
DX: K29.01 Acute gastritis with bleeding (principal); D72.829 Elevated white blood cell count, unspecified; E87.6 Hypokalemia; I10 Essential (primary) hypertension; F17.200 Nicotine dependence, unspecified, uncomplicated; Z79.82 Long term (current) use of aspirin; Z79.899 Other long term (current) drug therapy
CPT/HCPCS: 80053; 83690; 85025; 96365; 96375; 99284; A4216